=== PATIENT | male | born 1970 | race Caucasian/White ===

== ENCOUNTER 2023-11-23 13:48 | Inpatient (IN) ==
--- NOTE | 2023-11-23 14:08 | Emergency Department Note ---
Impression & Plan Alcohol withdrawal delirium, Alcohol withdrawal, Alcoholic hepatitis, Encephalopathy, Alcohol withdrawal seizure, Hypoxia ED Provider Note NAME: RM CALL AGE: 52 SEX: M : 1970 ARRIVES VIA: Ambulance INFORMANT: Patient ED PROVIDER(S): Sotero Byrne DO CHIEF COMPLAINT: withdraw HPI: Patient is a 52-year-old male who presents the ER from [facility] for withdrawal. He notes he normally drinks 8-10 beers a day. Last time drink was last night. Notes he cannot stop shaking. He was at [facility] he was shaking diaphoretic and hallucinating consequently sent him here per EMS. Denies any headache or change in vision. No chest pain or shortness of breath. Admits to nausea but no vomiting. No dysuria, urgency, or frequency. No other exacerbating or remitting factors. ADDITIONAL HISTORY OBTAINED: Per HPI Chronic Medical/Social Conditions Affecting Care: Per HPI PAST MEDICAL HISTORY:See Below PAST SURGICAL HISTORY:See Below FAMILY HISTORY:See Below SOCIAL HISTORY:See Below HOME MEDICATIONS:See Below ALLERGIES:See Below VITALS:See Below PHYSICAL EXAMINATION: GENERAL: Sitting up in bed, alert, diaphoretic, shaking/tremulous EYE EXAM: normal conjunctiva. PERRL and EOM's grossly intact. OROPHARYNX: no exudate, no erythema, lips, buccal mucosa, and tongue normal and mucous membranes are moist NECK: supple, no nuchal rigidity, no adenopathy, non-tender LUNGS: Clear to auscultation. Normal chest wall mechanics HEART: no murmurs, S1 normal and S2 normal ABDOMEN: abdomen soft, non-tender, normo-active bowel sounds, no masses, no rebound or guarding. BACK: Back is symmetrical on inspection and there is no deformity, no midline tenderness, no CVA tenderness. SKIN: no rashes and no bruising UPPER EXTREMITIES: upper extremities are grossly normal. LOWER EXTREMITIES: No pitting edema. NEURO EXAM: Normal sensorium oriented to person place and time with diffuse tremors, cranial nerves II-XII grossly intact, normal speech, no gross weakness of arms, no gross weakness of legs. MEDICAL DECISION MAKING: Patient is a 52-year-old male who presents the ER for possible alcohol withdrawal. Upon arrival he is found to be hypertensive tachycardic and tremulous. IVs were established blood work was obtained. Labs show no significant leukocytosis or anemia. There is a thrombocytopenia at 79 likely secondary to alcohol abuse but no old to compare to. BMP with a T. bili of 3.9 and an AST of 177. ALT was normal. Lipase normal. Patient was given a total of 10 mg of Ativan and intervals due to the withdrawal in combination with 5 mg of Valium as well as 260 mg of phenobarbital. Patient did become slightly hypoxic. He did have 2 seizures witnessed by nursing staff which by the time I got into the room were resolved. Patient was admitted to the hospitalist and thermal intelligence analyst did present at bedside and evaluate the patient. Consults/Care Managements Discussions: Per [facility] Triage Nursing notes reviewed. Limited review of prior medical records performed Vital Signs: reviewed and remarkable for HTN, tachy Differential diagnosis: Infection, dehydration, metabolic abnormality, hypo/hyperglycemia, electrolyte disturbance, anemia, hypoxia, cardiac sources, intracerebral event, toxicologic, neurologic, as well as other pathologies. ER treatment provided: See below Diagnostics interpreted by me include EKG and cardiac monitoring as listed below: -Cardiac Monitoring: An order was placed for continuous cardiac monitoring. The monitor shows a rate of 101 with sinus rhythm. -ECG: Sinus rhythm rate of 100 Normal axis No PVCs QTc 452 -Laboratory studies:Interpreted by me as stated above in MDM and shown below. Imaging studies: Xrays: As interpreted by me: Portable AP upright 1 view of the chest shows no focal infiltrate CTs show: none Procedures:none Critical Care: I have personally spent 125 minutes of critical care time in the direct management of this patient. This includes bedside care, interpretation of diagnostic studies, and testing, discussion with consultants, patient, and family members, and other required patient management activities. This 125 minutes is in excess of all separately billable procedures. Past Med/Surg History Problem List (Updated 11/23/23 @ 20:32 by Sotero Byrne DO) Hypoxia (Acute) Alcohol withdrawal seizure (Acute) Alcohol withdrawal delirium (Acute) Encephalopathy (Acute) Alcoholic hepatitis (Acute) Alcohol withdrawal (Acute) Social History Smoking Status: Unknown if ever smoked Hx Alcohol Use: Yes Alcohol type: beer Preferred Language: Lithuanian Communication Ability: Effective Hazmat Technician Required: No Beliefs That Will Affect Care: None Current Living Situation Comment: from [facility] Feels Safe at Home: Declines to Answer Home Meds Home Medications Medication Instructions Recorded Confirmed Unobtainable 11/23/23 11/23/23 Results & Data (ED) Vital Signs Vital Signs - 24 hr 11/23/23 13:54 11/23/23 13:56 11/23/23 14:00 Temperature 36.9 C Temperature Source Oral Pulse Rate 106 H 105 H 104 H Pulse Rate from SpO2 Sensor Respiratory Rate 26 H Respiratory Effort / Characteristics Spontaneous Blood Pressure 117/103 H Blood Pressure Mean 107 Pulse Oximetry 95 Oxygen Delivery Method Room Air Sepsis Recent Fever Within 48 Hours No Sepsis New/Unexplained Change in Mental Status No Sepsis Action Taken by Nursing No Action Required 11/23/23 14:01 11/23/23 14:01 11/23/23 14:05 Temperature Temperature Source Pulse Rate 106 H Pulse Rate from SpO2 Sensor Respiratory Rate Respiratory Effort / Characteristics Blood Pressure 159/105 H Blood Pressure Mean 112 Pulse Oximetry 95 Oxygen Delivery Method Room Air Sepsis Recent Fever Within 48 Hours Sepsis New/Unexplained Change in Mental Status Sepsis Action Taken by Nursing 11/23/23 14:10 11/23/23 14:15 11/23/23 14:15 Temperature Temperature Source Pulse Rate 106 H 102 H Pulse Rate from SpO2 Sensor 105 H 102 H Respiratory Rate Respiratory Effort / Characteristics Blood Pressure 157/90 H Blood Pressure Mean 106 Pulse Oximetry 95 94 Oxygen Delivery Method Sepsis Recent Fever Within 48 Hours Sepsis New/Unexplained Change in Mental Status Sepsis Action Taken by Nursing 11/23/23 14:20 11/23/23 14:30 11/23/23 14:30 Temperature Temperature Source Pulse Rate 118 H 99 H Pulse Rate from SpO2 Sensor 100 H 99 H Respiratory Rate 24 Respiratory Effort / Characteristics Blood Pressure 162/94 H Blood Pressure Mean 112 Pulse Oximetry 94 94 Oxygen Delivery Method Sepsis Recent Fever Within 48 Hours Sepsis New/Unexplained Change in Mental Status Sepsis Action Taken by Nursing 11/23/23 14:40 11/23/23 14:45 11/23/23 14:45 Temperature Temperature Source Pulse Rate 95 H 94 H Pulse Rate from SpO2 Sensor 95 H 95 H Respiratory Rate Respiratory Effort / Characteristics Blood Pressure 148/89 H Blood Pressure Mean 97 Pulse Oximetry 95 94 Oxygen Delivery Method Sepsis Recent Fever Within 48 Hours Sepsis New/Unexplained Change in Mental Status Sepsis Action Taken by Nursing 11/23/23 14:50 11/23/23 15:00 11/23/23 15:00 Temperature Temperature Source Pulse Rate 92 H 90 Pulse Rate from SpO2 Sensor 90 88 Respiratory Rate 18 Respiratory Effort / Characteristics Blood Pressure 145/99 H Blood Pressure Mean 110 Pulse Oximetry 95 97 Oxygen Delivery Method Sepsis Recent Fever Within 48 Hours Sepsis New/Unexplained Change in Mental Status Sepsis Action Taken by Nursing 11/23/23 15:10 11/23/23 15:15 11/23/23 15:15 Temperature Temperature Source Pulse Rate 86 87 Pulse Rate from SpO2 Sensor 87 Respiratory Rate Respiratory Effort / Characteristics Blood Pressure 134/93 Blood Pressure Mean 102 Pulse Oximetry 97 93 Oxygen Delivery Method Sepsis Recent Fever Within 48 Hours Sepsis New/Unexplained Change in Mental Status Sepsis Action Taken by Nursing 11/23/23 15:20 11/23/23 15:30 11/23/23 15:30 Temperature Temperature Source Pulse Rate 92 H 86 Pulse Rate from SpO2 Sensor 94 H Respiratory Rate 24 Respiratory Effort / Characteristics Blood Pressure 142/90 H Blood Pressure Mean 102 Pulse Oximetry Oxygen Delivery Method Sepsis Recent Fever Within 48 Hours Sepsis New/Unexplained Change in Mental Status Sepsis Action Taken by Nursing 11/23/23 15:40 11/23/23 15:45 11/23/23 15:45 Temperature Temperature Source Pulse Rate 88 82 Pulse Rate from SpO2 Sensor Respiratory Rate 24 Respiratory Effort / Characteristics Blood Pressure 137/84 Blood Pressure Mean 109 Pulse Oximetry Oxygen Delivery Method Sepsis Recent Fever Within 48 Hours Sepsis New/Unexplained Change in Mental Status Sepsis Action Taken by Nursing 11/23/23 15:50 11/23/23 16:00 11/23/23 16:00 Temperature Temperature Source Pulse Rate 83 90 Pulse Rate from SpO2 Sensor Respiratory Rate 24 Respiratory Effort / Characteristics Blood Pressure 166/96 H Blood Pressure Mean 118 Pulse Oximetry Oxygen Delivery Method Sepsis Recent Fever Within 48 Hours Sepsis New/Unexplained Change in Mental Status Sepsis Action Taken by Nursing 11/23/23 16:15 11/23/23 16:15 11/23/23 16:20 Temperature Temperature Source Pulse Rate 105 H 102 H Pulse Rate from SpO2 Sensor 102 H 103 H Respiratory Rate Respiratory Effort / Characteristics Blood Pressure 147/92 H Blood Pressure Mean 102 Pulse Oximetry 94 92 Oxygen Delivery Method Sepsis Recent Fever Within 48 Hours Sepsis New/Unexplained Change in Mental Status Sepsis Action Taken by Nursing 11/23/23 16:30 11/23/23 16:30 11/23/23 16:40 Temperature Temperature Source Pulse Rate 96 H 99 H Pulse Rate from SpO2 Sensor 97 H 98 H Respiratory Rate 34 H Respiratory Effort / Characteristics Blood Pressure 143/95 H Blood Pressure Mean 108 Pulse Oximetry 90 91 Oxygen Delivery Method Room Air Sepsis Recent Fever Within 48 Hours Sepsis New/Unexplained Change in Mental Status Sepsis Action Taken by Nursing 11/23/23 16:46 11/23/23 16:46 11/23/23 16:50 Temperature Temperature Source Pulse Rate 109 H 97 H Pulse Rate from SpO2 Sensor 97 H Respiratory Rate 24 34 H Respiratory Effort / Characteristics Blood Pressure 163/96 H Blood Pressure Mean 130 Pulse Oximetry 96 Oxygen Delivery Method Sepsis Recent Fever Within 48 Hours Sepsis New/Unexplained Change in Mental Status Sepsis Action Taken by Nursing 11/23/23 17:00 11/23/23 17:00 Temperature Temperature Source Pulse Rate 95 H Pulse Rate from SpO2 Sensor 99 H Respiratory Rate 31 H Respiratory Effort / Characteristics Blood Pressure 141/107 H Blood Pressure Mean 111 Pulse Oximetry 97 Oxygen Delivery Method Sepsis Recent Fever Within 48 Hours Sepsis New/Unexplained Change in Mental Status Sepsis Action Taken by Nursing Laboratory Data 11/23/23 14:00 11/23/23 14:00 Lab Results 11/23/23 Range/Units 14:00 WBC 8.77 (4.8-10.8) K/ul RBC 3.99 L (4.70-6.10) M/uL Hgb 13.0 L (14.0-18.0) g/dl Hct 38.0 L (42.0-52.0) % MCV 95.2 (80.0-100.0) fL MCH 32.6 (25.0-34.0) pg MCHC 34.2 (32.0-36.0) g/dL RDW Std Deviation 50.1 H (36.4-46.3) fL RDW Coeff of Mira 14.1 (11.5-14.5) % Plt Count 79 L (130-400) K/uL MPV 12.3 (9.4-12.4) fL Immature Gran % (Auto) 0.5 % Neut % (Auto) 82.6 % Lymph % (Auto) 3.5 % Frontier % (Auto) 12.5 % Eos % (Auto) 0.0 % Baso % (Auto) 0.9 % Neut # (Auto) 7.24 H (1.40-6.50) K/uL Lymph # (Auto) 0.31 L (1.20-3.40) K/uL Frontier # (Auto) 1.10 H (0.11-0.59) K/uL Eos # (Auto) 0.00 (0.00-0.50) K/uL Baso # (Auto) 0.08 (0.00-0.20) K/uL Immature Gran # (Auto) 0.04 (0.01-0.20) K/uL Platelet Estimate Decreased L (Normal) PT 12.5 H (9.0-12.0) Seconds INR 1.2 H (0.9-1.1) APTT 28 (21-31) Seconds PTT Ratio 1.0 Sodium 136 (136-145) mmol/L Potassium 3.8 (3.5-5.1) mmol/L Chloride 99 (98-107) mmol/L Carbon Dioxide 26 (21-32) mmol/L Anion Gap 11 (3-11) BUN 10 (6-23) mg/dl Creatinine 0.80 (0.6-1.4) mg/dl Est Cr Clr Drug Dosing 125.4 ml/min Est GFR ( Amer) 119.0 ml/min Est GFR (Non-Af Amer) 102.7 ml/min BUN/Creatinine Ratio 12.5 (10-20) Glucose 104 H (70-99(Fasting)) mg/dl Calcium 9.6 (8.6-10.3) mg/dl Total Bilirubin 3.9 H (0.2-1.0) mg/dl AST 177 H (13-39) U/L ALT 40 (7-52) U/L Alkaline Phosphatase 206 H (34-104) U/L Troponin I High Sens 15.1 (0-20) pg/ml Total Protein 7.5 (6.0-8.3) gm/dl Albumin 4.3 (3.4-5.0) gm/dl Globulin 3.2 (2.5-4.0) gm/dl Albumin/Globulin Ratio 1.3 (0.9-2) Lipase 39 (11-82) U/L Ethyl Alcohol mg/dL < 10.0 (<10.0) mg/dl Administered Medications Multivitamins 10 ml/ Thiamine HCl 100 mg/ Folic Acid 1 mg/Sodium Chloride 1,011.2 mls @ 500 mls/hr IV .Q2H2M ONE Stop: 11/23/23 21:31 Last Admin: 11/23/23 20:01 Dose: 500 mls/hr Documented By: DANILO Dexmedetomidine/Sodium Chloride (Precedex) 200 mcg in 50 mls @ 9.23 mls/hr IV .Q5H26M FRANK; Protocol Stop: 11/27/23 18:52 Last Admin: 11/23/23 19:46 Dose: 0.4 mcg/kg/hr, 9.2 mls/hr Documented By: DANILO Co-signed By: VK Sodium Chloride (Nss) 1,000 mls @ 100 mls/hr IV .Q10H FRANK Stop: 12/23/23 18:52 Last Admin: 11/23/23 19:56 Dose: 100 mls/hr Documented By: DANILO Lorazepam 2 mg/ Syringe 2 mls @ 2 mls/min IV UD PRN; Protocol PRN Reason: EtOH Withdrawal AWSS Score 8,9 Stop: 12/23/23 18:52 Last Admin: 11/23/23 20:03 Dose: 2 mls/min Documented By: DANILO Discontinued Medications Diazepam (Diazepam 5 Mg/Ml 10ml Vial) Confirm Administered Dose 50 mg .ROUTE .STK-MED ONE Stop: 11/23/23 17:57 Last Admin: 11/23/23 17:59 Dose: 2.5 mg Documented By: ADRIAN Diazepam (Diazepam 5 Mg/Ml 10ml Vial) 2.5 mg IV NOW STA Stop: 11/23/23 18:04 Last Admin: 11/23/23 18:05 Dose: 2.5 mg Documented By: ADRIAN Diazepam (Diazepam 5 Mg/Ml 10ml Vial) 2.5 mg IV NOW STA Stop: 11/23/23 18:07 Last Admin: 11/23/23 17:59 Dose: 2.5 mg Documented By: ADRIAN Thiamine HCl 100 mg/ Syringe 10 mls @ 2 mls/min IV NOW STA Stop: 11/23/23 14:12 Last Admin: 11/23/23 14:39 Dose: 2 mls/min Documented By: HS Folic Acid 1 mg/ Syringe 10 mls @ 5 mls/min IV NOW STA Stop: 11/23/23 14:09 Last Admin: 11/23/23 14:39 Dose: 5 mls/min Documented By: HS Sodium Chloride (Nss) 1,000 mls @ 999 mls/hr IV .Q1H1M FRANK Stop: 11/23/23 16:15 Last Infusion: 11/23/23 16:05 Dose: Infused Documented By: Admin: 11/23/23 14:39 Dose: 999 mls/hr Documented By: Infusion: 11/23/23 14:39 Dose: Infused Documented By: Admin: 11/23/23 14:13 Dose: 999 mls/hr Documented By: HS Acetylcysteine 13,850 mg/ (Dextrose) 269.25 mls @ 269.25 mls/hr IV ONCE ONE; Protocol Stop: 11/23/23 19:59 Last Admin: 11/23/23 20:00 Dose: 269.3 mls/hr Documented By: DANILO Lorazepam (Lorazepam 1 Mg/1 Ml Syr Ed Inj Use) 2 mg IV ONE STA Stop: 11/23/23 14:06 Last Admin: 11/23/23 14:13 Dose: 2 mg Documented By: FACUNDO Lorazepam (Lorazepam 1 Mg/1 Ml Syr Ed Inj Use) 3 mg IV ONE STA Stop: 11/23/23 16:06 Last Admin: 11/23/23 16:11 Dose: 3 mg Documented By: ADRIAN Lorazepam (Lorazepam 1 Mg/1 Ml Syr Ed Inj Use) 2 mg IV ONE STA Stop: 11/23/23 16:29 Last Admin: 11/23/23 16:59 Dose: 2 mg Documented By: ADRIAN Lorazepam (Lorazepam 1 Mg/1 Ml Syr Ed Inj Use) 2 mg IV ONE STA Stop: 11/23/23 17:39 Last Admin: 11/23/23 17:43 Dose: 2 mg Documented By: FRAN Phenobarbital Sodium (Phenobarbital Sodium 65 Mg/Ml Vial) 130 mg IV NOW STA Stop: 11/23/23 18:03 Last Admin: 11/23/23 18:10 Dose: Not Given Documented By: ADRIAN Phenobarbital Sodium (Phenobarbital Sodium 65 Mg/Ml Vial) 260 mg IV NOW STA Stop: 11/23/23 18:06 Last Admin: 11/23/23 18:09 Dose: 260 mg Documented By: ADRIAN Imaging Data Radiologist's Impression: Chest X-Ray 11/23/23 14:05 XR chest 1V portable CLINICAL HISTORY: Chest pain, nonspecific COMPARISON STUDY: No previous studies for comparison. FINDINGS: No pneumothorax or pleural effusion is present. There is moderate enlargement of the cardiac silhouette. Pulmonary vascularity is normal. No consolidation is present. IMPRESSION: No acute cardiopulmonary findings. Cardiomegaly. ACT 112: Negative or not required by law. Electronically signed by: Williams Martínez M.D. 11/23/2023 2:32 PM Discharge Plan Visit Data Chief Complaint: Alcohol Withdrawal Stated Complaint: ALCOHOL DETOX ED Provider: Sotero Byrne Discharge Problem: Alcohol withdrawal delirium, Alcohol withdrawal, Alcoholic hepatitis, Encephalopathy, Alcohol withdrawal seizure, Hypoxia Patient Disposition: Admitted As Inpatient Discharge Instructions Interventions: ED Discharge Assessment Last Done: 11/23/23 18:26 Discharge Problem: Alcohol withdrawal Qualifiers: Complication of substance-induced condition: with delirium Qualified Code(s): F 10.931 - Alcohol use, unspecified with withdrawal delirium Alcoholic hepatitis Qualifiers: Ascites presence: unspecified Qualified Code(s): K70.10 - Alcoholic hepatitis without ascites Alcohol withdrawal seizure Qualifiers: Complication of substance-induced condition: with unspecified complication Q ualified Code(s): F10.939 - Alcohol use, unspecified with withdrawal, unspecified
[2023-11-23] MEDS: LORazepam 1 MG/1 ML SYR ED Inj Use IV STA ×4 (14:13→17:43)
[2023-11-23] MEDS: SODIUM CHLORIDE 0.9% 1,000 ML IV SCH ×2 (14:13→19:56)
--- NOTE | 2023-11-23 14:34 | XRay Report ---
XR chest 1V portable CLINICAL HISTORY: Chest pain, nonspecific COMPARISON STUDY: No previous studies for comparison. FINDINGS: No pneumothorax or pleural effusion is present. There is moderate enlargement of the cardia c silhouette. Pulmonary vascularity is normal. No consolidation is present. IMPRESSION: No acute cardiopulmonary findings. Cardiomegaly. ACT 112: Negative or not required by law. Electronically signed by: Williams Martínez M.D. 11/23/2023 2:32 PM
[2023-11-23] MEDS: THIAMINE HCL 100 MG in SYRINGE 9 ML IV STA (14:39)
[2023-11-23] MEDS: FOLIC ACID 1 MG in SYRINGE 9.8 ML IV STA (14:39)
[2023-11-23 14:46] LABS: Basophils # (auto) 0.08 K/uL (0.00-0.20); Basophils % (auto) 0.9 %; Immature Granulocytes # (auto) 0.04 K/uL (0.01-0.20); Immature Granulocytes % (auto) 0.5 %; Lymphocytes # (auto) 0.31 K/uL (1.20-3.40); Lymphocytes % (auto) 3.5 %; Mean Corpuscular Hemoglobin 32.6 pg (25.0-34.0); Mean Corpuscular Hgb Conc 34.2 g/dL (32.0-36.0); Mean Corpuscular Volume 95.2 fL (80.0-100.0); Mean Platelet Volume 12.3 fL (9.4-12.4); Monocytes % (auto) 12.5 %; Neutrophils # (auto) 7.24 K/uL (1.40-6.50); Neutrophils % (auto) 82.6 %; Platelet Count 79 K/uL (130-400); Platelet Estimate Decreased (Normal); RDW Coefficient of Variation 14.1 % (11.5-14.5); RDW Standard Deviation 50.1 fL (36.4-46.3); Red Blood Count 3.99 M/uL (4.70-6.10); White Blood Count 8.77 K/ul (4.8-10.8)
[2023-11-23 15:06] LABS: Albumin Globulin Ratio 1.3 (0.9-2); Albumin Level 4.3 gm/dl (3.4-5.0); BUN Creatinine Ratio 12.5 (10-20); Bilirubin,Total 3.9 mg/dl (0.2-1.0); Calcium 9.6 mg/dl (8.6-10.3); Creatinine Clr Calc Pharmacy 125.4 ml/min; Est GFR (Non-African American) 102.7 ml/min; Globulin 3.2 gm/dl (2.5-4.0); Potassium 3.8 mmol/L (3.5-5.1); Total Protein 7.5 gm/dl (6.0-8.3)
[2023-11-23 15:10] LABS: Troponin I High Sensitivity 15.1 pg/ml (0-20)
--- NOTE | 2023-11-23 17:22 | History & Physical Report ---
Date of Service November 23, 2023 Assessment & Plan (1) Alcohol withdrawal: Plan: Based on report, patient is a chronic drinker. He stated that he drinks 8 beers every day. Per the report I got, he checked himself into drug and alcohol rehab as he wanted to quit but was found to be actively withdrawing with hallucinations, tremors and thus was sent to the emergency room The patient was given a few doses of Ativan in the emergency room He will be started on alcohol withdrawal protocol with Ativan He will be admitted to PCU bed [facility] scoring Seizure precautions IV fluids Metoprolol for hypertension or tachycardia Banana bag (2) Alcoholic hepatitis: Plan: Patient most likely has alcoholic hepatitis AST: ALT is greater than 2 Elevated bilirubin level of 4 INR has not been checked. Ordered Acute hepatitis panel ordered Acetaminophen level ordered Will calculate discriminant factor to guide treatment (3) Encephalopathy: Plan: This is most likely due to alcohol withdrawal delirium tremens and toxic encephalopathy Will manage alcohol withdrawal Monitor clinically Plan CODE STATUS: Presumed to be full code. Patient is not able to participate in decision-making DVT prophylaxis: Lovenox will be started tomorrow. Thrombocytopenia noted. Will keep a close eye on platelet count and monitor for bleeding History of Present Illness Chief Complaint: "Cannot stop shaking" Primary Care Provider: NO PCP This is a 52-year-old male who presented to the ER with the above chief complaint. The patient is a poor historian at this time. Most of the history was obtained from ED report and documentation. Per report, patient is a heavy drinker. He drinks 8 beers every day. His last drink was last night. He then checked himself into drug and alcohol rehab because he wanted to quit drinking. At the rehab center, he was noted to be shaking, sweaty and hallucinating and thus was sent to the emergency room. He is currently very restless, fidgety, confused and is not able to answer questions accurately. He is getting easily distracted. He tells me that he does not take any medication on a regular basis. Home Medications Medication Instructions Recorded Confirmed Type Unobtainable 11/23/23 11/23/23 History Past Med/Surg History Problem List (Updated 11/23/23 @ 17:32 by Mary Reyes MD) Encephalopathy Alcoholic hepatitis Alcohol withdrawal Social History Smoking Status: Never smoker Feels Safe at Home: Yes Review of Systems Review of Systems: Unobtainable due to cognitive status Physical Exam Physical Exam: General appearance: Awake, confused. AO x 1. Restless and fidgety. Getting easily distracted Pupils: Equally reactive to light and accommodation Neck: No masses, no thyromegaly Respiration: Clear to auscultation bilaterally. Normal effort Cardiovascular: S1-S2/tachycardic regular rhythm. No murmur, rubs or gallop. No edema. Abdomen: Soft, nontender, nondistended. No hepatosplenomegaly Musculoskeletal: No clubbing, no cyanosis, normal range of motion Skin: No nodules. Neuro exam: Cranial nerves intact, sensation grossly intact Psychiatric: Patient does not seem to have good judgment or insight at this time. AO x 1. Lymphatics: No cervical or axillary lymphadenopathy noted Results & Data Results & Data Vital Signs (Past 12 Hours) Vital Signs Temp Pulse Resp BP Pulse Ox O2 Del Method 11/23/23 16:30 96 H 90 Room Air 11/23/23 16:30 143/95 H 11/23/23 16:20 102 H 92 11/23/23 16:15 147/92 H 11/23/23 16:15 105 H 94 11/23/23 16:00 90 11/23/23 16:00 166/96 H 11/23/23 15:50 83 24 11/23/23 15:45 82 11/23/23 15:45 137/84 11/23/23 15:40 88 24 11/23/23 15:30 86 11/23/23 15:30 142/90 H 11/23/23 15:20 92 H 24 11/23/23 15:15 87 93 11/23/23 15:15 134/93 11/23/23 15:10 86 97 11/23/23 15:00 90 18 97 11/23/23 15:00 145/99 H 11/23/23 14:50 92 H 95 11/23/23 14:45 148/89 H 11/23/23 14:45 94 H 94 11/23/23 14:40 95 H 95 11/23/23 14:30 162/94 H 11/23/23 14:30 99 H 24 94 11/23/23 14:20 118 H 94 11/23/23 14:15 102 H 94 11/23/23 14:15 157/90 H 11/23/23 14:10 106 H 95 11/23/23 14:05 95 Room Air 11/23/23 14:01 159/105 H 11/23/23 14:01 106 H 11/23/23 14:00 104 H 11/23/23 13:56 36.9 C 105 H 26 H 117/103 H 95 Room Air 11/23/23 13:54 106 H Laboratory Results Abnormal lab results 11/23/23 Range/Units 14:00 RBC 3.99 L (4.70-6.10) M/uL Hgb 13.0 L (14.0-18.0) g/dl Hct 38.0 L (42.0-52.0) % RDW Std Deviation 50.1 H (36.4-46.3) fL Plt Count 79 L (130-400) K/uL Neut # (Auto) 7.24 H (1.40-6.50) K/uL Lymph # (Auto) 0.31 L (1.20-3.40) K/uL Ada # (Auto) 1.10 H (0.11-0.59) K/uL Platelet Estimate Decreased L (Normal) Glucose 104 H (70-99(Fasting)) mg/dl Total Bilirubin 3.9 H (0.2-1.0) mg/dl AST 177 H (13-39) U/L Alkaline Phosphatase 206 H (34-104) U/L Diagnostic Findings Chest X-Ray 11/23/23 14:05 XR chest 1V portable CLINICAL HISTORY: Chest pain, nonspecific COMPARISON STUDY: No previous studies for comparison. FINDINGS: No pneumothorax or pleural effusion is present. There is moderate enlargement of the cardiac silhouette. Pulmonary vascularity is normal. No consolidation is present. IMPRESSION: No acute cardiopulmonary findings. Cardiomegaly. ACT 112: Negative or not required by law. Electronically signed by: Williams Martínez M.D. 11/23/2023 2:32 PM Code Status & VTE Plan VTE Prophylaxis Plan VTE Prophylaxis will be ordered: Yes PG Care Time/CCT Total # of Minutes Spent Total Time Spent with Patient: Total time spent is greater than 50% in coordination of care (as documented) at patient's floor/unit and/or counseling patient: Coding Level of Care Code 82578 INT INP/OBS CARE MIN Diagnoses Alcohol withdrawal F10.939 Alcoholic hepatitis K70.10 Encephalopathy G93.40
--- NOTE | 2023-11-23 17:52 | Electrocardiogram Report ---
Test Reason : Blood Pressure : / mmHG Vent. Rate : 100 BPM Atrial Rate : 100 BPM P-R Int : 170 ms QRS Dur : 096 ms QT Int : 352 ms P-R-T Axes : -04 -30 040 degrees QTc Int : 454 ms Normal sinus rhythm Left axis deviation Pulmonary disease pattern Incomplete right bundle branch block Abnormal ECG No previous ECGs available Confirmed by Gopi Paez ([id number]) on 11/23/2023 5:52:43 PM Referred By: Confirmed By:Gopi Paez
[2023-11-23] MEDS: diazePAM 5 MG/ML 10ML VIAL IV STA ×2 (17:59→18:05)
[2023-11-23] MEDS: diazePAM 5 MG/ML 10ML VIAL ONE (17:59)
[2023-11-23] MEDS: PHENobarbital sodium 65 MG/ML VIAL IV STA ×2 (18:09→18:10)
[2023-11-23] MEDS ORDERED: PHENobarbital PO Alcohol Withdrawal PO STA (18:40)
[2023-11-23] MEDS ORDERED: AcetylCYSTEINE IV 21 HR REGIMEN (>40KG) IV STA (18:46)
[2023-11-23] MEDS ORDERED: STAT IV/IM STA (18:46)
--- NOTE | 2023-11-23 18:52 | Critical Care Consultation ---
Date of Consultation November 23, 2023 Assessment & Plan (1) Alcohol withdrawal delirium: (2) Alcoholic hepatitis: Plan 52-year-old male with a history of significant alcohol abuse with last drink yesterday who presented from drug [facility] alcohol rehab with seizure-like activity. In the ER he was found to have seizures x 2 and has received 9 mg of Ativan and 5 mg of diazepam. He is being brought to the ICU due to severe alcohol withdrawal. Will continue alcohol withdrawal protocol with as needed Ativan and initiate Precedex for sympathetic response. Will also start the patient on phenobarb. Will start end-tidal CO2 monitoring. Will give the patient NAC protocol for alcoholic hepatitis. Monitor LFTs daily. Check coags. Obtain liver ultrasound. Obtain hepatitis panel. Evaluate airway closely as patient may need intubation due to large amounts of sedation required to control his DTs. Discussed extensively with hospitalist service and bedside nursing. Discussed with overnight HERNAN. CRITICAL CARE TIME - I have personally spent 48 minutes of critical care time in the direct management of this patient. This is a life/limb threatening event. This includes time spent evaluating patient, direct bedside care, chart review, placing orders, interpretation of diagnostic studies, discussion with consultants, patient, and family members, as well as other required patient management activities. This time is exclusive of all separately billable procedures, and teaching time and separate from and in addition to any other critical care service time. History of Present Illness Reason for Consultation: Acute alcohol withdrawal Attending Physician: Mary Reyes MD History of Present Illness 52-year-old male who was found delirious at drug and alcohol rehab was brought in via EMS. Found to have 2 witnessed seizures in the ER. Given 9 mg of IV Ativan in the ER 5 mg of diazepam. On exam he is completely delirious and unable to answer questions appropriately. He is alert. He is trying to get out of bed. Restraints have been placed. No family available at bedside to obtain collateral information. I was able to review this chart and discussed the case with the admitting hospitalist, multiple bedside nurses and respiratory therapist. There was concern at 1 point for desaturations and potential intubation. When I evaluated the patient he was saturating in the mid 90s on room air. He was mildly tachypneic. Labs generally unremarkable aside from mild transaminitis. Home Medications Medication Instructions Recorded Confirmed Type Unobtainable 11/23/23 11/23/23 History Patient History Social History Smoking Status: Never smoker Feels Safe at Home: Yes Review of Systems Review of Systems: Unobtainable due to cognitive status Physical Exam Physical Exam: Constitutional: Actively delirious. Mildly distressed. Eyes: Pupils are equal round and reactive to light. Conjunctivae are normal. Anicteric sclera. Ears nose, mouth and throat: Mallampati class 2. Normal posterior oropharynx. Uvula is midline. Neck: Trachea is midline. Visual inspection is normal. Respiratory: Clear to auscultation bilaterally. Mildly tachypneic. Cardiovascular: Regular rate and rhythm. No murmurs. No edema. Gastrointestinal: Normal bowel sounds, soft, nontender and nondistended. No hepatosplenomegaly noted. Musculoskeletal: No cyanosis. Patient is able to move all extremities. Strength is 5 out of 5 in the upper and lower extremities. Skin: No rashes, warm dry and intact. Neurologic: No obvious focal neurological deficits seen. Psychiatric: Disoriented and delirious. Results & Data Results & Data Vital Signs (Past 12 Hours) Vital Signs Temp Pulse Resp BP Pulse Ox O2 Del Method 11/23/23 18:10 113 H 88 L 11/23/23 18:00 150/93 H 11/23/23 18:00 101 H 43 H 95 11/23/23 17:59 120 H 11/23/23 17:50 109 H 37 H 95 11/23/23 17:40 150 H 33 H 82 L 11/23/23 17:39 97 H 11/23/23 17:30 157/107 H 11/23/23 17:30 107 H 23 94 11/23/23 17:20 100 H 28 H 94 11/23/23 17:10 95 H 24 96 11/23/23 17:00 141/107 H 11/23/23 17:00 95 H 31 H 97 11/23/23 16:50 97 H 34 H 96 11/23/23 16:46 109 H 24 11/23/23 16:46 163/96 H 11/23/23 16:40 99 H 34 H 91 11/23/23 16:30 96 H 90 Room Air 11/23/23 16:30 143/95 H 11/23/23 16:20 102 H 92 11/23/23 16:15 147/92 H 11/23/23 16:15 105 H 94 11/23/23 16:00 90 11/23/23 16:00 166/96 H 11/23/23 15:50 83 24 11/23/23 15:45 82 11/23/23 15:45 137/84 11/23/23 15:40 88 24 11/23/23 15:30 86 11/23/23 15:30 142/90 H 11/23/23 15:20 92 H 24 11/23/23 15:15 87 93 11/23/23 15:15 134/93 11/23/23 15:10 86 97 11/23/23 15:00 90 18 97 11/23/23 15:00 145/99 H 11/23/23 14:50 92 H 95 11/23/23 14:45 148/89 H 11/23/23 14:45 94 H 94 11/23/23 14:40 95 H 95 11/23/23 14:30 162/94 H 11/23/23 14:30 99 H 24 94 11/23/23 14:20 118 H 94 11/23/23 14:15 102 H 94 11/23/23 14:15 157/90 H 11/23/23 14:10 106 H 95 11/23/23 14:05 95 Room Air 11/23/23 14:01 159/105 H 11/23/23 14:01 106 H 11/23/23 14:00 104 H 11/23/23 13:56 36.9 C 105 H 26 H 117/103 H 95 Room Air 11/23/23 13:54 106 H Coding Level of Care Code 14158 CRITICAL CARE 1ST 30-74M Diagnoses Alcohol withdrawal delirium F10.931 Alcoholic hepatitis K70.10
[2023-11-23] MEDS ORDERED: ACETAMINOPHEN 325 MG TAB PO PRN (18:53)
[2023-11-23] MEDS ORDERED: STAT IV Infusion **Titration per Protocol STA (18:53)
[2023-11-23] MEDS ORDERED: Ativan IV Alcohol Withdrawal--Active Protocol IV PRN (18:53)
[2023-11-23] MEDS ORDERED: ONDANSETRON INJ 2 MG/ML 2 ML VIAL IV PRN (18:53)
[2023-11-23 19:23] LABS: INR 1.2 (0.9-1.1); Partial Thromboplastin Time 28 Seconds (21-31); Prothrombin Time 12.5 Seconds (9.0-12.0)
[2023-11-23] MEDS: dexMEDEtomidine 200 MCG/50 ML BAG IV SCH (19:46)
[2023-11-23] MEDS: MULTI-VITAMIN INFUSION 10 ML, THIAMINE HCL 100 MG, FOLIC ACID 1 MG in SODIUM CHLORIDE 0... IV ONE (20:01)
[2023-11-23] MEDS: LORazepam 2 MG in SYRINGE 1 ML IV PRN (20:03)
[2023-11-23] MEDS: ACETYLCYSTEINE IV ONE (21:26)
[2023-11-23] MEDS: DEXTROSE 5% IV ONE (21:26)
[2023-11-23] MEDS: levETIRAcetam 500 MG/5 ML VIAL IV STA (21:28)
[2023-11-23] MEDS: Patient's ALLERGY Info needs ENTERED SCH (21:37)
[2023-11-23] MEDS ORDERED: PHENobarbital sodium 130 MG/ML VIAL IM SCH (21:45)
[2023-11-23] MEDS: THIAMINE HCL 500 MG in SODIUM CHLORIDE 0.9% 50 ML IV SCH (21:56)
[2023-11-24] MEDS: PHENobarbital sodium 65 MG/ML VIAL IV PRN (04:11)
[2023-11-24 05:39] LABS: Hematocrit (blood only) 33.6 % (42.0-52.0); Hemoglobin 11.7 g/dl (14.0-18.0); Mean Corpuscular Hemoglobin 33.3 pg (25.0-34.0); Mean Corpuscular Hgb Conc 34.8 g/dL (32.0-36.0); Mean Corpuscular Volume 95.7 fL (80.0-100.0); Mean Platelet Volume 12.8 fL (9.4-12.4); Platelet Count 66 K/uL (130-400); RDW Coefficient of Variation 14.1 % (11.5-14.5); RDW Standard Deviation 49.9 fL (36.4-46.3); Red Blood Count 3.51 M/uL (4.70-6.10); White Blood Count 7.17 K/ul (4.8-10.8)
[2023-11-24 06:04] LABS: INR 1.3 (0.9-1.1)
[2023-11-24 06:08] LABS: Albumin Globulin Ratio 1.4 (0.9-2); Albumin Level 3.4 gm/dl (3.4-5.0); BUN Creatinine Ratio 16.9 (10-20); Bilirubin,Total 3.6 mg/dl (0.2-1.0); Calcium 7.4 mg/dl (8.6-10.3); Creatinine Clr Calc Pharmacy 154.4 ml/min; Est GFR (African American) 129.6 ml/min; Est GFR (Non-African American) 111.9 ml/min; Globulin 2.4 gm/dl (2.5-4.0); Potassium 3.5 mmol/L (3.5-5.1); Total Protein 5.8 gm/dl (6.0-8.3)
[2023-11-24] MEDS: LORazepam 3 MG in SYRINGE 1.5 ML IV PRN (08:25)
[2023-11-24] MEDS: POTASSIUM CHLORIDE / WTR 10 MEQ/100 ML PLCT IV SCH (08:31)
[2023-11-24] MEDS: FOLIC ACID 1 MG in SYRINGE 9.8 ML IV SCH (08:33)
--- NOTE | 2023-11-24 08:57 | Critical Care Progress Note ---
Date of Service November 24, 2023 Assessment & Plan (1) Alcohol withdrawal delirium: (2) Alcoholic hepatitis: Plan 52-year-old male with a history of significant alcohol abuse with last drink yesterday who presented from drug and alcohol rehab with seizure-like activity. In the ER he was found to have seizures x 2 and has received 9 mg of Ativan and 5 mg of diazepam. He is being brought to the ICU due to severe alcohol withdrawal. Will continue alcohol withdrawal protocol with as needed Ativan and initiate Precedex for sympathetic response. Continue phenobarbital. Will start end- tidal CO2 monitoring. Complete NAC protocol. LFTs improving. Monitor LFTs daily. Follow-up liver ultrasound and hepatitis panel. Continue high-dose thiamine. Replace electrolytes as needed. DC NSS fluid. Possible downgrade later today to PCU if he has improvement in mental status. W ill monitor closely. CRITICAL CARE TIME - I have personally spent 36 minutes of critical care time in the direct management of this patient. This is a life/limb threatening event. This includes time spent evaluating patient, direct bedside care, chart review, placing orders, interpretation of diagnostic studies, discussion with consultants, patient, and family members, as well as other required patient management activities. This time is exclusive of all separately billable procedures, and teaching time and separate from and in addition to any other critical care service time. Admission and Anticipated Discharge Date Admission Date: November 23, 2023 Subjective Patient with decreasing GCS overnight and additional dose of phenobarbital were held along with Precedex. This morning he is tremulous with an AWSS score of 12. He is able to tell me his name and that he is currently in the hospital. He received an as needed dose of phenobarbital and Ativan this morning. Review of Systems Review of Systems: All systems reviewed & are unremarkable except as noted in HPI & below Physical Exam Physical Exam: Constitutional: Actively delirious. Mildly distressed. Eyes: Pupils are equal round and reactive to light. Conjunctivae are normal. Anicteric sclera. Ears nose, mouth and throat: Mallampati class 2. Normal posterior oropharynx. Uvula is midline. Neck: Trachea is midline. Visual inspection is normal. Respiratory: Clear to auscultation bilaterally. Mildly tachypneic. Cardiovascular: Regular rate and rhythm. No murmurs. No edema. Gastrointestinal: Normal bowel sounds, soft, nontender and nondistended. No hepatosplenomegaly noted. Musculoskeletal: No cyanosis. Patient is able to move all extremities. Strength is 5 out of 5 in the upper and lower extremities. Skin: No rashes, warm dry and intact. Neurologic: No obvious focal neurological deficits seen. Psychiatric: Disoriented and delirious. Results & Data Results & Data Vital Signs (Past 12 Hours) Vital Signs Temp Pulse Pulse Resp BP BP Pulse Ox 11/24/23 08:07 36.7 C 78 23 129/91 100 11/24/23 05:01 134/85 11/24/23 05:01 77 0 L 99 11/24/23 05:00 80 0 L 97 11/24/23 04:50 79 0 L 95 11/24/23 04:40 82 24 96 11/24/23 04:30 77 26 H 100 11/24/23 04:20 82 0 L 98 11/24/23 04:11 82 14 146/89 H 11/24/23 04:10 103 H 7 L 99 11/24/23 04:01 146/89 H 11/24/23 04:01 83 14 100 11/24/23 04:00 83 7 L 100 11/24/23 03:50 90 9 L 100 11/24/23 03:40 74 9 L 100 11/24/23 03:30 93 H 14 98 11/24/23 03:20 75 12 100 11/24/23 03:10 75 8 L 100 11/24/23 03:00 76 22 100 11/24/23 03:00 37.6 C H 11/24/23 02:50 76 31 H 100 11/24/23 02:40 75 13 100 11/24/23 02:30 77 21 100 11/24/23 02:20 78 13 100 11/24/23 02:10 80 29 H 98 11/24/23 02:01 122/86 11/24/23 02:01 84 17 100 11/24/23 02:00 86 20 100 11/24/23 01:50 76 24 100 11/24/23 01:40 74 35 H 100 11/24/23 01:30 77 24 100 11/24/23 01:20 81 16 100 11/24/23 01:10 82 25 H 100 11/24/23 01:01 141/106 H 11/24/23 01:01 94 H 23 100 11/24/23 01:00 93 H 23 97 11/24/23 00:50 100 11/24/23 00:40 82 24 100 11/24/23 00:30 90 25 H 74 L 11/24/23 00:20 96 H 22 75 L 11/24/23 00:10 81 31 H 79 L 11/24/23 00:00 79 L 11/23/23 23:50 75 25 H 78 L 11/23/23 23:45 70 22 98 11/23/23 23:40 93 H 23 77 L 11/23/23 23:30 64 18 100 11/23/23 23:20 66 19 98 11/23/23 23:10 65 17 98 11/23/23 23:00 69 20 98 11/23/23 23:00 101/57 L 11/23/23 22:50 70 19 98 11/23/23 22:40 69 21 98 11/23/23 22:36 37.6 C H 11/23/23 22:30 71 22 99 11/23/23 22:20 79 22 97 11/23/23 22:10 79 25 H 91 11/23/23 22:00 76 19 96 11/23/23 22:00 94/66 L 11/23/23 21:50 75 14 93 11/23/23 21:40 75 22 88 L 11/23/23 21:30 80 20 90 11/23/23 21:20 72 20 92 11/23/23 21:10 72 21 92 11/23/23 21:00 130/87 11/23/23 21:00 72 19 92 11/23/23 21:00 77 19 94 O2 Del Method FiO2 11/24/23 08:07 Room Air 11/24/23 05:01 11/24/23 05:01 11/24/23 05:00 11/24/23 04:50 11/24/23 04:40 11/24/23 04:30 11/24/23 04:20 11/24/23 04:11 11/24/23 04:10 11/24/23 04:01 11/24/23 04:01 11/24/23 04:00 11/24/23 03:50 11/24/23 03:40 11/24/23 03:30 11/24/23 03:20 11/24/23 03:10 11/24/23 03:00 11/24/23 03:00 11/24/23 02:50 11/24/23 02:40 11/24/23 02:30 11/24/23 02:20 11/24/23 02:10 11/24/23 02:01 11/24/23 02:01 11/24/23 02:00 11/24/23 01:50 11/24/23 01:40 11/24/23 01:30 11/24/23 01:20 11/24/23 01:10 11/24/23 01:01 11/24/23 01:01 11/24/23 01:00 11/24/23 00:50 11/24/23 00:40 11/24/23 00:30 11/24/23 00:20 11/24/23 00:10 11/24/23 00:00 11/23/23 23:50 11/23/23 23:45 30 11/23/23 23:40 11/23/23 23:30 11/23/23 23:20 11/23/23 23:10 11/23/23 23:00 11/23/23 23:00 11/23/23 22:50 11/23/23 22:40 11/23/23 22:36 11/23/23 22:30 11/23/23 22:20 11/23/23 22:10 11/23/23 22:00 11/23/23 22:00 11/23/23 21:50 11/23/23 21:40 11/23/23 21:30 11/23/23 21:20 11/23/23 21:10 11/23/23 21:00 11/23/23 21:00 11/23/23 21:00 60 Coding Level of Care Code 72844 CRITICAL CARE 1ST 30-74M Diagnoses Alcohol withdrawal delirium F10.931 Alcoholic hepatitis K70.10 Ascites presence: unspecified (2) Alcoholic hepatitis Ascites presence: unspecified Qualified Code(s): K70.10 - Alcoholic hepatitis without ascites
[2023-11-24] MEDS ORDERED: ENOXAPARIN INJ 40 MG/0.4 ML SYR SQ SCH (09:00)
[2023-11-24] MEDS ORDERED: THIAMINE HCL 100 MG in SYRINGE 9 ML IV SCH (09:00)
--- NOTE | 2023-11-24 09:27 | Ultrasound Report ---
Exam(s): US LIVER EXAM: US Abdomen Limited CLINICAL HISTORY: Reason for exam: Transaminitis. TECHNIQUE: Real-time ultrasound of the abdomen with image documentation. COMPARISON: No relevant prior studies available. FINDINGS: Liver: There is diffuse heterogeneous configuration to the liver parenchyma with some hepatomegaly. Suspicion of nodular configuration to the surface of the liver. Gallbladder: There is some pericholecystic fluid present. There is some gallbladder sludge. IMPRESSION: Probable diffuse hepatocellular degeneration possible cirrhotic changes within the liver there is some hepatomegaly. Some pericholecystic fluid which is nonspecific in the setting of this liver abnormality probably some gallbladder sludge biliary system normal in diameter. Electronically signed by: Andrés Woodward MD 11/24/23 09:26 AM
[2023-11-24] MEDS: PHENobarbital sodium 130 MG/ML VIAL IM STA (10:38)
--- NOTE | 2023-11-24 11:27 | Communication Note ---
Date of Service: November 24, 2023 Called nakul Rivera to give updates. She also supplied more information. She states that her and the pt have been together for 9 years and even before they started seeing each other he was a heavy daily beer drinker, maybe a 12 pack a day. She states that, additionally, for the last 8 years he has been drinking hard liquor on top of his daily beer consumption. She denies knowing of him taking any other drugs currently or in the past. She states that he drinks essentially from the moment he wakes up until he goes to bed at night, so she does not know how much he really drinks in a day and he definitely drinks more on days when she is at work. She states that on this past Wednesday or Wednesday, she dumped out all the liquor and told him he needed to quit. She states he kept drinking his normal amount of beer during this time but on Wednesday started to get very shaky. She states that they were given a script for lorazepam for a trial of outpatient detox by PCP and the doses would help for maybe an hour but then on Wednesday night he seemed to just get worse. He has never tried to quit or cut back on drinking before. She states he was given a script for naltrexone but never took it. She states he has a lot of underlying anxiety and so in June he saw a PCP who started him on prosac 10 mg and then increased it to 20 mg shortly after. She states that last week they increased his prosac further from 20 mg to 40 mg since he seemed "shaky" in the office and they thought his shakiness was secondary to anxiety. She states she would like for him to go back to rehab after he is medically stable. Home med list per nakul: - losartan 100 mg daily for HTN - triamcinolone cream for skin rash - prosac 40 mg daily for anxiety - lorazepam 0.5 mg prn for alcohol withdrawal symptoms Was taking baclofen as well for hiccups but it did not help. She was updated on pt status. He is stable right now but is in severe alcohol withdrawal. She plans to visit him on Wednesday.
[2023-11-24] MEDS: LORazepam 3 MG in SYRINGE 1.5 ML IV STA (12:10)
[2023-11-24] MEDS: PHENobarbitaL 30 MG TAB PO SCH (13:07)
--- NOTE | 2023-11-24 13:55 | Hospitalist Progress Note ---
Date of Service November 24, 2023 Assessment & Plan (1) Alcohol withdrawal: Plan: Patient is a chronic heavy drinker and never tried to quit or cut back on his drinking Per the report I got, he checked himself into drug and alcohol rehab as he wanted to quit but was found to be actively withdrawing with hallucinations, tremors and thus was sent to the emergency room The patient was given a few doses of Ativan in the emergency room In the emergency room, he started having seizures She was thus admitted to the ICU. Vp Platforms on board Patient is being managed with Precedex drip, phenobarbital, Ativan Seizure precautions IV fluids Banana bag (2) Alcoholic hepatitis: Plan: Patient most likely has alcoholic hepatitis AST: ALT is greater than 2 Elevated bilirubin level of 4 INR elevated at 1.3 Discriminant factor 13. Not a candidate for steroids Acute hepatitis panel ordered, pending Acetaminophen level negative (3) Encephalopathy: Plan: This is most likely due to alcohol withdrawal delirium tremens and toxic encephalopathy Will manage alcohol withdrawal Monitor clinically (4) Benign essential hypertension: Plan: She normally takes losartan 100 mg Hold p.o. medicine for the time being (5) Anxiety: Plan: Takes Prozac at home Hold oral medications Plan CODE STATUS: Presumed to be full code. Patient is not able to participate in decision-making DVT prophylaxis: Hold Lovenox. Thrombocytopenia noted. Will keep a close eye on platelet count and monitor for bleeding Admission and Anticipated Discharge Date Admission Date: November 23, 2023 Subjective Saw the patient at bedside. When I walked in, the patient just had a seizure. The nurse was in the room. The appliance sales associate came to the room as well. Phenobarbital was ordered by the appliance sales associate. Review of Systems Review of Systems: All systems reviewed & are unremarkable except as noted in Subjective Physical Exam Physical Exam: General: Had a seizure during my encounter. Oxymask on Heart: S1, S2/regular rate and rhythm, no murmur rubs or gallops Lungs: Clear to auscultation bilaterally. Normal effort Abdomen: Soft/nontender/nondistended. No hepatosplenomegaly Extremities: No clubbing/cyanosis. No edema Behavior: Unable to assess Results & Data Results & Data Vital Signs (Past 12 Hours) Vital Signs Temp Pulse Pulse Resp BP BP Pulse Ox 11/24/23 13:00 62 18 120/78 97 11/24/23 12:07 36.9 C 87 20 147/95 H 93 11/24/23 11:39 80 22 148/91 H 97 11/24/23 10:38 82 23 143/89 H 11/24/23 10:00 94 H 23 158/84 H 94 11/24/23 09:03 80 23 136/115 H 98 11/24/23 08:07 36.7 C 78 23 129/91 100 11/24/23 06:49 76 11/24/23 05:01 134/85 11/24/23 05:01 77 0 L 99 11/24/23 05:00 80 0 L 97 11/24/23 04:50 79 0 L 95 11/24/23 04:40 82 24 96 11/24/23 04:30 77 26 H 100 11/24/23 04:20 82 0 L 98 11/24/23 04:11 82 14 146/89 H 11/24/23 04:10 103 H 7 L 99 11/24/23 04:01 146/89 H 11/24/23 04:01 83 14 100 11/24/23 04:00 83 7 L 100 11/24/23 03:50 90 9 L 100 11/24/23 03:40 74 9 L 100 11/24/23 03:30 93 H 14 98 11/24/23 03:20 75 12 100 11/24/23 03:10 75 8 L 100 11/24/23 03:00 76 22 100 11/24/23 03:00 37.6 C H 11/24/23 02:50 76 31 H 100 11/24/23 02:40 75 13 100 11/24/23 02:30 77 21 100 11/24/23 02:20 78 13 100 11/24/23 02:10 80 29 H 98 11/24/23 02:01 122/86 11/24/23 02:01 84 17 100 11/24/23 02:00 86 20 100 11/24/23 01:50 76 24 100 O2 Del Method O2 Flow Rate 11/24/23 13:00 Oxymask 2 11/24/23 12:07 Room Air 11/24/23 11:39 Room Air 11/24/23 10:38 11/24/23 10:00 Room Air 11/24/23 09:03 Room Air 11/24/23 08:07 Room Air 11/24/23 06:49 11/24/23 05:01 11/24/23 05:01 11/24/23 05:00 11/24/23 04:50 11/24/23 04:40 11/24/23 04:30 11/24/23 04:20 11/24/23 04:11 11/24/23 04:10 11/24/23 04:01 11/24/23 04:01 11/24/23 04:00 11/24/23 03:50 11/24/23 03:40 11/24/23 03:30 11/24/23 03:20 11/24/23 03:10 11/24/23 03:00 11/24/23 03:00 11/24/23 02:50 11/24/23 02:40 11/24/23 02:30 11/24/23 02:20 11/24/23 02:10 11/24/23 02:01 11/24/23 02:01 11/24/23 02:00 11/24/23 01:50 Laboratory Results Abnormal lab results 11/23/23 11/23/23 11/24/23 Range/Units 14:00 19:33 05:08 RBC 3.99 L 3.51 L (4.70-6.10) M/uL Hgb 13.0 L 11.7 L (14.0-18.0) g/dl Hct 38.0 L 33.6 L (42.0-52.0) % RDW Std Deviation 50.1 H 49.9 H (36.4-46.3) fL Plt Count 79 L 66 L (130-400) K/uL MPV 12.8 H (9.4-12.4) fL Neut # (Auto) 7.24 H (1.40-6.50) K/uL Lymph # (Auto) 0.31 L (1.20-3.40) K/uL [place] # (Auto) 1.10 H (0.11-0.59) K/uL Platelet Estimate Decreased L (Normal) PT 12.5 H 14.0 H (9.0-12.0) Seconds INR 1.2 H 1.3 H (0.9-1.1) Glucose 104 H (70-99(Fasting)) mg/dl POC Glucose (70-99) mg/dl Calcium 7.4 L D (8.6-10.3) mg/dl Total Bilirubin 3.9 H 3.6 H (0.2-1.0) mg/dl AST 177 H 124 H (13-39) U/L Alkaline Phosphatase 206 H 142 H (34-104) U/L Total Protein 5.8 L D (6.0-8.3) gm/dl Globulin 2.4 L (2.5-4.0) gm/dl Acetaminophen < 3 L (10-30) ug/ml 11/24/23 Range/Units 12:14 RBC (4.70-6.10) M/uL Hgb (14.0-18.0) g/dl Hct (42.0-52.0) % RDW Std Deviation (36.4-46.3) fL Plt Count (130-400) K/uL MPV (9.4-12.4) fL Neut # (Auto) (1.40-6.50) K/uL Lymph # (Auto) (1.20-3.40) K/uL [place] # (Auto) (0.11-0.59) K/uL Platelet Estimate (Normal) PT (9.0-12.0) Seconds INR (0.9-1.1) Glucose (70-99(Fasting)) mg/dl POC Glucose 104 H (70-99) mg/dl Calcium (8.6-10.3) mg/dl Total Bilirubin (0.2-1.0) mg/dl AST (13-39) U/L Alkaline Phosphatase (34-104) U/L Total Protein (6.0-8.3) gm/dl Globulin (2.5-4.0) gm/dl Acetaminophen (10-30) ug/ml Diagnostic Findings Chest X-Ray 11/23/23 14:05 XR chest 1V portable CLINICAL HISTORY: Chest pain, nonspecific COMPARISON STUDY: No previous studies for comparison. FINDINGS: No pneumothorax or pleural effusion is present. There is moderate enlargement of the cardiac silhouette. Pulmonary vascularity is normal. No consolidation is present. IMPRESSION: No acute cardiopulmonary findings. Cardiomegaly. ACT 112: Negative or not required by law. Electronically signed by: Williams Martínez M.D. 11/23/2023 2:32 PM Liver Ultrasound 11/23/23 18:47 Exam(s): US LIVER EXAM: US Abdomen Limited CLINICAL HISTORY: Reason for exam: Transaminitis. TECHNIQUE: Real-time ultrasound of the abdomen with image documentation. COMPARISON: No relevant prior studies available. FINDINGS: Liver: There is diffuse heterogeneous configuration to the liver parenchyma with some hepatomegaly. Suspicion of nodular configuration to the surface of the liver. Gallbladder: There is some pericholecystic fluid present. There is some gallbladder sludge. IMPRESSION: Probable diffuse hepatocellular degeneration possible cirrhotic changes within the liver there is some hepatomegaly. Some pericholecystic fluid which is nonspecific in the setting of this liver abnormality probably some gallbladder sludge biliary system normal in diameter. Electronically signed by: Andrés Woodward MD 11/24/23 09:26 AM PG Care Time/CCT Total # of Minutes Spent Total Time Spent with Patient: Total time spent is greater than 50% in coordination of care (as documented) at patient's floor/unit and/or counseling patient: Coding Level of Care Code 73038 SUB INP/OBS CARE 2/35MIN Diagnoses Alcohol withdrawal F10.931 Complication of substance-induced condition: with delirium Alcoholic hepatitis K70.10 Ascites presence: unspecified Encephalopathy G93.40 Benign essential hypertension I10 Anxiety F41.9 (1) Alcohol withdrawal Complication of substance-induced condition: with delirium Qualified Code(s): F10.931 - Alcohol use, unspecified with withdrawal delirium (2) Alcoholic hepatitis Ascites presence: unspecified Qualified Code(s): K70.10 - Alcoholic hepatitis without ascites
[2023-11-24] MEDS: LORazepam 2 MG in SYRINGE 1 ML IV STA (19:25)
[2023-11-25 05:05] LABS: Hematocrit (blood only) 33.5 % (42.0-52.0); Hemoglobin 11.6 g/dl (14.0-18.0); Mean Corpuscular Hgb Conc 34.6 g/dL (32.0-36.0); Mean Corpuscular Volume 95.2 fL (80.0-100.0); Platelet Count 67 K/uL (130-400); RDW Coefficient of Variation 13.7 % (11.5-14.5); RDW Standard Deviation 48.3 fL (36.4-46.3); Red Blood Count 3.52 M/uL (4.70-6.10); White Blood Count 6.87 K/ul (4.8-10.8)
[2023-11-25 05:10] LABS: Albumin Globulin Ratio 1.3 (0.9-2); Albumin Level 3.3 gm/dl (3.4-5.0); BUN Creatinine Ratio 18.5 (10-20); Bilirubin,Total 3.6 mg/dl (0.2-1.0); Calcium 7.5 mg/dl (8.6-10.3); Creatinine Clr Calc Pharmacy 170.4 ml/min; Est GFR (African American) 139.9 ml/min; Est GFR (Non-African American) 120.7 ml/min; Globulin 2.5 gm/dl (2.5-4.0); Magnesium 1.1 mg/dl (1.7-2.4); Phosphorus 3.1 mg/dl (2.5-4.9); Potassium 3.2 mmol/L (3.5-5.1); Total Protein 5.8 gm/dl (6.0-8.3)
[2023-11-25] MEDS ORDERED: PHENobarbitaL 30 MG TAB PO SCH ×2 (06:00→12:45)
[2023-11-25] MEDS: PHENobarbital sodium 65 MG/ML VIAL IM ONE (06:35)
[2023-11-25] MEDS: POTASSIUM CHLORIDE / WTR 10 MEQ/100 ML PLCT IV SCH (08:01)
--- NOTE | 2023-11-25 10:03 | XRay Report ---
XR chest 1V portable CLINICAL HISTORY: hypoxia COMPARISON STUDY: Chest radiograph November 23, 2023. FINDINGS: Lung volumes are normal. Lungs are clear. There is no pneumothorax or pleural effusion. Mod erate cardiomegaly is unchanged. Mediastinal contours are normal. There is no evidence for pulmonary edema. IMPRESSION: No acute cardiopulmonary findings. Cardiomegaly. ACT 112: Negative or not required by law. Electronically signed by: Williams Martínez M.D. 11/25/2023 10:02 AM
--- NOTE | 2023-11-25 10:03 | Critical Care Progress Note ---
Date of Service November 25, 2023 Assessment & Plan (1) Alcohol withdrawal delirium: (2) Alcoholic hepatitis: (3) Hypoxia: (4) Hypomagnesemia: Plan 52-year-old male with a history of significant alcohol abuse with last drink yesterday who presented from drug and alcohol rehab with seizure-like activity. In the ER he was found to have seizures x 2 and has received 9 mg of Ativan and 5 mg of diazepam. He is being brought to the ICU due to severe alcohol withdrawal. Will continue alcohol withdrawal protocol with as needed Ativan and Precedex as needed. Continue phenobarbital. Completed NAC protocol. LFTs stable. Monitor LFTs daily. Liver ultrasound with probable diffuse hepatocellular degeneration and possible cirrhotic changes within the liver. Some pericholecystic fluid which is nonspecific was seen. Continue high-dose thiamine. Replace electrolytes as needed. Patient with significant hypomagnesemia with replacement currently initiated. Patient has had intermittent hypoxemic episodes related to apnea from sedation. Currently on CPAP at 5 cm H2O and minimal FiO2 requirements. CRITICAL CARE TIME - I have personally spent 41 minutes of critical care time in the direct management of this patient. This is a life/limb threatening event. This includes time spent evaluating patient, direct bedside care, chart review, placing orders, interpretation of diagnostic studies, discussion with consultants, patient, and family members, as well as other required patient management activities. This time is exclusive of all separately billable procedures, and teaching time and separate from and in addition to any other critical care service time. Admission and Anticipated Discharge Date Admission Date: November 23, 2023 Subjective Patient remains delirious and required 6 mg of IV Ativan overnight. Also received 60 mg of IM phenobarbital this morning. Was briefly on dexmedetomidine, but this was discontinued due to sonorous respirations. Review of Systems Review of Systems: All systems reviewed & are unremarkable except as noted in HPI & below Physical Exam Physical Exam: Constitutional: Actively delirious. Mildly distressed. CPAP mask in place. Eyes: Pupils are equal round and reactive to light. Conjunctivae are normal. Anicteric sclera. Ears nose, mouth and throat: Mallampati class 2. Normal posterior oropharynx. Uvula is midline. Neck: Trachea is midline. Visual inspection is normal. Respiratory: Clear to auscultation bilaterally. Mildly tachypneic. Cardiovascular: Regular rate and rhythm. No murmurs. No edema. Gastrointestinal: Normal bowel sounds, soft, nontender and nondistended. No hepatosplenomegaly noted. Musculoskeletal: No cyanosis. Patient is able to move all extremities. Strength is 5 out of 5 in the upper and lower extremities. Skin: No rashes, warm dry and intact. Neurologic: No obvious focal neurological deficits seen. Psychiatric: Disoriented and delirious. Results & Data Results & Data Vital Signs (Past 12 Hours) Vital Signs Temp Pulse Resp BP Pulse Ox O2 Del Method FiO2 11/25/23 09:00 70 21 99 11/25/23 08:00 128/95 11/25/23 08:00 65 21 99 11/25/23 07:53 36.2 C L 11/25/23 07:48 CPAP 11/25/23 07:01 146/92 H 11/25/23 07:01 21 94 11/25/23 07:00 69 21 99 11/25/23 06:35 64 18 110/79 11/25/23 06:00 110/79 11/25/23 06:00 61 19 96 11/25/23 05:00 134/95 11/25/23 05:00 36.4 C L 60 19 97 11/25/23 04:00 53 L 21 97 CPAP 11/25/23 04:00 36.5 C 140/92 11/25/23 03:36 56 L 34 H 96 28 11/25/23 03:00 56 L 18 96 11/25/23 03:00 139/84 11/25/23 02:00 131/82 11/25/23 02:00 58 L 18 95 11/25/23 01:01 56 L 19 11/25/23 01:01 137/94 11/25/23 01:00 55 L 19 97 11/25/23 00:00 122/76 11/25/23 00:00 58 L 20 96 11/25/23 00:00 58 L 11/24/23 23:45 60 20 96 11/24/23 23:30 63 18 96 11/24/23 23:15 57 L 18 97 CPAP 28 11/24/23 23:00 61 20 96 11/24/23 23:00 36.9 C 125/84 11/24/23 22:30 63 18 98 28 11/24/23 22:00 144/89 H 11/24/23 22:00 37.6 C H 74 26 H 98 Coding Level of Care Code 45053 CRITICAL CARE 1ST 30-74M Diagnoses Alcohol withdrawal delirium F10.931 Alcoholic hepatitis K70.10 Ascites presence: unspecified Hypoxia R09.02 Hypomagnesemia E83.42 Time Spent (min) 41 (2) Alcoholic hepatitis Ascites presence: unspecified Qualified Code(s): K70.10 - Alcoholic hepatitis without ascites
[2023-11-25] MEDS: MAGNESIUM SULFATE / D5W 1 GM/100 ML BAG IV SCH (10:13)
[2023-11-25 10:57] LABS: HBSAG NON-REACTIVE (NON-REACTIVE); Hepatitis A Antibody IgM NON-REACTIVE (NON-REACTIVE); Hepatitis B Core Antibody IgM NON-REACTIVE (NON-REACTIVE)
--- NOTE | 2023-11-25 12:27 | Hospitalist Progress Note ---
Date of Service November 25, 2023 Assessment & Plan (1) Alcohol withdrawal: Plan: Patient is a chronic heavy drinker and never tried to quit or cut back on his drinking Per the report I got, he checked himself into drug and alcohol rehab as he wanted to quit but was found to be actively withdrawing with hallucinations, tremors and thus was sent to the emergency room The patient was given a few doses of Ativan in the emergency room In the emergency room, he started having seizures She was thus admitted to the ICU. Postmaster Relief on board Patient is being managed with Precedex drip, phenobarbital, Ativan Seizure precautions IV fluids Banana bag Replete electrolytes (2) Alcoholic hepatitis: Plan: Patient most likely has alcoholic hepatitis AST: ALT is greater than 2 Elevated bilirubin level of 4 INR elevated at 1.3 Discriminant factor 13. Not a candidate for steroids Acute hepatitis panel negative Acetaminophen level negative (3) Encephalopathy: Plan: This is most likely due to alcohol withdrawal delirium tremens and toxic encephalopathy Will manage alcohol withdrawal Monitor clinically (4) Benign essential hypertension: Plan: She normally takes losartan 100 mg Hold p.o. medicine for the time being (5) Anxiety: Plan: Takes Prozac at home Hold oral medications Plan CODE STATUS: Presumed to be full code. Patient is not able to participate in decision-making DVT prophylaxis: Hold Lovenox. Thrombocytopenia noted. SCDs ordered Admission and Anticipated Discharge Date Admission Date: November 23, 2023 Subjective Patient is on alcohol withdrawal protocol with Precedex, phenobarbital and as needed Ativan. Currently sleeping. Per nurse, was having lots of tremors yesterday and it was difficult to decipher how much of it was actual seizure. Review of Systems Review of Systems: Unobtainable due to cognitive status Physical Exam Physical Exam: General: CPAP on. Sleeping. Heart: S1, S2/regular rate and rhythm, no murmur rubs or gallops Lungs: Clear to auscultation bilaterally. Normal effort Abdomen: Soft/nontender/nondistended. No hepatosplenomegaly Extremities: No clubbing/cyanosis. No edema Behavior: Unable to assess Results & Data Results & Data Vital Signs (Past 12 Hours) Vital Signs Temp Pulse Resp BP Pulse Ox O2 Del Method FiO2 11/25/23 09:00 70 21 99 11/25/23 08:00 128/95 11/25/23 08:00 65 21 99 11/25/23 07:53 36.2 C L 11/25/23 07:48 CPAP 11/25/23 07:25 53 L 11/25/23 07:01 146/92 H 11/25/23 07:01 21 94 11/25/23 07:00 69 21 99 11/25/23 06:35 64 18 110/79 11/25/23 06:00 110/79 11/25/23 06:00 61 19 96 11/25/23 05:00 134/95 11/25/23 05:00 36.4 C L 60 19 97 11/25/23 04:00 53 L 21 97 CPAP 28 11/25/23 04:00 36.5 C 140/92 11/25/23 03:36 56 L 34 H 96 28 11/25/23 03:00 56 L 18 96 11/25/23 03:00 139/84 11/25/23 02:00 131/82 11/25/23 02:00 58 L 18 95 11/25/23 01:01 56 L 19 11/25/23 01:01 137/94 11/25/23 01:00 55 L 19 97 Laboratory Results Abnormal lab results 11/25/23 Range/Units 04:20 RBC 3.52 L (4.70-6.10) M/uL Hgb 11.6 L (14.0-18.0) g/dl Hct 33.5 L (42.0-52.0) % RDW Std Deviation 48.3 H (36.4-46.3) fL Plt Count 67 L (130-400) K/uL MPV 13.0 H (9.4-12.4) fL Potassium 3.2 L (3.5-5.1) mmol/L Creatinine 0.54 L (0.6-1.4) mg/dl Calcium 7.5 L (8.6-10.3) mg/dl Magnesium 1.1 L (1.7-2.4) mg/dl Total Bilirubin 3.6 H (0.2-1.0) mg/dl AST 117 H (13-39) U/L Alkaline Phosphatase 147 H (34-104) U/L Total Protein 5.8 L (6.0-8.3) gm/dl Albumin 3.3 L (3.4-5.0) gm/dl Diagnostic Findings Chest X-Ray 11/25/23 09:29 XR chest 1V portable CLINICAL HISTORY: hypoxia COMPARISON STUDY: Chest radiograph November 23, 2023. FINDINGS: Lung volumes are normal. Lungs are clear. There is no pneumothorax or pleural effusion. Moderate cardiomegaly is unchanged. Mediastinal contours are normal. There is no evidence for pulmonary edema. IMPRESSION: No acute cardiopulmonary findings. Cardiomegaly. ACT 112: Negative or not required by law. Electronically signed by: Williams Martínez M.D. 11/25/2023 10:02 AM PG Care Time/CCT Total # of Minutes Spent Total Time Spent with Patient: Total time spent is greater than 50% in coordination of care (as documented) at patient's floor/unit and/or counseling patient: Coding Level of Care Code 36952 SUB INP/OBS CARE 2/35MIN Diagnoses Alcohol withdrawal F10.931 Complication of substance-induced condition: with delirium Alcoholic hepatitis K70.10 Ascites presence: unspecified Encephalopathy G93.40 Benign essential hypertension I10 Anxiety F41.9 (1) Alcohol withdrawal Complication of substance-induced condition: with delirium Qualified Code(s): F10.931 - Alcohol use, unspecified with withdrawal delirium (2) Alcoholic hepatitis Ascites presence: unspecified Qualified Code(s): K70.10 - Alcoholic hepatitis without ascites
[2023-11-25 18:19] LABS: BUN Creatinine Ratio 15.4 (10-20); Calcium 8.3 mg/dl (8.6-10.3); Creatinine Clr Calc Pharmacy 141.6 ml/min; Est GFR (African American) 129.6 ml/min; Est GFR (Non-African American) 111.9 ml/min; Potassium 3.8 mmol/L (3.5-5.1)
[2023-11-25] MEDS: PHENobarbital sodium 65 MG/ML VIAL IM SCH (18:26)
[2023-11-25 19:25] LABS: Magnesium 2.1 mg/dl (1.7-2.4)
[2023-11-26] MEDS ORDERED: PHENobarbitaL 30 MG TAB PO SCH (06:00)
[2023-11-26 06:17] LABS: Hematocrit (blood only) 32.9 % (42.0-52.0); Hemoglobin 11.5 g/dl (14.0-18.0); Mean Corpuscular Hemoglobin 33.5 pg (25.0-34.0); Mean Corpuscular Volume 95.9 fL (80.0-100.0); Mean Platelet Volume 12.5 fL (9.4-12.4); Platelet Count 79 K/uL (130-400); RDW Coefficient of Variation 13.6 % (11.5-14.5); RDW Standard Deviation 48.4 fL (36.4-46.3); Red Blood Count 3.43 M/uL (4.70-6.10); White Blood Count 6.34 K/ul (4.8-10.8)
[2023-11-26 06:48] LABS: Albumin Globulin Ratio 1.3 (0.9-2); Albumin Level 3.2 gm/dl (3.4-5.0); BUN Creatinine Ratio 21.2 (10-20); Bilirubin,Total 3.5 mg/dl (0.2-1.0); Calcium 7.5 mg/dl (8.6-10.3); Est GFR (African American) 142.1 ml/min; Est GFR (Non-African American) 122.6 ml/min; Globulin 2.5 gm/dl (2.5-4.0); Magnesium 1.6 mg/dl (1.7-2.4); Phosphorus 2.5 mg/dl (2.5-4.9); Potassium 3.2 mmol/L (3.5-5.1); Total Protein 5.7 gm/dl (6.0-8.3)
[2023-11-26] MEDS ORDERED: POTASSIUM PHOS 3 MMOL/1 ML INFUSION IV STA (07:27)
[2023-11-26] MEDS: POTASSIUM CHLORIDE / WTR 10 MEQ/100 ML PLCT IV SCH (07:42)
[2023-11-26] MEDS: MAGNESIUM SULFATE / D5W 1 GM/100 ML BAG IV SCH (07:42)
[2023-11-26] MEDS: POTASSIUM PHOSPHATE 30 MMOL in SODIUM CHLORIDE 0.9% 500 ML IV ONE (08:25)
[2023-11-26] MEDS: CALCIUM GLUCONATE 1,000 MG/60 ML BAG IV STA (08:31)
--- NOTE | 2023-11-26 10:08 | Critical Care Progress Note ---
Date of Service November 26, 2023 Assessment & Plan (1) Alcohol withdrawal delirium: (2) Alcoholic hepatitis: (3) Hypoxia: (4) Hypomagnesemia: Plan 52-year-old male with a history of significant alcohol abuse with last drink yesterday who presented from drug and alcohol rehab with seizure-like activity. In the ER he was found to have seizures x 2 and has received 9 mg of Ativan and 5 mg of diazepam. He is being brought to the ICU due to severe alcohol withdrawal. Completed phenobarbital protocol. Will continue with as needed Ativan and a Wass protocol. Completed NAC protocol. LFTs stable. Liver ultrasound with probable diffuse hepatocellular degeneration and possible cirrhotic changes within the liver. Some pericholecystic fluid which is nonspecific was seen. Continue high-dose thiamine. Replace electrolytes as needed. Chest x-ray from yesterday unremarkable. CPAP has been used intermittently for sonorous respirations related to oversedation. Precedex has been discontinued along with phenobarbital. Will trial full liquid diet today and advance as tolerated. Suspect patient may be able to downgrade to PCU status later today. Admission and Anticipated Discharge Date Admission Date: November 23, 2023 Subjective Patient a bit more alert and awake today. Less delirious. Reorientable. Still requiring as needed doses of Ativan. Received phenobarb this morning. Review of Systems Review of Systems: All systems reviewed & are unremarkable except as noted in HPI & below Physical Exam Physical Exam: Constitutional: No apparent distress. Tremulous. CPAP mask in place. Eyes: Pupils are equal round and reactive to light. Conjunctivae are normal. Anicteric sclera. Ears nose, mouth and throat: Mallampati class 2. Normal posterior oropharynx. Uvula is midline. Neck: Trachea is midline. Visual inspection is normal. Respiratory: Clear to auscultation bilaterally. Mildly tachypneic. Cardiovascular: Regular rate and rhythm. No murmurs. No edema. Gastrointestinal: Normal bowel sounds, soft, nontender and nondistended. No hepatosplenomegaly noted. Musculoskeletal: No cyanosis. Patient is able to move all extremities. Strength is 5 out of 5 in the upper and lower extremities. Skin: No rashes, warm dry and intact. Neurologic: No obvious focal neurological deficits seen. Psychiatric: Alert and oriented x 2. Results & Data Results & Data Vital Signs (Past 12 Hours) Vital Signs Temp Pulse Pulse Resp BP BP Pulse Ox 11/26/23 10:01 72 21 118/78 93 11/26/23 09:00 68 18 120/84 93 11/26/23 08:00 36.7 C 11/26/23 08:00 63 18 127/84 98 11/26/23 07:00 64 22 124/85 98 11/26/23 06:39 36.8 C 72 14 129/88 97 11/26/23 06:12 68 24 127/79 11/26/23 05:00 123/82 11/26/23 05:00 66 96 11/26/23 04:15 67 21 96 11/26/23 04:00 120/79 11/26/23 04:00 65 96 11/26/23 03:00 126/82 11/26/23 03:00 68 97 11/26/23 02:02 36.5 C 11/26/23 02:00 63 97 11/26/23 02:00 130/83 11/26/23 01:00 131/84 11/26/23 01:00 60 97 11/26/23 00:30 129/86 11/26/23 00:30 59 L 98 11/26/23 00:00 36.6 C 11/26/23 00:00 62 11/26/23 00:00 135/82 11/26/23 00:00 62 99 11/25/23 23:30 142/85 H 11/25/23 23:30 69 98 11/25/23 23:00 131/78 11/25/23 23:00 64 98 11/25/23 22:30 139/79 11/25/23 22:30 65 99 11/25/23 22:19 80 31 H 99 11/25/23 22:15 137/86 11/25/23 22:15 65 98 O2 Del Method FiO2 11/26/23 10:01 Room Air 11/26/23 09:00 Room Air 11/26/23 08:00 11/26/23 08:00 CPAP 11/26/23 07:00 CPAP 11/26/23 06:39 CPAP 11/26/23 06:12 11/26/23 05:00 11/26/23 05:00 11/26/23 04:15 28 11/26/23 04:00 11/26/23 04:00 11/26/23 03:00 11/26/23 03:00 11/26/23 02:02 11/26/23 02:00 11/26/23 02:00 11/26/23 01:00 11/26/23 01:00 11/26/23 00:30 11/26/23 00:30 11/26/23 00:00 11/26/23 00:00 11/26/23 00:00 11/26/23 00:00 11/25/23 23:30 11/25/23 23:30 11/25/23 23:00 11/25/23 23:00 11/25/23 22:30 11/25/23 22:30 11/25/23 22:19 28 11/25/23 22:15 11/25/23 22:15 Coding Level of Care Code 21411 SUB INP/OBS CARE 2MIN Diagnoses Alcohol withdrawal delirium F10.931 Alcoholic hepatitis K70.10 Ascites presence: unspecified Hypoxia R09.02 Hypomagnesemia E83.42 (2) Alcoholic hepatitis Ascites presence: unspecified Qualified Code(s): K70.10 - Alcoholic hepatitis without ascites
--- NOTE | 2023-11-26 11:21 | Hospitalist Progress Note ---
Date of Service November 26, 2023 Assessment & Plan (1) Alcohol withdrawal: Plan: Patient is a chronic heavy drinker and never tried to quit or cut back on his drinking Per the report I got, he checked himself into drug and alcohol rehab as he wanted to quit but was found to be actively withdrawing with hallucinations, tremors and thus was sent to the emergency room The patient was given a few doses of Ativan in the emergency room In the emergency room, he started having seizures She was thus admitted to the ICU. Business Attorney on board Patient was being managed with Precedex drip, phenobarbital, Ativan Now off Precedex drip. Completed phenobarbital. Being managed with Ativan. Seizure precautions Replete electrolytes (2) Alcoholic hepatitis: Plan: Patient most likely has alcoholic hepatitis AST: ALT is greater than 2 Elevated bilirubin level of 4 INR elevated at 1.3 Discriminant factor 13. Not a candidate for steroids Acute hepatitis panel negative Acetaminophen level negative (3) Encephalopathy: Plan: This is most likely due to alcohol withdrawal delirium tremens and toxic encephalopathy Will manage alcohol withdrawal Monitor clinically (4) Benign essential hypertension: Plan: She normally takes losartan 100 mg Hold p.o. medicine for the time being (5) Anxiety: Plan: Takes Prozac at home Hold oral medications Plan CODE STATUS: Presumed to be full code. Patient is not able to participate in decision-making DVT prophylaxis: Hold Lovenox. Thrombocytopenia noted. SCDs ordered Admission and Anticipated Discharge Date Admission Date: November 23, 2023 Subjective Per nurse, patient is now off of Precedex drip. Completed phenobarbital. Patient is awake and alert. He was able to answer some questions correctly. Still disoriented. Not as shaky Review of Systems Review of Systems: All systems reviewed & are unremarkable except as noted in Subjective Physical Exam Physical Exam: General: Awake, able to answer some questions correctly. Not as shaky. Heart: S1, S2/regular rate and rhythm, no murmur rubs or gallops Lungs: Clear to auscultation bilaterally. Normal effort Abdomen: Soft/nontender/nondistended. No hepatosplenomegaly Extremities: No clubbing/cyanosis. No edema Behavior: Cooperative, appropriate Results & Data Results & Data Vital Signs (Past 12 Hours) Vital Signs Temp Pulse Pulse Resp BP BP Pulse Ox 11/26/23 10:01 72 21 118/78 93 11/26/23 09:00 68 18 120/84 93 11/26/23 08:00 36.7 C 11/26/23 08:00 63 18 127/84 98 11/26/23 07:00 64 22 124/85 98 11/26/23 06:39 36.8 C 72 14 129/88 97 11/26/23 06:12 68 24 127/79 11/26/23 05:00 123/82 11/26/23 05:00 66 96 11/26/23 04:15 67 21 96 11/26/23 04:00 120/79 11/26/23 04:00 65 96 11/26/23 03:00 126/82 11/26/23 03:00 68 97 11/26/23 02:02 36.5 C 11/26/23 02:00 63 97 11/26/23 02:00 130/83 11/26/23 01:00 131/84 11/26/23 01:00 60 97 11/26/23 00:30 129/86 11/26/23 00:30 59 L 98 11/26/23 00:00 36.6 C 11/26/23 00:00 62 11/26/23 00:00 135/82 11/26/23 00:00 62 99 11/25/23 23:30 142/85 H 11/25/23 23:30 69 98 O2 Del Method FiO2 11/26/23 10:01 Room Air 11/26/23 09:00 Room Air 11/26/23 08:00 11/26/23 08:00 CPAP 28 11/26/23 07:00 CPAP 28 11/26/23 06:39 CPAP 11/26/23 06:12 11/26/23 05:00 11/26/23 05:00 11/26/23 04:15 28 11/26/23 04:00 11/26/23 04:00 11/26/23 03:00 11/26/23 03:00 11/26/23 02:02 11/26/23 02:00 11/26/23 02:00 11/26/23 01:00 11/26/23 01:00 11/26/23 00:30 11/26/23 00:30 11/26/23 00:00 11/26/23 00:00 11/26/23 00:00 11/26/23 00:00 11/25/23 23:30 11/25/23 23:30 Laboratory Results Abnormal lab results 11/25/23 11/26/23 Range/Units 17:49 05:54 RBC 3.43 L (4.70-6.10) M/uL Hgb 11.5 L (14.0-18.0) g/dl Hct 32.9 L (42.0-52.0) % RDW Std Deviation 48.4 H (36.4-46.3) fL Plt Count 79 L (130-400) K/uL MPV 12.5 H (9.4-12.4) fL Sodium 135 L (136-145) mmol/L Potassium 3.2 L (3.5-5.1) mmol/L Creatinine 0.52 L (0.6-1.4) mg/dl BUN/Creatinine Ratio 21.2 H (10-20) Calcium 8.3 L 7.5 L (8.6-10.3) mg/dl Magnesium 1.6 L (1.7-2.4) mg/dl Total Bilirubin 3.5 H (0.2-1.0) mg/dl AST 96 H (13-39) U/L Alkaline Phosphatase 166 H (34-104) U/L Total Protein 5.7 L (6.0-8.3) gm/dl Albumin 3.2 L (3.4-5.0) gm/dl PG Care Time/CCT Total # of Minutes Spent Total Time Spent with Patient: Total time spent is greater than 50% in coordination of care (as documented) at patient's floor/unit and/or counseling patient: Coding Level of Care Code 86309 SUB INP/OBS CARE 2/35MIN Diagnoses Alcohol withdrawal F10.931 Complication of substance-induced condition: with delirium Alcoholic hepatitis K70.10 Ascites presence: unspecified Encephalopathy G93.40 Benign essential hypertension I10 Anxiety F41.9 (1) Alcohol withdrawal Complication of substance-induced condition: with delirium Qualified Code(s): F10.931 - Alcohol use, unspecified with withdrawal delirium (2) Alcoholic hepatitis Ascites presence: unspecified Qualified Code(s): K70.10 - Alcoholic hepatitis without ascites
[2023-11-26] MEDS: LORazepam 1 MG in SYRINGE 0.5 ML IV PRN (13:43)
[2023-11-27] MEDS ORDERED: PHENobarbitaL 30 MG TAB PO SCH ×2 (00:45→06:00)
[2023-11-27 05:32] LABS: Hematocrit (blood only) 35.6 % (42.0-52.0); Hemoglobin 12.3 g/dl (14.0-18.0); Mean Corpuscular Hemoglobin 33.2 pg (25.0-34.0); Mean Corpuscular Hgb Conc 34.6 g/dL (32.0-36.0); Mean Corpuscular Volume 96.2 fL (80.0-100.0); Mean Platelet Volume 11.8 fL (9.4-12.4); Platelet Count 107 K/uL (130-400); RDW Coefficient of Variation 13.3 % (11.5-14.5); RDW Standard Deviation 47.1 fL (36.4-46.3); White Blood Count 7.48 K/ul (4.8-10.8)
[2023-11-27 05:39] LABS: Albumin Globulin Ratio 1.3 (0.9-2); Albumin Level 3.5 gm/dl (3.4-5.0); BUN Creatinine Ratio 16.9 (10-20); Bilirubin,Total 3.5 mg/dl (0.2-1.0); Est GFR (African American) 134.9 ml/min; Est GFR (Non-African American) 116.4 ml/min; Globulin 2.7 gm/dl (2.5-4.0); Magnesium 1.5 mg/dl (1.7-2.4); Phosphorus 2.3 mg/dl (2.5-4.9); Potassium 3.6 mmol/L (3.5-5.1); Total Protein 6.2 gm/dl (6.0-8.3)
[2023-11-27] MEDS ORDERED: POTASSIUM PHOS 3 MMOL/1 ML INFUSION IV STA (07:11)
[2023-11-27] MEDS: POTASSIUM PHOSPHATE 30 MMOL in SODIUM CHLORIDE 0.9% 500 ML IV ONE (07:49)
[2023-11-27] MEDS: MAGNESIUM SULFATE / D5W 1 GM/100 ML BAG IV SCH (07:49)
--- NOTE | 2023-11-27 11:42 | Hospitalist Progress Note ---
Date of Service November 27, 2023 Assessment & Plan (1) Alcohol withdrawal: Plan: Patient is a chronic heavy drinker and never tried to quit or cut back on his drinking Per the report I got, he checked himself into drug and alcohol rehab as he wanted to quit but was found to be actively withdrawing with hallucinations, tremors and thus was sent to the emergency room The patient was given a few doses of Ativan in the emergency room In the emergency room, he started having seizures She was thus admitted to the ICU. Now downgraded from to telemetry bed Patient was being managed with Precedex drip, phenobarbital, Ativan Now off Precedex drip. Completed phenobarbital. Being managed with Ativan. Seizure precautions Replete electrolytes (2) Alcoholic hepatitis: Plan: Patient most likely has alcoholic hepatitis AST: ALT is greater than 2 Elevated bilirubin level of 4 INR elevated at 1.3 Discriminant factor 13. Not a candidate for steroids Acute hepatitis panel negative Acetaminophen level negative (3) Encephalopathy: Plan: This is most likely due to alcohol withdrawal delirium tremens and toxic encephalopathy Will manage alcohol withdrawal Monitor clinically (4) Benign essential hypertension: Plan: She normally takes losartan 100 mg Hold p.o. medicine for the time being (5) Anxiety: Plan: Takes Prozac at home Hold oral medications Plan CODE STATUS: Presumed to be full code. Patient is not able to participate in decision-making DVT prophylaxis: Hold Lovenox. Thrombocytopenia noted. SCDs ordered Admission and Anticipated Discharge Date Admission Date: November 23, 2023 Subjective Patient is requiring less Ativan. Sitter in the room. Review of Systems Review of Systems: Unobtainable due to cognitive status Physical Exam Physical Exam: General: Awake, able to answer some questions correctly. Still quite shaky. Not able to hold a conversation yet. Heart: S1, S2/regular rate and rhythm, no murmur rubs or gallops Lungs: Clear to auscultation bilaterally. Normal effort Abdomen: Soft/nontender/nondistended. No hepatosplenomegaly Extremities: No clubbing/cyanosis. No edema Behavior: Cooperative, appropriate Results & Data Results & Data Vital Signs (Past 12 Hours) Vital Signs Temp Pulse Pulse Resp BP BP BP 11/27/23 08:00 71 11/27/23 07:03 82 15 11/27/23 07:01 147/92 H 11/27/23 07:00 36.6 C 06/01/24 05:26 36.8 C 112 H 17 150/93 H 11/27/23 03:42 37.3 C 76 22 155/94 H 11/27/23 02:33 36.8 C 77 23 165/93 H 11/27/23 00:27 36.8 C 21 163/95 H 11/27/23 00:00 69 17 Pulse Ox O2 Del Method 11/27/23 08:00 11/27/23 07:03 92 Room Air 11/27/23 07:01 11/27/23 07:00 11/27/23 05:26 96 Room Air 11/27/23 03:42 96 Room Air 11/27/23 02:33 93 Room Air 11/27/23 00:27 98 BiPAP 11/27/23 00:00 Laboratory Results Abnormal lab results 11/27/23 Range/Units 05:06 RBC 3.70 L (4.70-6.10) M/uL Hgb 12.3 L (14.0-18.0) g/dl Hct 35.6 L (42.0-52.0) % RDW Std Deviation 47.1 H (36.4-46.3) fL Plt Count 107 L (130-400) K/uL Creatinine 0.59 L (0.6-1.4) mg/dl Calcium 8.0 L (8.6-10.3) mg/dl Phosphorus 2.3 L (2.5-4.9) mg/dl Magnesium 1.5 L (1.7-2.4) mg/dl Total Bilirubin 3.5 H (0.2-1.0) mg/dl AST 97 H (13-39) U/L Alkaline Phosphatase 180 H (34-104) U/L PG Care Time/CCT Total # of Minutes Spent Total Time Spent with Patient: Total time spent is greater than 50% in coordination of care (as documented) at patient's floor/unit and/or counseling patient: Coding Level of Care Code 44505 SUB INP/OBS CARE 2/35MIN Diagnoses Alcohol withdrawal F10.931 Complication of substance-induced condition: with delirium Alcoholic hepatitis K70.10 Ascites presence: unspecified Encephalopathy G93.40 Benign essential hypertension I10 Anxiety F41.9 (1) Alcohol withdrawal Complication of substance-induced condition: with delirium Qualified Code(s): F10.931 - Alcohol use, unspecified with withdrawal delirium (2) Alcoholic hepatitis Ascites presence: unspecified Qualified Code(s): K70.10 - Alcoholic hepatitis without ascites
[2023-11-28 05:00] LABS: Hematocrit (blood only) 36.5 % (42.0-52.0); Hemoglobin 12.7 g/dl (14.0-18.0); Mean Corpuscular Hemoglobin 33.2 pg (25.0-34.0); Mean Corpuscular Hgb Conc 34.8 g/dL (32.0-36.0); Mean Corpuscular Volume 95.3 fL (80.0-100.0); Mean Platelet Volume 11.5 fL (9.4-12.4); Platelet Count 140 K/uL (130-400); RDW Coefficient of Variation 13.2 % (11.5-14.5); RDW Standard Deviation 45.3 fL (36.4-46.3); Red Blood Count 3.83 M/uL (4.70-6.10); White Blood Count 8.16 K/ul (4.8-10.8)
[2023-11-28 05:16] LABS: Albumin Globulin Ratio 1.3 (0.9-2); Albumin Level 3.6 gm/dl (3.4-5.0); BUN Creatinine Ratio 13.1 (10-20); Bilirubin,Total 2.6 mg/dl (0.2-1.0); Calcium 7.9 mg/dl (8.6-10.3); Creatinine Clr Calc Pharmacy 150.9 ml/min; Est GFR (African American) 133.1 ml/min; Est GFR (Non-African American) 114.8 ml/min; Globulin 2.8 gm/dl (2.5-4.0); Magnesium 1.6 mg/dl (1.7-2.4); Phosphorus 2.4 mg/dl (2.5-4.9); Potassium 3.9 mmol/L (3.5-5.1); Total Protein 6.4 gm/dl (6.0-8.3)
[2023-11-28] MEDS ORDERED: SODIUM PHOSPHATE 3 MMOL/1 ML INFUSION IV STA (11:38)
--- NOTE | 2023-11-28 11:38 | Critical Care Progress Note ---
Date of Service November 28, 2023 Assessment & Plan (1) Alcohol withdrawal delirium: (2) Alcoholic hepatitis: (3) Hypomagnesemia: Plan 52-year-old male with a history of significant alcohol abuse with last drink yesterday who presented from drug and alcohol rehab with seizure-like activity. In the ER he was found to have seizures x 2 and has received 9 mg of Ativan and 5 mg of diazepam. He is being brought to the ICU due to severe alcohol withdrawal. -- Alcohol withdrawal Continue with CIWA protocol -- Transaminitis with bilirubinemia Likely alcoholic Continue to trend Liver ultrasound 11/23/2023: Diffuse hepatocellular degeneration with possible cirrhotic changes, some gallbladder sludge with biliary system within normal limit --S/p thrombocytopenia Likely from alcohol toxicity Continue to trend --Prophylaxis VTE: IPC GI: None Lines: Peripheral Diet: Cardiac Plan: In/out: -819, urine output 1625, +1 L since coming to the hospital Patient did not finish the full phenobarb tapering for alcohol. I spoke with pharmacy and he will be given p.o. phenobarb on top of as needed IV Ativan for the next 3 days Continue with thiamine and folic acid, will change to p.o. Hypomagnesemia and hypophosphatemia being replaced Case was discussed with hospitalist Please note the above document was generated using voice recognition software. It may contain grammatical, syntax or spelling errors.Any formal questions or concerns about the content, text or information contained within the body of this dictation should be directly addressed to the provider for clarification. Admission and Anticipated Discharge Date Admission Date: November 23, 2023 Subjective Patient seen and examined at bedside. No acute distress. Overnight patient was more restless. He has gotten approximately 5-6 mg of benzodiazepine based on the CIWA scale. At the time of examination he was answering all the questions appropriately. Denied any headache, no nausea, no vomiting. No auditory or visual hallucination. His systolic blood pressure was in the 160s. Denies any nausea vomiting No chest pain, no headache Review of Systems 2 Review of Systems: All systems reviewed & are unremarkable except as noted in Subjective Physical Exam 2 Physical Exam: Constitutional: No acute distress HEENT: EOMI, PERRLA Respiratory system: Good air entry bilaterally, no wheeze, no rhonchi, no crackles CVS: S1-S2 positive, no murmurs or gallops Abdomen: Soft, nontender, nondistended, positive bowel sounds x4 Extremities: +2 pulses bilaterally radialis/ dorsalis pedis, no cyanosis, no edema Neuro: Awake alert oriented to self and place Psych: Flat mood and affect G/U: Positive Reid Skin: no rashes, warm and dry Lymphatic: no cervical or axillary lymphadenopathy Results & Data Results & Data Vital Signs (Past 12 Hours) Vital Signs Temp Pulse Pulse Resp BP BP Pulse Ox 11/28/23 07:41 36.7 C 11/28/23 07:08 70 21 142/101 H 94 11/28/23 03:55 37 C 82 18 164/103 H 96 11/28/23 02:34 36.6 C 74 21 145/93 H 96 11/28/23 00:18 11/28/23 00:00 70 Pulse Ox O2 Del Method O2 Del Method 11/28/23 07:41 11/28/23 07:08 Room Air 11/28/23 03:55 Room Air 11/28/23 02:34 Room Air 11/28/23 00:18 96 CPAP 11/28/23 00:00 Laboratory Results 11/28/23 04:45 11/28/23 04:45 Coding Level of Care Code 18374 SUB INP/OBS CARE 3/50MIN Diagnoses Alcohol withdrawal delirium F10.931 Alcoholic hepatitis K70.10 Ascites presence: unspecified Hypomagnesemia E83.42 (2) Alcoholic hepatitis Ascites presence: unspecified Qualified Code(s): K70.10 - Alcoholic hepatitis without ascites
[2023-11-28] MEDS: SODIUM PHOSPHATE 21 MMOL in SODIUM CHLORIDE 0.9% 500 ML IV ONE (12:07)
[2023-11-28] MEDS: MAGNESIUM SULFATE / D5W 1 GM/100 ML BAG IV SCH (12:08)
[2023-11-28] MEDS: PHENobarbitaL 30 MG TAB PO SCH (12:08)
--- NOTE | 2023-11-28 12:54 | Hospitalist Progress Note ---
Date of Service November 28, 2023 Assessment & Plan (1) Alcohol withdrawal: Plan: Patient is a chronic heavy drinker and never tried to quit or cut back on his drinking Per the report I got, he checked himself into drug and alcohol rehab as he wanted to quit but was found to be actively withdrawing with hallucinations, tremors and thus was sent to the emergency room The patient was given a few doses of Ativan in the emergency room In the emergency room, he started having seizures She was thus admitted to the ICU. Now downgraded from to telemetry bed Patient was being managed with Precedex drip, phenobarbital, Ativan Now off Precedex drip. On phenobarbital. Being managed with Ativan. Nurse was concerned that the patient may need to be back in ICU status [employer] Manager consulted. On board. Seizure precautions Replete electrolytes (2) Alcoholic hepatitis: Plan: Patient most likely has alcoholic hepatitis AST: ALT is greater than 2 Elevated bilirubin level of 4 INR elevated at 1.3 Discriminant factor 13. Not a candidate for steroids Acute hepatitis panel negative Acetaminophen level negative (3) Encephalopathy: Plan: This is most likely due to alcohol withdrawal delirium tremens and toxic encephalopathy Will manage alcohol withdrawal Monitor clinically (4) Benign essential hypertension: Plan: She normally takes losartan 100 mg Hold p.o. medicine for the time being (5) Anxiety: Plan: Takes Prozac at home Hold oral medications Plan CODE STATUS: Presumed to be full code. Patient is not able to participate in decision-making DVT prophylaxis: Hold Lovenox. Thrombocytopenia noted. SCDs ordered Admission and Anticipated Discharge Date Admission Date: November 23, 2023 Subjective Per nurse, the patient has been quite restless overnight. It has been hard to keep him in bed. One-to-one sitter in the room. He is a little more disoriented today than yesterday. Review of Systems Review of Systems: All systems reviewed & are unremarkable except as noted in Subjective Physical Exam Physical Exam: General: Awake, able to answer some questions correctly. Still quite shaky. Not able to hold a conversation yet. Restless. Heart: S1, S2/regular rate and rhythm, no murmur rubs or gallops Lungs: Clear to auscultation bilaterally. Normal effort Abdomen: Soft/nontender/nondistended. No hepatosplenomegaly Extremities: No clubbing/cyanosis. No edema Behavior: Cooperative, appropriate Results & Data Results & Data Vital Signs (Past 12 Hours) Vital Signs Temp Pulse Pulse Resp BP BP Pulse Ox 11/28/23 11:03 90 23 161/104 H 90 11/28/23 10:02 83 21 158/104 H 90 11/28/23 09:47 110 H 148/95 H 92 11/28/23 09:11 94 H 23 145/91 H 92 11/28/23 08:05 85 20 153/99 H 92 11/28/23 07:41 36.7 C 11/28/23 07:08 70 21 142/101 H 94 11/28/23 07:00 76 21 142/101 H 95 11/28/23 03:55 37 C 82 18 164/103 H 96 11/28/23 02:34 36.6 C 74 21 145/93 H 96 O2 Del Method 11/28/23 11:03 11/28/23 10:02 11/28/23 09:47 11/28/23 09:11 11/28/23 08:05 11/28/23 07:41 11/28/23 07:08 Room Air 11/28/23 07:00 Room Air 11/28/23 03:55 Room Air 11/28/23 02:34 Room Air PG Care Time/CCT Total # of Minutes Spent Total Time Spent with Patient: Total time spent is greater than 50% in coordination of care (as documented) at patient's floor/unit and/or counseling patient: Coding Level of Care Code 51932 SUB INP/OBS CARE 2/35MIN Diagnoses Alcohol withdrawal F10.931 Complication of substance-induced condition: with delirium Alcoholic hepatitis K70.10 Ascites presence: unspecified Encephalopathy G93.40 Benign essential hypertension I10 Anxiety F41.9 (1) Alcohol withdrawal Complication of substance-induced condition: with delirium Qualified Code(s): F10.931 - Alcohol use, unspecified with withdrawal delirium (2) Alcoholic hepatitis Ascites presence: unspecified Qualified Code(s): K70.10 - Alcoholic hepatitis without ascites
[2023-11-29 07:52] LABS: Hematocrit (blood only) 38.9 % (42.0-52.0); Hemoglobin 13.2 g/dl (14.0-18.0); Mean Corpuscular Hemoglobin 32.8 pg (25.0-34.0); Mean Corpuscular Hgb Conc 33.9 g/dL (32.0-36.0); Mean Corpuscular Volume 96.5 fL (80.0-100.0); Mean Platelet Volume 11.4 fL (9.4-12.4); Platelet Count 153 K/uL (130-400); RDW Coefficient of Variation 13.2 % (11.5-14.5); RDW Standard Deviation 46.9 fL (36.4-46.3); Red Blood Count 4.03 M/uL (4.70-6.10); White Blood Count 7.69 K/ul (4.8-10.8)
[2023-11-29 08:24] LABS: Albumin Level 3.5 gm/dl (3.4-5.0); Bilirubin,Total 2.3 mg/dl (0.2-1.0); Calcium 7.9 mg/dl (8.6-10.3); Magnesium 1.7 mg/dl (1.7-2.4); Potassium 3.8 mmol/L (3.5-5.1)
[2023-11-29 08:30] LABS: Albumin Globulin Ratio 1.3 (0.9-2); Creatinine Clr Calc Pharmacy 184.1 ml/min; Est GFR (African American) 144.4 ml/min; Est GFR (Non-African American) 124.6 ml/min; Globulin 2.7 gm/dl (2.5-4.0); Total Protein 6.2 gm/dl (6.0-8.3)
[2023-11-29] MEDS: FOLIC ACID 1 MG TAB PO SCH (09:48)
[2023-11-29] MEDS: THIAMINE HCL 100 MG TAB PO SCH (09:48)
[2023-11-29] MEDS: PHENobarbitaL 30 MG TAB PO SCH (11:59)
--- NOTE | 2023-11-29 12:38 | Hospitalist Progress Note ---
Date of Service November 29, 2023 Assessment & Plan (1) Alcohol withdrawal: Plan: Patient is a chronic heavy drinker and never tried to quit or cut back on his drinking Per the report I got, he checked himself into drug and alcohol rehab as he wanted to quit but was found to be actively withdrawing with hallucinations, tremors and thus was sent to the emergency room The patient was given a few doses of Ativan in the emergency room In the emergency room, he started having seizures She was thus admitted to the ICU. Now downgraded from to telemetry bed Patient was being managed with Precedex drip, phenobarbital, Ativan Now off Precedex drip. On phenobarbital. Being managed with Ativan. Nurse was concerned that the patient may need to be back in ICU status on 11/27 Diamond Sizer consulted on 11/27, did not recommend ICU transfer Seizure precautions Replete electrolytes as needed (2) Alcoholic hepatitis: Plan: Patient most likely has alcoholic hepatitis AST: ALT is greater than 2 Elevated bilirubin level of 4 INR elevated at 1.3 Discriminant factor 13. Not a candidate for steroids Acute hepatitis panel negative Acetaminophen level negative (3) Encephalopathy: Plan: This is most likely due to alcohol withdrawal delirium tremens and toxic encephalopathy Will manage alcohol withdrawal Monitor clinically (4) Benign essential hypertension: Plan: She normally takes losartan 100 mg Hold p.o. medicine for the time being (5) Anxiety: Plan: Takes Prozac at home Hold oral medications Plan CODE STATUS: Presumed to be full code. Patient is not able to participate in decision-making DVT prophylaxis: Thrombocytopenia improved. Start Lovenox Admission and Anticipated Discharge Date Admission Date: November 23, 2023 Subjective Per nurse, most recent CIWA score is 3. Patient is still delirious. Review of Systems Review of Systems: All systems reviewed & are unremarkable except as noted in Subjective Physical Exam Physical Exam: General: Sleeping. Able to wake up. Still delirious. Heart: S1, S2/regular rate and rhythm, no murmur rubs or gallops Lungs: Clear to auscultation bilaterally. Normal effort Abdomen: Soft/nontender/nondistended. No hepatosplenomegaly Extremities: No clubbing/cyanosis. No edema Behavior: Cooperative, appropriate Results & Data Results & Data Vital Signs (Past 12 Hours) Vital Signs Temp Pulse Pulse Resp BP BP Pulse Ox 11/29/23 12:26 36.9 C 91 H 16 121/87 98 11/29/23 08:00 11/29/23 07:57 37.1 C 76 18 138/92 99 11/29/23 06:24 37.0 C 79 16 134/88 98 11/29/23 05:13 11/29/23 05:07 37.1 C 85 18 130/81 98 11/29/23 04:36 36.8 C 84 18 151/89 H 97 11/29/23 02:01 37.1 C 90 18 148/103 H 96 11/29/23 01:55 77 11/29/23 01:28 36.8 C 85 24 143/93 H 94 O2 Del Method O2 Flow Rate 11/29/23 12:26 Nasal Cannula 2 11/29/23 08:00 Nasal Cannula 2 11/29/23 07:57 Nasal Cannula 11/29/23 06:24 Room Air 11/29/23 05:13 Nasal Cannula 2 11/29/23 05:07 Nasal Cannula 2 11/29/23 04:36 Nasal Cannula 2 11/29/23 02:01 Nasal Cannula 2 11/29/23 01:55 11/29/23 01:28 Nasal Cannula 2 Laboratory Results Abnormal lab results 11/29/23 Range/Units 07:36 RBC 4.03 L (4.70-6.10) M/uL Hgb 13.2 L (14.0-18.0) g/dl Hct 38.9 L (42.0-52.0) % RDW Std Deviation 46.9 H (36.4-46.3) fL Sodium 134 L (136-145) mmol/L Creatinine 0.50 L (0.6-1.4) mg/dl Calcium 7.9 L (8.6-10.3) mg/dl Total Bilirubin 2.3 H (0.2-1.0) mg/dl AST 139 H (13-39) U/L Alkaline Phosphatase 188 H (34-104) U/L PG Care Time/CCT Total # of Minutes Spent Total Time Spent with Patient: Total time spent is greater than 50% in coordination of care (as documented) at patient's floor/unit and/or counseling patient: Coding Level of Care Code 23638 SUB INP/OBS CARE 2/35MIN Diagnoses Alcohol withdrawal F10.931 Complication of substance-induced condition: with delirium Alcoholic hepatitis K70.10 Ascites presence: unspecified Encephalopathy G93.40 Benign essential hypertension I10 Anxiety F41.9 (1) Alcohol withdrawal Complication of substance-induced condition: with delirium Qualified Code(s): F10.931 - Alcohol use, unspecified with withdrawal delirium (2) Alcoholic hepatitis Ascites presence: unspecified Qualified Code(s): K70.10 - Alcoholic hepatitis without ascites
[2023-11-29] MEDS: ENOXAPARIN INJ 40 MG/0.4 ML SYR SQ SCH (16:03)
[2023-11-30 06:51] LABS: Albumin Globulin Ratio 1.2 (0.9-2); Albumin Level 3.4 gm/dl (3.4-5.0); BUN Creatinine Ratio 13.6 (10-20); Bilirubin,Total 2.2 mg/dl (0.2-1.0); Calcium 8.2 mg/dl (8.6-10.3); Est GFR (African American) 134.9 ml/min; Est GFR (Non-African American) 116.4 ml/min; Globulin 2.9 gm/dl (2.5-4.0); Magnesium 1.5 mg/dl (1.7-2.4); Potassium 3.4 mmol/L (3.5-5.1); Total Protein 6.3 gm/dl (6.0-8.3)
[2023-11-30] MEDS: PHENobarbitaL 30 MG TAB PO SCH (11:14)
--- NOTE | 2023-11-30 12:49 | Hospitalist Progress Note ---
Date of Service November 30, 2023 Assessment & Plan (1) Alcohol withdrawal: Plan: Patient is a chronic heavy drinker and never tried to quit or cut back on his drinking Per the report I got, he checked himself into drug and alcohol rehab as he wanted to quit but was found to be actively withdrawing with hallucinations, tremors and thus was sent to the emergency room The patient was given a few doses of Ativan in the emergency room In the emergency room, he started having seizures She was thus admitted to the ICU. Now downgraded from to telemetry bed Patient was being managed with Precedex drip, phenobarbital, Ativan Now off Precedex drip. On phenobarbital, last dose today 11/29 Being managed with Ativan. Nurse was concerned that the patient may need to be back in ICU status on 11/27 Systems Trainer consulted on 11/27, did not recommend ICU transfer Seizure precautions Replete electrolytes as needed (2) Alcoholic hepatitis: Plan: Patient most likely has alcoholic hepatitis AST: ALT is greater than 2 Elevated bilirubin level of 4 INR elevated at 1.3 Discriminant factor 13. Not a candidate for steroids Acute hepatitis panel negative Acetaminophen level negative (3) Encephalopathy: Plan: This is most likely due to alcohol withdrawal delirium tremens and toxic encephalopathy Will manage alcohol withdrawal Monitor clinically (4) Benign essential hypertension: Plan: She normally takes losartan 100 mg Hold p.o. medicine for the time being (5) Anxiety: Plan: Takes Prozac at home Hold oral medications Plan CODE STATUS: Presumed to be full code. Patient is not able to participate in decision-making DVT prophylaxis: Thrombocytopenia improved. Started Lovenox Admission and Anticipated Discharge Date Admission Date: November 23, 2023 Subjective Patient remains confused and delirious. Review of Systems Review of Systems: All systems reviewed & are unremarkable except as noted in Subjective Physical Exam Physical Exam: General: Sleeping. Able to wake up easily. Still delirious. Heart: S1, S2/regular rate and rhythm, no murmur rubs or gallops Lungs: Clear to auscultation bilaterally. Normal effort Abdomen: Soft/nontender/nondistended. No hepatosplenomegaly Extremities: No clubbing/cyanosis. No edema Behavior: Cooperative, appropriate Results & Data Results & Data Vital Signs (Past 12 Hours) Vital Signs Temp Pulse Pulse Resp BP Pulse Ox O2 Del Method 11/30/23 11:47 36.3 C L 91 H 17 149/87 H 95 Room Air 11/30/23 07:46 37.0 C 81 17 144/92 H 91 Room Air 11/30/23 07:46 90 11/30/23 06:28 36.9 C 74 16 141/96 H 95 Room Air 11/30/23 02:34 36.9 C 79 20 132/90 94 Room Air Laboratory Results Abnormal lab results 11/30/23 Range/Units 05:43 Potassium 3.4 L (3.5-5.1) mmol/L Creatinine 0.59 L (0.6-1.4) mg/dl Calcium 8.2 L (8.6-10.3) mg/dl Magnesium 1.5 L (1.7-2.4) mg/dl Total Bilirubin 2.2 H (0.2-1.0) mg/dl AST 129 H (13-39) U/L Alkaline Phosphatase 185 H (34-104) U/L PG Care Time/CCT Total # of Minutes Spent Total Time Spent with Patient: Total time spent is greater than 50% in coordination of care (as documented) at patient's floor/unit and/or counseling patient: Coding Level of Care Code 05031 SUB INP/OBS CARE 2/35MIN Diagnoses Alcohol withdrawal F10.931 Complication of substance-induced condition: with delirium Alcoholic hepatitis K70.10 Ascites presence: unspecified Encephalopathy G93.40 Benign essential hypertension I10 Anxiety F41.9 (1) Alcohol withdrawal Complication of substance-induced condition: with delirium Qualified Code(s): F10.931 - Alcohol use, unspecified with withdrawal delirium (2) Alcoholic hepatitis Ascites presence: unspecified Qualified Code(s): K70.10 - Alcoholic hepatitis without ascites
[2023-11-30] MEDS: POTASSIUM CHLORIDE CRTAB 20 MEQ TABCR PO STA (14:29)
[2023-11-30] MEDS: MAGNESIUM SULFATE / D5W 1 GM/100 ML BAG IV SCH (14:29)
[2023-12-01 06:51] LABS: Albumin Globulin Ratio 1.1 (0.9-2); Albumin Level 3.4 gm/dl (3.4-5.0); BUN Creatinine Ratio 10.5 (10-20); Bilirubin,Total 2.3 mg/dl (0.2-1.0); Calcium 8.2 mg/dl (8.6-10.3); Creatinine Clr Calc Pharmacy 161.5 ml/min; Est GFR (African American) 136.8 ml/min; Est GFR (Non-African American) 118.1 ml/min; Magnesium 1.7 mg/dl (1.7-2.4); Potassium 3.4 mmol/L (3.5-5.1); Total Protein 6.4 gm/dl (6.0-8.3)
--- NOTE | 2023-12-01 11:43 | Hospitalist Progress Note ---
Date of Service December 01, 2023 Assessment & Plan (1) Alcohol withdrawal: Plan: Patient is a chronic heavy drinker and never tried to quit or cut back on his drinking Per the report I got, he checked himself into drug and alcohol rehab as he wanted to quit but was found to be actively withdrawing with hallucinations, tremors and thus was sent to the emergency room The patient was given a few doses of Ativan in the emergency room In the emergency room, he started having seizures She was thus admitted to the ICU. Now downgraded from to telemetry bed Patient was being managed with Precedex drip, phenobarbital, Ativan Now off Precedex drip. Completed phenobarbital course Being managed with Ativan. Nurse was concerned that the patient may need to be back in ICU status on 11/27 Financial Planning Assistant consulted on 11/27, did not recommend ICU transfer Seizure precautions Replete electrolytes as needed PT/OT consulted. Per OT, patient will need rehab Patient is very impulsive per nurse. He does not have very good positional awareness. (2) Alcoholic hepatitis: Plan: Patient most likely has alcoholic hepatitis AST: ALT is greater than 2 Elevated bilirubin level of 4 INR elevated at 1.3 Discriminant factor 13. Not a candidate for steroids Acute hepatitis panel negative Acetaminophen level negative (3) Encephalopathy: Plan: This is most likely due to alcohol withdrawal delirium tremens and toxic encephalopathy Will manage alcohol withdrawal Monitor clinically (4) Benign essential hypertension: Plan: She normally takes losartan 100 mg Hold p.o. medicine for the time being (5) Anxiety: Plan: Takes Prozac at home Hold oral medications Plan CODE STATUS: Presumed to be full code. Patient is not able to participate in decision-making DVT prophylaxis: Thrombocytopenia improved. Started Lovenox Admission and Anticipated Discharge Date Admission Date: November 23, 2023 Subjective Patient is still not able to tell what state or city he is in. He thinks that this is 1973. He tells me that he is in the hospital. He is still quite confused. Per nurse, he is very impulsive. Review of Systems Review of Systems: Unobtainable due to cognitive status Physical Exam Physical Exam: General: Awake. Not able to hold a conversation. Still delirious. Not as shaky anymore. Heart: S1, S2/regular rate and rhythm, no murmur rubs or gallops Lungs: Clear to auscultation bilaterally. Normal effort Abdomen: Soft/nontender/nondistended. No hepatosplenomegaly Extremities: No clubbing/cyanosis. No edema Behavior: Cooperative, appropriate Results & Data Results & Data Vital Signs (Past 12 Hours) Vital Signs Temp Pulse Pulse Resp BP BP Pulse Ox 12/01/23 10:42 37.3 C 93 H 16 142/96 H 94 12/01/23 08:03 36.7 C 94 H 16 111/76 95 12/01/23 08:00 12/01/23 07:00 94 H 12/01/23 02:57 36.7 C 83 22 151/91 H 94 O2 Del Method 12/01/23 10:42 Room Air 12/01/23 08:03 Room Air 12/01/23 08:00 Room Air 12/01/23 07:00 12/01/23 02:57 Room Air Laboratory Results Abnormal lab results 12/01/23 Range/Units 05:47 Potassium 3.4 L (3.5-5.1) mmol/L Creatinine 0.57 L (0.6-1.4) mg/dl Glucose 107 H (70-99(Fasting)) mg/dl Calcium 8.2 L (8.6-10.3) mg/dl Total Bilirubin 2.3 H (0.2-1.0) mg/dl AST 121 H (13-39) U/L Alkaline Phosphatase 182 H (34-104) U/L PG Care Time/CCT Total # of Minutes Spent Total Time Spent with Patient: Total time spent is greater than 50% in coordination of care (as documented) at patient's floor/unit and/or counseling patient: Coding Level of Care Code 75531 SUB INP/OBS CARE 2/35MIN Diagnoses Alcohol withdrawal F10.931 Complication of substance-induced condition: with delirium Alcoholic hepatitis K70.10 Ascites presence: unspecified Encephalopathy G93.40 Benign essential hypertension I10 Anxiety F41.9 (1) Alcohol withdrawal Complication of substance-induced condition: with delirium Qualified Code(s): F10.931 - Alcohol use, unspecified with withdrawal delirium (2) Alcoholic hepatitis Ascites presence: unspecified Qualified Code(s): K70.10 - Alcoholic hepatitis without ascites
[2023-12-01] MEDS: POTASSIUM CHLORIDE CRTAB 20 MEQ TABCR PO STA (12:09)
--- NOTE | 2023-12-01 20:57 | Communication Note ---
Date of Service: December 01, 2023 Patient was found down on the ground with blood on the floor by nursing. Code purple called. Resident and attending Dr. Lozano at bedside. Patient thought h is Reid was stuck to him, so he ripped it out. Balloon intact. Patient here with alcohol withdrawal. Was initially requiring ICU level care because of hallucinations requiring precedex gtt. Was given high dose thiamine. Completed phenobarb load and taper - last dose earlier today. Back on symptom triggered AWSS with ativan IV. Most recent AWSS 8. Continue to monitor. If patient's withdrawal becomes refractory once more could consider more phenobarb. As patient was found down and is on Lovenox reasonable to order a CT Head w/o. Denies hitting his head. No symptoms. No pain. PERRL. Well perfused. No cervical or thoracic spinal tenderness or paraspinal tenderness. Low suspicion for c- spine injury. Hold off on imaging for now. Reid placed. Bed alarm ordered. Mitts ordered. Ordered AM labs. Case discussed with Dr. oLzano. Resident Activity Tracking Resident Involvement: Resident Care Provided Care Provided: Adult Hospital Medicine
[2023-12-01] MEDS: SODIUM CHLORIDE 0.9% 1,000 ML IV ONE (23:04)
--- NOTE | 2023-12-01 23:09 | CT Scan Report ---
Exam(s): CT HEAD Without Contrast EXAM: CT Head Without Intravenous Contrast CLINICAL HISTORY: Reason for exam: found down. TECHNIQUE: Axial computed tomography images of the head/brain without intravenous contrast. CTDI is 35 mGy and DLP is 546 mGy-cm. Automated exposure control was utilized for the study. A dose lowering technique was utilized adhering to the principles of ALARA. COMPARISON: No relevant prior studies available. FINDINGS: Brain: Unremarkable. No hemorrhage. No significant white matter disease. No edema. Ventricles: Unremarkable. No ventriculomegaly. Bones/joints: Unremarkable. No acute fracture. Soft tissues: Unremarkable. Sinuses: Unremarkable as visualized. No acute sinusitis. Mastoid air cells: Unremarkable as visualized. No mastoid effusion. IMPRESSION: Normal head/brain CT. Electronically signed by: David Casanova MD 12/01/23 23:08 PM
[2023-12-01 23:16] LABS: Base Excess VBG 1.8 mEq/L; HCO3 VBG 26 mmol/L; Oxygen Saturation VBG < 60.0 %; PCO2 VBG 37 mmHg (38-50); PO2 VBG < 20 mmHg; pH VBG 7.45 (7.36-7.41)
[2023-12-01 23:32] LABS: Hematocrit (blood only) 42.2 % (42.0-52.0); Mean Corpuscular Hemoglobin 32.6 pg (25.0-34.0); Mean Corpuscular Hgb Conc 33.2 g/dL (32.0-36.0); Mean Corpuscular Volume 98.4 fL (80.0-100.0); Mean Platelet Volume 11.7 fL (9.4-12.4); Platelet Count 202 K/uL (130-400); RDW Coefficient of Variation 13.3 % (11.5-14.5); RDW Standard Deviation 48.1 fL (36.4-46.3); Red Blood Count 4.29 M/uL (4.70-6.10); White Blood Count 5.34 K/ul (4.8-10.8)
[2023-12-01 23:40] LABS: Albumin Globulin Ratio 1.2 (0.9-2); Albumin Level 3.7 gm/dl (3.4-5.0); BUN Creatinine Ratio 8.9 (10-20); Bilirubin,Total 2.6 mg/dl (0.2-1.0); C Reactive Protein 1.99 mg/dl (0-0.5); Calcium 8.8 mg/dl (8.6-10.3); Creatinine Clr Calc Pharmacy 116.5 ml/min; Est GFR (African American) 119.7 ml/min; Est GFR (Non-African American) 103.2 ml/min; Globulin 3.2 gm/dl (2.5-4.0); Magnesium 1.2 mg/dl (1.7-2.4); Potassium 3.6 mmol/L (3.5-5.1); Total Protein 6.9 gm/dl (6.0-8.3)
[2023-12-01 23:49] LABS: INR 1.3 (0.9-1.1); Prothrombin Time 13.4 Seconds (9.0-12.0)
[2023-12-01 23:51] LABS: Basophils # (auto) 0.04 K/uL (0.00-0.20); Basophils % (auto) 0.7 %; Eosinophils # (auto) 0.03 K/uL (0.00-0.50); Eosinophils % (auto) 0.6 %; Immature Granulocytes # (auto) 0.01 K/uL (0.01-0.20); Immature Granulocytes % (auto) 0.2 %; Lymphocytes # (auto) 0.22 K/uL (1.20-3.40); Lymphocytes % (auto) 4.1 %; Monocytes # (auto) 0.05 K/uL (0.11-0.59); Monocytes % (auto) 0.9 %; Neutrophils # (auto) 4.99 K/uL (1.40-6.50); Neutrophils % (auto) 93.5 %; Polychromasia 1+; Toxic Vacuolation 2+
--- NOTE | 2023-12-02 00:04 | Communication Note ---
Date of Service: December 02, 2023 Called again to bedside as patient with increasing agitation and tremulousness. Patient given ativan per AWSS protocol without significant improvement. Patient tachycardic with soft BPs. Given a liter of NSS. Labs ordered - CBC, CMP, Mag, Phos, VBG, lactate, random cortisol, Utox, PT/INR, CXR, EKG, Procal and CRP. Concern that the Reid had clotted off. Dr. Lobo joined the resident at bedside. Nursing attempted to irrigate without significant pull back. Difficulty with bladder scan - said 4 cc in the bladder. Antony Lawrence came to bedside and was able to successfully irrigate the bladder. Patient appeared more comfortable, but continued to be tremulous, tachycardic, and anxious. Bladder irrigation as needed. Lactate 3.1. Repeat 2.3 Did get 1 L NSS. Mag and Phos low, will replete. Trop elevated - repeat as AM lab. No signs of acute blood loss anemia on CBC. No leukocytosis. CRP elevated at 1.99. CT head negative. Exam is concerning for withdrawal. Patient did complete phenobarb taper, which makes it less likely to be alcohol withdrawal. Patient yawning and tremulous with significant piloerection and sweating. Concern for opioid withdrawal. COWS assessment 27. There was no UDS done on admit. Has since been ordered. Patient has been here since 11/22 which does complicate the timeline for opioid withdrawal. Patient has been given precedex, barbs/benzos but no opioids while here. Concern that patient may be accessing opioids from an alternative source. Has been visited by a girlfriend regularly. Did state that he has used narcotics in the past, but history of when and what is unclear due to mental status. Will trial Suboxone 2 mg-0.5 mg. Patient sleeping comfortably per nursing assessment 1 hour after suboxone. HR improved 100s-110s. Patient likely in opioid withdrawal. Would continue with symptom triggered dosing of suboxone with COWS assessment. Would clarify substance use history. Resident Activity Tracking Resident Involvement: Resident Care Provided Care Provided: Adult Hospital Medicine
--- NOTE | 2023-12-02 00:18 | Urology Consultation ---
Date of Consultation December 02, 2023 Assessment & Plan (1) Hematuria: I evaluated the patient in room 204: As noted in history present illness, at the bedside I was able to flush fluid into the catheter and aspirate nearly all the fluid that I instilled into the bladder without difficulty. Minimal to no blood clots were obtained with this maneuver and the urine retrieved was noted to be clear. I flushed and irrigated the catheter multiple times. The catheter was then placed to gravity drainage and appeared to be functioning appropriately with clear urine and no visible blood clots. The patient likely has urethral bleeding from traumatic removal of his Reid catheter. At this point in time would recommend maintaining the Reid catheter to gravity drainage. If it becomes clogged manual flushing and irrigation attempts can be employed by nursing staff. If the patient does have persistent bleeding that does not stop in a reasonable amount of time consideration be given to upgrading his Reid catheter to a larger size for more tamponading effect. Would recommend following serial laboratories on the patient ensuring his electrolytes remain in acceptable range and making sure he does not have any significant drop in his hemoglobin and hematocrit. Would also recommend holding any anticoagulants, antiplatelets or DVT prophylaxis until his urethral bleeding has stopped. Will continue to monitor the patient closely with additional recommendations which will be forthcoming based on his clinical course as it unfolds. This case was discussed with the hospitalist service at the bedside. History of Present Illness Reason for Consultation: Hematuria Attending Physician: Mary Reyes MD History of Present Illness This is a 52-year-old male who has been admitted to the hospital since 11/23/2023. The patient has been admitted secondary to alcohol withdrawal. On the evening of 12/01/2023 a code purple was called and the patient was found on the floor. It is unclear if the patient fell or merely sat down, but as these events transpired the patient became tangled in his Reid catheter tubing and inadvertently pulled his entire Reid catheter out with the balloon inflated. Following this episode, the patient was noted to have gross hematuria from his urethra. Nursing staff was able to easily place an 18 Nepali Reid catheter. Patient was initially doing well following this episode however I was notified that the Reid catheter appeared to be malfunctioning. Nursing staff was able to flush fluid into the catheter but they are having difficulty aspirating any fluid back. They performed a bladder scan and were having a difficulty obtaining any noted residual fluid in the bladder. I presented to the bedside and I inspected the patient's Reid catheter. He did have some bleeding from around the catheter from his urethral meatus. At the bedside I manually flushed and irrigated the catheter. I was able to successfully flush fluid into the catheter and I was able to aspirate nearly the entire amount of fluid that I instilled into the bladder. I did not get much in the way of blood clots and after doing this 2-3 times I was able to get clear urine. At the time of my exam the patient was not reporting any abdominal pain, and he reported minimal discomfort from the Reid catheter. Allergies Allergy/AdvReac Type Severity Reaction Status Date / Time No Known Drug Allergies Allergy Unknown Unknown Verified 12/01/23 15:18 Home Medications Medication Instructions Recorded Confirmed Type acamprosate 333 mg tablet,delayed See Rx Instructions .Route .COMPLEX 11/24/23 11/24/23 History release albuterol sulfate 90 mcg/actuation 2 puff inhalation Q4H PRN Wheezing 11/24/23 11/24/23 History aerosol inhaler baclofen 10 mg tablet 10 mg PO DAILY PRN Hiccups 11/24/23 11/24/23 History fluoxetine 40 mg capsule 40 mg PO QAM 11/24/23 11/24/23 History losartan 100 mg tablet 100 mg PO DAILY 11/24/23 11/24/23 History sildenafil 50 mg tablet 50 mg PO DAILY PRN Unknown 11/24/23 11/24/23 History thiamine HCl (vitamin B1) 100 mg 100 mg PO DAILY 11/24/23 11/24/23 History tablet triamcinolone acetonide 0.1 % 1 applic topical DAILY 11/24/23 11/24/23 History topical cream Patient History Social History Smoking Status: Unknown if ever smoked Hx Alcohol Use: Yes Alcohol type: beer Preferred Language: Cambodian Communication Ability: Impaired Fare Register Repairer Required: No Beliefs That Will Affect Care: None Current Living Situation Comment: from [facility] Safe at Home: Declines to Answer Assistive Devices: None Review of Systems Review of Systems: Unobtainable due to cognitive status Physical Exam Constitutional: no acute distress ENMT: Ears: no hearing impairment and no external ear abnormality Mouth: no oropharynx abnormality Neck: trachea midline Respiratory: no labored breathing Cardiovascular: Rate/Rhythm: regular rate, regular rhythm and + tachycardic Gastrointestinal (Abdomen): Abdomen is soft and nonrigid. It is nondistended. There is no rebound tenderness or guarding. There is no pain noted with palpation, specifically no suprapubic discomfort. Musculoskeletal: No lower extremity edema Skin: no rashes Neurologic: moves all extremities Genitourinary: Patient's genitals were examined. He had a normal-appearing circumcised penis. An 18 Nepali Reid catheter was in place. The patient did have some bleeding from around the catheter at the urethral meatus. Results & Data Vital Signs (Past 12 Hours) Vital Signs Temp Pulse Pulse Resp BP BP Pulse Ox 12/01/23 22:37 37.3 C 120 H 18 101/60 96 12/01/23 21:47 110 H 159/108 H 12/01/23 20:00 37.2 C 87 18 138/96 94 12/01/23 15:52 99 H 12/01/23 15:00 37.1 C 103 H 18 99/66 L 95 O2 Del Method 12/01/23 22:37 Room Air 12/01/23 21:47 12/01/23 20:00 Room Air 12/01/23 15:52 12/01/23 15:00 Room Air PG Care Time/CCT Total # of Minutes Spent Total Time Spent with Patient: Total time spent is greater than 50% in coordination of care (as documented) at patient's floor/unit and/or counseling patient: Coding Level of Care Code 47054 IN/OBS CONSULT LVL 3,45M Diagnoses Hematuria R31.9
[2023-12-02] MEDS: diazePAM 5 MG/ML 10ML VIAL IV STA (00:20)
[2023-12-02] MEDS: HYDROmorphone INJ 1 MG/ML SYRINGE IV STA (00:20)
[2023-12-02] MEDS ORDERED: POTASSIUM PHOS 3 MMOL/1 ML INFUSION IV STA (01:18)
[2023-12-02] MEDS: SODIUM CHLORIDE 0.9% 500 ML IV ONE (01:47)
[2023-12-02] MEDS: BUPRENORPHINE/NALOXONE 2/0.5MG TAB SL ONE (01:49)
[2023-12-02] MEDS: MAGNESIUM SULFATE / D5W 1 GM/100 ML BAG IV SCH (01:49)
[2023-12-02] MEDS: POTASSIUM PHOSPHATE 15 MMOL in SODIUM CHLORIDE 0.9% 250 ML IV ONE (02:20)
[2023-12-02 02:30] LABS: Amphetamines+Metham, Urine Neg (Neg); Barbiturates, Urine Pos (Neg); Benzodiazepine, Urine Neg (Neg); Cocaine, Urine Neg (Neg); Fentanyl, Urine Neg (Neg); MDMA (Ecstacy), Urine Neg (Neg); Marijuana, Urine Neg (Neg); Methadone, Urine Neg (Neg); Opiate, Urine Neg (Neg); Phencyclidine, Urine Neg (Neg)
[2023-12-02 06:59] LABS: Albumin Globulin Ratio 1.2 (0.9-2); Albumin Level 3.2 gm/dl (3.4-5.0); BUN Creatinine Ratio 12.5 (10-20); Bilirubin,Total 2.1 mg/dl (0.2-1.0); Calcium 7.9 mg/dl (8.6-10.3); Creatinine Clr Calc Pharmacy 143.8 ml/min; Est GFR (African American) 130.5 ml/min; Est GFR (Non-African American) 112.6 ml/min; Globulin 2.7 gm/dl (2.5-4.0); Magnesium 1.9 mg/dl (1.7-2.4); Total Protein 5.9 gm/dl (6.0-8.3)
[2023-12-02 07:06] LABS: Troponin I High Sensitivity 7.5 pg/ml (0-20)
--- NOTE | 2023-12-02 07:24 | XRay Report ---
XR chest 1V portable HISTORY: 52 years-old Male tachycardia acute tachycardia COMPARISON: 11/25/2023 TECHNIQUE: AP view of the chest FINDINGS: Cardiomediastinal and hilar silhouettes are within normal limits. No pneumothorax, pleural effusion, airspace consolidation or pulmonary edema. Mild right hemidiaphragmatic elevation. Bones appear gross ly intact. IMPRESSION: No acute process. ACT 112: Negative or not required by law. The above report was generated using voice recognition software. It may contain grammatical, syntax o r spelling errors. Electronically signed by: Horacio Campos M.D. 12/02/2023 7:23 AM
[2023-12-02 09:45] LABS: Hematocrit (blood only) 37.2 % (42.0-52.0); Hemoglobin 12.5 g/dl (14.0-18.0); Mean Corpuscular Hemoglobin 33.2 pg (25.0-34.0); Mean Corpuscular Hgb Conc 33.6 g/dL (32.0-36.0); Mean Corpuscular Volume 98.9 fL (80.0-100.0); Mean Platelet Volume 11.3 fL (9.4-12.4); Platelet Count 184 K/uL (130-400); RDW Coefficient of Variation 13.5 % (11.5-14.5); RDW Standard Deviation 49.6 fL (36.4-46.3); Red Blood Count 3.76 M/uL (4.70-6.10); White Blood Count 19.61 K/ul (4.8-10.8)
--- NOTE | 2023-12-02 12:25 | Critical Care Progress Note ---
Date of Service December 02, 2023 Assessment & Plan (1) Alcohol withdrawal delirium: (2) Alcoholic hepatitis: (3) Hypomagnesemia: Plan Reason Critically Ill: 52-year-old male with alcohol dependency and heavy alcohol use with continued encephalopathy concerning for delirium tremens PLAN: Neuro: Acute encephalopathy -Obtain MRI with and without contrast to rule out significant abnormality given protracted course of encephalopathy Alcohol dependency and delirium tremens -UDS positive for barbiturates which is to be expected: Opioids negative, urine drug screen does not detect synthetic opioids such as fentanyl, while it remains possible he could be obtaining additional substances I think this is highly unlikely, fentanyl has very rapid onset of action and use typically from nasal insufflation or IV use -Opioid toxidrome also shares overlap with alcohol withdraw, notably patient not having rhinorrhea nor gastrointestinal complaints/diarrhea which is very common in opiate withdrawal -Would not continue Suboxone therapy. -Negative is most prudent to continue to treat for unresolved delirium tremens -I would load to 6 mg/kg body weight: 500 mg total, 300 mg IV now and then 200 mg at 4 to 5 PM this evening -Phenobarbital 65 mg IV as needed every 6 hours as needed for increase RASS scoring -Anticipate transition to extended oral phenobarbital taper Resp: No oxygen requirement CV: Tachycardia -Likely secondary to withdrawal prodrome Fluids/Renal: Possible urethral disruption: Traumatic Reid removal -Urology consulted and reviewed -Given recent disruption I would continue to leave the Reid in place versus removal and utilizing [place] condom catheter ID: Fever -Procalcitonin largely unremarkable -Repeat blood cultures -Patient self discontinued Reid overnight -Doubtful of significant utility of sending a urinalysis and urine culture at this time given the recent trauma -Patient does not have abdominal pain, will check lipase, doubt intra-abdominal infection -Chest x-ray reviewed, no oxygen requirement, do ubtful respiratory source -No obvious neck rigidity to suggest meningismus: No strong indication for lumbar puncture -Certainly fever can be caused by alcohol withdraw, this was present on patient's admission GI/Nutrition: hepatitis: Transaminitis improving, strongly suggestive of alcoholic -hepatitis panel negative Heme: History thrombocytopenia which has resolved Anemia -Check reticulocyte count, iron studies, B12 and folate for completeness DVT prophylaxis: Lovenox Endocrine: ICU hyperglycemia protocol Vascular access: Peripheral IVs Code Status: Full code Disposition: ICU for end-tidal CO2 monitoring during phenobarbital load Admission and Anticipated Discharge Date Admission Date: November 23, 2023 Supervising Physician Co-Signing Physician Notes I have personally spent 70 minutes of critical care time in the direct management of this patient. This is a life/limb threatening event. This includes time spent evaluating patient, direct bedside care, chart review, placing orders, interpretation of diagnostic studies, discussion with consultants, patient, and/or family members regarding treatment decisions, as well as other required patient management activities. This time is exclusive of all separately billable procedures, and teaching time and separate from and in addition to any other critical care service time. Subjective I was asked to reevaluate the patient for ongoing, worsening withdrawal symptoms. History is obtained from prior records and patient's fianc at the bedside. Patient's fianc reports that he has been engaged in heavy alcohol consumption for approximately 7 years. 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 During that time he has been using his sick leave until his eventual usp date this January. As a requirement to use his sick leave he started following with a primary care doctor. During initial intake and evaluation it appears that there was d iscovery of alcoholic hepatitis/transaminitis and the patient's alcohol dependency was largely discovered. Fianc reports it was routine for him to drink immediately upon waking until going to bed; his initial drink of choice was beer however he progressed to whiskey and vodka and would be routinely noted to be drinking straight from a bottle in the morning. Estimates that he would consume 1 L of alcohol daily. Prior to this admission there was a family intervention and alcohol was removed from the residence on WednesdayNovember 19, there is no ability in his county to purchase alcohol on Wednesday and the fianc reports by Wednesday the patient was tremulous and in full-blown withdrawal. They attempted to proceed to [facility] for alcohol withdraw, and the patient was found to be in acute delirium tremens upon his presentation. Per hospital records he appears to have been treated with IV Ativan, Precedex and phenobarbital as well as admission to the critical care unit from November 22 until November 27. On November 27 there was transition to oral phenobarbital as well as needed IV Ativan for 3 days. It appears the patient has had persistent encephalopathy and never fully returned to baseline mental status in the interim. I have reviewed the alcohol withdrawal severity score since admission. The last 12 hours the patient has had increasing psychomotor agitation not responding to a WSS protocol interventions. There is also clinical concern of change in the withdrawal toxidrome as the patient is experiencing yawning and piloerection. Additionally patient self discontinued Reid, this has been replaced During my evaluation the patient is encephalopathic, he does open his eyes and oriented to self however he is not oriented to time or location. Mega is adamant that in her 10-year relationship with the patient he has not admitted to experimenting with illicit substances, marijuana, opiates, injectables and has only used alcohol. Patient's mega reports he has significant PTSD and anxiety from his time while serving in the : [employer] Review of Systems Review of Systems: Unobtainable due to cognitive status Physical Exam Physical Exam: General: Opens eyes to voice. Neuro: moves all 4 extremities, pupils equal round reactive Skin: Warm, dry, no evidence of piloerection nor diaphoresis, mild diffuse excoriations, no obvious track harper Head: Atraumatic Ears, nose, mouth and throat: airway patent Cardiovascular: Normal peripheral perfusion, mild tachycardia on bedside monitor Respiratory: no respiratory distress Gastrointestinal: Non distended, abdomen is soft and nontender: This is a nonsurgical abdomen Musculoskeletal: No deformity Results & Data Results & Data Vital Signs (Past 12 Hours) Vital Signs Temp Pulse Pulse Resp BP Pulse Ox O2 Del Method 12/02/23 11:40 38.5 C H 113 H 20 141/89 H 95 Nasal Cannula 12/02/23 08:00 Nasal Cannula 12/02/23 07:45 36.6 C 85 18 98/70 L 95 Nasal Cannula 12/02/23 07:00 92 H 12/02/23 05:43 93 Nasal Cannula 12/02/23 05:43 88 L Room Air 12/02/23 04:49 98 H 12/02/23 03:13 36.9 C 114 H 19 93/67 L 90 Room Air O2 Flow Rate 12/02/23 11:40 2.0 12/02/23 08:00 2 12/02/23 07:45 2.0 12/02/23 07:00 12/02/23 05:43 2 12/02/23 05:43 12/02/23 04:49 06/06/24 03:13 Critical Care Results & Data Vital Signs (Past 12 Hours) Vital Signs Temp Pulse Pulse Resp BP Pulse Ox O2 Del Method 12/02/23 11:40 38.5 C H 113 H 20 141/89 H 95 Nasal Cannula 12/02/23 08:00 Nasal Cannula 12/02/23 07:45 36.6 C 85 18 98/70 L 95 Nasal Cannula 12/02/23 07:00 92 H 12/02/23 05:43 93 Nasal Cannula 12/02/23 05:43 88 L Room Air 12/02/23 04:49 98 H 12/02/23 03:13 36.9 C 114 H 19 93/67 L 90 Room Air O2 Flow Rate 12/02/23 11:40 2.0 12/02/23 08:00 2 12/02/23 07:45 2.0 12/02/23 07:00 12/02/23 05:43 2 12/02/23 05:43 12/02/23 04:49 12/02/23 03:13 Lab & Micro Results (Past 24 Hours) RBC 3.76 M/uL (4.70-6.10) L 12/02/23 WBC 19.61 K/ul (4.8-10.8) H 12/02/23 Hgb 12.5 g/dl (14.0-18.0) L 12/02/23 Hct 37.2 % (42.0-52.0) L 12/02/23 MCV 98.9 fL (80.0-100.0) 12/02/23 MCH 33.2 pg (25.0-34.0) 12/02/23 MCHC 33.6 g/dL (32.0-36.0) 12/02/23 RDW Standard Deviation 49.6 fL (36.4-46.3) H 12/02/23 RDW Coefficient of Variation 13.5 % (11.5-14.5) 12/02/23 Plt Count 184 K/uL (130-400) 12/02/23 MPV 11.3 fL (9.4-12.4) 12/02/23 Neutrophils (%) (Auto) 93.5 % 12/01/23 Lymphocytes (%) (Auto) 4.1 % 12/01/23 Monocytes # (Auto) 0.05 K/uL (0.11-0.59) L 12/01/23 Eosinophils # (Auto) 0.03 K/uL (0.00-0.50) 12/01/23 Immature Granulocyte % (Auto) 0.2 % 12/01/23 Neutrophils # (Auto) 4.99 K/uL (1.40-6.50) 12/01/23 Lymphocytes # (Auto) 0.22 K/uL (1.20-3.40) L 12/01/23 Monocytes # (Auto) 0.05 K/uL (0.11-0.59) L 12/01/23 Eosinophils # (Auto) 0.03 K/uL (0.00-0.50) 12/01/23 Basophils # (Auto) 0.04 K/uL (0.00-0.20) 12/01/23 Immature Granulocyte # (Auto) 0.01 K/uL (0.01-0.20) 4 Polychromasia 1+ 12/01/23 Toxic Vacuolation 2+ 12/01/23 Na 136 mmol/L (136-145) 12/02/23 K 4.0 mmol/L (3.5-5.1) 12/02/23 Cl 106 mmol/L (98-107) 12/02/23 CO2 23 mmol/L (21-32) 12/02/23 Anion Gap 7 (3-11) 12/02/23 BUN 8 mg/dl (6-23) 12/02/23 Creatinine 0.64 mg/dl (0.6-1.4) 12/02/23 Estimated GFR ( Amer) 130.5 ml/min 12/02/23 Estimated GFR (Non-Af Amer) 112.6 ml/min 12/02/23 BUN/Creatinine Ratio 12.5 (10-20) 12/02/23 Glu 146 mg/dl (70-99(Fasting)) H 12/02/23 Ca 7.9 mg/dl (8.6-10.3) L 12/02/23 Phosphorus Level 2.0 mg/dl (2.5-4.9) L 12/01/23 Total Bilirubin 2.1 mg/dl (0.2-1.0) H 12/02/23 AST 79 U/L (13-39) H 12/02/23 ALT 29 U/L (7-52) 12/02/23 Alkaline Phosphatase 154 U/L (34-104) H 12/02/23 TP 5.9 gm/dl (6.0-8.3) L 12/02/23 Albumin 3.2 gm/dl (3.4-5.0) L 12/02/23 Globulin 2.7 gm/dl (2.5-4.0) 12/02/23 Albumin/Globulin Ratio 1.2 (0.9-2) 12/02/23 Mg 1.9 mg/dl (1.7-2.4) 12/02/23 05:34 Calcium Level 7.9 mg/dl (8.6-10.3) L 12/02/23 05:34 Prothromb Time International Ratio 1.3 (0.9-1.1) H 12/01/23 23 :05 Venous Blood pH 7.45 (7.36-7.41) H 12/01/23 23:05 Venous Blood Partial Pressure CO2 37 mmHg (38-50) L 12/01/23 23 :05 Venous Blood Partial Pressure O2 < 20 mmHg 12/01/23 23:05 Venous Blood HCO3 26 mmol/L 12/01/23 23:05 Venous Blood Base Excess 1.8 mEq/L 12/01/23 23:05 Venous Blood Oxygen Saturation < 60.0 % 12/01/23 23:05 Diagnostic Findings (Past 24 Hours) Head CT 12/01/23 20:55 Exam(s): CT HEAD Without Contrast EXAM: CT Head Without Intravenous Contrast CLINICAL HISTORY: Reason for exam: found down. TECHNIQUE: Axial computed tomography images of the head/brain without intravenous contrast. CTDI is 35 mGy and DLP is 546 mGy-cm. Automated exposure control was utilized for the study. A dose lowering technique was utilized adhering to the principles of ALARA. COMPARISON: No relevant prior studies available. FINDINGS: Brain: Unremarkable. No hemorrhage. No significant white matter disease. No edema. Ventricles: Unremarkable. No ventriculomegaly. Bones/joints: Unremarkable. No acute fracture. Soft tissues: Unremarkable. Sinuses: Unremarkable as visualized. No acute sinusitis. Mastoid air cells: Unremarkable as visualized. No mastoid effusion. IMPRESSION: Normal head/brain CT. Electronically signed by: David Casanova MD 12/01/23 23:08 PM Chest X-Ray 12/01/23 22:45 XR chest 1V portable HISTORY: 52 years-old Male tachycardia acute tachycardia COMPARISON: 11/25/2023 TECHNIQUE: AP view of the chest FINDINGS: Cardiomediastinal and hilar silhouettes are within normal limits. No pn eumothorax, pleural effusion, airspace consolidation or pulmonary edema. Mild right hemidiaphragmatic elevation. Bones appear grossly intact. IMPRESSION: No acute process. ACT 112: Negative or not required by law. The above report was generated using voice recognition software. It may contain grammatical, syntax or spelling errors. Electronically signed by: Horacio Campos M.D. 12/02/2023 7:23 AM I & O Totals 24 Hours 12/01/23 12/02/23 12/03/23 06:59 06:59 06:59 Intake Total 1226.833 / 1077.002 9636 / 1950 246.666 / 246.666 Output Total 1202 / 1202 402 / 402 Balance 24.833 / 24.833 1548 / 1548 246.666 / 246.666 Cumulative 11/23/23 13:39 thru 12/02/23 10:44 Intake Total 52882.839 Output Total 38522 Balance 2708.839 RT Ventilator Mngmt (Last Documented) Ventilator Ordered Settings Respiratory Rate 20 12/02/23 11:40 Fraction of Inspired Oxygen 28 11/26/23 08:00 Ventilator - PT Measurements Respiratory Rate 20 End-Tidal CO2 25 Coding Level of Care Code 38650 CRITICAL CARE 1ST 30-74M Diagnoses Alcohol withdrawal delirium F10.931 Alcoholic hepatitis K70.10 Ascites presence: unspecified Hypomagnesemia E83.42 (2) Alcoholic hepatitis Ascites presence: unspecified Qualified Code(s): K70.10 - Alcoholic hepatitis without ascites
[2023-12-02 13:29] LABS: Reticulocyte % 2.27 % (0.50-2.00); Reticulocytes # 0.1 10^6/uL (0.020-0.100)
[2023-12-02] MEDS: PHENobarbital sodium 130 MG/ML VIAL IV STA (13:35)
[2023-12-02] MEDS: OPTIRAY 320 100ml IV ONE (13:54)
[2023-12-02 14:08] LABS: Folate (Folic Acid),Ser orPlas 8.25 ng/ml (>5.38); Vitamin B12 > 1500 pg/ml (180-914)
--- NOTE | 2023-12-02 14:15 | CT Scan Report ---
CT SCAN OF THE NECK WITH IV CONTRAST CLINICAL HISTORY: Bilateral supraclavicular palpable lumps. COMPARISON STUDY: No priors. TECHNIQUE: Following the IV administration of 95 cc of Optiray 320, CT scan of the soft tissues of th e neck was performed from the skull base to the upper chest. Images are reviewed in the axial, sagitt al, and coronal planes. IV contrast was administered without complication. A dose lowering techniqu e was utilized adhering to the principles of ALARA. FINDINGS: Pharynx: The pharyngeal soft tissues are normal as imaged. The pharyngeal airway is widely patent. Th ere is no evidence of mass lesion. The vocal cords are symmetric. The parapharyngeal fat is well main tained. The prevertebral/retropharyngeal soft tissues are within normal limits. The epiglottis is nor mal. Lymphadenopathy: No cervical or supraclavicular lymphadenopathy is seen. Thyroid: Normal in size and attenuation. Salivary glands: The parotid and submandibular glands are within normal limits. Brain parenchyma: The visualized brain parenchyma at the skull base is normal in appearance. Vascular structures: The carotid arteries and jugular veins are patent bilaterally. Atherosclerotic c alcification is noted in the carotid bulbs. Skeletal structures: Imaged portions of the calvarium at the skull base are within normal limits. The cervical spine appears intact. Orbits: The bony orbits are intact. Orbital contents are normal in appearance. Sinuses and mastoids: The paranasal sinuses are clear. The mastoid air cells are well pneumatized. Lung apices: Visualized apical lung parenchyma is clear. IMPRESSION: No abnormality is identified. ACT 112: Negative or not required by law. Electronically signed by: Brian Perez M.D. 12/02/2023 2:14 PM
[2023-12-02] MEDS: GADOBUTROL 65ML VIAL IV ONE (14:28)
[2023-12-02 14:34] LABS: Iron 12 mcg/dl (35-175); Lipase < 3 U/L (11-82); Transferrin 180 mg/dl (200-360)
--- NOTE | 2023-12-02 15:31 | Magnetic Resonance Report ---
Brain MRI WITH AND WITHOUT CONTRAST HISTORY: Altered mental status. TECHNIQUE: Multiplanar multisequence MRI of the brain was performed both before and after the intrave nous administration of contrast. COMPARISON STUDY: Head CT 12/01/2023. FINDINGS: There is no mass, hematoma, midline shift, or acute infarct. The paranasal sinuses are asha r. The mastoid air cells are clear. The ventricles and sulci demonstrate mild age-related involutiona l changes. Mild periventricular white matter T2 hyperintensity is nonspecific but suggestive of mild microvascular ischemic changes. The major vascular flow voids at the skull base are well-maintained. Incidental note is made of a small developmental venous anomaly within the right frontal lobe. This i s considered to be a normal variant. Otherwise, no abnormal enhancement within the brain. IMPRESSION: 1. No acute infarct or intracranial hemorrhage. 2. Mild periventricular white matter T2 hyperintensity. This is nonspecific but favors mild microvasc ular ischemic change. ACT 112: Negative or not required by law. Electronically signed by: Kory Kirby M.D. 12/02/2023 3:30 PM
--- NOTE | 2023-12-02 15:38 | Hospitalist Progress Note ---
Date of Service December 02, 2023 Assessment & Plan (1) Alcohol withdrawal: Plan: Patient is a chronic heavy drinker and never tried to quit or cut back on his drinking Per the report I got, he checked himself into drug and alcohol rehab as he wanted to quit but was found to be actively withdrawing with hallucinations, tremors and thus was sent to the emergency room The patient was given a few doses of Ativan in the emergency room In the emergency room, he started having seizures She was thus admitted to the ICU. Was downgraded from ICU to telemetry bed Patient was being managed with Precedex drip, phenobarbital, Ativan Now off Precedex drip. Completed phenobarbital course Being managed with Ativan. Nurse was concerned that the patient may need to be back in ICU status on 11/27 Adoption Social Worker consulted on 11/27, did not recommend ICU transfer Patient had a good day yesterday. But overnight had a decline with restlessness. Consulted bullard machine operator again today 12/01. Adoption Social Worker recommending ICU transfer now. MRI head negative Leukocytosis is most likely stress related Fever is most likely related to alcohol withdrawal (2) Alcoholic hepatitis: Plan: Patient most likely has alcoholic hepatitis AST: ALT is greater than 2 Elevated bilirubin level of 4 INR elevated at 1.3 Discriminant factor 13. Not a candidate for steroids Acute hepatitis panel negative Acetaminophen level negative (3) Encephalopathy: Plan: This is most likely due to alcohol withdrawal delirium tremens and toxic encephalopathy Will manage alcohol withdrawal Monitor clinically (4) Benign essential hypertension: Plan: She normally takes losartan 100 mg Hold p.o. medicine for the time being (5) Anxiety: Plan: Takes Prozac at home Hold oral medications Plan CODE STATUS: Presumed to be full code. Patient is not able to participate in decision-making DVT prophylaxis: Thrombocytopenia improved. Started Lovenox Admission and Anticipated Discharge Date Admission Date: November 23, 2023 Subjective Overnight, patient was restless, pulled out his Reid catheter with the balloon inflated. He was seen by the [facility] night team several times. Urology needed to be consulted to place the Reid catheter back in place. There were concerns about opioid withdrawal and the patient was prescribed Ativan followed by Suboxone. He then fell asleep. I came to evaluate the patient today. Spoke to the mega who confirmed that the patient does not use any other illicit drugs. "His only problem is alcohol". He was sleeping initially during my encounter. Soon after I left the room, the nurse asked me to come back to see him. He woke up, restless. He seems to be having shaking especially on the right leg. He is not able to participate in the conversation. I consulted bullard machine operator. Review of Systems Review of Systems: All systems reviewed & are unremarkable except as noted in Subjective Physical Exam Physical Exam: General: Awake. Not able to hold a conversation. Right leg noted to be shaking more. Pinpoint pupils bilaterally. Sweaty Heart: S1, S2/regular rate and rhythm, no murmur rubs or gallops Lungs: Clear to auscultation bilaterally. Normal effort Abdomen: Soft/nontender/nondistended. No hepatosplenomegaly Extremities: No clubbing/cyanosis. No edema Behavior: Cooperative, appropriate Results & Data Results & Data Vital Signs (Past 12 Hours) Vital Signs Temp Pulse Pulse Resp BP BP Pulse Ox 12/02/23 15:15 12/02/23 13:35 112 H 24 122/77 12/02/23 11:40 38.5 C H 113 H 20 141/89 H 95 12/02/23 08:00 12/02/23 07:45 36.6 C 85 18 98/70 L 95 12/02/23 07:00 92 H 12/02/23 05:43 93 12/02/23 05:43 88 L 12/02/23 04:49 98 H O2 Del Method O2 Flow Rate 12/02/23 15:15 Nasal Cannula 2 12/02/23 13:35 12/02/23 11:40 Nasal Cannula 2.0 12/02/23 08:00 Nasal Cannula 2 12/02/23 07:45 Nasal Cannula 2.0 12/02/23 07:00 12/02/23 05:43 Nasal Cannula 2 12/02/23 05:43 Room Air 12/02/23 04:49 Laboratory Results Abnormal lab results 12/01/23 12/02/23 12/02/23 Range/Units 23:05 01:00 01:38 WBC (4.8-10.8) K/ul RBC 4.29 L (4.70-6.10) M/uL Hgb (14.0-18.0) g/dl Hct (42.0-52.0) % RDW Std Deviation 48.1 H (36.4-46.3) fL Reticulocyte % (Auto) (0.50-2.00) % Lymph # (Auto) 0.22 L (1.20-3.40) K/uL [place] # (Auto) 0.05 L (0.11-0.59) K/uL PT 13.4 H (9.0-12.0) Seconds INR 1.3 H (0.9-1.1) VBG pH 7.45 H (7.36-7.41) VBG pCO2 37 L (38-50) mmHg BUN/Creatinine Ratio 8.9 L (10-20) Glucose 101 H (70-99(Fasting)) mg/dl Lactate 3.1 H* 2.3 H* (0.4-2.0) mmol/L Calcium (8.6-10.3) mg/dl Phosphorus 2.0 L (2.5-4.9) mg/dl Magnesium 1.2 L (1.7-2.4) mg/dl Iron (35-175) mcg/dl Transferrin (200-360) mg/dl Ferritin (8-388) ng/ml Total Bilirubin 2.6 H (0.2-1.0) mg/dl AST 100 H (13-39) U/L Alkaline Phosphatase 225 H (34-104) U/L Troponin I High Sens 23.0 H (0-20) pg/ml C-Reactive Protein 1.99 H (0-0.5) mg/dl Total Protein (6.0-8.3) gm/dl Albumin (3.4-5.0) gm/dl Lipase (11-82) U/L Vitamin B12 (180-914) pg/ml Urine Barbiturates Pos H (Neg) 12/02/23 12/02/23 12/02/23 Range/Units 05:34 09:17 12:55 WBC 19.61 H D (4.8-10.8) K/ul RBC 3.76 L (4.70-6.10) M/uL Hgb 12.5 L (14.0-18.0) g/dl Hct 37.2 L (42.0-52.0) % RDW Std Deviation 49.6 H (36.4-46.3) fL Reticulocyte % (Auto) 2.27 H (0.50-2.00) % Lymph # (Auto) (1.20-3.40) K/uL [place] # (Auto) (0.11-0.59) K/uL PT (9.0-12.0) Seconds INR (0.9-1.1) VBG pH (7.36-7.41) VBG pCO2 (38-50) mmHg BUN/Creatinine Ratio (10-20) Glucose 146 H (70-99(Fasting)) mg/dl Lactate (0.4-2.0) mmol/L Calcium 7.9 L (8.6-10.3) mg/dl Phosphorus (2.5-4.9) mg/dl Magnesium (1.7-2.4) mg/dl Iron 12 L (35-175) mcg/dl Transferrin 180 L (200-360) mg/dl Ferritin 605.0 H (8-388) ng/ml Total Bilirubin 2.1 H (0.2-1.0) mg/dl AST 79 H (13-39) U/L Alkaline Phosphatase 154 H (34-104) U/L Troponin I High Sens (0-20) pg/ml C-Reactive Protein (0-0.5) mg/dl Total Protein 5.9 L (6.0-8.3) gm/dl Albumin 3.2 L (3.4-5.0) gm/dl Lipase < 3 L (11-82) U/L Vitamin B12 > 1500 H (180-914) pg/ml Urine Barbiturates (Neg) PG Care Time/CCT Total # of Minutes Spent Total Time Spent with Patient: Total time spent is greater than 50% in coordination of care (as documented) at patient's floor/unit and/or counseling patient: Coding Level of Care Code 80150 SUB INP/OBS CARE 2MIN Diagnoses Alcohol withdrawal F1. Complication of substance-induced condition: with delirium Alcoholic hepatitis K70.10 Ascites presence: unspecified Encephalopathy G93.40 Benign essential hypertension I10 Anxiety F41.9 (1) Alcohol withdrawal Complication of substance-induced condition: with delirium Qualified Code(s): F10.931 - Alcohol use, unspecified with withdrawal delirium (2) Alcoholic hepatitis Ascites presence: unspecified Qualified Code(s): K70.10 - Alcoholic hepatitis without ascites
--- NOTE | 2023-12-02 15:48 | Urology Progress Note ---
Date of Service December 02, 2023 Assessment & Plan (1) Hematuria: Plan: Follow-up of hematuria/urethral bleeding after traumatic Reid catheter removal Reid catheter is draining appropriately with clear yellow urine No active bleeding is noted from the urethral meatus Recommend continue with Reid catheter at present Can be removed for voiding trial prior to discharge or per hospital medicine service Continue medical management per art objects supervisor and hospital medicine services will sign off, please contact our service with any additional questions or concerns Admission and Anticipated Discharge Date Admission Date: November 23, 2023 Subjective Patient seen and examined at bedside in ICU He was transferred to the ICU today for worsening withdrawal symptoms Patient's fiance at bedside He is lethargic and not interactive Reid intact Review of Systems Constitutional: as per Subjective / HPI Genitourinary: + as per Subjective / HPI Physical Exam Constitutional: + lethargic; no acute distress Respiratory: no labored breathing Musculoskeletal: Head/Neck/Chest: normocephalic Neurologic: minimally interactive Genitourinary: Reid patent and draining clear yellow urine in tubing, dried blood around the urethral meatus but no active bleeding noted Results & Data Vital Signs (Past 12 Hours) Vital Signs Temp Pulse Pulse Resp BP BP Pulse Ox 12/02/23 15:15 12/02/23 13:35 112 H 24 122/77 12/02/23 11:40 38.5 C H 113 H 20 141/89 H 95 12/02/23 08:00 12/02/23 07:45 36.6 C 85 18 98/70 L 95 12/02/23 07:00 92 H 12/02/23 05:43 93 12/02/23 05:43 88 L 12/02/23 04:49 98 H O2 Del Method O2 Flow Rate 12/02/23 15:15 Nasal Cannula 2 12/02/23 13:35 12/02/23 11:40 Nasal Cannula 2.0 12/02/23 08:00 Nasal Cannula 2 12/02/23 07:45 Nasal Cannula 2.0 12/02/23 07:00 12/02/23 05:43 Nasal Cannula 2 12/02/23 05:43 Room Air 12/02/23 04:49 PG Care Time/CCT Total # of Minutes Spent Total Time Spent with Patient: Total time spent is greater than 50% in coordination of care (as documented) at patient's floor/unit and/or counseling patient: Coding Level of Care Code None Diagnoses Hematuria R31.9
[2023-12-02] MEDS: PHENobarbital sodium 130 MG/ML VIAL IV SCH (18:24)
[2023-12-02] MEDS: PHENobarbital sodium 65 MG/ML VIAL IV PRN (23:53)
[2023-12-03] MEDS: ACETAMINOPHEN 1,000 MG/100 ML VIAL IV STA (03:00)
[2023-12-03 04:11] LABS: BUN Creatinine Ratio 17.7 (10-20); Calcium 8.3 mg/dl (8.6-10.3); Creatinine Clr Calc Pharmacy 116.5 ml/min; Est GFR (African American) 119.7 ml/min; Est GFR (Non-African American) 103.2 ml/min; Magnesium 1.8 mg/dl (1.7-2.4); Phosphorus 2.6 mg/dl (2.5-4.9); Potassium 4.1 mmol/L (3.5-5.1)
[2023-12-03 04:18] LABS: Basophils # (auto) 0.19 K/uL (0.00-0.20); Basophils % (auto) 1.4 %; Eosinophils # (auto) 0.06 K/uL (0.00-0.50); Eosinophils % (auto) 0.5 %; Hematocrit (blood only) 37.1 % (42.0-52.0); Hemoglobin 12.5 g/dl (14.0-18.0); Immature Granulocytes # (auto) 0.06 K/uL (0.01-0.20); Immature Granulocytes % (auto) 0.5 %; Lymphocytes # (auto) 0.36 K/uL (1.20-3.40); Lymphocytes % (auto) 2.7 %; Mean Corpuscular Hemoglobin 32.8 pg (25.0-34.0); Mean Corpuscular Hgb Conc 33.7 g/dL (32.0-36.0); Mean Corpuscular Volume 97.4 fL (80.0-100.0); Mean Platelet Volume 12.2 fL (9.4-12.4); Monocytes # (auto) 1.22 K/uL (0.11-0.59); Monocytes % (auto) 9.2 %; Neutrophils # (auto) 11.33 K/uL (1.40-6.50); Neutrophils % (auto) 85.7 %; Platelet Count 174 K/uL (130-400); RDW Coefficient of Variation 14.1 % (11.5-14.5); RDW Standard Deviation 50.4 fL (36.4-46.3); Red Blood Count 3.81 M/uL (4.70-6.10); White Blood Count 13.22 K/ul (4.8-10.8)
[2023-12-03] MEDS: MAGNESIUM SULFATE / D5W 1 GM/100 ML BAG IV SCH (05:38)
--- NOTE | 2023-12-03 08:08 | Critical Care Progress Note ---
Date of Service December 03, 2023 Assessment & Plan (1) Alcohol withdrawal delirium: (2) Alcoholic hepatitis: (3) Hypomagnesemia: Plan Reason Critically Ill: 52-year-old male with alcohol dependency and heavy alcohol use with continued encephalopathy concerning for delirium tremens PLAN: Neuro: Acute encephalopathy -Reviewed MRI results Alcohol dependency and delirium tremens -Patient experiencing both positive and negative withdrawal symptoms, vacillates between hyperactive and hypoactive delirium -Loaded with 6 mg/kg phenobarbital transition to oral taper -30 mg by mouth 3 times daily today then transi tion to twice daily for 2 days then transitioning to 15 mg twice daily for 5 doses -When transitioning out of ICU would recommend empiric oral phenobarb and continued ENRIQUE as scoring with symptom triggered Ativan, would discontinue IV as needed phenobarb at that time. -Patient may require extending oral phenobarbital if not resolving positive and negative delirium symptoms -Appropriate nutritional supplementation with vitamins and minerals Resp: No oxygen requirement CV: Tachycardia -Adding 0.1 mg clonidine by mouth to help mitigate hyperadrenergic withdrawal symptoms Fluids/Renal: Possible urethral disruption: Traumatic Reid removal -Urology consulted and reviewed -Continue Reid until more lucid and can participate in a voiding trial ID: Fever: Improving and responding to dosing of phenobarbital -I believe this represents an acute phase reactant secondary to withdraw and traumatic Reid removal GI/Nutrition: hepatitis: Transaminitis improving, strongly suggestive of alcoholic -hepatitis panel negative Heme: History thrombocytopenia which has resolved Anemia -Check reticulocyte count, iron studies, B12 and folate for completeness DVT prophylaxis: Lovenox Endocrine: ICU hyperglycemia protocol Vascular access: Peripheral IVs Code Status: Full code Disposition: Stable for downgrade out of ICU Admission and Anticipated Discharge Date Admission Date: November 23, 2023 Subjective Overnight patient required 1 dose of phenobarb for agitation. Review of Systems Review of Systems: Unobtainable due to reduced consciousness Physical Exam Physical Exam: General: Arouses to tactile stimuli. Follows basic commands. Skin: Warm, dry, Head: Atraumatic Ears, nose, mouth and throat: airway patent Cardiovascular: Normal peripheral perfusion Respiratory: no respiratory distress Gastrointestinal: Non distended Musculoskeletal: No deformity Results & Data Results & Data Vital Signs (Past 12 Hours) Vital Signs Temp Pulse Pulse Resp BP BP BP 12/03/23 07:00 90 15 98/63 L 12/03/23 06:00 87 14 108/71 12/03/23 05:06 87 19 12/03/23 05:00 99/61 L 12/03/23 04:02 37.2 C 98/63 L 12/03/23 03:54 95 H 16 12/03/23 03:00 103 H 16 113/69 12/03/23 02:48 38.4 C H 12/03/23 02:00 105 H 20 116/67 12/03/23 01:00 107 H 17 122/79 12/03/23 00:45 102 H 12 12/03/23 00:00 38.3 C H 101 H 16 122/79 12/03/23 00:00 12/03/23 00:00 101 H 12/02/23 23:53 110 H 16 119/75 12/02/23 23:00 100 H 18 112/72 12/02/23 22:15 104/62 12/02/23 22:03 37.4 C 94 H 16 106/68 12/02/23 21:45 96/62 L 12/02/23 21:36 95 H 15 12/02/23 21:30 100/65 12/02/23 21:19 93 H 12/02/23 21:15 106/63 12/02/23 21:15 106/63 12/02/23 21:09 94 H 17 12/02/23 21:00 91 H 16 12/02/23 21:00 99/60 L 12/02/23 20:48 91 H 15 12/02/23 20:36 96 H 15 12/02/23 20:30 113/69 12/02/23 20:24 94 H 22 12/02/23 20:15 98/61 L 12/02/23 20:12 94 H 18 Pulse Ox Pulse Ox O2 Del Method O2 Del Method O2 Flow Rate O2 Flow Rate 12/03/23 07:00 96 Nasal Cannula 2 12/03/23 06:00 92 Nasal Cannula 2 12/03/23 05:06 94 Nasal Cannula 2 12/03/23 05:00 12/03/23 04:02 12/03/23 03:54 96 12/03/23 03:00 95 Nasal Cannula 2 12/03/23 02:48 12/03/23 02:00 93 Nasal Cannula 2 12/03/23 01:00 94 Nasal Cannula 2 12/03/23 00:45 94 12/03/23 00:00 94 Nasal Cannula 2 12/03/23 00:00 94 Nasal Cannula 2 12/03/23 00:00 12/02/23 23:53 12/02/23 23:00 96 Nasal Cannula 2 12/02/23 22:15 12/02/23 22:03 95 Nasal Cannula 2 12/02/23 21:45 12/02/23 21:36 93 12/02/23 21:30 12/02/23 21:19 12/02/23 21:15 12/02/23 21:15 12/02/23 21:09 96 12/02/23 21:00 96 12/02/23 21:00 12/02/23 20:48 95 12/02/23 20:36 93 12/02/23 20:30 12/02/23 20:24 94 12/02/23 20:15 12/02/23 20:12 93 Critical Care Results & Data Vital Signs (Past 12 Hours) Vital Signs Temp Pulse Pulse Resp BP BP BP 12/03/23 07:00 90 15 98/63 L 12/03/23 06:00 87 14 108/71 12/03/23 05:06 87 19 12/03/23 05:00 99/61 L 12/03/23 04:02 37.2 C 98/63 L 12/03/23 03:54 95 H 16 12/03/23 03:00 103 H 16 113/69 12/03/23 02:48 38.4 C H 12/03/23 02:00 105 H 20 116/67 12/03/23 01:00 107 H 17 122/79 12/03/23 00:45 102 H 12 12/03/23 00:00 38.3 C H 101 H 16 122/79 12/03/23 00:00 12/03/23 00:00 101 H 12/02/23 23:53 110 H 16 119/75 12/02/23 23:00 100 H 18 112/72 12/02/23 22:15 104/62 12/02/23 22:03 37.4 C 94 H 16 106/68 12/02/23 21:45 96/62 L 12/02/23 21:36 95 H 15 12/02/23 21:30 100/65 12/02/23 21:19 93 H 12/02/23 21:15 106/63 12/02/23 21:15 106/63 12/02/23 21:09 94 H 17 12/02/23 21:00 91 H 16 12/02/23 21:00 99/60 L 12/02/23 20:48 91 H 15 12/02/23 20:36 96 H 15 12/02/23 20:30 113/69 12/02/23 20:24 94 H 22 12/02/23 20:15 98/61 L 12/02/23 20:12 94 H 18 Pulse Ox Pulse Ox O2 Del Method O2 Del Method O2 Flow Rate O2 Flow Rate 12/03/23 07:00 96 Nasal Cannula 2 12/03/23 06:00 92 Nasal Cannula 2 12/03/23 05:06 94 Nasal Cannula 2 12/03/23 05:00 12/03/23 04:02 12/03/23 03:54 96 12/03/23 03:00 95 Nasal Cannula 2 12/03/23 02:48 12/03/23 02:00 93 Nasal Cannula 2 12/03/23 01:00 94 Nasal Cannula 2 12/03/23 00:45 94 12/03/23 00:00 94 Nasal Cannula 2 12/03/23 00:00 94 Nasal Cannula 2 12/03/23 00:00 12/02/23 23:53 12/02/23 23:00 96 Nasal Cannula 2 12/02/23 22:15 12/02/23 22:03 95 Nasal Cannula 2 12/02/23 21:45 12/02/23 21:36 93 12/02/23 21:30 12/02/23 21:19 12/02/23 21:15 12/02/23 21:15 12/02/23 21:09 96 12/02/23 21:00 96 12/02/23 21:00 12/02/23 20:48 95 12/02/23 20:36 93 12/02/23 20:30 12/02/23 20:24 94 12/02/23 20:15 12/02/23 20:12 93 Lab & Micro Results (Past 24 Hours) RBC 3.81 M/uL (4.70-6.10) L 12/03/23 WBC 13.22 K/ul (4.8-10.8) H 12/03/23 Hgb 12.5 g/dl (14.0-18.0) L 12/03/23 Hct 37.1 % (42.0-52.0) L 12/03/23 MCV 97.4 fL (80.0-100.0) 12/03/23 MCH 32.8 pg (25.0-34.0) 12/03/23 MCHC 33.7 g/dL (32.0-36.0) 12/03/23 RDW Standard Deviation 50.4 fL (36.4-46.3) H 12/03/23 RDW Coefficient of Variation 14.1 % (11.5-14.5) 12/03/23 Plt Count 174 K/uL (130-400) 12/03/23 MPV 12.2 fL (9.4-12.4) 12/03/23 Neutrophils (%) (Auto) 85.7 % 12/03/23 Lymphocytes (%) (Auto) 2.7 % 12/03/23 Monocytes # (Auto) 1.22 K/uL (0.11-0.59) H 12/03/23 Eosinophils # (Auto) 0.06 K/uL (0.00-0.50) 12/03/23 Immature Granulocyte % (Auto) 0.5 % 12/03/23 Neutrophils # (Auto) 11.33 K/uL (1.40-6.50) H 12/03/23 Lymphocytes # (Auto) 0.36 K/uL (1.20-3.40) L 12/03/23 Monocytes # (Auto) 1.22 K/uL (0.11-0.59) H 12/03/23 Eosinophils # (Auto) 0.06 K/uL (0.00-0.50) 12/03/23 Basophils # (Auto) 0.19 K/uL (0.00-0.20) 12/03/23 Immature Granulocyte # (Auto) 0.06 K/uL (0.01-0.20) 4 Na 135 mmol/L (136-145) L 12/03/23 K 4.1 mmol/L (3.5-5.1) 12/03/23 Cl 105 mmol/L (98-107) 12/03/23 CO2 24 mmol/L (21-32) 12/03/23 Anion Gap 6 (3-11) 12/03/23 BUN 14 mg/dl (6-23) 12/03/23 Creatinine 0.79 mg/dl (0.6-1.4) 12/03/23 Estimated GFR ( Amer) 119.7 ml/min 12/03/23 Estimated GFR (Non-Af Amer) 103.2 ml/min 12/03/23 BUN/Creatinine Ratio 17.7 (10-20) 12/03/23 Glu 108 mg/dl (70-99(Fasting)) H 12/03/23 Ca 8.3 mg/dl (8.6-10.3) L 12/03/23 Phosphorus Level 2.6 mg/dl (2.5-4.9) 12/03/23 Mg 1.8 mg/dl (1.7-2.4) 12/03/23 03:31 Calcium Level 8.3 mg/dl (8.6-10.3) L 12/03/23 03:31 Diagnostic Findings (Past 24 Hours) Soft Tissue Neck CT 12/02/23 12:48 CT SCAN OF THE NECK WITH IV CONTRAST CLINICAL HISTORY: Bilateral supraclavicular palpable lumps. COMPARISON STUDY: No priors. TECHNIQUE: Following the IV administration of 95 cc of Optiray 320, CT scan of the soft tissues of the neck was performed from the skull base to the upper chest. Images are reviewed in the axial, sagittal, and coronal planes. IV contrast was administered without complication. A dose lowering technique was utilized adhering to the principles of ALARA. FINDINGS: Pharynx: The pharyngeal soft tissues are normal as imaged. The pharyngeal airway is widely patent. There is no evidence of mass lesion. The vocal cords are symmetric. The parapharyngeal fat is well maintained. The prevertebral/retropharyngeal soft tissues are within normal limits. The epiglottis is normal. Lymphadenopathy: No cervical or supraclavicular lymphadenopathy is seen. Thyroid: Normal in size and attenuation. Salivary glands: The parotid and submandibular glands are within normal limits. Brain parenchyma: The visualized brain parenchyma at the skull base is normal in appearance. Vascular structures: The carotid arteries and jugular veins are patent bilaterally. Atherosclerotic calcification is noted in the carotid bulbs. Skeletal structures: Imaged portions of the calvarium at the skull base are within normal limits. The cervical spine appears intact. Orbits: The bony orbits are intact. Orbital contents are normal in appearance. Sinuses and mastoids: The paranasal sinuses are clear. The mastoid air cells are well pneumatized. Lung apices: Visualized apical lung parenchyma is clear. IMPRESSION: No abnormality is identified. ACT 112: Negative or not required by law. Electronically signed by: Brian Perez M.D. 12/02/2023 2:14 PM Brain MRI 12/02/23 13:20 Brain MRI WITH AND WITHOUT CONTRAST HISTORY: Altered mental status. TECHNIQUE: Multiplanar multisequence MRI of the brain was performed both before and after the intravenous administration of contrast. COMPARISON STUDY: Head CT 12/01/2023. FINDINGS: There is no mass, hematoma, midline shift, or acute infarct. The paranasal sinuses are clear. The mastoid air cells are clear. The ventricles and sulci demonstrate mild age-related involutional changes. Mild periventricular white matter T2 hyperintensity is nonspecific but suggestive of mild microvascular ischemic changes. The major vascular flow voids at the skull base are well-maintained. Incidental note is made of a small developmental venous anomaly within the right frontal lobe. This is considered to be a normal variant. Otherwise, no abnormal enhancement within the brain. IMPRESSION: 1. No acute infarct or intracranial hemorrhage. 2. Mild periventricular white matter T2 hyperintensity. This is nonspecific but favors mild microvascular ischemic change. ACT 112: Negative or not required by law. Electronically signed by: Kory Kirby M.D. 12/02/2023 3:30 PM I & O Totals 24 Hours 12/02/23 12/03/23 12/04/23 06:59 06:59 06:59 Intake Total 1950 / 1950 346.666 / 346.666 85.833 / 85.833 Output Total 402 / 402 1150 / 1150 Balance 1548 / 1548 -803.334 / -803.334 85.833 / 85.833 Cumulative 11/23/23 13:39 thru 12/03/23 07:21 Intake Total 71227.672 Output Total 91645 Balance 1744.672 RT Ventilator Mngmt (Last Documented) Ventilator Ordered Settings Respiratory Rate 15 12/03/23 07:00 Fraction of Inspired Oxygen 28 11/26/23 08:00 Ventilator - PT Measurements Respiratory Rate 15 End-Tidal CO2 26 Coding Level of Care Code 18110 SUB INP/OBS CARE 3/50MIN Diagnoses Alcohol withdrawal delirium F10.931 Alcoholic hepatitis K70.10 Ascites presence: unspecified Hypomagnesemia E83.42 (2) Alcoholic hepatitis Ascites presence: unspecified Qualified Code(s): K70.10 - Alcoholic hepatitis without ascites
[2023-12-03] MEDS: cloNIDine HCL 0.1 MG TAB PO SCH (09:18)
[2023-12-03] MEDS: MULTIVITAMIN CHEWABLE TAB PO SCH (09:19)
[2023-12-03 09:41] LABS: Appearance Urine Cloudy (Clear); Bacteria Urine Automated 4+ (None Seen); Bilirubin Urine 1+ (Negative); Blood Urine 3+ (Negative); Cast Urine Automated 0-2 /lpf (0-2); Color Urine Dark Yellow; Epithelial Cell Urine Auto 0-2 /hpf (0-2); Glucose Urine UA Negative (Negative); Ketones Urine Negative (Negative); Leukocyte Esterase Urine 2+ (Negative); Nitrite Urine Positive (Negative); Protein Urine 1+ (Negative); RBC Urine Automated >20 /hpf (0-2); Specific Gravity Urine 1.025 (1.000-1.030); Urobilinogen Urine Negative (Negative); WBC Urine Automated >50 /hpf (0-5); pH Urine 5.5 (4.5-7.5)
[2023-12-03 10:21] LABS: A calco-baum cmplx NotReported Not Detected (NotDetected); Bact fragilis Not Reported Not Detected (NotDetected); Blood Culture Id Panel See PCR Comment (NotDetected); C auris Not Reported Not Detected (NotDetected); CTX-M Resistant Gene Not Detected (NotDetected); Calbicans Not Reported Not Detected (NotDetected); Candida glabrata Not Reported Not Detected (NotDetected); Candida krusei Not Reported Not Detected (NotDetected); Cneoformans/gatti Not Reported Not Detected (NotDetected); Cparapsilosis Not Reported Not Detected (NotDetected); E cloacae compx Not Reported Not Detected (NotDetected); Efaecalis Not Reported Not Detected (NotDetected); Efaecium Not Reported Not Detected (NotDetected); Enterobacterales DETECTED (NotDetected); Enterobacterales Not Reported DETECTED (NotDetected); H influenzae Not Reported Not Detected (NotDetected); IMP Resistant Gene Not Detected (NotDetected); K aerogenes Not Reported Not Detected (NotDetected); KPC Resistant Gene Not Detected (NotDetected); Koxytoca Not Reported Not Detected (NotDetected); Kpneumoniae grp Not Reported Not Detected (NotDetected); Lmonocyt Not Reported Not Detected (NotDetected); N meningitidis Not Reported Not Detected (NotDetected); NDM Resistant Gene Not Detected (NotDetected); OXA 48 Like Resistant Gene Not Detected (NotDetected); P aeruginosa Not Reported Not Detected (NotDetected); Proteus spp Not Reported Not Detected (NotDetected); Salmonella spp Not Reported Not Detected (NotDetected); Smarcescens Not Reported Not Detected (NotDetected); Staph lugdunensis Not Reported Not Detected (NotDetected); Staph spp. Not Reported Not Detected (NotDetected); Staphaureus Not Reported Not Detected (NotDetected); Staphepi Not Reported Not Detected (NotDetected); Stenmaltophilia Not Reported Not Detected (NotDetected); Strep agal(GrpB) Not Reported Not Detected (NotDetected); Strep pneum Not Reported Not Detected (NotDetected); Strep pyog (GrpA) Not Reported Not Detected (NotDetected); Strep spp Not Reported Not Detected (NotDetected); VIM Resistant Gene Not Detected (NotDetected); mcr-1 Colistin Resistant Gene Not Detected (NotDetected)
[2023-12-03 10:28] LABS: Escherichia coli Not Reported DETECTED (NotDetected)
[2023-12-03] MEDS ORDERED: cefTRIAXone SODIUM 1,000 MG/50 ML BAG IV SCH (10:45)
[2023-12-03] MEDS: PHENobarbitaL 30 MG TAB PO SCH (10:47)
[2023-12-03] MEDS: cefTRIAXone SODIUM 2,000 MG/50 ML BAG IV SCH (11:18)
--- NOTE | 2023-12-03 12:47 | Hospitalist Progress Note ---
Date of Service December 03, 2023 Assessment & Plan (1) Alcohol withdrawal: Plan: Patient is a chronic heavy drinker and never tried to quit or cut back on his drinking Per the report I got, he checked himself into drug and alcohol rehab as he wanted to quit but was found to be actively withdrawing with hallucinations, tremors and thus was sent to the emergency room The patient was given a few doses of Ativan in the emergency room In the emergency room, he started having seizures He was thus admitted to the ICU. Patient was being managed with Precedex drip, phenobarbital, Ativan Now off Precedex drip. Completed phenobarbital course Was transferred out of the ICU but required to go back again 12/01. Patient is now being managed by the oil derrick operator with the phenobarbital taper once again. (2) Alcoholic hepatitis: Plan: Patient most likely has alcoholic hepatitis AST: ALT is greater than 2 Elevated bilirubin level of 4 INR elevated at 1.3 Discriminant factor 13. Not a candidate for steroids Acute hepatitis panel negative Acetaminophen level negative (3) Encephalopathy: Plan: This is most likely due to alcohol withdrawal delirium tremens and toxic encephalopathy Will manage alcohol withdrawal Monitor clinically (4) Benign essential hypertension: Plan: She normally takes losartan 100 mg Hold p.o. medicine for the time being (5) Anxiety: Plan: Takes Prozac at home Hold oral medications (6) Complicated UTI (urinary tract infection): Plan: Patient removed his catheter traumatically on 12/01 and needed the catheter placed back by urology Urology involved Urinalysis is suggestive of UTI Bacteremic with gram-negative chandni. Most likely urine source. Associated with leukocytosis and fever, thus meeting sepsis criteria Started on IV ceftriaxone Follow urine and blood culture results (7) Sepsis: Plan: Most likely urine etiology. Urinalysis suggestive. History of traumatic catheter removal Bacteremic with gram-negative chandni Treat with IV ceftriaxone Plan CODE STATUS: Presumed to be full code. Patient is not able to participate in decision-making DVT prophylaxis: Thrombocytopenia improved. Started Lovenox Admission and Anticipated Discharge Date Admission Date: November 23, 2023 Subjective Patient is sleeping. Accompanied by fianc at the bedside. Review of Systems Review of Systems: Unobtainable due to cognitive status Physical Exam Physical Exam: General: Sleeping Heart: S1, S2/regular rate and rhythm, no murmur rubs or gallops Lungs: Clear to auscultation bilaterally. Normal effort Abdomen: Soft/nontender/nondistended. No hepatosplenomegaly Extremities: No clubbing/cyanosis. No edema Behavior: Cooperative, appropriate Results & Data Results & Data Vital Signs (Past 12 Hours) Vital Signs Temp Pulse Pulse Resp BP BP Pulse Ox 12/03/23 12:00 91 H 23 102/57 L 92 12/03/23 11:00 37.6 C 99 H 17 117/77 91 12/03/23 10:00 105 H 18 139/85 94 12/03/23 09:00 111 H 15 125/93 95 12/03/23 08:00 12/03/23 08:00 85 12/03/23 07:00 90 15 98/63 L 96 12/03/23 06:00 87 14 108/71 92 12/03/23 05:06 87 19 94 12/03/23 05:00 99/61 L 12/03/23 04:02 37.2 C 98/63 L 12/03/23 03:54 95 H 16 96 12/03/23 03:00 103 H 16 113/69 95 12/03/23 02:48 38.4 C H 12/03/23 02:00 105 H 20 116/67 93 12/03/23 01:00 107 H 17 122/79 94 12/03/23 00:45 102 H 12 94 O2 Del Method O2 Flow Rate 12/03/23 12:00 Nasal Cannula 2 12/03/23 11:00 Nasal Cannula 2 12/03/23 10:00 Nasal Cannula 2 12/03/23 09:00 Nasal Cannula 2 12/03/23 08:00 Nasal Cannula 2 12/03/23 08:00 12/03/23 07:00 Nasal Cannula 2 12/03/23 06:00 Nasal Cannula 2 12/03/23 05:06 Nasal Cannula 2 12/03/23 05:00 12/03/23 04:02 12/03/23 03:54 12/03/23 03:00 Nasal Cannula 2 12/03/23 02:48 12/03/23 02:00 Nasal Cannula 2 12/03/23 01:00 Nasal Cannula 2 12/03/23 00:45 Laboratory Results Abnormal lab results 12/02/23 12/02/23 12/02/23 Range/Units 12:55 12:57 16:37 WBC (4.8-10.8) K/ul RBC (4.70-6.10) M/uL Hgb (14.0-18.0) g/dl Hct (42.0-52.0) % RDW Std Deviation (36.4-46.3) fL Reticulocyte % (Auto) 2.27 H (0.50-2.00) % Neut # (Auto) (1.40-6.50) K/uL Lymph # (Auto) (1.20-3.40) K/uL [place] # (Auto) (0.11-0.59) K/uL Sodium (136-145) mmol/L Glucose (70-99(Fasting)) mg/dl POC Glucose 103 H (70-99) mg/dl Calcium (8.6-10.3) mg/dl Iron 12 L (35-175) mcg/dl Transferrin 180 L (200-360) mg/dl Ferritin 605.0 H (8-388) ng/ml Lipase < 3 L (11-82) U/L Vitamin B12 > 1500 H (180-914) pg/ml Urine Appearance (Clear) Urine Protein (Negative) Urine Blood (Negative) Urine Nitrite (Negative) Urine Bilirubin (Negative) Ur Leukocyte Esterase (Negative) Urine WBC (Auto) (0-5) /hpf Urine RBC (Auto) (0-2) /hpf Urine Bacteria (Auto) (None Seen) Enterobacterales (PCR) DETECTED A (NotDetected) E. coli (PCR) DETECTED A (NotDetected) 12/03/23 12/03/23 Range/Units 03:31 08:40 WBC 13.22 H (4.8-10.8) K/ul RBC 3.81 L (4.70-6.10) M/uL Hgb 12.5 L (14.0-18.0) g/dl Hct 37.1 L (42.0-52.0) % RDW Std Deviation 50.4 H (36.4-46.3) fL Reticulocyte % (Auto) (0.50-2.00) % Neut # (Auto) 11.33 H (1.40-6.50) K/uL Lymph # (Auto) 0.36 L (1.20-3.40) K/uL [place] # (Auto) 1.22 H (0.11-0.59) K/uL Sodium 135 L (136-145) mmol/L Glucose 108 H (70-99(Fasting)) mg/dl POC Glucose (70-99) mg/dl Calcium 8.3 L (8.6-10.3) mg/dl Iron (35-175) mcg/dl Transferrin (200-360) mg/dl Ferritin (8-388) ng/ml Lipase (11-82) U/L Vitamin B12 (180-914) pg/ml Urine Appearance Cloudy A (Clear) Urine Protein 1+ H (Negative) Urine Blood 3+ H (Negative) Urine Nitrite Positive A (Negative) Urine Bilirubin 1+ H (Negative) Ur Leukocyte Esterase 2+ H (Negative) Urine WBC (Auto) >50 H (0-5) /hpf Urine RBC (Auto) >20 H (0-2) /hpf Urine Bacteria (Auto) 4+ H (None Seen) Enterobacterales (PCR) (NotDetected) E. coli (PCR) (NotDetected) Diagnostic Findings Soft Tissue Neck CT 12/02/23 12:48 CT SCAN OF THE NECK WITH IV CONTRAST CLINICAL HISTORY: Bilateral supraclavicular palpable lumps. COMPARISON STUDY: No priors. TECHNIQUE: Following the IV administration of 95 cc of Optiray 320, CT scan of the soft tissues of the neck was performed from the skull base to the upper chest. Images are reviewed in the axial, sagittal, and coronal planes. IV contrast was administered without complication. A dose lowering technique was utilized adhering to the principles of ALARA. FINDINGS: Pharynx: The pharyngeal soft tissues are normal as imaged. The pharyngeal airway is widely patent. There is no evidence of mass lesion. The vocal cords are symmetric. The parapharyngeal fat is well maintained. The prevertebral/retropharyngeal soft tissues are within normal limits. The epiglottis is normal. Lymphadenopathy: No cervical or supraclavicular lymphadenopathy is seen. Thyroid: Normal in size and attenuation. Salivary glands: The parotid and submandibular glands are within normal limits. Brain parenchyma: The visualized brain parenchyma at the skull base is normal in appearance. Vascular structures: The carotid arteries and jugular veins are patent bilaterally. Atherosclerotic calcification is noted in the carotid bulbs. Skeletal structures: Imaged portions of the calvarium at the skull base are within normal limits. The cervical spine appears intact. Orbits: The bony orbits are intact. Orbital contents are normal in appearance. Sinuses and mastoids: The paranasal sinuses are clear. The mastoid air cells are well pneumatized. Lung apices: Visualized apical lung parenchyma is clear. IMPRESSION: No abnormality is identified. ACT 112: Negative or not required by law. Electronically signed by: Brian Perez M.D. 12/02/2023 2:14 PM Brain MRI 12/02/23 13:20 Brain MRI WITH AND WITHOUT CONTRAST HISTORY: Altered mental status. TECHNIQUE: Multiplanar multisequence MRI of the brain was performed both before and after the intravenous administration of contrast. COMPARISON STUDY: Head CT 12/01/2023. FINDINGS: There is no mass, hematoma, midline shift, or acute infarct. The paranasal sinuses are clear. The mastoid air cells are clear. The ventricles and sulci demonstrate mild age-related involutional changes. Mild periventricular white matter T2 hyperintensity is nonspecific but suggestive of mild microvascular ischemic changes. The major vascular flow voids at the skull base are well-maintained. Incidental note is made of a small developmental venous anomaly within the right frontal lobe. This is considered to be a normal va riant. Otherwise, no abnormal enhancement within the brain. IMPRESSION: 1. No acute infarct or intracranial hemorrhage. 2. Mild periventricular white matter T2 hyperintensity. This is nonspecific but favors mild microvascular ischemic change. ACT 112: Negative or not required by law. Electronically signed by: Kory Kirby M.D. 12/02/2023 3:30 PM PG Care Time/CCT Total # of Minutes Spent Total Time Spent with Patient: Total time spent is greater than 50% in coordination of care (as documented) at patient's floor/unit and/or counseling patient: Coding Level of Care Code 80286 SUB INP/OBS CARE 2/35MIN Diagnoses Alcohol withdrawal F10.931 Complication of substance-induced condition: with delirium Alcoholic hepatitis K70.10 Ascites presence: unspecified Encephalopathy G93.40 Benign essential hypertension I10 Anxiety F41.9 Complicated UTI (urinary tract infection) N39.0 Sepsis A41.9 (1) Alcohol withdrawal Complication of substance-induced condition: with delirium Qualified Code(s): F10.931 - Alcohol use, unspecified with withdrawal delirium (2) Alcoholic hepatitis Ascites presence: unspecified Qualified Code(s): K70.10 - Alcoholic hepatitis without ascites
--- NOTE | 2023-12-03 18:34 | XCELERA ---
[id number]___[id number]
--- NOTE | 2023-12-03 21:32 | Electrocardiogram Report ---
Test Reason : Blood Pressure : / mmHG Vent. Rate : 127 BPM Atrial Rate : 127 BPM P-R Int : 158 ms QRS Dur : 084 ms QT Int : 306 ms P-R-T Axes : 038 -40 064 degrees QTc Int : 444 ms Sinus tachycardia Left axis deviation Nonspecific ST and T wave abnormality Abnormal ECG When compared with ECG of 23-NOV-2023 13:53, Incomplete right bundle branch block is no longer Present Confirmed by Mauricio Pritchard ([id number]) on 12/03/2023 9:31:39 PM Referred By: REFERRED SELF Confirmed By:Mauricio Pritchard
[2023-12-03 23:07] LABS: Amobarbital, Urine Conf NEGATIVE ng/mL (<100); Butalbital, Urine NEGATIVE ng/mL (<100); Pentobarbital, Urine Conf NEGATIVE ng/mL (<100); Phenobarbital, Urine >5000 ng/mL (<100); Secobarbital, Urine Conf NEGATIVE ng/mL (<100)
[2023-12-04] MEDS: ACETAMINOPHEN 325 MG TAB PO PRN (00:46)
[2023-12-04 04:15] LABS: Basophils % (auto) 2.4 %; Eosinophils # (auto) 0.13 K/uL (0.00-0.50); Eosinophils % (auto) 1.6 %; Hematocrit (blood only) 37.1 % (42.0-52.0); Hemoglobin 12.6 g/dl (14.0-18.0); Immature Granulocytes # (auto) 0.02 K/uL (0.01-0.20); Immature Granulocytes % (auto) 0.2 %; Lymphocytes # (auto) 0.62 K/uL (1.20-3.40); Lymphocytes % (auto) 7.4 %; Mean Corpuscular Hemoglobin 32.8 pg (25.0-34.0); Mean Corpuscular Volume 96.6 fL (80.0-100.0); Monocytes # (auto) 0.84 K/uL (0.11-0.59); Neutrophils # (auto) 6.56 K/uL (1.40-6.50); Neutrophils % (auto) 78.4 %; Platelet Count 171 K/uL (130-400); RDW Coefficient of Variation 13.9 % (11.5-14.5); RDW Standard Deviation 49.8 fL (36.4-46.3); Red Blood Count 3.84 M/uL (4.70-6.10); White Blood Count 8.37 K/ul (4.8-10.8)
[2023-12-04 04:30] LABS: Calcium 8.8 mg/dl (8.6-10.3); Creatinine Clr Calc Pharmacy 146.1 ml/min; Est GFR (African American) 131.3 ml/min; Est GFR (Non-African American) 113.3 ml/min; Magnesium 1.6 mg/dl (1.7-2.4); Potassium 3.9 mmol/L (3.5-5.1)
[2023-12-04] MEDS: MAGNESIUM SULFATE / D5W 1 GM/100 ML BAG IV SCH (06:01)
[2023-12-04] MEDS: PHENobarbitaL 30 MG TAB PO SCH (08:22)
--- NOTE | 2023-12-04 11:05 | Critical Care Progress Note ---
Date of Service December 04, 2023 Assessment & Plan (1) Alcohol withdrawal delirium: (2) Alcoholic hepatitis: (3) Hypomagnesemia: Plan Reason Critically Ill: 52-year-old male with alcohol dependency and heavy alcohol use with continued encephalopathy concerning for delirium tremens PLAN: Neuro: Acute encephalopathy -Reviewed MRI results Alcohol dependency and delirium tremens -Patient experiencing both positive and negative withdrawal symptoms, vacillates between hyperactive and hypoactive delirium -Loaded with 6 mg/kg phenobarbital transition to oral taper -30 mg by mouth 2 times daily today then transi tion to to 15 mg twice daily for 5 doses -When transitioning out of ICU would recommend empiric oral phenobarb and continued ENRIQUE as scoring with symptom triggered Ativan, would discontinue IV as needed phenobarb at that time. -Patient may require extending oral phenobarbital if not resolving positive and negative delirium symptoms -Appropriate nutritional supplementation with vitamins and minerals Resp: No oxygen requirement CV: Tachycardia resolved -Discontinue clonidine Fluids/Renal: Possible urethral disruption: Traumatic Reid removal -Urology consulted and reviewed -Continue Reid until more lucid and can participate in a voiding trial ID: Fever: E. coli bacteremia -Repeat blood cultures pending GI/Nutrition: hepatitis: Transaminitis improving, strongly suggestive of alcoholic -hepatitis panel negative Heme: History thrombocytopenia which has resolved Anemia DVT prophylaxis: Lovenox Endocrine: ICU hyperglycemia protocol Vascular access: Peripheral IVs Code Status: Full code Disposition: Stable for downgrade out of ICU Admission and Anticipated Discharge Date Admission Date: November 23, 2023 Subjective Overnight patient received 1 dose of phenobarbital for agitation. Review of Systems Review of Systems: Unobtainable due to reduced consciousness Physical Exam Physical Exam: General: Arouses to stimuli. By enlarge somnolent, adjusts position in bed. Skin: Warm, dry, Head: Atraumatic Ears, nose, mouth and throat: airway patent Cardiovascular: Normal peripheral perfusion Respiratory: no respiratory distress Gastrointestinal: Non distended Musculoskeletal: No deformity Results & Data Results & Data Vital Signs (Past 12 Hours) Vital Signs Temp Pulse Resp BP BP Pulse Ox O2 Del Method 12/04/23 08:00 88 12/04/23 08:00 Nasal Cannula 12/04/23 06:14 80 19 88/51 L 90 12/04/23 05:00 105/61 12/04/23 04:03 37 C 85 20 105/66 91 Nasal Cannula 12/04/23 03:12 83 13 115/72 94 12/04/23 02:00 88 17 102/67 92 12/04/23 01:00 93 H 14 108/70 92 12/04/23 00:32 110 H 22 139/81 12/04/23 00:21 93 H 14 91 12/04/23 00:00 110 H 12/04/23 00:00 37.6 C H 93 H 22 139/81 91 Nasal Cannula O2 Flow Rate 12/04/23 08:00 12/04/23 08:00 2 12/04/23 06:14 12/04/23 05:00 12/04/23 04:03 2 12/04/23 03:12 12/04/23 02:00 12/04/23 01:00 12/04/23 00:32 12/04/23 00:21 12/04/23 00:00 12/04/23 00:00 2 Critical Care Results & Data Vital Signs (Past 12 Hours) Vital Signs Temp Pulse Resp BP BP Pulse Ox O2 Del Method 12/04/23 08:00 88 12/04/23 08:00 Nasal Cannula 12/04/23 06:14 80 19 88/51 L 90 12/04/23 05:00 105/61 12/04/23 04:03 37 C 85 20 105/66 91 Nasal Cannula 12/04/23 03:12 83 13 115/72 94 12/04/23 02:00 88 17 102/67 92 12/04/23 01:00 93 H 14 108/70 92 12/04/23 00:32 110 H 22 139/81 12/04/23 00:21 93 H 14 91 12/04/23 00:00 110 H 12/04/23 00:00 37.6 C H 93 H 22 139/81 91 Nasal Cannula O2 Flow Rate 12/04/23 08:00 12/04/23 08:00 2 12/04/23 06:14 12/04/23 05:00 12/04/23 04:03 2 12/04/23 03:12 12/04/23 02:00 12/04/23 01:00 12/04/23 00:32 12/04/23 00:21 12/04/23 00:00 12/04/23 00:00 2 Lab & Micro Results (Past 24 Hours) RBC 3.84 M/uL (4.70-6.10) L 12/04/23 WBC 8.37 K/ul (4.8-10.8) 12/04/23 Hgb 12.6 g/dl (14.0-18.0) L 12/04/23 Hct 37.1 % (42.0-52.0) L 12/04/23 MCV 96.6 fL (80.0-100.0) 12/04/23 MCH 32.8 pg (25.0-34.0) 12/04/23 MCHC 34.0 g/dL (32.0-36.0) 12/04/23 RDW Standard Deviation 49.8 fL (36.4-46.3) H 12/04/23 RDW Coefficient of Variation 13.9 % (11.5-14.5) 12/04/23 Plt Count 171 K/uL (130-400) 12/04/23 MPV 12.0 fL (9.4-12.4) 12/04/23 Neutrophils (%) (Auto) 78.4 % 12/04/23 Lymphocytes (%) (Auto) 7.4 % 12/04/23 Monocytes # (Auto) 0.84 K/uL (0.11-0.59) H 12/04/23 Eosinophils # (Auto) 0.13 K/uL (0.00-0.50) 12/04/23 Immature Granulocyte % (Auto) 0.2 % 12/04/23 Neutrophils # (Auto) 6.56 K/uL (1.40-6.50) H 12/04/23 Lymphocytes # (Auto) 0.62 K/uL (1.20-3.40) L 12/04/23 Monocytes # (Auto) 0.84 K/uL (0.11-0.59) H 12/04/23 Eosinophils # (Auto) 0.13 K/uL (0.00-0.50) 12/04/23 Basophils # (Auto) 0.20 K/uL (0.00-0.20) 12/04/23 Immature Granulocyte # (Auto) 0.02 K/uL (0.01-0.20) 4 Na 136 mmol/L (136-145) 12/04/23 K 3.9 mmol/L (3.5-5.1) 12/04/23 Cl 104 mmol/L (98-107) 12/04/23 CO2 25 mmol/L (21-32) 12/04/23 Anion Gap 7 (3-11) 12/04/23 BUN 12 mg/dl (6-23) 12/04/23 Creatinine 0.63 mg/dl (0.6-1.4) 12/04/23 Estimated GFR ( Amer) 131.3 ml/min 12/04/23 Estimated GFR (Non-Af Amer) 113.3 ml/min 12/04/23 BUN/Creatinine Ratio 19.0 (10-20) 12/04/23 Glu 99 mg/dl (70-99(Fasting)) 12/04/23 Ca 8.8 mg/dl (8.6-10.3) 12/04/23 Mg 1.6 mg/dl (1.7-2.4) L 12/04/23 03:59 Calcium Level 8.8 mg/dl (8.6-10.3) 12/04/23 03:59 Microbiology 12/03/23 08:40 Urine Culture - Preliminary Urine,Indwelling Cath Gram negative bacilli 12/02/23 12:57 Aerobic Blood Culture - Preliminary Blood No growth in Aerobic bottle after 24 hours. Anaerobic Blood Culture - Preliminary Gram negative bacilli 12/02/23 12:55 Aerobic Blood Culture - Preliminary Blood No growth in Aerobic bottle after 24 hours. Anaerobic Blood Culture - Final I & O Totals 24 Hours 12/03/23 12/04/23 12/05/23 06:59 06:59 06:59 Intake Total 346.666 / 346.666 235.833 / 235.833 191.667 / 191.667 Output Total 1150 / 1150 1210 / 1210 Balance -803.334 / -803.334 -974.167 / -974.167 191.667 / 191.667 Cumulative 11/23/23 13:39 thru 12/04/23 10:07 Intake Total 49124.339 Output Total 79511 Balance 876.339 RT Ventilator Mngmt (Last Documented) Ventilator Ordered Settings Respiratory Rate 19 12/04/23 06:14 Fraction of Inspired Oxygen 11/26/23 08:00 Ventilator - PT Measurements Respiratory Rate 19 End-Tidal CO2 26 Coding Level of Care Code 45567 SUB INP/OBS CARE 3/50MIN Diagnoses Alcohol withdrawal delirium F10.931 Alcoholic hepatitis K70.10 Ascites presence: unspecified Hypomagnesemia E83.42 (2) Alcoholic hepatitis Ascites presence: unspecified Qualified Code(s): K70.10 - Alcoholic hepatitis without ascites
--- NOTE | 2023-12-04 12:40 | Hospitalist Progress Note ---
Date of Service December 04, 2023 Assessment & Plan (1) Alcohol withdrawal: Plan: Patient is a chronic heavy drinker and never tried to quit or cut back on his drinking Per the report I got, he checked himself into drug and alcohol rehab as he wanted to quit but was found to be actively withdrawing with hallucinations, tremors and thus was sent to the emergency room The patient was given a few doses of Ativan in the emergency room In the emergency room, he started having seizures He was thus admitted to the ICU. Patient was being managed with Precedex drip, phenobarbital, Ativan Now off Precedex drip. Completed phenobarbital course Was transferred out of the ICU but required to go back again 12/01. Patient is now being managed with the phenobarbital taper once again. Patient is deemed stable for transfer out of the ICU by diesel fitter mechanic today 12/03 I will continue oral phenobarb taper. Along with symptom triggered Ativan. Patient may need extended oral phenobarb taper. (2) Alcoholic hepatitis: Plan: Patient most likely has alcoholic hepatitis AST: ALT is greater than 2 Elevated bilirubin level of 4 INR elevated at 1.3 Discriminant factor 13. Not a candidate for steroids Acute hepatitis panel negative Acetaminophen level negative (3) Encephalopathy: Plan: This is most likely due to alcohol withdrawal delirium tremens and toxic encephalopathy Will manage alcohol withdrawal Monitor clinically (4) Benign essential hypertension: Plan: She normally takes losartan 100 mg Hold p.o. medicine for the time being (5) Anxiety: Plan: Takes Prozac at home Hold oral medications (6) Complicated UTI (urinary tract infection): Plan: Patient removed his catheter traumatically on 12/01 and needed the catheter placed back by urology Urology involved Urinalysis is suggestive of UTI Bacteremic with gram-negative chandni. Urine culture also growing gram-negative chandni. Awaiting further identification and sensitivities Associated with leukocytosis and fever, thus meeting sepsis criteria Started on IV ceftriaxone Follow urine and blood culture results (7) Sepsis: Plan: Most likely urine etiology. Urinalysis suggestive. History of traumatic catheter removal Bacteremic with gram-negative chandni. Urine culture also growing gram-negative chandni Treat with IV ceftriaxone Plan CODE STATUS: Presumed to be full code. Patient is not able to participate in decision-making DVT prophylaxis: Thrombocytopenia improved. Started Lovenox Patient's fianc wants him to go back to rehab unit after discharge. Admission and Anticipated Discharge Date Admission Date: November 23, 2023 Subjective Per nurse, patient is doing well currently. On phenobarbital oral taper. Did require dose of IV overnight. Currently sleeping. One-on-one sitter in the room. Fianc in the room as well. Review of Systems Review of Systems: All systems reviewed & are unremarkable except as noted in Subjective Physical Exam Physical Exam: General: Sleeping Heart: S1, S2/regular rate and rhythm, no murmur rubs or gallops Lungs: Clear to auscultation bilaterally. Normal effort Abdomen: Soft/nontender/nondistended. No hepatosplenomegaly Extremities: No clubbing/cyanosis. No edema Behavior: Cooperative, appropriate Results & Data Results & Data Vital Signs (Past 12 Hours) Vital Signs Temp Pulse Resp BP BP Pulse Ox O2 Del Method 12/04/23 11:09 79 18 94 12/04/23 10:00 79 17 93 Nasal Cannula 12/04/23 10:00 103/64 12/04/23 09:06 83 18 92 12/04/23 08:26 114/77 12/04/23 08:18 81 17 94 Nasal Cannula 12/04/23 08:01 98/67 L 12/04/23 08:00 88 12/04/23 08:00 Nasal Cannula 12/04/23 07:54 89 18 88 L 12/04/23 07:12 82 30 H 91 12/04/23 06:14 80 19 88/51 L 90 12/04/23 05:00 105/61 12/04/23 04:03 37 C 85 20 105/66 91 Nasal Cannula 12/04/23 03:12 83 13 115/72 94 12/04/23 02:00 88 17 102/67 92 12/04/23 01:00 93 H 14 108/70 92 O2 Flow Rate 12/04/23 11:09 12/04/23 10:00 3 12/04/23 10:00 12/04/23 09:06 12/04/23 08:26 12/04/23 08:18 2 12/04/23 08:01 12/04/23 08:00 12/04/23 08:00 2 12/04/23 07:54 12/04/23 07:12 12/04/23 06:14 12/04/23 05:00 12/04/23 04:03 2 12/04/23 03:12 12/04/23 02:00 12/04/23 01:00 Laboratory Results Abnormal lab results 12/02/23 12/04/23 Range/Units 01:38 03:59 RBC 3.84 L (4.70-6.10) M/uL Hgb 12.6 L (14.0-18.0) g/dl Hct 37.1 L (42.0-52.0) % RDW Std Deviation 49.8 H (36.4-46.3) fL Neut # (Auto) 6.56 H (1.40-6.50) K/uL Lymph # (Auto) 0.62 L (1.20-3.40) K/uL [place] # (Auto) 0.84 H (0.11-0.59) K/uL Magnesium 1.6 L (1.7-2.4) mg/dl Urine Phenobarbital >5000 H (<100) ng/mL PG Care Time/CCT Total # of Minutes Spent Total Time Spent with Patient: Total time spent is greater than 50% in coordination of care (as documented) at patient's floor/unit and/or counseling patient: Coding Level of Care Code 69110 SUB INP/OBS CARE 2/35MIN Diagnoses Alcohol withdrawal F10.931 Complication of substance-induced condition: with delirium Alcoholic hepatitis K70.10 Ascites presence: unspecified Encephalopathy G93.40 Benign essential hypertension I10 Anxiety F41.9 Complicated UTI (urinary tract infection) N39.0 Sepsis A41.9 (1) Alcohol withdrawal Complication of substance-induced condition: with delirium Qualified Code(s): F10.931 - Alcohol use, unspecified with withdrawal delirium (2) Alcoholic hepatitis Ascites presence: unspecified Qualified Code(s): K70.10 - Alcoholic hepatitis without ascites
[2023-12-04] MEDS: LORazepam 1 MG in SYRINGE 0.5 ML IV PRN (15:59)
[2023-12-04] MEDS: PHENobarbital sodium 65 MG/ML VIAL IV STA (21:02)
[2023-12-05 04:18] LABS: Basophils # (auto) 0.16 K/uL (0.00-0.20); Basophils % (auto) 2.2 %; Eosinophils # (auto) 0.24 K/uL (0.00-0.50); Eosinophils % (auto) 3.2 %; Hemoglobin 12.7 g/dl (14.0-18.0); Immature Granulocytes # (auto) 0.03 K/uL (0.01-0.20); Immature Granulocytes % (auto) 0.4 %; Lymphocytes # (auto) 0.84 K/uL (1.20-3.40); Lymphocytes % (auto) 11.3 %; Mean Corpuscular Hemoglobin 32.8 pg (25.0-34.0); Mean Corpuscular Hgb Conc 34.3 g/dL (32.0-36.0); Mean Corpuscular Volume 95.6 fL (80.0-100.0); Mean Platelet Volume 11.9 fL (9.4-12.4); Monocytes # (auto) 1.01 K/uL (0.11-0.59); Monocytes % (auto) 13.6 %; Neutrophils # (auto) 5.14 K/uL (1.40-6.50); Neutrophils % (auto) 69.3 %; Platelet Count 187 K/uL (130-400); RDW Coefficient of Variation 13.6 % (11.5-14.5); RDW Standard Deviation 48.4 fL (36.4-46.3); Red Blood Count 3.87 M/uL (4.70-6.10); White Blood Count 7.42 K/ul (4.8-10.8)
[2023-12-05 04:37] LABS: Calcium 8.7 mg/dl (8.6-10.3); Creatinine Clr Calc Pharmacy 158.7 ml/min; Est GFR (African American) 135.9 ml/min; Est GFR (Non-African American) 117.2 ml/min; Magnesium 1.6 mg/dl (1.7-2.4); Potassium 3.7 mmol/L (3.5-5.1)
--- NOTE | 2023-12-05 11:10 | Hospitalist Progress Note ---
Date of Service December 05, 2023 Assessment & Plan (1) Alcohol withdrawal: Plan: Patient is a chronic heavy drinker and never tried to quit or cut back on his drinking Per the report I got, he checked himself into drug and alcohol rehab as he wanted to quit but was found to be actively withdrawing with hallucinations, tremors and thus was sent to the emergency room The patient was given a few doses of Ativan in the emergency room In the emergency room, he started having seizures He was thus admitted to the ICU. Patient was being managed with Precedex drip, phenobarbital, Ativan Now off Precedex drip. Completed phenobarbital course Was transferred out of the ICU but required to go back again 12/01. Patient is now being managed with the phenobarbital taper once again. Patient is deemed stable for transfer out of the ICU by manager print today 12/03 I will continue oral phenobarb taper. Along with symptom triggered Ativan. Patient may need extended oral phenobarb taper. (2) Complicated UTI (urinary tract infection): Plan: Patient removed his catheter traumatically on 12/01 and needed the catheter placed back by urology Urology involved Urinalysis is suggestive of UTI Bacteremic with pansensitive E. coli. Urine culture also growing pansensitive E. coli Associated with leukocytosis and fever, thus meeting sepsis criteria Continue IV ceftriaxone (3) Sepsis: Plan: Most likely urine etiology. Urinalysis suggestive. History of traumatic catheter removal Urine culture and blood culture growing pansensitive E. coli Treat with IV ceftriaxone (4) Alcoholic hepatitis: Plan: Patient most likely has alcoholic hepatitis AST: ALT is greater than 2 Elevated bilirubin level of 4 INR elevated at 1.3 Discriminant factor 13. Not a candidate for steroids Acute hepatitis panel negative Acetaminophen level negative (5) Encephalopathy: Plan: This is most likely due to alcohol withdrawal delirium tremens and toxic encephalopathy Will manage alcohol withdrawal Monitor clinically (6) Benign essential hypertension: Plan: She normally takes losartan 100 mg Hold p.o. medicine for the time being (7) Anxiety: Plan: Takes Prozac at home Hold oral medications Plan CODE STATUS: Presumed to be full code. Patient is not able to participate in decision-making DVT prophylaxis: Thrombocytopenia improved. On Lovenox Patient's fianc wants him to go back to rehab unit after discharge. Admission and Anticipated Discharge Date Admission Date: November 23, 2023 Subjective Patient needed IV phenobarb today. He is on a phenobarbital taper. He is accompanied by a sitter in the room. Currently sleeping. Review of Systems Review of Systems: Unobtainable due to cognitive status Physical Exam Physical Exam: General: Sleeping Heart: S1, S2/regular rate and rhythm, no murmur rubs or gallops Lungs: Clear to auscultation bilaterally. Normal effort Abdomen: Soft/nontender/nondistended. No hepatosplenomegaly Extremities: No clubbing/cyanosis. No edema Behavior: Sleeping. Did not wake him up today. Results & Data Results & Data Vital Signs (Past 12 Hours) Vital Signs Temp Pulse Resp BP BP Pulse Ox Pulse Ox 12/05/23 09:16 76 16 137/86 12/05/23 05:18 100/64 12/05/23 04:03 81 20 92 12/05/23 04:00 36.9 C 12/05/23 02:00 120/77 12/05/23 02:00 75 18 92 12/05/23 00:00 75 15 94 12/05/23 00:00 122/77 12/05/23 00:00 74 12/05/23 00:00 93 O2 Del Method O2 Flow Rate 12/05/23 09:16 12/05/23 05:18 12/05/23 04:03 12/05/23 04:00 12/05/23 02:00 12/05/23 02:00 12/05/23 00:00 12/05/23 00:00 12/05/23 00:00 12/05/23 00:00 Nasal Cannula 3 Laboratory Results Abnormal lab results 12/05/23 Range/Units 04:01 RBC 3.87 L (4.70-6.10) M/uL Hgb 12.7 L (14.0-18.0) g/dl Hct 37.0 L (42.0-52.0) % RDW Std Deviation 48.4 H (36.4-46.3) fL Lymph # (Auto) 0.84 L (1.20-3.40) K/uL Jackson # (Auto) 1.01 H (0.11-0.59) K/uL Creatinine 0.58 L (0.6-1.4) mg/dl Magnesium 1.6 L (1.7-2.4) mg/dl PG Care Time/CCT Total # of Minutes Spent Total Time Spent with Patient: Total time spent is greater than 50% in coordination of care (as documented) at patient's floor/unit and/or counseling patient: Coding Level of Care Code 42640 SUB INP/OBS CARE 2/35MIN Diagnoses Alcohol withdrawal F10.931 Complication of substance-induced condition: with delirium Complicated UTI (urinary tract infection) N39.0 Sepsis A41.9 Alcoholic hepatitis K70.10 Ascites presence: unspecified Encephalopathy G93.40 Benign essential hypertension I10 Anxiety F41.9 (1) Alcohol withdrawal Complication of substance-induced condition: with delirium Qualified Code(s): F10.931 - Alcohol use, unspecified with withdrawal delirium (4) Alcoholic hepatitis Ascites presence: unspecified Qualified Code(s): K70.10 - Alcoholic hepatitis without ascites
[2023-12-05] MEDS: MAGNESIUM SULFATE / D5W 1 GM/100 ML BAG IV SCH (11:32)
[2023-12-06] MEDS: HALOPERIDOL LACTATE 5 MG/ML 1 ML VIAL IV STA ×2 (04:11→21:02)
[2023-12-06] MEDS ORDERED: PHENobarbitaL 15 MG TAB PO SCH (09:00)
[2023-12-06] MEDS: PHENobarbitaL 30 MG TAB PO SCH (10:51)
--- NOTE | 2023-12-06 16:22 | Hospitalist Progress Note ---
Date of Service December 06, 2023 Assessment & Plan (1) Alcohol withdrawal: Plan: Patient is a chronic heavy drinker and never tried to quit or cut back on his drinking Per the report I got, he checked himself into drug and alcohol rehab as he wanted to quit but was found to be actively withdrawing with hallucinations, tremors and thus was sent to the emergency room The patient was given a few doses of Ativan in the emergency room In the emergency room, he started having seizures He was thus admitted to the ICU. Patient was being managed with Precedex drip, phenobarbital, Ativan Now off Precedex drip. Completed phenobarbital course Was transferred out of the ICU but required to go back again 12/01. Patient is now being managed with the phenobarbital taper once again. Patient is deemed stable for transfer out of the ICU by rod mill tender today 12/03 I will continue oral phenobarb taper. Along with symptom triggered Ativan. Patient may need extended oral phenobarb taper. 12/05 alert, awake, denies pain, received IV Haldol last night (2) Complicated UTI (urinary tract infection): Plan: Patient removed his catheter traumatically on 12/01 and needed the catheter placed back by urology Urology involved Urinalysis is suggestive of UTI Bacteremic with pansensitive E. coli. Urine culture also growing pansensitive E. coli Associated with leukocytosis and fever, thus meeting sepsis criteria Continue IV ceftriaxone remove jj when possible (3) Sepsis: Plan: Most likely urine etiology. Urinalysis suggestive. History of traumatic catheter removal Urine culture and blood culture growing pansensitive E. coli Treat with IV ceftriaxone (4) Alcoholic hepatitis: Plan: Patient most likely has alcoholic hepatitis AST: ALT is greater than 2 Elevated bilirubin level of 4 INR elevated at 1.3 Discriminant factor 13. Not a candidate for steroids Acute hepatitis panel negative Acetaminophen level negative monitor LFTs (5) Encephalopathy: Plan: This is most likely due to alcohol withdrawal delirium tremens and toxic encephalopathy Will manage alcohol withdrawal Monitor clinically - improving (6) Benign essential hypertension: Plan: She normally takes losartan 100 mg Hold p.o. medicine for the time being (7) Anxiety: Plan: Takes Prozac at home Hold oral medications Plan CODE STATUS: Presumed to be full code. Patient is not able to participate in decision-making DVT prophylaxis: Thrombocytopenia improved. On Lovenox Patient's fianc wants him to go back to rehab unit after discharge. Admission and Anticipated Discharge Date Admission Date: November 23, 2023 Subjective Patient needed IV phenobarb today. He is on a phenobarbital taper. He is accompanied by a sitter in the room. He received IV Haldol last night for severe agitation, he is awake, alert, follows commannds Review of Systems Review of Systems: All systems reviewed & are unremarkable except as noted in Subjective Physical Exam Physical Exam: head atraumatic neck is supple chest CTA heart S1S2 regular abdomen soft, nt, nd, bs present extremities no clubbing jj is present neuro AAO to name, place Results & Data Results & Data Vital Signs (Past 12 Hours) Vital Signs Temp Pulse Pulse Resp BP BP Pulse Ox 12/06/23 16:03 90 21 126/77 12/06/23 12:00 36.5 C 70 18 131/84 95 12/06/23 08:00 12/06/23 08:00 36.5 C 64 18 113/73 96 O2 Del Method O2 Flow Rate 12/06/23 16:03 12/06/23 12:00 Nasal Cannula 2 12/06/23 08:00 Nasal Cannula 2 12/06/23 08:00 Nasal Cannula 2 PG Care Time/CCT Total # of Minutes Spent Total Time Spent with Patient: Total time spent is greater than 50% in coordination of care (as documented) at patient's floor/unit and/or counseling patient: Coding Level of Care Code 98541 SUB INP/OBS CARE 2/35MIN Diagnoses Alcohol withdrawal F10.931 Complication of substance-induced condition: with delirium Complicated UTI (urinary tract infection) N39.0 Sepsis A41.9 Alcoholic hepatitis K70.10 Ascites presence: unspecified Encephalopathy G93.40 Benign essential hypertension I10 Anxiety F41.9 (1) Alcohol withdrawal Complication of substance-induced condition: with delirium Qualified Code(s): F10.931 - Alcohol use, unspecified with withdrawal delirium (4) Alcoholic hepatitis Ascites presence: unspecified Qualified Code(s): K70.10 - Alcoholic hepatitis without ascites
[2023-12-06] MEDS: PHENobarbital sodium 65 MG/ML VIAL IV STA (23:16)
[2023-12-07] MEDS: HALOPERIDOL LACTATE 5 MG/ML 1 ML VIAL IV STA (01:08)
[2023-12-07] MEDS: HALOPERIDOL LACTATE 5 MG/ML 1 ML VIAL ONE (01:08)
[2023-12-07] MEDS: OLANZapine 10 MG/2.1 ML SDV IM STA (03:39)
[2023-12-07] MEDS: diazePAM 5 MG/ML 10ML VIAL IV STA (03:39)
[2023-12-07 04:47] LABS: Basophils # (auto) 0.21 K/uL (0.00-0.20); Basophils % (auto) 2.7 %; Eosinophils # (auto) 0.26 K/uL (0.00-0.50); Eosinophils % (auto) 3.4 %; Hematocrit (blood only) 36.4 % (42.0-52.0); Hemoglobin 12.5 g/dl (14.0-18.0); Immature Granulocytes # (auto) 0.02 K/uL (0.01-0.20); Immature Granulocytes % (auto) 0.3 %; Lymphocytes # (auto) 1.48 K/uL (1.20-3.40); Lymphocytes % (auto) 19.1 %; Mean Corpuscular Hemoglobin 32.1 pg (25.0-34.0); Mean Corpuscular Hgb Conc 34.3 g/dL (32.0-36.0); Mean Corpuscular Volume 93.3 fL (80.0-100.0); Mean Platelet Volume 12.4 fL (9.4-12.4); Monocytes # (auto) 1.07 K/uL (0.11-0.59); Monocytes % (auto) 13.8 %; Neutrophils # (auto) 4.69 K/uL (1.40-6.50); Neutrophils % (auto) 60.7 %; Platelet Count 240 K/uL (130-400); RDW Coefficient of Variation 13.1 % (11.5-14.5); RDW Standard Deviation 44.5 fL (36.4-46.3); White Blood Count 7.73 K/ul (4.8-10.8)
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
[2023-12-07 04:58] LABS: Albumin Globulin Ratio 1.1 (0.9-2); Albumin Level 3.3 gm/dl (3.4-5.0); BUN Creatinine Ratio 12.3 (10-20); Bilirubin,Total 1.7 mg/dl (0.2-1.0); Calcium 8.8 mg/dl (8.6-10.3); Creatinine Clr Calc Pharmacy 161.5 ml/min; Est GFR (African American) 136.8 ml/min; Est GFR (Non-African American) 118.1 ml/min; Globulin 3.1 gm/dl (2.5-4.0); Magnesium 1.5 mg/dl (1.7-2.4); Potassium 3.1 mmol/L (3.5-5.1); Total Protein 6.4 gm/dl (6.0-8.3)
[2023-12-07] MEDS: FLUoxetine HCL 20 MG CAP PO SCH (11:51)
[2023-12-07] MEDS: LACTATED RINGER'S 1,000 ML IV SCH (11:52)
--- NOTE | 2023-12-07 12:17 | Hospitalist Progress Note ---
Date of Service December 07, 2023 Assessment & Plan (1) Alcohol withdrawal: Plan: Patient is a chronic heavy drinker and never tried to quit or cut back on his drinking Per the report I got, he checked himself into drug and alcohol rehab as he wanted to quit but was found to be actively withdrawing with hallucinations, tremors and thus was sent to the emergency room The patient was given a few doses of Ativan in the emergency room In the emergency room, he started having seizures He was thus admitted to the ICU. Patient was being managed with Precedex drip, phenobarbital, Ativan Now off Precedex drip. Completed phenobarbital course Was transferred out of the ICU but required to go back again 12/01. Patient is now being managed with the phenobarbital taper once again. Patient is deemed stable for transfer out of the ICU by jig inspector today 12/03 I will continue oral phenobarb taper. Along with symptom triggered Ativan. Patient may need extended oral phenobarb taper. 12/05 alert, awake, denies pain, received IV Haldol last night 12/06 patient is sedated, restrained , will start him on the Geodon 40 mg QHS, Valium, Haldol as needed for agitation, continue to monitor him in ICU , start IV fluids since patient is very sedated (2) Complicated UTI (urinary tract infection): Plan: Patient removed his catheter traumatically on 12/01 and needed the catheter placed back by urology Urology involved Urinalysis is suggestive of UTI Bacteremic with pansensitive E. coli. Urine culture also growing pansensitive E. coli Associated with leukocytosis and fever, thus meeting sepsis criteria Continue IV ceftriaxone remove jj when possible Will stop IV ceftriaxone he completed course of antibiotics for urinary tract infection (3) Sepsis: Plan: Most likely urine etiology. Urinalysis suggestive. History of traumatic catheter removal Urine culture and blood culture growing pansensitive E. coli Treat with IV ceftriaxone No signs of sepsis (4) Alcoholic hepatitis: Plan: Patient most likely has alcoholic hepatitis AST: ALT is greater than 2 Elevated bilirubin level of 4 INR elevated at 1.3 Discriminant factor 13. Not a candidate for steroids Acute hepatitis panel negative Acetaminophen level negative monitor LFTs (5) Encephalopathy: Plan: This is most likely due to alcohol withdrawal delirium tremens and toxic encephalopathy Will manage alcohol withdrawal Monitor clinically - improving (6) Benign essential hypertension: Plan: She normally takes losartan 100 mg Hold p.o. medicine for the time being (7) Anxiety: Plan: Takes Prozac at home Hold oral medications Plan CODE STATUS: Presumed to be full code. Patient is not able to participate in decision-making DVT prophylaxis: Thrombocytopenia improved. On Lovenox Patient's fianc wants him to go back to rehab unit after discharge. Admission and Anticipated Discharge Date Admission Date: November 23, 2023 Subjective Patient on tapering doses of phenobarbital 60 mg bid, was extremely agitated last night received IV Valium, IV Haldol, phenobarbital 130 mg x 1, currently he is very sedated, restrained Review of Systems Review of Systems: All systems reviewed & are unremarkable except as noted in Subjective Physical Exam Physical Exam: head atraumatic neck is supple chest CTA heart S1S2 regular abdomen soft, nt, nd, bs present extremities no clubbing jj is present neuro sed11 Results & Data Results & Data Vital Signs (Past 12 Hours) Vital Signs Temp Pulse Pulse Resp BP BP BP 12/07/23 08:00 75 12/07/23 08:00 36.3 C L 77 18 95/55 L 12/07/23 07:45 75 12/07/23 06:06 72 18 106/60 12/07/23 05:03 78 17 106/60 12/07/23 04:00 88/54 L 12/07/23 04:00 86 21 12/07/23 04:00 37.1 C 12/07/23 03:13 36.8 C 95 H 22 131/76 12/07/23 03:06 95 H 17 131/74 12/07/23 02:06 85 10 L 129/69 12/07/23 01:00 86 24 110/68 Pulse Ox O2 Del Method 12/07/23 08:00 12/07/23 08:00 92 Room Air 12/07/23 07:45 12/07/23 06:06 12/07/23 05:03 12/07/23 04:00 12/07/23 04:00 12/07/23 04:00 12/07/23 03:13 93 Room Air 12/07/23 03:06 12/07/23 02:06 12/07/23 01:00 PG Care Time/CCT Total # of Minutes Spent Total Time Spent with Patient: Total time spent is greater than 50% in coordination of care (as documented) at patient's floor/unit and/or counseling patient: Coding Level of Care Code 01397 SUB INP/OBS CARE 350MIN Diagnoses Alcohol withdrawal F10.931 Complication of substance-induced condition: with delirium Complicated UTI (urinary tract infection) N39.0 Sepsis A41.9 Alcoholic hepatitis K70.10 Ascites presence: unspecified Encephalopathy G93.40 Benign essential hypertension I10 Anxiety F41.9 (1) Alcohol withdrawal Complication of substance-induced condition: with delirium Qualified Code(s): F10.931 - Alcohol use, unspecified with withdrawal delirium (4) Alcoholic hepatitis Ascites presence: unspecified Qualified Code(s): K70.10 - Alcoholic hepatitis without ascites
[2023-12-07] MEDS: diazePAM 5 MG/ML 10ML VIAL IV PRN (15:22)
[2023-12-07] MEDS: THIAMINE HCL 500 MG in SODIUM CHLORIDE 0.9% 50 ML IV STA (19:54)
[2023-12-07] MEDS: POTASSIUM CHLORIDE / WTR 10 MEQ/100 ML PLCT IV SCH (19:54)
[2023-12-07] MEDS: MAGNESIUM SULFATE / D5W 1 GM/100 ML BAG IV ONE (19:54)
[2023-12-08] MEDS: THIAMINE HCL 500 MG in SODIUM CHLORIDE 0.9% 50 ML IV SCH (03:02)
[2023-12-08] MEDS: OLANZapine 10 MG/2.1 ML SDV IM STA (03:07)
[2023-12-08 05:21] LABS: Basophils # (auto) 0.27 K/uL (0.00-0.20); Eosinophils # (auto) 0.47 K/uL (0.00-0.50); Eosinophils % (auto) 5.2 %; Hematocrit (blood only) 38.6 % (42.0-52.0); Hemoglobin 13.3 g/dl (14.0-18.0); Immature Granulocytes # (auto) 0.04 K/uL (0.01-0.20); Immature Granulocytes % (auto) 0.4 %; Lymphocytes # (auto) 1.48 K/uL (1.20-3.40); Lymphocytes % (auto) 16.5 %; Mean Corpuscular Hemoglobin 32.5 pg (25.0-34.0); Mean Corpuscular Hgb Conc 34.5 g/dL (32.0-36.0); Mean Corpuscular Volume 94.4 fL (80.0-100.0); Monocytes # (auto) 0.83 K/uL (0.11-0.59); Monocytes % (auto) 9.3 %; Neutrophils # (auto) 5.87 K/uL (1.40-6.50); Neutrophils % (auto) 65.6 %; Platelet Count 278 K/uL (130-400); RDW Coefficient of Variation 13.3 % (11.5-14.5); RDW Standard Deviation 46.2 fL (36.4-46.3); Red Blood Count 4.09 M/uL (4.70-6.10); White Blood Count 8.96 K/ul (4.8-10.8)
[2023-12-08 05:31] LABS: Albumin Globulin Ratio 0.9 (0.9-2); Albumin Level 3.1 gm/dl (3.4-5.0); BUN Creatinine Ratio 10.9 (10-20); Bilirubin,Total 1.9 mg/dl (0.2-1.0); Calcium 8.9 mg/dl (8.6-10.3); Creatinine Clr Calc Pharmacy 143.8 ml/min; Est GFR (African American) 130.5 ml/min; Est GFR (Non-African American) 112.6 ml/min; Globulin 3.5 gm/dl (2.5-4.0); Magnesium 1.7 mg/dl (1.7-2.4); Potassium 3.7 mmol/L (3.5-5.1); Total Protein 6.6 gm/dl (6.0-8.3)
--- NOTE | 2023-12-08 09:54 | Hospitalist Progress Note ---
Date of Service December 08, 2023 Assessment & Plan (1) Alcohol withdrawal: Plan: Patient is a chronic heavy drinker and never tried to quit or cut back on his drinking Per the report I got, he checked himself into drug and alcohol rehab as he wanted to quit but was found to be actively withdrawing with hallucinations, tremors and thus was sent to the emergency room The patient was given a few doses of Ativan in the emergency room In the emergency room, he started having seizures He was thus admitted to the ICU. Patient was being managed with Precedex drip, phenobarbital, Ativan Now off Precedex drip. Completed phenobarbital course Was transferred out of the ICU but required to go back again 12/01. Patient is now being managed with the phenobarbital taper once again. Patient is deemed stable for transfer out of the ICU by railcar switcher today 12/03 I will continue oral phenobarb taper. Along with symptom triggered Ativan. Patient may need extended oral phenobarb taper. 12/05 alert, awake, denies pain, received IV Haldol last night 12/06 patient is sedated, restrained , will start him on the Geodon 40 mg QHS, Valium, Haldol as needed for agitation, continue to monitor him in ICU , start IV fluids since patient is very sedated 12/07 started on Geodon 40 mg bid (2) Complicated UTI (urinary tract infection): Plan: Patient removed his catheter traumatically on 12/01 and needed the catheter placed back by urology Urology involved Urinalysis is suggestive of UTI Bacteremic with pansensitive E. coli. Urine culture also growing pansensitive E. coli Associated with leukocytosis and fever, thus meeting sepsis criteria Continue IV ceftriaxone remove jj when possible iv Ceftriaxone for 10 days (3) Sepsis: Plan: Most likely urine etiology. Urinalysis suggestive. History of traumatic catheter removal Urine culture and blood culture growing pansensitive E. coli Treat with IV ceftriaxone No signs of sepsis (4) Alcoholic hepatitis: Plan: Patient most likely has alcoholic hepatitis AST: ALT is greater than 2 Elevated bilirubin level of 4 INR elevated at 1.3 Discriminant factor 13. Not a candidate for steroids Acute hepatitis panel negative Acetaminophen level negative monitor LFTs (5) Encephalopathy: Plan: This is most likely due to alcohol withdrawal delirium tremens and toxic encephalopathy Will manage alcohol withdrawal Monitor clinically - sedated (6) Benign essential hypertension: Plan: She normally takes losartan 100 mg Hold p.o. medicine for the time being (7) Anxiety: Plan: Takes Prozac at home Hold oral medications Plan CODE STATUS: Presumed to be full code. Patient is not able to participate in decision-making DVT prophylaxis: Thrombocytopenia improved. On Lovenox Patient's fianc wants him to go back to rehab unit after discharge. Admission and Anticipated Discharge Date Admission Date: November 23, 2023 Subjective Patient on tapering doses of phenobarbital 60 mg bid, was extremely agitated last night received IV Valium, IV Haldol, phenobarbital 130 mg x 1, currently he is very sedated, restrained 12/07 received Geodon, Zyprexa , Valium last night, sedated , but moving arms, legs Review of Systems Review of Systems: Unobtainable due to cognitive status Physical Exam Physical Exam: head atraumatic neck is supple chest CTA heart S1S2 regular abdomen soft, nt, nd, bs present extremities no clubbing jj is present neuro sedated, restrained Results & Data Results & Data Vital Signs (Past 12 Hours) Vital Signs Temp Pulse Resp BP Pulse Ox Pulse Ox O2 Del Method 12/08/23 06:00 129/81 12/08/23 06:00 85 20 94 12/08/23 05:09 85 22 136/92 95 12/08/23 04:03 93 H 20 146/83 H 96 12/08/23 04:00 36.6 C 12/08/23 03:12 92 H 20 151/91 H 94 12/08/23 02:00 87 4 L 93 12/08/23 02:00 111/71 12/08/23 01:09 86 18 96 12/08/23 00:03 81 15 118/76 94 12/08/23 00:00 37.0 C 12/08/23 00:00 95 Room Air 12/08/23 00:00 85 12/07/23 23:09 77 17 144/107 H 97 12/07/23 22:03 73 19 117/74 96 PG Care Time/CCT Total # of Minutes Spent Total Time Spent with Patient: Total time spent is greater than 50% in coordination of care (as documented) at patient's floor/unit and/or counseling patient: Coding Level of Care Code 71432 SUB INP/OBS CARE 2/35MIN Diagnoses Alcohol withdrawal F10.931 Complication of substance-induced condition: with delirium Complicated UTI (urinary tract infection) N39.0 Sepsis A41.9 Alcoholic hepatitis K70.10 Ascites presence: unspecified Encephalopathy G93.40 Benign essential hypertension I10 Anxiety F41.9 (1) Alcohol withdrawal Complication of substance-induced condition: with delirium Qualified Code(s): F10.931 - Alcohol use, unspecified with withdrawal delirium (4) Alcoholic hepatitis Ascites presence: unspecified Qualified Code(s): K70.10 - Alcoholic hepatitis without ascites
[2023-12-08] MEDS: cefTRIAXone SODIUM 2,000 MG/50 ML BAG IV SCH (11:19)
[2023-12-08] MEDS: SODIUM CHLORIDE 0.9% 500 ML IV SCH (11:19)
[2023-12-08] MEDS: SODIUM CHLORIDE 0.9% 500 ML IV ONE (11:42)
--- NOTE | 2023-12-08 15:41 | XRay Report ---
XR chest 1V portable HISTORY: 52 years-old Male sob acute shortness of breath COMPARISON: 12/01/2023 TECHNIQUE: AP view of the chest FINDINGS: Cardiac silhouette is enlarged. No pneumothorax, pleural effusion, airspace consolidation or pulmonar y edema. Bones appear grossly intact. IMPRESSION: No acute process. ACT 112: Negative or not required by law. The above report was generated using voice recognition software. It may contain grammatical, syntax o r spelling errors. Electronically signed by: Horacio Campos M.D. 12/08/2023 3:40 PM
[2023-12-08] MEDS: FLUMAZENIL 0.1 MG/1 ML 10 ML VIAL IV STA (15:42)
[2023-12-08] MEDS: FLUMAZENIL 0.1 MG/1 ML 10 ML VIAL IV ONE (15:42)
[2023-12-08 15:52] LABS: Base Excess ABG 1.8 mEq/L (-9-1.8); HCO3 ABG 26 mmol/L (19-24); Oxygen Saturation ABG 96.5 % (90-95); PCO2 ABG 37 mmHg (35-46); PO2 ABG 79 mmHg (80-95); pH ABG 7.45 (7.35-7.45)
[2023-12-08] MEDS ORDERED: LORazepam 2 MG in SYRINGE 0.5 ML IV PRN (16:04)
[2023-12-08 16:40] LABS: Allen Test Pos (Pos)
[2023-12-08] MEDS: LORazepam 2 MG in SYRINGE 1 ML IV PRN (18:37)
[2023-12-08] MEDS ORDERED: POLYETHYLENE (MIRALAX) 17 GM PACK PO PRN (22:18)
[2023-12-09] MEDS: HALOPERIDOL LACTATE 5 MG/ML 1 ML VIAL IM PRN (03:58)
[2023-12-09 05:10] LABS: Basophils # (auto) 0.26 K/uL (0.00-0.20); Basophils % (auto) 3.2 %; Eosinophils # (auto) 0.34 K/uL (0.00-0.50); Eosinophils % (auto) 4.2 %; Hematocrit (blood only) 40.5 % (42.0-52.0); Hemoglobin 13.6 g/dl (14.0-18.0); Immature Granulocytes # (auto) 0.05 K/uL (0.01-0.20); Immature Granulocytes % (auto) 0.6 %; Lymphocytes # (auto) 1.09 K/uL (1.20-3.40); Lymphocytes % (auto) 13.6 %; Mean Corpuscular Hemoglobin 32.5 pg (25.0-34.0); Mean Corpuscular Hgb Conc 33.6 g/dL (32.0-36.0); Mean Corpuscular Volume 96.7 fL (80.0-100.0); Mean Platelet Volume 11.6 fL (9.4-12.4); Monocytes # (auto) 0.67 K/uL (0.11-0.59); Monocytes % (auto) 8.4 %; Neutrophils # (auto) 5.61 K/uL (1.40-6.50); Platelet Count 311 K/uL (130-400); RDW Coefficient of Variation 13.5 % (11.5-14.5); RDW Standard Deviation 47.8 fL (36.4-46.3); Red Blood Count 4.19 M/uL (4.70-6.10); White Blood Count 8.02 K/ul (4.8-10.8)
[2023-12-09 05:12] LABS: Alanine Aminotransferase 28 U/L (7-52); Albumin Globulin Ratio 0.9 (0.9-2); Albumin Level 3.2 gm/dl (3.4-5.0); Alkaline Phosphatase 203 U/L (34-104); Anion Gap 6 (3-11); BUN Creatinine Ratio 9.1 (10-20); Bilirubin,Total 1.5 mg/dl (0.2-1.0); Blood Urea Nitrogen 6 mg/dl (6-23); Calcium 9.2 mg/dl (8.6-10.3); Carbon Dioxide 28 mmol/L (21-32); Chloride 104 mmol/L (98-107); Creatinine Clr Calc Pharmacy 139.4 ml/min; Est GFR (African American) 128.8 ml/min; Est GFR (Non-African American) 111.2 ml/min; Globulin 3.7 gm/dl (2.5-4.0); Glucose 86 mg/dl (70-99(Fasting)); Sodium 138 mmol/L (136-145); Total Protein 6.9 gm/dl (6.0-8.3)
[2023-12-09 06:21] LABS: Potassium 4.3 mmol/L (3.5-5.1)
--- NOTE | 2023-12-09 10:53 | Hospitalist Progress Note ---
Date of Service December 09, 2023 Assessment & Plan (1) Alcohol withdrawal: Plan: Patient is a chronic heavy drinker and never tried to quit or cut back on his drinking Per the report I got, he checked himself into drug and alcohol rehab as he wanted to quit but was found to be actively withdrawing with hallucinations, tremors and thus was sent to the emergency room The patient was given a few doses of Ativan in the emergency room In the emergency room, he started having seizures He was thus admitted to the ICU. Patient was being managed with Precedex drip, phenobarbital, Ativan Now off Precedex drip. Completed phenobarbital course Was transferred out of the ICU but required to go back again 12/01. Patient is now being managed with the phenobarbital taper once again. Patient is deemed stable for transfer out of the ICU by manager corporate today 12/03 I will continue oral phenobarb taper. Along with symptom triggered Ativan. Patient may need extended oral phenobarb taper. 12/05 alert, awake, denies pain, received IV Haldol last night 12/06 patient is sedated, restrained , will start him on the Geodon 40 mg QHS, Valium, Haldol as needed for agitation, continue to monitor him in ICU , start IV fluids since patient is very sedated 12/07 started on Geodon 40 mg bid 12/08 agitated , refusing meds today (2) Complicated UTI (urinary tract infection): Plan: Patient removed his catheter traumatically on 12/01 and needed the catheter placed back by urology Urology involved Urinalysis is suggestive of UTI Bacteremic with pansensitive E. coli. Urine culture also growing pansensitive E. coli Associated with leukocytosis and fever, thus meeting sepsis criteria Continue IV ceftriaxone remove jj when possible iv Ceftriaxone for 10 days (3) Sepsis: Plan: Most likely urine etiology. Urinalysis suggestive. History of traumatic catheter removal Urine culture and blood culture growing pansensitive E. coli Treat with IV ceftriaxone No signs of sepsis (4) Alcoholic hepatitis: Plan: Patient most likely has alcoholic hepatitis AST: ALT is greater than 2 Elevated bilirubin level of 4 INR elevated at 1.3 Discriminant factor 13. Not a candidate for steroids Acute hepatitis panel negative Acetaminophen level negative monitor LFTs (5) Encephalopathy: Plan: This is most likely due to alcohol withdrawal delirium tremens and toxic en cephalopathy Will manage alcohol withdrawal Monitor clinically - sedated (6) Benign essential hypertension: Plan: She normally takes losartan 100 mg Hold p.o. medicine for the time being (7) Anxiety: Plan: Takes Prozac at home Hold oral medications (8) Bacteremia: Plan: e.coli bacteremia IV Rocephin 10 days Plan CODE STATUS: Presumed to be full code. Patient is not able to participate in decision-making DVT prophylaxis: Thrombocytopenia improved. On Lovenox Patient's fianc wants him to go back to rehab unit after discharge. Admission and Anticipated Discharge Date Admission Date: November 23, 2023 Subjective Patient on tapering doses of phenobarbital 60 mg bid, was extremely agitated last night received IV Valium, IV Haldol, phenobarbital 130 mg x 1, currently he is very sedated, restrained 12/07 received Geodon, Zyprexa , Valium last night, sedated , but moving arms, legs 12/08 confused , somewhat agitated Review of Systems Review of Systems: Unobtainable due to cognitive status Physical Exam Physical Exam: head atraumatic neck is supple chest CTA heart S1S2 regular abdomen soft, nt, nd, bs present extremities no clubbing jj is present neuro sedated, restrained Results & Data Results & Data Vital Signs (Past 12 Hours) Vital Signs Temp Pulse Pulse Resp BP BP BP 12/09/23 08:09 78 12/09/23 08:00 80 12/09/23 07:00 129/89 12/09/23 07:00 94 H 12/09/23 05:06 85 18 12/09/23 05:00 135/86 12/09/23 04:51 79 18 12/09/23 04:27 141/88 H 12/09/23 04:24 86 18 12/09/23 04:00 91 H 18 12/09/23 04:00 80 21 141/88 H 12/09/23 03:37 36.9 C 86 20 143/89 H 12/09/23 03:00 75 21 12/09/23 02:06 82 18 12/09/23 01:41 76 14 128/93 12/09/23 01:00 81 17 12/09/23 00:11 70 22 120/80 12/09/23 00:00 36.7 C 71 20 120/80 12/09/23 00:00 66 12/08/23 23:12 66 16 12/08/23 23:00 91/57 L 12/08/23 22:59 70 20 Pulse Ox O2 Del Method O2 Flow Rate 12/09/23 08:09 93 Room Air 12/09/23 08:00 12/09/23 07:00 12/09/23 07:00 93 Room Air 12/09/23 05:06 92 Nasal Cannula 2 12/09/23 05:00 12/09/23 04:51 96 12/09/23 04:27 12/09/23 04:24 94 12/09/23 04:00 95 Nasal Cannula 2 12/09/23 04:00 94 Nasal Cannula 2 12/09/23 03:37 95 Nasal Cannula 2 12/09/23 03:00 96 12/09/23 02:06 100 12/09/23 01:41 92 Nasal Cannula 2 12/09/23 01:00 96 Nasal Cannula 2 12/09/23 00:11 96 Nasal Cannula 2 12/09/23 00:00 96 Nasal Cannula 2 12/09/23 00:00 12/08/23 23:12 94 12/08/23 23:00 12/08/23 22:59 91 Laboratory Results Abnormal lab results 12/08/23 12/09/23 12/09/23 Range/Units 15:35 04:29 05:39 RBC 4.19 L (4.70-6.10) M/uL Hgb 13.6 L (14.0-18.0) g/dl Hct 40.5 L (42.0-52.0) % RDW Std Deviation 47.8 H (36.4-46.3) fL Lymph # (Auto) 1.09 L (1.20-3.40) K/uL [place] # (Auto) 0.67 H (0.11-0.59) K/uL Baso # (Auto) 0.26 H (0.00-0.20) K/uL ABG pO2 79 L (80-95) mmHg ABG HCO3 26 H (19-24) mmol/L ABG O2 Saturation 96.5 H (90-95) % BUN/Creatinine Ratio 9.1 L (10-20) Total Bilirubin 1.5 H (0.2-1.0) mg/dl AST 84 H (13-39) U/L Alkaline Phosphatase 203 H (34-104) U/L Albumin 3.2 L (3.4-5.0) gm/dl PG Care Time/CCT Total # of Minutes Spent Total Time Spent with Patient: Total time spent is greater than 50% in coordination of care (as documented) at patient's floor/unit and/or counseling patient: Coding Level of Care Code 59514 SUB INP/OBS CARE 3/50MIN Diagnoses Alcohol withdrawal F10.931 Complication of substance-induced condition: with delirium Complicated UTI (urinary tract infection) N39.0 Sepsis A41.9 Alcoholic hepatitis K70.10 Ascites presence: unspecified Encephalopathy G93.40 Benign essential hypertension I10 Anxiety F41.9 Bacteremia R78.81 (1) Alcohol withdrawal Complication of substance-induced condition: with delirium Qualified Code(s): F10.931 - Alcohol use, unspecified with withdrawal delirium (4) Alcoholic hepatitis Ascites presence: unspecified Qualified Code(s): K70.10 - Alcoholic hepatitis without ascites
--- NOTE | 2023-12-09 17:44 | CT Scan Report ---
CT head/brain wo con CLINICAL HISTORY: 52 years-old Male with chane in [place]. Acutely altered mental status TECHNIQUE: Multiple axial CT images of the head were obtained without contrast. A dose lowering tech nique was utilized adhering to the principles of ALARA. CT DOSE: 938. mGy.cm COMPARISON: Brain MRI 12/02/2023 FINDINGS: No acute intracranial hemorrhage, midline shift, intracranial mass, hydrocephalus, territorial ischem ia or abnormal extra-axial collection. Involutional changes with chronic microvascular ischemic disea se. Motion degraded exam. The calvarium is intact. The paranasal sinuses, mastoid air cells, and middle ear cavities are clear . IMPRESSION: No acute intracranial abnormality. ACT 112: Negative or not required by law. The above report was generated using voice recognition software. It may contain grammatical, syntax o r spelling errors. Electronically signed by: Horacio Campos M.D. 12/09/2023 5:42 PM
[2023-12-09] MEDS: LORazepam 1 MG in SYRINGE 0.5 ML IV PRN (20:00)
[2023-12-10 06:20] LABS: Basophils # (auto) 0.25 K/uL (0.00-0.20); Basophils % (auto) 2.9 %; Eosinophils % (auto) 3.5 %; Hematocrit (blood only) 39.4 % (42.0-52.0); Hemoglobin 13.4 g/dl (14.0-18.0); Immature Granulocytes # (auto) 0.04 K/uL (0.01-0.20); Immature Granulocytes % (auto) 0.5 %; Lymphocytes # (auto) 1.13 K/uL (1.20-3.40); Lymphocytes % (auto) 13.3 %; Mean Corpuscular Hemoglobin 31.8 pg (25.0-34.0); Mean Corpuscular Volume 93.6 fL (80.0-100.0); Mean Platelet Volume 11.5 fL (9.4-12.4); Monocytes # (auto) 0.68 K/uL (0.11-0.59); Neutrophils # (auto) 6.11 K/uL (1.40-6.50); Neutrophils % (auto) 71.8 %; Platelet Count 359 K/uL (130-400); RDW Coefficient of Variation 13.1 % (11.5-14.5); RDW Standard Deviation 45.1 fL (36.4-46.3); Red Blood Count 4.21 M/uL (4.70-6.10); White Blood Count 8.51 K/ul (4.8-10.8)
[2023-12-10 06:39] LABS: Alanine Aminotransferase 25 U/L (7-52); Albumin Globulin Ratio 0.9 (0.9-2); Albumin Level 3.2 gm/dl (3.4-5.0); Alkaline Phosphatase 196 U/L (34-104); Anion Gap 10 (3-11); BUN Creatinine Ratio 7.9 (10-20); Bilirubin,Total 1.4 mg/dl (0.2-1.0); Blood Urea Nitrogen 5 mg/dl (6-23); Calcium 9.4 mg/dl (8.6-10.3); Carbon Dioxide 25 mmol/L (21-32); Chloride 103 mmol/L (98-107); Creatinine Clr Calc Pharmacy 146.1 ml/min; Est GFR (African American) 131.3 ml/min; Est GFR (Non-African American) 113.3 ml/min; Globulin 3.6 gm/dl (2.5-4.0); Glucose 76 mg/dl (70-99(Fasting)); Sodium 138 mmol/L (136-145); Total Protein 6.8 gm/dl (6.0-8.3)
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
--- NOTE | 2023-12-10 10:54 | Electroencephalogram ---
EEG Procedure Note Date of Service December 10, 2023 Start / End Times Start Time: 10:05 AM End Time: 10:25 AM Referring Physician Oz History Alcohol withdrawal seizures, delirium tremens, persistent encephalopathy Home Medication List Medication Instructions Recorded Confirmed Type acamprosate 333 mg tablet,delayed See Rx Instructions .Route .COMPLEX 11/24/23 11/24/23 History release albuterol sulfate 90 mcg/actuation 2 puff inhalation Q4H PRN Wheezing 11/24/23 11/24/23 History aerosol inhaler baclofen 10 mg tablet 10 mg PO DAILY PRN Hiccups 11/24/23 11/24/23 History fluoxetine 40 mg capsule 40 mg PO QAM 11/24/23 11/24/23 History losartan 100 mg tablet 100 mg PO DAILY 11/24/23 11/24/23 History sildenafil 50 mg tablet 50 mg PO DAILY PRN Unknown 11/24/23 11/24/23 History thiamine HCl (vitamin B1) 100 mg 100 mg PO DAILY 11/24/23 11/24/23 History tablet triamcinolone acetonide 0.1 % 1 applic topical DAILY 11/24/23 11/24/23 History topical cream Inpatient Medication List Acetaminophen (Acetaminophen 325 Mg Tab) 325 mg PO Q4H PRN PRN Reason: Headache or Pain Stop: 12/31/23 12:31 Last Admin: 12/04/23 00:46 Dose: 325 mg Documented By: NING Enoxaparin Sodium (Enoxaparin Inj 40 Mg/0.4 Ml Syr) 40 mg SQ QAM [facility] Stop: 12/29/23 12:59 Last Admin: 12/10/23 09:21 Dose: Not Given Documented By: Admin: 12/09/23 09:12 Dose: Not Given Documented By: Admin: 12/08/23 08:04 Dose: 40 mg Documented By: Admin: 12/07/23 10:20 Dose: 40 mg Documented By: Admin: 12/06/23 10:17 Dose: 40 mg Documented By: MARY ANNE Admin: 12/05/23 08:08 Dose: 40 mg Documented By: Admin: 12/04/23 08:20 Dose: 40 mg Documented By: Admin: 12/03/23 09:19 Dose: 40 mg Documented By: Admin: 12/01/23 08:20 Dose: 40 mg Documented By: Admin: 11/30/23 08:56 Dose: 40 mg Documented By: DLDarrick Admin: 11/29/23 16:03 Dose: 40 mg Documented By: MRT Fluoxetine HCl (Fluoxetine Hcl 20 Mg Cap) 20 mg PO QAM [facility] Stop: 01/06/24 08:59 Last Admin: 12/10/23 09:20 Dose: 20 mg Documented By: Admin: 12/09/23 09:12 Dose: Not Given Documented By: Admin: 12/08/23 08:04 Dose: 20 mg Documented By: Admin: 12/07/23 11:51 Dose: Not Given Documented By: HERB Folic Acid (Folic Acid 1 Mg Tab) [facility] Stop: 12/29/23 08:59 Last Admin: 12/10/23 09:20 Dose: 1 mg Documented By: Admin: 12/09/23 09:12 Dose: Not Given Documented By: Admin: 12/08/23 08:04 Dose: 1 mg Documented By: Admin: 12/07/23 11:51 Dose: Not Given Documented By: Admin: 12/06/23 10:18 Dose: 1 mg Documented By: Admin: 12/05/23 08:07 Dose: 1 mg Documented By: Admin: 12/04/23 08:21 Dose: 1 mg Documented By: Admin: 12/03/23 09:19 Dose: 1 mg Documented By: Admin: 12/02/23 08:19 Dose: Not Given Documented By: Admin: 12/01/23 08:20 Dose: 1 mg Documented By: Admin: 11/30/23 08:55 Dose: 1 mg Documented By: DLDarrick Admin: 11/29/23 09:48 Dose: 1 mg Documented By: MRT Haloperidol Lactate (Haloperidol Lactate 5 Mg/Ml 1 Ml Vial) 5 mg IM Q6 PRN PRN Reason: Agitation Stop: 01/06/24 11:10 Last Admin: 12/09/23 22:28 Dose: 5 mg Documented By: Admin: 12/09/23 03:58 Dose: 5 mg Documented By: TLM Lactated Ringer's (Lr) 1,000 mls @ 100 mls/hr IV .Q10H [facility] Stop: 01/06/24 10:59 Last Admin: 12/10/23 07:40 Dose: 100 mls/hr Documented By: Infusion: 12/10/23 06:55 Dose: Infused Documented By: Admin: 12/09/23 20:55 Dose: 100 mls/hr Documented By: JEAN CARLOS Infusion: 12/09/23 19:07 Dose: Infused Documented By: JEAN CARLOS Admin: 12/09/23 09:07 Dose: 100 mls/hr Documented By: Infusion: 12/09/23 09:07 Dose: Infused Documented By: Admin: 12/09/23 00:18 Dose: 100 mls/hr Documented By: Infusion: 12/09/23 00:18 Dose: Infused Documented By: Admin: 12/08/23 14:58 Dose: 100 mls/hr Documented By: Infusion: 12/08/23 14:58 Dose: Infused Documented By: Admin: 12/08/23 07:42 Dose: 100 mls/hr Documented By: Infusion: 12/08/23 07:42 Dose: Infused Documented By: Admin: 12/07/23 21:50 Dose: 100 mls/hr Documented By: Infusion: 12/07/23 21:50 Dose: Infused Documented By: Admin: 12/07/23 11:52 Dose: 100 mls/hr Documented By: HERB Ceftriaxone Sodium (Rocephin) 2,000 mg in 50 mls @ 100 mls/hr IV Q24H [facility] Stop: 12/12/23 23:59 Last Admin: 12/10/23 10:17 Dose: 100 mls/hr Documented By: Infusion: 12/09/23 10:08 Dose: Infused Documented By: Admin: 12/09/23 09:37 Dose: 100 mls/hr Documented By: Infusion: 12/08/23 11:49 Dose: Infused Documented By: Admin: 12/08/23 11:19 Dose: 100 mls/hr Documented By: HERB Thiamine HCl 500 mg/ Sodium (Chloride) 55 mls @ 210 mls/hr IV Q8H [facility] Stop: 01/07/24 02:59 Last Infusion: 12/10/23 03:40 Dose: Infused Documented By: JEAN CARLOS Admin: 12/10/23 03:23 Dose: 210 mls/hr Documented By: JEAN CARLOS Infusion: 12/09/23 20:00 Dose: Infused Documented By: JEAN CARLOS Admin: 12/09/23 19:44 Dose: 210 mls/hr Documented By: JEAN CARLOS Infusion: 12/09/23 10:39 Dose: Infused Documented By: Admin: 12/09/23 10:07 Dose: 210 mls/hr Documented By: Infusion: 12/09/23 03:45 Dose: Infused Documented By: Admin: 12/09/23 03:24 Dose: 210 mls/hr Documented By: Infusion: 12/08/23 20:05 Dose: Infused Documented By: Admin: 12/08/23 19:47 Dose: 210 mls/hr Documented By: Infusion: 12/08/23 11:40 Dose: Infused Documented By: Admin: 12/08/23 11:21 Dose: 210 mls/hr Documented By: Infusion: 12/08/23 03:20 Dose: Infused Documented By: Admin: 12/08/23 03:02 Dose: 210 mls/hr Documented By: SIMA Lorazepam 1 mg/ Syringe 1 mls @ 2 mls/min IV Q4 PRN PRN Reason: Anxiety/Agitation Stop: 01/07/24 18:30 Last Admin: 12/09/23 20:00 Dose: 2 mls/min Documented By: JEAN CARLOS Multivitamins/Folic Acid/Vitamin C (Multivitamin Chewable Tab) 1 tab PO QAM [facility] Stop: 01/02/24 08:59 Last Admin: 12/10/23 09:20 Dose: 1 tab Documented By: Admin: 12/09/23 09:12 Dose: Not Given Documented By: Admin: 12/08/23 08:04 Dose: 1 tab Documented By: Admin: 12/07/23 11:51 Dose: Not Given Documented By: Admin: 12/06/23 10:18 Dose: 1 tab Documented By: MARY ANNE Admin: 12/05/23 08:07 Dose: 1 tab Documented By: Admin: 12/04/23 08:21 Dose: 1 tab Documented By: Admin: 12/03/23 09:19 Dose: 1 tab Documented By: JONNA Phenobarbital Sodium (Phenobarbital Sodium 65 Mg/Ml Vial) 65 mg IV Q6 PRN PRN Reason: SEE RX INSTRUCTIONS Stop: 01/01/24 13:01 Last Admin: 12/10/23 00:36 Dose: 65 mg Documented By: JEAN CARLOS Admin: 12/06/23 22:12 Dose: 65 mg Documented By: Admin: 12/06/23 16:03 Dose: 65 mg Documented By: MARY ANNE Admin: 12/06/23 00:23 Dose: 65 mg Documented By: Admin: 12/05/23 15:16 Dose: 65 mg Documented By: Admin: 12/05/23 09:16 Dose: 65 mg Documented By: Admin: 12/04/23 20:48 Dose: 65 mg Documented By: Admin: 12/04/23 00:32 Dose: 65 mg Documented By: Admin: 12/03/23 19:45 Dose: 65 mg Documented By: Admin: 12/03/23 08:26 Dose: 65 mg Documented By: Admin: 12/02/23 23:53 Dose: 65 mg Documented By: NING Ziprasidone (Ziprasidone Hcl 20 Mg Cap) 40 mg PO [facility] Stop: 01/06/24 20:59 Last Admin: 12/09/23 21:00 Dose: Not Given Documented By: JEAN CARLOS Admin: 12/08/23 20:51 Dose: 40 mg Documented By: Admin: 12/07/23 23:04 Dose: 40 mg Documented By: SIMA Ziprasidone (Ziprasidone Hcl 20 Mg Cap) [facility] Stop: 01/09/24 08:59 Last Admin: 12/10/23 09:20 Dose: 20 mg Documented By: BT Discontinued Medications Buprenorphine/Naloxone (Buprenorphine/Naloxone 2/0.5mg 1 Tab) 1 tab SL ONE ONE Stop: 12/02/23 00:54 Last Admin: 12/02/23 01:49 Dose: 1 tab Documented By: AEM Clonidine HCl (Clonidine Hcl 0.1 Mg Tab) 0.1 mg PO [facility] Stop: 01/02/24 08:59 Last Admin: 12/04/23 08:21 Dose: 0.1 mg Documented By: Admin: 12/03/23 09:18 Dose: 0.1 mg Documented By: TDT Diazepam (Diazepam 5 Mg/Ml 10ml Vial) Confirm Administered Dose 50 mg .ROUTE .STK-MED ONE Stop: 11/23/23 17:57 Last Admin: 11/23/23 17:59 Dose: 2.5 mg Documented By: ADRIAN Diazepam (Diazepam 5 Mg/Ml 10ml Vial) 2.5 mg IV NOW STA Stop: 11/23/23 18:04 Last Admin: 11/23/23 18:05 Dose: 2.5 mg Documented By: ADRIAN Diazepam (Diazepam 5 Mg/Ml 10ml Vial) 2.5 mg IV NOW STA Stop: 11/23/23 18:07 Last Admin: 11/23/23 17:59 Dose: 2.5 mg Documented By: ADRIAN Diazepam (Diazepam 5 Mg/Ml 10ml Vial) 2.5 mg IV NOW STA Stop: 12/01/23 23:05 Last Admin: 12/02/23 00:20 Dose: Not Given Documented By: BERNICE Diazepam (Diazepam 5 Mg/Ml 10ml Vial) 10 mg IV NOW STA Stop: 12/07/23 03:25 Last Admin: 12/07/23 03:39 Dose: 10 mg Documented By: SIMA Diazepam (Diazepam 5 Mg/Ml 10ml Vial) 10 mg IV Q6H PRN PRN Reason: Alcohol Withdrawal Stop: 01/06/24 11:14 Last Admin: 12/08/23 12:29 Dose: 10 mg Documented By: Admin: 12/08/23 01:26 Dose: 10 mg Documented By: Admin: 12/07/23 15:22 Dose: 10 mg Documented By: HERB Flumazenil (Flumazenil 0.1 Mg/1 Ml 10 Ml Vial) 0.2 mg IV NOW STA Stop: 12/08/23 15:24 Last Admin: 12/08/23 15:42 Dose: 0.2 mg Documented By: HERB Flumazenil (Flumazenil 0.1 Mg/1 Ml 10 Ml Vial) Confirm Administered Dose 2 mg IV .STK-MED ONE Stop: 12/08/23 15:31 Last Admin: 12/08/23 15:42 Dose: Not Given Documented By: HERB Gadobutrol (Gadobutrol 65ml Vial) 8.5 ml IV ONCE ONE Stop: 12/02/23 14:28 Last Admin: 12/02/23 14:28 Dose: 8.5 ml Documented By: DAISY Haloperidol Lactate (Haloperidol Lactate 5 Mg/Ml 1 Ml Vial) 5 mg IV NOW STA Stop: 12/06/23 04:04 Last Admin: 12/06/23 04:11 Dose: 5 mg Documented By: SIMA Haloperidol Lactate (Haloperidol Lactate 5 Mg/Ml 1 Ml Vial) 5 mg IV NOW STA Stop: 12/06/23 20:56 Last Admin: 12/06/23 21:02 Dose: 5 mg Documented By: SIMA Haloperidol Lactate (Haloperidol Lactate 5 Mg/Ml 1 Ml Vial) 10 mg IV NOW STA Stop: 12/07/23 00:59 Last Admin: 12/07/23 01:08 Dose: 10 mg Documented By: SIMA Haloperidol Lactate (Haloperidol Lactate 5 Mg/Ml 1 Ml Vial) Confirm Administered Dose 10 mg .ROUTE .STK-MED ONE Stop: 12/07/23 01:06 Last Admin: 12/07/23 01:08 Dose: Not Given Documented By: SIMA Hydromorphone HCl (Hydromorphone Inj 1 Mg/Ml Syringe) 1 mg IV NOW STA Stop: 12/01/23 23:35 Last Admin: 12/02/23 00:20 Dose: Not Given Documented By: AETeto Thiamine HCl 100 mg/ Syringe 10 mls @ 2 mls/min IV NOW STA Stop: 11/23/23 14:12 Last Admin: 11/23/23 14:39 Dose: 2 mls/min Documented By: HS Folic Acid 1 mg/ Syringe 10 mls @ 5 mls/min IV NOW STA Stop: 11/23/23 14:09 Last Admin: 11/23/23 14:39 Dose: 5 mls/min Documented By: HS Sodium Chloride (Nss) 1,000 mls @ 999 mls/hr IV .Q1H1M [facility] Stop: 11/23/23 16:15 Last Infusion: 11/23/23 16:05 Dose: Infused Documented By: Admin: 11/23/23 14:39 Dose: 999 mls/hr Documented By: Infusion: 11/23/23 14:39 Dose: Infused Documented By: Admin: 11/23/23 14:13 Dose: 999 mls/hr Documented By: HS Acetylcysteine 13,850 mg/ (Dextrose) 269.25 mls @ 269.25 mls/hr IV ONCE ONE; Protocol Stop: 11/23/23 19:59 Last Infusion: 11/23/23 21:29 Dose: Infused Documented By: Admin: 11/23/23 20:00 Dose: 269.3 mls/hr Documented By: DANILO Acetylcysteine 4,620 mg/ (Dextrose) 523.1 mls @ 130.775 mls/hr IV ONCE ONE; Protocol Stop: 11/23/23 23:59 Last Infusion: 11/24/23 01:10 Dose: Infused Documented By: Admin: 11/23/23 21:26 Dose: 130.8 mls/hr Documented By: DANILO Acetylcysteine 9,230 mg/ (Dextrose) 1,046.15 mls @ 65.484 mls/hr IV ONCE ONE; Protocol Stop: 11/24/23 15:58 Last Infusion: 11/24/23 17:40 Dose: Infused Documented By: Admin: 11/24/23 01:36 Dose: 65.5 mls/hr Documented By: DANILO Thiamine HCl 500 mg/ Sodium (Chloride) 55 mls @ 210 mls/hr IV Q8H [facility] Stop: 12/23/23 18:59 Last Infusion: 11/28/23 06:20 Dose: Infused Documented By: Admin: 11/28/23 06:04 Dose: 210 mls/hr Documented By: Infusion: 11/27/23 22:25 Dose: Infused Documented By: Admin: 11/27/23 22:09 Dose: 210 mls/hr Documented By: Infusion: 11/27/23 14:03 Dose: Infused Documented By: Admin: 11/27/23 13:46 Dose: 200 mls/hr Documented By: Infusion: 11/27/23 05:26 Dose: Infused Documented By: Admin: 11/27/23 05:09 Dose: 200 mls/hr Documented By: Infusion: 11/26/23 21:28 Dose: Infused Documented By: Admin: 11/26/23 21:11 Dose: 200 mls/hr Documented By: Infusion: 11/26/23 14:20 Dose: Infused Documented By: Admin: 11/26/23 13:43 Dose: 210 mls/hr Documented By: Infusion: 11/26/23 06:54 Dose: Infused Documented By: Admin: 11/26/23 06:31 Dose: 210 mls/hr Documented By: Infusion: 11/25/23 23:38 Dose: Infused Documented By: Admin: 11/25/23 23:20 Dose: 210 mls/hr Documented By: Infusion: 11/25/23 15:39 Dose: Infused Documented By: Admin: 11/25/23 15:17 Dose: 210 mls/hr Documented By: Infusion: 11/25/23 06:20 Dose: Infused Documented By: Admin: 11/25/23 06:04 Dose: 210 mls/hr Documented By: Infusion: 11/24/23 21:32 Dose: Infused Documented By: Admin: 11/24/23 21:16 Dose: 210 mls/hr Documented By: Infusion: 11/24/23 13:37 Dose: Infused Documented By: Admin: 11/24/23 13:15 Dose: 210 mls/hr Documented By: Infusion: 11/24/23 05:34 Dose: Infused Documented By: Admin: 11/24/23 05:13 Dose: 210 mls/hr Documented By: Infusion: 11/23/23 22:20 Dose: Infused Documented By: Admin: 11/23/23 21:56 Dose: 210 mls/hr Documented By: DANILO Multivitamins 10 ml/ Thiamine HCl 100 mg/ Folic Acid 1 mg/Sodium Chloride 1,011.2 mls @ 500 mls/hr IV .Q2H2M ONE Stop: 11/23/23 21:31 Last Infusion: 11/23/23 21:55 Dose: Infused Documented By: Admin: 11/23/23 20:01 Dose: 500 mls/hr Documented By: DANILO Folic Acid 1 mg/ Syringe 10 mls @ 5 mls/min IV QAM FRANK Stop: 12/24/23 08:59 Last Admin: 11/28/23 08:18 Dose: 5 mls/min Documented By: Admin: 11/27/23 08:51 Dose: 5 mls/min Documented By: Admin: 11/26/23 07:47 Dose: 5 mls/min Documented By: Admin: 11/25/23 08:01 Dose: 5 mls/min Documented By: Admin: 11/24/23 08:33 Dose: 5 mls/min Documented By: SLOAN Dexmedetomidine/Sodium Chloride (Precedex) 200 mcg in 50 mls @ 4.615 mls/hr IV .[id number] [facility]; Protocol Stop: 11/27/23 18:52 Last Titration: 11/26/23 06:37 Dose: Infused Documented By: Admin: 11/26/23 01:09 Dose: Not Given Documented By: Titration: 11/25/23 23:20 Dose: 0.2 mcg/kg/hr, 4.6 mls/hr Documented By: Admin: 11/25/23 21:17 Dose: Not Given Documented By: Admin: 11/25/23 21:17 Dose: Not Given Documented By: Admin: 11/25/23 21:17 Dose: Not Given Documented By: Admin: 11/25/23 21:16 Dose: Not Given Documented By: Titration: 11/25/23 21:02 Dose: 0.3 mcg/kg/hr, 6.9 mls/hr Documented By: Admin: 11/25/23 20:47 Dose: 0.2 mcg/kg/hr, 4.6 mls/hr Documented By: Titration: 11/25/23 06:04 Dose: Infused Documented By: Admin: 11/25/23 00:12 Dose: 0.4 mcg/kg/hr, 9.2 mls/hr Documented By: CLARIBEL Co-signed By: TLM Titration: 11/24/23 23:09 Dose: Infused Documented By: LLP Co-signed By: TLM Titration: 11/24/23 21:20 Dose: 0.4 mcg/kg/hr, 9.2 mls/hr Documented By: Titration: 11/24/23 14:15 Dose: 0 mcg/kg/hr, 0 mls/hr Documented By: SLOAN Co-signed By: JLM Admin: 11/24/23 14:00 Dose: Not Given Documented By: Titration: 11/24/23 11:59 Dose: 0.5 mcg/kg/hr, 11.5 mls/hr Documented By: Titration: 11/24/23 11:12 Dose: 0.4 mcg/kg/hr, 9.2 mls/hr Documented By: SLOAN Co-signed By: MARY ANNE Admin: 11/24/23 05:13 Dose: Not Given Documented By: Titration: 11/23/23 20:44 Dose: 0 mcg/kg/hr, 0 mls/hr Documented By: Admin: 11/23/23 20:43 Dose: 0.4 mcg/kg/hr, 9.2 mls/hr Documented By: DANILO Co-signed By: SIMA Titration: 11/23/23 20:43 Dose: Infused Documented By: DANILO Co-signed By: SIMA Admin: 11/23/23 19:46 Dose: 0.4 mcg/kg/hr, 9.2 mls/hr Documented By: DANILO Co-signed By: GENEVIEVE Sodium Chloride (Nss) 1,000 mls @ 100 mls/hr IV .Q10H [facility] Stop: 12/23/23 18:52 Last Infusion: 11/24/23 08:59 Dose: Infused Documented By: Admin: 11/24/23 05:12 Dose: 100 mls/hr Documented By: Infusion: 11/24/23 05:12 Dose: Infused Documented By: Admin: 11/23/23 19:56 Dose: 100 mls/hr Documented By: DANILO Lorazepam 1 mg/ Syringe 1 mls @ 2 mls/min IV UD PRN; Protocol PRN Reason: EtOH Withdrawal AWSS Score 6,7 Stop: 12/23/23 18:52 Last Admin: 11/27/23 23:21 Dose: 2 mls/min Documented By: Admin: 11/27/23 20:43 Dose: 2 mls/min Documented By: Admin: 11/27/23 06:33 Dose: 2 mls/min Documented By: Admin: 11/27/23 03:59 Dose: 2 mls/min Documented By: Admin: 11/27/23 00:42 Dose: 2 mls/min Documented By: Admin: 11/26/23 23:00 Dose: 2 mls/min Documented By: Admin: 11/26/23 20:25 Dose: 2 mls/min Documented By: Admin: 11/26/23 13:43 Dose: 2 mls/min Documented By: VALENTINO Lorazepam 2 mg/ Syringe 2 mls @ 2 mls/min IV UD PRN; Protocol PRN Reason: EtOH Withdrawal AWSS Score 8+ Stop: 12/23/23 18:52 Last Admin: 12/02/23 12:34 Dose: 2 mls/min Documented By: Admin: 12/01/23 22:21 Dose: 2 mls/min Documented By: Admin: 11/29/23 16:27 Dose: 2 mls/min Documented By: Admin: 11/29/23 09:48 Dose: 2 mls/min Documented By: Admin: 11/29/23 05:41 Dose: 2 mls/min Documented By: HERB(2) Admin: 11/28/23 11:50 Dose: 2 mls/min Documented By: Admin: 11/28/23 10:13 Dose: 2 mls/min Documented By: Admin: 11/28/23 09:12 Dose: 2 mls/min Documented By: Admin: 11/28/23 07:52 Dose: 2 mls/min Documented By: Admin: 11/28/23 04:04 Dose: 2 mls/min Documented By: Admin: 11/28/23 02:49 Dose: 2 mls/min Documented By: Admin: 11/27/23 22:24 Dose: 2 mls/min Documented By: Admin: 11/27/23 02:47 Dose: 2 mls/min Documented By: Admin: 11/26/23 18:48 Dose: 2 mls/min Documented By: Admin: 11/26/23 17:08 Dose: 2 mls/min Documented By: Admin: 11/25/23 20:18 Dose: 2 mls/min Documented By: Admin: 11/25/23 19:10 Dose: 2 mls/min Documented By: Admin: 11/25/23 09:24 Dose: 2 mls/min Documented By: Admin: 11/25/23 06:05 Dose: 2 mls/min Documented By: Admin: 11/24/23 21:28 Dose: 2 mls/min Documented By: Admin: 11/24/23 20:07 Dose: 2 mls/min Documented By: Admin: 11/24/23 17:31 Dose: 2 mls/min Documented By: Admin: 11/24/23 15:12 Dose: 2 mls/min Documented By: Admin: 11/24/23 09:29 Dose: 2 mls/min Documented By: Admin: 11/24/23 05:14 Dose: 2 mls/min Documented By: Admin: 11/24/23 03:55 Dose: 2 mls/min Documented By: Admin: 11/24/23 00:44 Dose: 2 mls/min Documented By: Admin: 11/23/23 23:42 Dose: 2 mls/min Documented By: Admin: 11/23/23 20:03 Dose: 2 mls/min Documented By: DANILO Lorazepam 3 mg/ Syringe 3 mls @ 2 mls/min IV ONCE PRN; Protocol PRN Reason: EtOH Withdrawal AWSS Score 10+ Last Admin: 11/24/23 08:25 Dose: 2 mls/min Documented By: SLOAN Potassium Chloride (K Victor M / Wtr) 10 meq in 100 mls @ 100 mls/hr IV Q1H FRANK Stop: 11/24/23 12:14 Last Infusion: 11/24/23 13:07 Dose: Infused Documented By: Admin: 11/24/23 11:35 Dose: 100 mls/hr Documented By: Infusion: 11/24/23 11:35 Dose: Infused Documented By: Admin: 11/24/23 10:38 Dose: 100 mls/hr Documented By: Infusion: 11/24/23 10:28 Dose: Infused Documented By: Admin: 11/24/23 09:28 Dose: 100 mls/hr Documented By: Infusion: 11/24/23 09:28 Dose: Infused Documented By: Admin: 11/24/23 08:31 Dose: 100 mls/hr Documented By: SLOAN Lorazepam 3 mg/ Syringe 3 mls @ 2 mls/min IV NOW STA Stop: 11/24/23 11:58 Last Admin: 11/24/23 12:10 Dose: 2 mls/min Documented By: SLOAN Lorazepam 2 mg/ Syringe 2 mls @ 2 mls/min IV NOW STA Stop: 11/24/23 19:06 Last Admin: 11/24/23 19:25 Dose: 2 mls/min Documented By: LLP Potassium Chloride (K Victor M / Wtr) 10 meq in 100 mls @ 100 mls/hr IV Q1H FRANK Stop: 11/25/23 11:29 Last Infusion: 11/25/23 12:32 Dose: Infused Documented By: Admin: 11/25/23 11:19 Dose: 100 mls/hr Documented By: Infusion: 11/25/23 11:13 Dose: Infused Documented By: Admin: 11/25/23 10:13 Dose: 100 mls/hr Documented By: Infusion: 11/25/23 09:58 Dose: Infused Documented By: Admin: 11/25/23 08:58 Dose: 100 mls/hr Documented By: Infusion: 11/25/23 08:58 Dose: Infused Documented By: Admin: 11/25/23 08:01 Dose: 100 mls/hr Documented By: SLOAN Magnesium Sulfate/Dextrose (Magnesium Sulfate / D5w) 1 gm in 100 mls @ 50 mls/hr IV Q2H [facility]ANK Stop: 11/25/23 17:59 Last Infusion: 11/25/23 18:51 Dose: Infused Documented By: Admin: 11/25/23 16:20 Dose: 50 mls/hr Documented By: Infusion: 11/25/23 16:20 Dose: Infused Documented By: Admin: 11/25/23 14:53 Dose: 50 mls/hr Documented By: Infusion: 11/25/23 14:31 Dose: Infused Documented By: Admin: 11/25/23 12:31 Dose: 50 mls/hr Documented By: Infusion: 11/25/23 12:13 Dose: Infused Documented By: Admin: 11/25/23 10:13 Dose: 50 mls/hr Documented By: SLOAN Magnesium Sulfate/Dextrose (Magnesium Sulfate / D5w) 1 gm in 100 mls @ 50 ml s/hr IV Q2H [facility] Stop: 11/26/23 13:29 Last Infusion: 11/26/23 13:40 Dose: Infused Documented By: Admin: 11/26/23 11:27 Dose: 50 mls/hr Documented By: Infusion: 11/26/23 11:27 Dose: Infused Documented By: Admin: 11/26/23 09:27 Dose: 50 mls/hr Documented By: Infusion: 11/26/23 09:27 Dose: Infused Documented By: Admin: 11/26/23 07:42 Dose: 50 mls/hr Documented By: VALENTINO Potassium Chloride (K Victor M / Wtr) 10 meq in 100 mls @ 100 mls/hr IV Q1H [facility] Stop: 11/26/23 09:29 Last Infusion: 11/26/23 09:29 Dose: Infused Documented By: Admin: 11/26/23 08:32 Dose: 100 mls/hr Documented By: Infusion: 11/26/23 08:32 Dose: Infused Documented By: Admin: 11/26/23 07:42 Dose: 100 mls/hr Documented By: VALENTINO Potassium Phosphate 30 mmol/ (Sodium Chloride) 510 mls @ 88 mls/hr IV ONE ONE Stop: 11/26/23 13:32 Last Infusion: 11/26/23 14:20 Dose: Infused Documented By: Admin: 11/26/23 08:25 Dose: 88 mls/hr Documented By: VALENTINO Calcium Gluconate () 1,000 mg in 60 mls @ 240 mls/hr IV NOW STA Stop: 11/26/23 08:39 Last Infusion: 11/26/23 08:45 Dose: Infused Documented By: Admin: 11/26/23 08:31 Dose: 240 mls/hr Documented By: VALENTINO Magnesium Sulfate/Dextrose (Magnesium Sulfate / D5w) 1 gm in 100 mls @ 50 mls/hr IV Q2H [facility] Stop: 11/27/23 15:14 Last Infusion: 11/27/23 14:16 Dose: Infused Documented By: Admin: 11/27/23 12:06 Dose: 50 mls/hr Documented By: Infusion: 11/27/23 12:06 Dose: Infused Documented By: Admin: 11/27/23 11:29 Dose: 50 mls/hr Documented By: Infusion: 11/27/23 10:51 Dose: Infused Documented By: Admin: 11/27/23 08:51 Dose: 50 mls/hr Documented By: Infusion: 11/27/23 08:51 Dose: Infused Documented By: Admin: 11/27/23 07:49 Dose: 50 mls/hr Documented By: HERB Potassium Phosphate 30 mmol/ (Sodium Chloride) 510 mls @ 102 mls/hr IV ONE ONE Stop: 11/27/23 12:44 Last Infusion: 11/27/23 12:51 Dose: Infused Documented By: Admin: 11/27/23 07:49 Dose: 102 mls/hr Documented By: HERB Magnesium Sulfate/Dextrose (Magnesium Sulfate / D5w) 1 gm in 100 mls @ 50 mls/hr IV Q2H [facility] Stop: 11/28/23 17:59 Last Infusion: 11/28/23 17:58 Dose: Infused Documented By: Admin: 11/28/23 15:58 Dose: 50 mls/hr Documented By: Infusion: 11/28/23 15:56 Dose: Infused Documented By: Admin: 11/28/23 13:56 Dose: 50 mls/hr Documented By: Infusion: 11/28/23 13:56 Dose: Infused Documented By: Admin: 11/28/23 12:08 Dose: 50 mls/hr Documented By: HERB Sodium Phosphate 21 mmol/ (Sodium Chloride) 507 mls @ 88 mls/hr IV ONE ONE Stop: 11/28/23 17:45 Last Infusion: 11/28/23 17:53 Dose: Infused Documented By: Admin: 11/28/23 12:07 Dose: 88 mls/hr Documented By: HERB Magnesium Sulfate/Dextrose (Magnesium Sulfate / D5w) 1 gm in 100 mls @ 50 mls/hr IV Q2H [facility] Stop: 11/30/23 18:59 Last Infusion: 11/30/23 19:43 Dose: Infused Documented By: HERB(2) Admin: 11/30/23 16:40 Dose: 50 mls/hr Documented By: Infusion: 11/30/23 16:40 Dose: Infused Documented By: Admin: 11/30/23 15:39 Dose: 50 mls/hr Documented By: Infusion: 11/30/23 15:29 Dose: Infused Documented By: Admin: 11/30/23 14:29 Dose: 50 mls/hr Documented By: TIERRA Sodium Chloride (Nss) 1,000 mls @ 999 mls/hr IV .Q1H1M ONE Stop: 12/01/23 23:52 Last Infusion: 12/02/23 00:14 Dose: Infused Documented By: Admin: 12/01/23 23:04 Dose: 999 mls/hr Documented By: DUSTIN Magnesium Sulfate/Dextrose (Magnesium Sulfate / D5w) 1 gm in 100 mls @ 50 mls/hr IV Q2H [facility] Stop: 12/02/23 11:29 Last Infusion: 12/02/23 20:36 Dose: Infused Documented By: Infusion: 12/02/23 10:44 Dose: 0 mls/hr Documented By: Admin: 12/02/23 09:13 Dose: 50 mls/hr Documented By: Infusion: 12/02/23 09:13 Dose: Infused Documented By: Admin: 12/02/23 07:48 Dose: 50 mls/hr Documented By: Infusion: 12/02/23 07:40 Dose: Infused Documented By: Admin: 12/02/23 05:40 Dose: 50 mls/hr Documented By: Infusion: 12/02/23 05:38 Dose: Infused Documented By: Admin: 12/02/23 03:44 Dose: 50 mls/hr Documented By: Infusion: 12/02/23 03:44 Dose: Infused Documented By: Admin: 12/02/23 01:49 Dose: 50 mls/hr Documented By: BERNICE Sodium Chloride (Nss) 500 mls @ 999 mls/hr IV .Q31M ONE Stop: 12/02/23 01:59 Last Infusion: 12/02/23 02:20 Dose: Infused Documented By: Admin: 12/02/23 01:47 Dose: 999 mls/hr Documented By: DUSTIN Potassium Phosphate 15 mmol/ (Sodium Chloride) 255 mls @ 100 mls/hr IV ONE ONE Stop: 12/02/23 04:32 Last Infusion: 12/02/23 05:02 Dose: Infused Documented By: Admin: 12/02/23 02:20 Dose: 100 mls/hr Documented By: BERNICE Acetaminophen (Ofirmev) 1,000 mg in 100 mls @ 400 mls/hr IV NOW STA Stop: 12/03/23 03:05 Last Infusion: 12/03/23 03:15 Dose: Infused Documented By: Admin: 12/03/23 03:00 Dose: 400 mls/hr Documented By: NING Magnesium Sulfate/Dextrose (Magnesium Sulfate / D5w) 1 gm in 100 mls @ 50 mls/hr IV Q2H FRANK Stop: 12/03/23 08:44 Last Infusion: 12/03/23 10:05 Dose: Infused Documented By: Admin: 12/03/23 07:21 Dose: 50 mls/hr Documented By: Infusion: 12/03/23 07:21 Dose: Infused Documented By: Admin: 12/03/23 05:38 Dose: 50 mls/hr Documented By: NING Ceftriaxone Sodium (Rocephin) 2,000 mg in 50 mls @ 100 mls/hr IV Q24H FRANK Stop: 12/17/23 10:59 Last Infusion: 12/07/23 10:50 Dose: Infused Documented By: Admin: 12/07/23 10:20 Dose: 100 mls/hr Documented By: Infusion: 12/06/23 11:26 Dose: Infused Documented By: MARY ANNE Admin: 12/06/23 10:53 Dose: 100 mls/hr Documented By: MARY ANNE Infusion: 12/05/23 13:10 Dose: Infused Documented By: Admin: 12/05/23 11:32 Dose: 100 mls/hr Documented By: Infusion: 12/04/23 11:38 Dose: Infused Documented By: Admin: 12/04/23 10:31 Dose: 100 mls/hr Documented By: Infusion: 12/03/23 11:56 Dose: Infused Documented By: Admin: 12/03/23 11:18 Dose: 100 mls/hr Documented By: JONNA Magnesium Sulfate/Dextrose (Magnesium Sulfate / D5w) 1 gm in 100 mls @ 50 mls/hr IV Q2H FRANK Stop: 12/04/23 11:29 Last Infusion: 12/04/23 14:17 Dose: Infused Documented By: Admin: 12/04/23 10:32 Dose: 50 mls/hr Documented By: Infusion: 12/04/23 10:07 Dose: Infused Documented By: Infusion: 12/04/23 08:22 Dose: 50 mls/hr Documented By: Infusion: 12/04/23 08:07 Dose: 0 mls/hr Documented By: Admin: 12/04/23 07:51 Dose: 50 mls/hr Documented By: Infusion: 12/04/23 07:51 Dose: Infused Documented By: Admin: 12/04/23 06:01 Dose: 50 mls/hr Documented By: NING Lorazepam 1 mg/ Syringe 1 mls @ 2 mls/min IV ONE PRN; Protocol PRN Reason: EtoH Withdrawal AWSS 6-10 Last Admin: 12/04/23 15:59 Dose: 2 mls/min Documented By: THAIS Magnesium Sulfate/Dextrose (Magnesium Sulfate / D5w) 1 gm in 100 mls @ 50 mls/hr IV Q2H FRANK Stop: 12/05/23 15:14 Last Infusion: 12/05/23 15:59 Dose: Infused Documented By: Admin: 12/05/23 13:47 Dose: 50 mls/hr Documented By: Infusion: 12/05/23 13:32 Dose: Infused Documented By: Admin: 12/05/23 11:32 Dose: 50 mls/hr Documented By: AMBER Potassium Chloride (K Victor M / Wtr) 10 meq in 100 mls @ 100 mls/hr IV Q1H FRANK Stop: 12/07/23 21:59 Last Infusion: 12/08/23 00:15 Dose: Infused Documented By: Admin: 12/07/23 23:05 Dose: 100 mls/hr Documented By: Infusion: 12/07/23 22:49 Dose: Infused Documented By: Admin: 12/07/23 21:49 Dose: 100 mls/hr Documented By: Infusion: 12/07/23 20:54 Dose: Infused Documented By: Admin: 12/07/23 19:54 Dose: 100 mls/hr Documented By: SIMA Magnesium Sulfate/Dextrose (Magnesium Sulfate / D5w) 1 gm in 100 mls @ 50 mls/hr IV ONE ONE Stop: 12/07/23 20:59 Last Infusion: 12/07/23 21:54 Dose: Infused Documented By: Admin: 12/07/23 19:54 Dose: 50 mls/hr Documented By: SIMA Thiamine HCl 500 mg/ Sodium (Chloride) 55 mls @ 210 mls/hr IV NOW STA Stop: 12/07/23 19:41 Last Infusion: 12/07/23 20:15 Dose: Infused Documented By: Admin: 12/07/23 19:54 Dose: 210 mls/hr Documented By: SIMA Sodium Chloride (Nss) 500 mls @ 500 mls/hr IV .Q1H FRANK Stop: 12/08/23 11:29 Last Infusion: 12/08/23 12:29 Dose: Infused Documented By: Admin: 12/08/23 11:19 Dose: 500 mls/hr Documented By: HERB Sodium Chloride (Nss) 500 mls @ 999 mls/hr IV .Q31M ONE Stop: 12/08/23 11:12 Last Admin: 12/08/23 11:42 Dose: Not Given Documented By: HERB Lorazepam 2 mg/ Syringe 2 mls @ 2 mls/min IV Q4 PRN PRN Reason: Anxiety/Agitation Stop: 01/07/24 18:30 Last Admin: 12/09/23 13:20 Dose: 2 mls/min Documented By: Admin: 12/09/23 09:06 Dose: 2 mls/min Documented By: Admin: 12/09/23 00:46 Dose: 2 mls/min Documented By: Admin: 12/08/23 18:37 Dose: 2 mls/min Documented By: HERB Ioversol (Optiray 320 100ml) 95 ml IV ONCE ONE Stop: 12/02/23 13:55 Last Admin: 12/02/23 13:54 Dose: 95 ml Documented By: ELISEO Levetiracetam (Levetiracetam 500 Mg/5 Ml Vial) 1,850 mg 20 mg/kg (1850 mg) IV NOW STA Stop: 11/23/23 19:03 Last Admin: 11/23/23 21:28 Dose: Not Given Documented By: CP Lorazepam (Lorazepam 1 Mg/1 Ml Syr Ed Inj Use) 2 mg IV ONE STA Stop: 11/23/23 14:06 Last Admin: 11/23/23 14:13 Dose: 2 mg Documented By: HS Lorazepam (Lorazepam 1 Mg/1 Ml Syr Ed Inj Use) 3 mg IV ONE STA Stop: 11/23/23 16:06 Last Admin: 11/23/23 16:11 Dose: 3 mg Documented By: BCN Lorazepam (Lorazepam 1 Mg/1 Ml Syr Ed Inj Use) 2 mg IV ONE STA Stop: 11/23/23 16:29 Last Admin: 11/23/23 16:59 Dose: 2 mg Documented By: ADRIAN Lorazepam (Lorazepam 1 Mg/1 Ml Syr Ed Inj Use) 2 mg IV ONE STA Stop: 11/23/23 17:39 Last Admin: 11/23/23 17:43 Dose: 2 mg Documented By: FRAN Miscellaneous Information (Patient's Allergy Info Needs Entered) 1 each N/A Q30M FRANK Stop: 11/23/23 20:31 Last Admin: 11/23/23 21:37 Dose: Not Given Documented By: Admin: 11/23/23 21:37 Dose: Not Given Documented By: Admin: 11/23/23 21:37 Dose: Not Given Documented By: Admin: 11/23/23 21:37 Dose: Not Given Documented By: DANILO Olanzapine (Olanzapine 10 Mg/2.1 Ml Sdv) 10 mg IM NOW STA Stop: 12/07/23 03:25 Last Admin: 12/07/23 03:39 Dose: 10 mg Documented By: SIMA Olanzapine (Olanzapine 10 Mg/2.1 Ml Sdv) 10 mg IM NOW STA Stop: 12/08/23 03:01 Last Admin: 12/08/23 03:07 Dose: 10 mg Documented By: SIMA Phenobarbital (Phenobarbital 30 Mg Tab) 60 mg PO Q12H FRANK Stop: 11/25/23 00:46 Last Admin: 11/24/23 13:07 Dose: Not Given Documented By: SLOAN Phenobarbital (Phenobarbital 30 Mg Tab) 60 mg PO Q12H FRANK Stop: 11/28/23 23:46 Last Admin: 11/28/23 22:51 Dose: 60 mg Documented By: [id number] Admin: 11/28/23 12:08 Dose: 60 mg Documented By: HERB Phenobarbital (Phenobarbital 30 Mg Tab) 30 mg PO Q12H FRANK Stop: 11/29/23 23:46 Last Admin: 11/29/23 23:56 Dose: 30 mg Documented By: HERB(2) Admin: 11/29/23 11:59 Dose: 30 mg Documented By: JENNA Phenobarbital (Phenobarbital 30 Mg Tab) 30 mg PO Q24H FRANK Stop: 11/30/23 11:46 Last Admin: 11/30/23 11:14 Dose: 30 mg Documented By: TIERRA Phenobarbital (Phenobarbital 30 Mg Tab) 30 mg PO TID FRANK Stop: 12/03/23 21:01 Last Admin: 12/03/23 20:00 Dose: 30 mg Documented By: Admin: 12/03/23 14:14 Dose: 30 mg Documented By: Admin: 12/03/23 10:47 Dose: 30 mg Documented By: JONNA Phenobarbital (Phenobarbital 30 Mg Tab) 30 mg PO BID FRANK Stop: 12/05/23 21:01 Last Admin: 12/05/23 19:23 Dose: 30 mg Documented By: Admin: 12/05/23 08:07 Dose: 30 mg Documented By: Admin: 12/04/23 21:04 Dose: 30 mg Documented By: Admin: 12/04/23 08:22 Dose: 30 mg Documented By: AMBER Phenobarbital (Phenobarbital 30 Mg Tab) 30 mg PO BID [facility] Stop: 12/08/23 09:01 Last Admin: 12/08/23 08:04 Dose: 30 mg Documented By: Admin: 12/07/23 23:05 Dose: 30 mg Documented By: Admin: 12/07/23 12:00 Dose: 30 mg Documented By: Admin: 12/06/23 19:29 Dose: 30 mg Documented By: Admin: 12/06/23 10:51 Dose: 30 mg Documented By: MARY ANNE Phenobarbital Sodium (Phenobarbital Sodium 65 Mg/Ml Vial) 130 mg IV NOW STA Stop: 11/23/23 18:03 Last Admin: 11/23/23 18:10 Dose: Not Given Documented By: ADRIAN Phenobarbital Sodium (Phenobarbital Sodium 65 Mg/Ml Vial) 260 mg IV NOW STA Stop: 11/23/23 18:06 Last Admin: 11/23/23 18:09 Dose: 260 mg Documented By: ADRIAN Phenobarbital Sodium (Phenobarbital Sodium 65 Mg/Ml Vial) 65 mg IV Q6H PRN PRN Reason: RASS >/= 2 Stop: 11/27/23 23:59 Last Admin: 11/24/23 18:14 Dose: 65 mg Documented By: Admin: 11/24/23 12:01 Dose: 65 mg Documented By: Admin: 11/24/23 04:11 Dose: 65 mg Documented By: DANILO Phenobarbital Sodium (Phenobarbital Sodium 130 Mg/Ml Vial) 130 mg IM NOW STA Stop: 11/24/23 10:04 Last Admin: 11/24/23 10:38 Dose: 130 mg Documented By: SLOAN Phenobarbital Sodium (Phenobarbital Sodium 65 Mg/Ml Vial) 65 mg IM ONE ONE Stop: 11/25/23 06:46 Last Admin: 11/25/23 06:35 Dose: 65 mg Documented By: CLARIBEL Phenobarbital Sodium (Phenobarbital Sodium 65 Mg/Ml Vial) 32.5 mg IM Q12H FRANK; Taper Stop: 11/28/23 05:59 Last Admin: 11/26/23 06:12 Dose: 32.5 mg Documented By: Admin: 11/25/23 18:26 Dose: 65 mg Documented By: SLOAN Phenobarbital Sodium (Phenobarbital Sodium 130 Mg/Ml Vial) 300 mg IV NOW STA Stop: 12/02/23 13:03 Last Admin: 12/02/23 13:35 Dose: 300 mg Documented By: SILVINA Phenobarbital Sodium (Phenobarbital Sodium 130 Mg/Ml Vial) 200 mg IV TODAY@1800 [facility] Stop: 12/02/23 18:01 Last Admin: 12/02/23 18:24 Dose: 200 mg Documented By: NABIL Phenobarbital Sodium (Phenobarbital Sodium 65 Mg/Ml Vial) 30 mg IV NOW STA Stop: 12/04/23 20:48 Last Admin: 12/04/23 21:02 Dose: 30 mg Documented By: SIMA Phenobarbital Sodium (Phenobarbital Sodium 65 Mg/Ml Vial) 130 mg IV NOW STA Stop: 12/06/23 23:05 Last Admin: 12/06/23 23:16 Dose: 130 mg Documented By: SIMA Potassium Chloride (Potassium Chloride Crtab 20 Meq Tabcr) 40 meq PO NOW STA Stop: 11/30/23 12:52 Last Admin: 11/30/23 14:29 Dose: 40 meq Documented By: TIERRA Potassium Chloride (Potassium Chloride Crtab 20 Meq Tabcr) 40 meq PO NOW STA Stop: 12/01/23 11:43 Last Admin: 12/01/23 12:09 Dose: 40 meq Documented By: SILVINA Thiamine HCl (Thiamine Hcl 100 Mg Tab) 100 mg PO QAM [facility] Stop: 12/29/23 08:59 Last Admin: 12/07/23 11:51 Dose: Not Given Documented By: Admin: 12/06/23 10:18 Dose: 100 mg Documented By: Admin: 12/05/23 08:07 Dose: 100 mg Documented By: Admin: 12/04/23 08:21 Dose: 100 mg Documented By: Admin: 12/03/23 09:19 Dose: 100 mg Documented By: Admin: 12/02/23 08:19 Dose: Not Given Documented By: Admin: 12/01/23 08:20 Dose: 100 mg Documented By: Admin: 11/30/23 08:55 Dose: 100 mg Documented By: Admin: 11/29/23 09:48 Dose: 100 mg Documented By: MRT Ziprasidone (Ziprasidone Hcl 20 Mg Cap) 40 mg PO QAM [facility] Stop: 01/07/24 09:44 Last Admin: 12/09/23 09:12 Dose: Not Given Documented By: Admin: 12/08/23 11:18 Dose: 40 mg Documented By: KJL Description This is a 21 electrode EEG with a single channel dedicated to limited EKG. The electrodes were placed in accordance with the International 10-20 system. The background rhythm consists of a mix of 10 Hz alpha frequencies and 4 to 5 Hz theta frequencies. Photic stimulation is unremarkable, hyperventilation is not performed. There is frequent movement artifact throughout the study. There is a symmetric frontal beta rhythm. There are intermittent left central/left anterior temporal polyspikes that do not occur in association with significant patient movement on video. Interpretation Abnormal awake/drowsy EEG with evidence of encephalopathy as well as potential focal epileptiform abnormalities, polyspikes, localizing to the left central/left anterior temporal leads. Clinical Correlation Please see today's neurology consultation for further clinical correlation and recommendations. [facility] EEG Procedure Codes Indication for Procedure (1) Encephalopathy: (2) Alcohol withdrawal seizure: Neurology Neurology: 96384 EEG include record awake & drowsy
[2023-12-10] MEDS: levETIRAcetam IV 1,000 MG in 0.9 % SODIUM CHLORIDE 100 ML IV SCH (12:54)
[2023-12-11] MEDS: HALOPERIDOL LACTATE 5 MG/ML 1 ML VIAL IM PRN (03:43)
[2023-12-11 06:54] LABS: Creatinine Clr Calc Pharmacy 164.3 ml/min; Est GFR (African American) 137.8 ml/min; Est GFR (Non-African American) 118.9 ml/min
--- NOTE | 2023-12-11 09:54 | Neurology Progress Note ---
Date of Service December 11, 2023 Assessment & Plan (1) Alcohol withdrawal delirium: (2) Alcohol withdrawal seizure: Plan 52-year-old male admitted with alcohol withdrawal seizures, delirium tremens on November 23, 2023. His encephalopathy has persisted with episodes of agitation. An EEG completed yesterday was abnormal indicating encephalopathy with potential epileptiform abnormalities. Keppra 1000 mg IV every 12 hours was started. He does appear to be modestly improved this morning. Continue with Keppra 1000 mg IV every 12 hours. Continue supportive medical care for alcohol withdrawal, management of UTI, sepsis, alcohol related hepatitis. Admission and Anticipated Discharge Date Admission Date: November 23, 2023 Subjective Follow-up for encephalopathy See yesterday's neurology consultation for details. Keppra 1000 mg IV every 12 hours was started yesterday in light of patient's persistent altered mental status, agitation, abnormal EEG. This morning, he is a bit more alert and attentive. He remains modestly confused, however. He does not have any complaints although unable to provide reliable history. Results & Data Vital Signs (Past 12 Hours) Vital Signs Temp Pulse Pulse Resp BP Pulse Ox O2 Del Method 12/11/23 07:09 36.7 C 75 22 141/98 H 94 Room Air 12/11/23 02:50 36.5 C 97 H 20 152/95 H 95 Room Air 12/10/23 23:43 67 12/10/23 22:35 36.8 C 91 H 18 159/99 H 95 Nasal Cannula 12/10/23 22:00 O2 Del Method O2 Flow Rate O2 Flow Rate 12/11/23 07:09 12/11/23 02:50 12/10/23 23:43 12/10/23 22:35 2 12/10/23 22:00 Nasal Cannula 2 Exam (Neuro) Neurologic: Oriented to:: Person; negative Place or Time Attention: ne gative Span Intact or Concentration Intact Language: Naming Objects Speech Fluency: negative Dysarthria Fund of Knowledge: Vocabulary; negative Current Events Cranial Nerves: Normal II, III, IV, , V, VII, VIII, IX, X, XI and XII Motor Strength: Normal Lower Extremities and Normal Upper Extremities Muscle Bulk/Involuntary Movements: No Involuntary Movements Details: He was able to correctly identify a pen and when asked what it is used for, stated "write with it." He is modestly more attentive and alert this morning compared with yesterday. Coding Level of Care Code 63818 SUB INP/OBS CARE /35MIN Diagnoses Alcohol withdrawal delirium F10.931 Alcohol withdrawal seizure F10.939; R56.9 Complication of substance-induced condition: with unspecified complication Time Spent (min) 40 Comment Total time includes patient contact, chart review, counseling, note preparation (2) Alcohol withdrawal seizure Complication of substance-induced condition: with unspecified complication Qualified Code(s): F10.939 - Alcohol use, unspecified with withdrawal, unspecified; R56.9 - Unspecified convulsions
--- NOTE | 2023-12-11 12:08 | Hospitalist Progress Note ---
Date of Service December 11, 2023 Assessment & Plan (1) Alcohol withdrawal: Plan: Patient is a chronic heavy drinker and never tried to quit or cut back on his drinking Per the report I got, he checked himself into drug and alcohol rehab as he wanted to quit but was found to be actively withdrawing with hallucinations, tremors and thus was sent to the emergency room The patient was given a few doses of Ativan in the emergency room In the emergency room, he started having seizures He was thus admitted to the ICU. Patient was being managed with Precedex drip, phenobarbital, Ativan Now off Precedex drip. Completed phenobarbital course Was transferred out of the ICU but required to go back again 12/01. Patient is now being managed with the phenobarbital taper once again. Patient is deemed stable for transfer out of the ICU by olive brine tester today 12/03 I will continue oral phenobarb taper. Along with symptom triggered Ativan. Patient may need extended oral phenobarb taper. 12/05 alert, awake, denies pain, received IV Haldol last night 12/06 patient is sedated, restrained , will start him on the Geodon 40 mg QHS, Valium, Haldol as needed for agitation, continue to monitor him in ICU , start IV fluids since patient is very sedated 12/07 started on Geodon 40 mg bid 12/08 agitated , refusing meds today 12/09 seizure activity on EEG, started on IV Keppra 12/10 remains on IV Keppra, more cooperative today (2) Complicated UTI (urinary tract infection): Plan: Patient removed his catheter traumatically on 12/01 and needed the catheter placed back by urology Urology involved Urinalysis is suggestive of UTI Bacteremic with pansensitive E. coli. Urine culture also growing pansensitive E. coli Associated with leukocytosis and fever, thus meeting sepsis criteria Continue IV ceftriaxone remove jj when possible iv Ceftriaxone for 10 days discontinue antibiotics on 12/11 (3) Sepsis: Plan: Most likely urine etiology. Urinalysis suggestive. History of traumatic catheter removal Urine culture and blood culture growing pansensitive E. coli Treat with IV ceftriaxone No signs of sepsis stop Ceftriaxone tomorrow (4) Alcoholic hepatitis: Plan: Patient most likely has alcoholic hepatitis AST: ALT is greater than 2 Elevated bilirubin level of 4 INR elevated at 1.3 Discriminant factor 13. Not a candidate for steroids Acute hepatitis panel negative Acetaminophen level negative monitor LFTs (5) Encephalopathy: Plan: This is most likely due to alcohol withdrawal delirium tremens and toxic encephalopathy Will manage alcohol withdrawal Monitor clinically _ possible seizure activity on EEG, started on Keppra, neurology follows (6) Benign essential hypertension: Plan: he normally takes losartan 100 mg Hold p.o. medicine for the time being (7) Anxiety: Plan: Takes Prozac at home Hold oral medications (8) Bacteremia: Plan: e.coli bacteremia IV Rocephin 10 days Plan CODE STATUS: Presumed to be full code. Patient is not able to participate in decision-making DVT prophylaxis: Thrombocytopenia improved. On Lovenox Patient's fianc wants him to go back to rehab unit after discharge. Admission and Anticipated Discharge Date Admission Date: November 23, 2023 Subjective Follow-up for encephalopathy See yesterday's neurology consultation for details. Keppra 1000 mg IV every 12 hours was started yesterday in light of patient's persistent altered mental status, agitation, abnormal EEG. This morning, he is a bit more alert and attentive. He remains modestly confused, however. 12/10 more calm today, denies pain, off restraints, urinating, did not eat breakfast, received IV Ativan overnight Physical Exam Physical Exam: head atraumatic neck is supple chest CTA heart S1S2 regular abdomen soft, nt, nd, bs present extremities no clubbing neuro alert, more cooperative Results & Data Results & Data Vital Signs (Past 12 Hours) Vital Signs Temp Pulse Resp BP Pulse Ox O2 Del Method 12/11/23 10:53 36.4 C L 112 H 23 148/96 H 90 Room Air 12/11/23 07:09 36.7 C 75 22 141/98 H 94 Room Air 12/11/23 02:50 36.5 C 97 H 20 152/95 H 95 Room Air Laboratory Results Abnormal lab results 12/11/23 Range/Units 05:49 Creatinine 0.56 L (0.6-1.4) mg/dl PG Care Time/CCT Total # of Minutes Spent Total Time Spent with Patient: Total time spent is greater than 50% in coordination of care (as documented) at patient's floor/unit and/or counseling patient: Coding Level of Care Code 88958 SUB INP/OBS CARE 2/35MIN Diagnoses Alcohol withdrawal F10.931 Complication of substance-induced condition: with delirium Complicated UTI (urinary tract infection) N39.0 Sepsis A41.9 Alcoholic hepatitis K70.10 Ascites presence: unspecified Encephalopathy G93.40 Benign essential hypertension I10 Anxiety F41.9 Bacteremia R78.81 (1) Alcohol withdrawal Complication of substance-induced condition: with delirium Qualified Code(s): F10.931 - Alcohol use, unspecified with withdrawal delirium (4) Alcoholic hepatitis Ascites presence: unspecified Qualified Code(s): K70.10 - Alcoholic hepatitis without ascites
[2023-12-11] MEDS: LOSARTAN POTASSIUM 50 MG TAB PO SCH (13:04)
--- NOTE | 2023-12-12 10:43 | Neurology Progress Note ---
Date of Service December 12, 2023 Assessment & Plan (1) Alcohol withdrawal delirium: (2) Alcohol withdrawal seizure: (3) Developmental venous anomaly of cerebrum: (4) Cerebral atrophy: Plan Given that patient's primary issue at this point is fluctuating agitated delirium, I would recommend holding the Keppra, and monitor for any further improvement in his mental status. At this point, I do not have a high index of suspicion for subclinical seizure activity. Continue with lorazepam as needed to address agitation. Continue with supportive medical care, supplemental thiamine. The observed developmental venous anomaly within the right frontal lobe is not likely clinically significant. The cerebral atrophy may be associated with chronic alcohol use disorder. His MRI was not highly suggestive of alcohol related cerebellar atrophy or Wernicke encephalopathy, although MRI is not highly sensitive or specific for this issue. His MRI did not reveal any evidence of acute process, however. Admission and Anticipated Discharge Date Admission Date: November 23, 2023 Subjective Follow-up regarding alcohol withdrawal delirium, alcohol withdrawal seizures Patient has was significantly agitated and restless overnight, pulling at lines, soft restraints was administered lorazepam. This morning, he awakens to voice, can correctly state his name, but quickly falls back to sleep. Results & Data Vital Signs (Past 12 Hours) Vital Signs Temp Pulse Pulse Resp BP Pulse Ox O2 Del Method 12/12/23 03:39 36.7 C 87 21 146/92 H 96 Room Air 12/12/23 02:35 115 H 12/11/23 23:22 67 12/11/23 22:51 36.6 C 77 19 130/88 94 Room Air Diagnostic Findings CT of the head completed December 08 was negative for hemorrhage or acute process. Brain MRI completed December 01 was negative for acute infarct or hemorrhage. There was mild chronic microvascular ischemic change and a small developmental venous anomaly within the right frontal lobe. There is mild generalized atrophy with moderate atrophy of both hippocampal formations. An EEG completed December 09 was consistent with encephalopathy and potential epileptiform abnormalities characterized by left central/left anterior temporal polyspikes that did not consistently occur in association with significant patient movement on video. Exam (Neuro) Eyes: PERRL and EOM intact bilaterally; no nystagmus Neurologic: Oriented to:: Person; negative Place or Time Attention: Other (Patient is lethargic); negative Span Intact Cranial Nerves: Normal II, III, IV, , VII and VIII Motor Tone: Normal Lower Extremities and Normal Upper Extremities Muscle Bulk/Involuntary Movements: No Involuntary Movements Coding Level of Care Code 29668 SUB INP/OBS CARE 2/35MIN Diagnoses Alcohol withdrawal delirium F10.931 Alcohol withdrawal seizure F10.939; R56.9 Complication of substance-induced condition: with unspecified complication Developmental venous anomaly of cerebrum Q28.3 Cerebral atrophy G31.9 Time Spent (min) 40 Comment Total time includes patient contact, chart review, counseling, note preparation (2) Alcohol withdrawal seizure Complication of substance-induced condition: with unspecified complication Qualified Code(s): F10.939 - Alcohol use, unspecified with withdrawal, unspecified; R56.9 - Unspecified convulsions
--- NOTE | 2023-12-12 10:49 | Hospitalist Progress Note ---
Date of Service December 12, 2023 Assessment & Plan (1) Alcohol withdrawal: Plan: Patient is a chronic heavy drinker and never tried to quit or cut back on his drinking Per the report I got, he checked himself into drug and alcohol rehab as he wanted to quit but was found to be actively withdrawing with hallucinations, tremors and thus was sent to the emergency room The patient was given a few doses of Ativan in the emergency room In the emergency room, he started having seizures He was thus admitted to the ICU. Patient was being managed with Precedex drip, phenobarbital, Ativan Now off Precedex drip. Completed phenobarbital course Was transferred out of the ICU but required to go back again 12/01. Patient is now being managed with the phenobarbital taper once again. Patient is deemed stable for transfer out of the ICU by pond tender today 12/03 I will continue oral phenobarb taper. Along with symptom triggered Ativan. Patient may need extended oral phenobarb taper. 12/05 alert, awake, denies pain, received IV Haldol last night 12/06 patient is sedated, restrained , will start him on the Geodon 40 mg QHS, Valium, Haldol as needed for agitation, continue to monitor him in ICU , start IV fluids since patient is very sedated 12/07 started on Geodon 40 mg bid 12/08 agitated , refusing meds today 12/09 seizure activity on EEG, started on IV Keppra 12/10 remains on IV Keppra, more cooperative today 12/11 very agitated over night, sedated (2) Complicated UTI (urinary tract infection): Plan: Patient removed his catheter traumatically on 12/01 and needed the catheter placed back by urology Urology involved Urinalysis is suggestive of UTI Bacteremic with pansensitive E. coli. Urine culture also growing pansensitive E. coli Associated with leukocytosis and fever, thus meeting sepsis criteria Continue IV ceftriaxone remove jj when possible iv Ceftriaxone for 10 days discontinue antibiotics on 12/11 (3) Sepsis: Plan: Most likely urine etiology. Urinalysis suggestive. History of traumatic catheter removal Urine culture and blood culture growing pansensitive E. coli Treat with IV ceftriaxone No signs of sepsis Ceftriaxone completed (4) Alcoholic hepatitis: Plan: Patient most likely has alcoholic hepatitis AST: ALT is greater than 2 Elevated bilirubin level of 4 INR elevated at 1.3 Discriminant factor 13. Not a candidate for steroids Acute hepatitis panel negative Acetaminophen level negative monitor LFTs (5) Encephalopathy: Plan: This is most likely due to alcohol withdrawal delirium tremens and toxic ence phalopathy Will manage alcohol withdrawal Monitor clinically _ possible seizure activity on EEG, started on Keppra, neurology follows - remains extremely agitated at night, will start Risperdal QHS (6) Benign essential hypertension: Plan: he normally takes losartan 100 mg Hold p.o. medicine for the time being restart Losartan (7) Anxiety: Plan: restarted Prozac (8) Bacteremia: Plan: e.coli bacteremia IV Rocephin 10 days Plan CODE STATUS: Presumed to be full code. Patient is not able to participate in decision-making DVT prophylaxis: Thrombocytopenia improved. On Lovenox Patient's fianc wants him to go back to rehab unit after discharge. Admission and Anticipated Discharge Date Admission Date: November 23, 2023 Subjective Follow-up regarding alcohol withdrawal delirium, alcohol withdrawal seizures Patient has was significantly agitated and restless overnight, pulling at lines, soft restraints was administered lorazepam. This morning, he awakens to voice, can correctly state his name, but quickly falls back to sleep. Review of Systems Review of Systems: Unobtainable due to cognitive status Physical Exam Physical Exam: head atraumatic neck is supple chest CTA heart S1S2 regular abdomen soft, nt, nd, bs present extremities no clubbing neuro sedated Results & Data Results & Data Vital Signs (Past 12 Hours) Vital Signs Temp Pulse Pulse Resp BP Pulse Ox O2 Del Method 12/12/23 03:39 36.7 C 87 21 146/92 H 96 Room Air 12/12/23 02:35 115 H 12/11/23 23:22 67 12/11/23 22:51 36.6 C 77 19 130/88 94 Room Air PG Care Time/CCT Total # of Minutes Spent Total Time Spent with Patient: Total time spent is greater than 50% in coordination of care (as documented) at patient's floor/unit and/or counseling patient: Coding Level of Care Code 68942 SUB INP/OBS CARE 2/35MIN Diagnoses Alcohol withdrawal F10.931 Complication of substance-induced condition: with delirium Complicated UTI (urinary tract infection) N39.0 Sepsis A41.9 Alcoholic hepatitis K70.10 Ascites presence: unspecified Encephalopathy G93.40 Benign essential hypertension I10 Anxiety F41.9 Bacteremia R78.81 (1) Alcohol withdrawal Complication of substance-induced condition: with delirium Qualified Code(s): F10.931 - Alcohol use, unspecified with withdrawal delirium (4) Alcoholic hepatitis Ascites presence: unspecified Qualified Code(s): K70.10 - Alcoholic hepatitis without ascites
[2023-12-12] MEDS ORDERED: risperiDONE ODT 0.5 MG SOLTAB PO PRN (13:04)
[2023-12-12] MEDS: risperiDONE 2 MG TABLET PO SCH (20:03)
[2023-12-13 07:59] LABS: Basophils # (auto) 0.21 K/uL (0.00-0.20); Basophils % (auto) 1.8 %; Eosinophils # (auto) 0.23 K/uL (0.00-0.50); Hematocrit (blood only) 42.9 % (42.0-52.0); Hemoglobin 14.4 g/dl (14.0-18.0); Immature Granulocytes # (auto) 0.03 K/uL (0.01-0.20); Immature Granulocytes % (auto) 0.3 %; Lymphocytes # (auto) 1.31 K/uL (1.20-3.40); Lymphocytes % (auto) 11.2 %; Mean Corpuscular Hemoglobin 32.1 pg (25.0-34.0); Mean Corpuscular Hgb Conc 33.6 g/dL (32.0-36.0); Mean Corpuscular Volume 95.8 fL (80.0-100.0); Mean Platelet Volume 11.5 fL (9.4-12.4); Monocytes # (auto) 1.04 K/uL (0.11-0.59); Monocytes % (auto) 8.9 %; Neutrophils # (auto) 8.87 K/uL (1.40-6.50); Neutrophils % (auto) 75.8 %; Platelet Count 330 K/uL (130-400); RDW Coefficient of Variation 13.3 % (11.5-14.5); RDW Standard Deviation 47.7 fL (36.4-46.3); Red Blood Count 4.48 M/uL (4.70-6.10); White Blood Count 11.69 K/ul (4.8-10.8)
[2023-12-13 08:38] LABS: BUN Creatinine Ratio 9.6 (10-20); Calcium 10.4 mg/dl (8.6-10.3); Creatinine Clr Calc Pharmacy 97.9 ml/min; Est GFR (African American) 107.6 ml/min; Est GFR (Non-African American) 92.8 ml/min; Potassium 3.8 mmol/L (3.5-5.1)
[2023-12-13] MEDS: LACTATED RINGER'S 1,000 ML IV ONE ×2 (11:50→13:12)
--- NOTE | 2023-12-13 12:19 | XRay Report ---
XR chest 1V portable CLINICAL HISTORY: ?sepsis TECHNIQUE: Single frontal radiograph of the chest was obtained. Comparison: Comparison is made to chest radiograph 12/08/2023 FINDINGS: No lines and tubes are seen. The cardiomediastinal silhouette is normal. The lungs are clear. No evid ence of pleural effusion or pneumothorax. IMPRESSION: No acute abnormalities and in particular no radiographic evidence of pneumonia. ACT 112: Negative or not required by law. Electronically signed by: Trevin Fofana M.D. 12/13/2023 12:18 PM
--- NOTE | 2023-12-13 12:59 | Hospitalist Progress Note ---
Date of Service December 13, 2023 Assessment & Plan (1) Encephalopathy: Plan: Ongoing encephalopathy despite now going through withdrawal - multiple potential causes during admission, initially clearly in alcohol withdrawal, significant deterioration with Keppra (subsequently discontinued), E. coli bacteremia, now hypotensive after restarting losartan three days ago Likely has a degree of Korsakoffs at this stage, although has had good days during his admission. Total 30,000 mg IV thiamine this admission, will reduce to 200mg PO daily Possible seizure activity on EEG 12/09 and initially treated with Keppra however now discontinued due to agitated delirium Started on FRANK risperidone 12/11 12/12 - stop lorazepam as this may be making delirium worse. Continue treatment for agitation with antipsychotics unless definitive seizure activity recurs. Will await psych recommendations regarding anti-psychotics. Hypotensive - acute workup with repeat labs, CXR, UA to assess for infection (2) Alcohol withdrawal: Plan: Alcohol withdrawal with hallucinations when he checked into alcohol rehabilitation and seizures in the ER Initial management with Precedex drip, phenobarbital, Ativan Now off Precedex drip. Completed phenobarbital course Was transferred out of the ICU but required to go back again 12/01, stable for transfer out of ICU 12/03 Patient is deemed stable for transfer out of the ICU by blue prints trimmer 12/03 12/05 alert, awake, denies pain, received IV Haldol last night 12/06 patient is sedated, restrained , will start him on the Geodon 40 mg QHS, Valium, Haldol as needed for agitation, continue to monitor him in ICU , start IV fluids since patient is very sedated 12/07 started on Geodon 40 mg bid 12/08 agitated , refusing meds today 12/09 seizure activity on EEG, started on IV Keppra 12/10 remains on IV Keppra, more cooperative today 12/11 very agitated over night, sedated 12/12 hypotensive less alert but not sedated (3) Complicated UTI (urinary tract infection): Plan: Patient removed his catheter traumatically on 12/01 and needed the catheter placed back by urology Urology involved Urinalysis is suggestive of UTI Bacteremic with pansensitive E. coli. Urine culture also growing pansensitive E. coli Associated with leukocytosis and fever, thus meeting sepsis criteria Continue IV ceftriaxone remove jj when possible iv Ceftriaxone for 10 days discontinue antibiotics on 12/11 (4) Sepsis: Plan: Most likely urine etiology. Urinalysis suggestive. History of traumatic catheter removal 12/01 Urine culture and blood culture growing pansensitive E. coli Ceftriaxone 12/02 -> 12/10 (had 9 days total) Present on Admission?: No (5) Alcoholic hepatitis: Plan: Patient most likely has alcoholic hepatitis AST: ALT is greater than 2 Elevated bilirubin level of 4 INR elevated at 1.3 Discriminant factor 13. 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 Admission and Anticipated Discharge Date Admission Date: November 23, 2023 Subjective Alert and eating when seen despite low BP. No pain although unable to get much of a history from him. Does not appear agitated, if anything somewhat overly sedated although his eyes are open and he is alert. Last lorazepam dose was 12/11 23:47. Total 2mg on 12/11 and 2mg on 12/10. Losartan given for the last 3 days and hypotensive today when seen although he is talking. Discussed care with Brendan over the phone and RN. Reportedly had significant deterioration on Wednesday night but was doing ok prior to this. Review of Systems Review of Systems: Unobtainable due to cognitive status Physical Exam Constitutional: well developed; + not well nourished and no acute distress Eyes: PERRL, conjunctivae normal, anicteric sclerae Respiratory: normal respiratory effort, lungs clear to auscultation Cardiovascular: Rate/Rhythm: regular rhythm and + tachycardic Heart Sounds: no murmur Gastrointestinal (Abdomen): normal bowel sounds, soft, nontender, no hepatosplenomegaly Skin: no rashes, warm and dry Neurologic: moves all extremities, awake and + confused Psychiatric: Orientation: alert; + not oriented x 3 Results & Data Results & Data Vital Signs (Past 12 Hours) Vital Signs Temp Pulse Pulse Resp BP Pulse Ox O2 Del Method 12/13/23 11:26 35.9 C L 105 H 18 111/83 96 Room Air 12/13/23 08:00 102 H 12/13/23 07:18 36.8 C 94 H 16 129/95 94 Room Air 12/13/23 03:23 36.9 C 108 H 18 114/88 94 Room Air PG Care Time/CCT Total # of Minutes Spent Total Time Spent with Patient: Total time spent is greater than 50% in coordination of care (as documented) at patient's floor/unit and/or counseling patient: Coding Level of Care Code 18763 SUB INP/OBS CARE 3/50MIN Diagnoses Encephalopathy G93.40 Alcohol withdrawal F10.931 Complication of substance-induced condition: with delirium Complicated UTI (urinary tract infection) N39.0 Sepsis A41.9 Alcoholic hepatitis K70.10 Ascites presence: unspecified Benign essential hypertension I10 Anxiety F41.9 Bacteremia R78.81 Alcohol withdrawal seizure F10.939; R56.9 Complication of substance-induced condition: with unspecified complication Wernicke-Korsakoff syndrome F04 Hypotensive episode I95.9 (2) Alcohol withdrawal Complication of substance-induced condition: with delirium Qualified Code(s): F10.931 - Alcohol use, unspecified with withdrawal delirium (5) Alcoholic hepatitis Ascites presence: unspecified Qualified Code(s): K70.10 - Alcoholic hepatitis without ascites (9) Alcohol withdrawal seizure Complication of substance-induced condition: with unspecified complication Qualified Code(s): F10.939 - Alcohol use, unspecified with withdrawal, unspecified; R56.9 - Unspecified convulsions
[2023-12-13 13:09] LABS: Basophils # (auto) 0.17 K/uL (0.00-0.20); Basophils % (auto) 1.6 %; Eosinophils # (auto) 0.15 K/uL (0.00-0.50); Eosinophils % (auto) 1.4 %; Hematocrit (blood only) 42.3 % (42.0-52.0); Hemoglobin 14.1 g/dl (14.0-18.0); Immature Granulocytes # (auto) 0.04 K/uL (0.01-0.20); Immature Granulocytes % (auto) 0.4 %; Lymphocytes # (auto) 0.84 K/uL (1.20-3.40); Lymphocytes % (auto) 7.8 %; Mean Corpuscular Hemoglobin 32.4 pg (25.0-34.0); Mean Corpuscular Hgb Conc 33.3 g/dL (32.0-36.0); Mean Corpuscular Volume 97.2 fL (80.0-100.0); Mean Platelet Volume 11.6 fL (9.4-12.4); Monocytes % (auto) 6.5 %; Neutrophils # (auto) 8.84 K/uL (1.40-6.50); Neutrophils % (auto) 82.3 %; Platelet Count 341 K/uL (130-400); RDW Coefficient of Variation 13.5 % (11.5-14.5); RDW Standard Deviation 48.4 fL (36.4-46.3); Red Blood Count 4.35 M/uL (4.70-6.10); White Blood Count 10.74 K/ul (4.8-10.8)
[2023-12-13 13:25] LABS: Albumin Level 3.7 gm/dl (3.4-5.0); Bilirubin,Total 1.3 mg/dl (0.2-1.0); C Reactive Protein 1.53 mg/dl (0-0.5); Calcium 10.7 mg/dl (8.6-10.3); Creatinine Clr Calc Pharmacy 58.6 ml/min; Est GFR (African American) 57.9 ml/min; Est GFR (Non-African American) 49.9 ml/min; Globulin 3.7 gm/dl (2.5-4.0); Magnesium 1.8 mg/dl (1.7-2.4); Phosphorus 4.4 mg/dl (2.5-4.9); Potassium 3.7 mmol/L (3.5-5.1); Total Protein 7.4 gm/dl (6.0-8.3)
[2023-12-13 13:33] LABS: INR 1.1 (0.9-1.1); Partial Thromboplastin Ratio 1.1; Partial Thromboplastin Time 30 Seconds (21-31)
[2023-12-13 15:58] LABS: Appearance Urine Clear (Clear); Bacteria Urine Automated None Seen (None Seen); Bilirubin Urine Negative (Negative); Blood Urine Negative (Negative); Color Urine Yellow; Epithelial Cell Urine Auto 0-2 /hpf (0-2); Glucose Urine UA Negative (Negative); Ketones Urine Negative (Negative); Leukocyte Esterase Urine Trace (Negative); Nitrite Urine Negative (Negative); Protein Urine Negative (Negative); RBC Urine Automated 0-2 /hpf (0-2); Specific Gravity Urine 1.007 (1.000-1.030); Urobilinogen Urine Negative (Negative); WBC Urine Automated 0-5 /hpf (0-5); pH Urine 6.5 (4.5-7.5)
[2023-12-14 06:34] LABS: Alanine Aminotransferase 22 U/L (7-52); Albumin Level 3.3 gm/dl (3.4-5.0); Alkaline Phosphatase 154 U/L (34-104); BUN Creatinine Ratio 10.1 (10-20); Bilirubin,Total 1.1 mg/dl (0.2-1.0); Blood Urea Nitrogen 8 mg/dl (6-23); Calcium 9.9 mg/dl (8.6-10.3); Carbon Dioxide 26 mmol/L (21-32); Chloride 108 mmol/L (98-107); Creatinine Clr Calc Pharmacy 116.5 ml/min; Est GFR (African American) 119.7 ml/min; Est GFR (Non-African American) 103.2 ml/min; Globulin 3.2 gm/dl (2.5-4.0); Glucose 82 mg/dl (70-99(Fasting)); Phosphorus 3.8 mg/dl (2.5-4.9); Total Protein 6.5 gm/dl (6.0-8.3)
[2023-12-14 06:36] LABS: INR 1.2 (0.9-1.1); Prothrombin Time 12.6 Seconds (9.0-12.0)
[2023-12-14 07:19] LABS: Basophils # (auto) 0.18 K/uL (0.00-0.20); Basophils % (auto) 1.5 %; Eosinophils % (auto) 2.6 %; Hematocrit (blood only) 40.3 % (42.0-52.0); Hemoglobin 13.5 g/dl (14.0-18.0); Immature Granulocytes # (auto) 0.03 K/uL (0.01-0.20); Immature Granulocytes % (auto) 0.3 %; Lymphocytes # (auto) 1.41 K/uL (1.20-3.40); Lymphocytes % (auto) 12.1 %; Mean Corpuscular Hemoglobin 32.1 pg (25.0-34.0); Mean Corpuscular Hgb Conc 33.5 g/dL (32.0-36.0); Mean Corpuscular Volume 95.7 fL (80.0-100.0); Mean Platelet Volume 11.3 fL (9.4-12.4); Monocytes # (auto) 0.99 K/uL (0.11-0.59); Monocytes % (auto) 8.5 %; Neutrophils # (auto) 8.79 K/uL (1.40-6.50); Platelet Count 308 K/uL (130-400); RDW Coefficient of Variation 13.4 % (11.5-14.5); RDW Standard Deviation 47.5 fL (36.4-46.3); Red Blood Count 4.21 M/uL (4.70-6.10)
[2023-12-14 07:31] LABS: Magnesium 1.5 mg/dl (1.7-2.4); Potassium 3.5 mmol/L (3.5-5.1)
--- NOTE | 2023-12-14 08:57 | Neurology Progress Note ---
Date of Service December 14, 2023 Assessment & Plan (1) Alcohol withdrawal delirium: (2) Alcohol withdrawal seizure: (3) Developmental venous anomaly of cerebrum: (4) Cerebral atrophy: (5) Ataxic gait: (6) Polyneuropathy: Plan This patient has a history of excessive alcohol use with an admission for acute alcohol withdrawal symptoms including encephalopathy and seizure activity. I do not believe the patient is having any more seizure activity and is improving with his mental status and physical function compared to previous. Currently, on examination, he has an ataxic gait with dysmetria and some ataxia and limbs and some very mild action tremor left greater than right side. He is bradykinetic in general but has good strength and reflexes. I believe that his balance is also poor because of an early sensory polyneuropathy following large and small caliber sensory fibers. I believe the gait is mostly cerebellar in origin. The patient may have an underlying dementia of a mild nature but currently has an encephalopathy which is improving. The patient has bradykinesia without resting tremor, rigidity, or a typical Parkinson's gait. I do not believe the patient is having extrapyramidal side effects from the low-dose risperidone, which only started 2 days ago. Patient has some dysarthria but no obvious aphasia. Liver function is improving as well. Patient has an incidental developmental venous anomaly within the right frontal lobe. The very mild cerebral/cerebellar atrophy is likely associated with chronic alcohol use disorder. Recommendations: 1. Continue off anticonvulsant for now. May consider oxcarbazepine or lamotrigine again in future if he needs an anticonvulsant or mood stabilizer. I would avoid valproic acid as this could cause hepatic side effects and increased tremor. 2. Avoid the use of benzodiazepines as much as possible. 3. Continue thiamine and multivitamins 4.. I am not sure the patient needs risperidone long-term. 5. Continue fluoxetine 20mg for now. 6. This patient would benefit from physical therapy for gait training, Occupational Therapy for hand/limb use, and speech therapy for his dysarthria. 7. There is no need to do any further neurologic testing 8. This patient needs a PCP to follow-up as an outpatient. 9. We could follow him in neurology (one of our PAs about 3 to 4 weeks after discharge) with Dr. Clinton. Overall, I spent a total of 90 minutes with this case including review of sabina rds, review of MRI films, direct evaluation of the patient, report generation, and discussion of the case with the patient and RN at bedside and Dr. Pritchett, including differential diagnosis and treatment options. Admission and Anticipated Discharge Date Admission Date: November 23, 2023 Subjective Patient has no complaint of pain, headache, dizziness, weakness, or numbness. Patient has complaints of tremor and balance issues. History suggest that the patient was taking a milligram of Ativan prior to admission but I am not sure he was on that for very long. He stated to me that he drank 10 beers a day 1 shot daily for the last 5 years. MRI of the brain with and without contrast December 01 showed some very mild cerebral and cerebellar atrophy with mild small vessel ischemic disease. There was a small right frontal venous angioma/anomaly of a benign nature. I reviewed these films. EEG December 09 showed some left central/anterior temporal polyspikes and slowing in general. The patient was given levetiracetam but did not tolerate this it, as it made him more agitated. Nursing reports that, although he had been agitated and confused over the weekend particularly at night, this past night he slept fairly well and did well. This morning he has been as alert and cooperative as they have seen him. Blood pressure is 151/94 with a pulse of 95. He is afebrile at 37.0. CBC showed a mild increase in white cells and a CHEM profile was normal except for a mildly low magnesium. CRP was 1.53 yesterday. Today, total bili is 1.1, AST 76, alk phos 154. All of these are improved to a significant degree compared to admission. His ammonia yesterday was normal at 29. Nursing reports that he is only received 1 mg of Ativan each night for the last several days. He has not had Ativan during the day. He has been getting Risperdal 2 mg at bedtime for the last 2 days as well. Results & Data Vital Signs (Past 12 Hours) Vital Signs Temp Pulse Pulse Resp BP Pulse Ox O2 Del Method 12/14/23 07:06 37.0 C 95 H 22 151/94 H 95 Room Air 12/14/23 03:28 36.9 C 76 16 132/86 94 Room Air 12/14/23 00:00 106 H 12/13/23 23:22 37.2 C 98 H 16 140/86 98 Room Air 06/17/24 22:00 O2 Del Method 12/14/23 07:06 12/14/23 03:28 12/14/23 00:00 12/13/23 23:22 12/13/23 22:00 Room Air Exam (Neuro) Physical Exam: The patient is right-handed. The patient is awake, alert, and attentive. Speech is mild to moderately dysarthric and he can speak softly and "mumble". The patient has no obvious aphasia. Mentation and thought processes are slow, however he tends to hesitant and probably forgetful. He seems unsure of some facts short-term. Long-term memory seems reasonable mood is normal and affect is flat. The patient was oriented to his name and age. He did not know the month, date or day but did not know the year. He did not really know where he was today or had a lot of insight as to why he was in except that he "drank too much". He did know his job. He was fairly pleasant and cooperative without agitation or any restlessness of his limbs. He did fairly well with one-step commands but got confused with multistep commands. Pupils are 4 mm bilaterally and reactive to light. Extraocular eye muscles are intact without nystagmus. Visual acuity and visual plummer seem normal grossly to confrontation. There are no deficits to sensation in the face in all 3 distributions of the fifth cranial nerve bilaterally. Corneal reflexes are positive bilaterally. Facial strength and symmetry was normal bilaterally. Hearing seems intact grossly to voice and finger rub bilaterally. Palate moves well without asymmetry. There is normal sternocleidomastoid and trapezius strength bilaterally. Tongue is midline with good strength bilaterally. Neck has a full range of motion without discomfort. Gait is wide based, and very unstable. He holds onto a walker and initially his feet are "glued to the floor" but after he walks a while he is more fluid with forward motion. Stance with wide gait is somewhat unsteady eyes open and deteriorates some with eyes closed. Feet together stance is very unstable eyes open or closed. Overall, he has an ataxic gait. With outstretched arms there is no drift. There are no resting tremors. With finger-nose testing he has dysmetria and some mild ataxia and some action tremor of a very mild nature left greater than right side. [id number] testing is sl ow and somewhat ataxic as well. He has decreased facility in rapid alternating movements in his hands bilaterally. Motor strength is 5/5 diffusely in the arms bilaterally including deltoids, biceps, triceps, brachioradialis, wrist flexors and extensors, fisher lobster, and intrinsic hand muscles. Motor strength is 5/5 diffusely in the legs bilaterally including hip flexors, quadriceps, hamstrings, gastrocnemius, tibialis anterior, tibialis posterior, and Peroneii muscles bilaterally. Toe extensors are normal and there is good bulk in the extensor digitorum brevis muscles bilaterally. The limbs have good tone without cogwheeling or obvious rigidity. There was no spasticity. There is no atrophy noted in the muscles. Muscle bulk is normal, there is no tenderness to palpation, no myotonia to percussion, and no fasciculations seen. Sensory examination reveals some very mild decrease sensation to pin in a stocking distribution in the legs bilaterally. There is mild vibratory sense loss in the legs as well. Reflexes are 2/4 in the biceps, triceps, brachioradialis, quadriceps, and Achilles tendons bilaterally. Toes are downgoing with plantar stimulation bilaterally. Peripheral pulses are present and of normal quality distally in all 4 limbs. There is no peripheral edema noted in the limbs. PG Care Time/CCT Total # of Minutes Spent Total Time Spent with Patient: Total time spent is greater than 50% in coordination of care (as documented) at patient's floor/unit and/or counseling patient: Coding Level of Care Code 33805 SUB INP/OBS CARE 3/50MIN Diagnoses Alcohol withdrawal delirium F10.931 Alcohol withdrawal seizure F10.939; R56.9 Complication of substance-induced condition: with unspecified complication Developmental venous anomaly of cerebrum Q28.3 Cerebral atrophy G31.9 Ataxic gait R26.0 Polyneuropathy G62.9 Time Spent (min) 90 (2) Alcohol withdrawal seizure Complication of substance-induced condition: with unspecified complication Qualified Code(s): F10.939 - Alcohol use, unspecified with withdrawal, unspecifi ed; R56.9 - Unspecified convulsions
[2023-12-14] MEDS ORDERED: THIAMINE HCL 200 MG in SODIUM CHLORIDE 0.9% 50 ML IV SCH (09:00)
[2023-12-14] MEDS: THIAMINE HCL 100 MG TAB PO SCH (09:10)
[2023-12-14] MEDS: MAGNESIUM SULFATE / D5W 1 GM/100 ML BAG IV SCH (09:17)
--- NOTE | 2023-12-14 14:22 | Psychiatric Consultation ---
Date of Consultation December 14, 2023 Impression / Recommendations (1) Acute hyperactive delirium due to another medical condition: (2) Alcohol withdrawal delirium: (3) Encephalopathy: (4) Alcohol use disorder, severe, dependence: (5) Depression: Plan Limit use of benzodiazepines at night as it may further exacerbate confusion and behaviors. Would consider discontinuation of risperidone and starting olanzapine 5 mg at bedtime for sleep and behaviors. Once delirium resolves woul d not require scheduled olanzapine. Olanzapine 5 mg PO/IM as needed for agitation. Continue fluoxetine 20 mg daily. Once patient is lucid provide resources for inpatient substance use rehab. Psych History Identifying Data Obdulio Franco is a 52-year-old white male history of alcohol use disorder admitted for acute alcohol withdrawal symptoms with concern for encephalopathy and seizure activity. Psychiatry consult for medication recommendations and agitation management. Chief Complaint Agitation History of Present Illness Chart review: Patient drinks heavily daily (8 beers daily). Checked into rehab to quit drinking and presented withdrawal symptoms including tremors, diaphoresis and hallucinations. Subsequently transferred to emergency room. Concern for DTs and complicated withdrawal. Agitated behaviors requiring risperidone scheduled and as needed for behaviors. Home fluoxetine 20 mg. Neurology concern for EPS from risperidone. On exam this morning patient is alert and oriented to self only. Lethargic. Able to follow commands. Dysarthric. Unable to engage in a reasonable conversation. Nursing reports ongoing restlessness at night: Has not been aggressive and appears to be improving. Sleep has improved. Allergies Allergy/AdvReac Type Severity Reaction Status Date / Time No Known Drug Allergies Allergy Unknown Unknown Verified 12/01/23 15:18 Home Medications Medication Instructions Recorded Confirmed Type acamprosate 333 mg tablet,delayed See Rx Instructions .Route .COMPLEX 11/24/23 11/24/23 History release albuterol sulfate 90 mcg/actuation 2 puff inhalation Q4H PRN Wheezing 11/24/23 11/24/23 History aerosol inhaler baclofen 10 mg tablet 10 mg PO DAILY PRN Hiccups 11/24/23 11/24/23 History fluoxetine 40 mg capsule 40 mg PO QAM 11/24/23 11/24/23 History losartan 100 mg tablet 100 mg PO DAILY 11/24/23 11/24/23 History sildenafil 50 mg tablet 50 mg PO DAILY PRN Unknown 11/24/23 11/24/23 History thiamine HCl (vitamin B1) 100 mg 100 mg PO DAILY 11/24/23 11/24/23 History tablet triamcinolone acetonide 0.1 % 1 applic topical DAILY 11/24/23 11/24/23 History topical cream Patient History Social History Smoking Status: Unknown if ever smoked Hx Alcohol Use: Yes Alcohol type: beer Preferred Language: Sami Communication Ability: Impaired Paediatric Thoracic Physician Required: No Beliefs That Will Affect Care: None Current Living Situation Comment: from [facility] Safe at Home: Declines to Answer Assistive Devices: None Physical Exam Mental Examination: Eye Contact: Maintains Eye Contact Motor Behavior: Slowed Speech: Slurred Thought Process: Slowed Thinking Thought Content: Disorganized Hallucinations: None Insight: Poor Judgement: Poor Vital Signs (Past 24 Hours): Last Vital Signs Temp 36.5 C 12/14/23 10:25 Pulse 88 12/14/23 10:25 Resp 19 12/14/23 10:25 BP 99/70 L 12/14/23 10:25 Pulse Ox 96 12/14/23 10:25 O2 Del Method Room Air 12/14/23 10:25 O2 Flow Rate 2 12/10/23 22:35 FiO2 28 11/26/23 08:00 Results & Data (PSY) Medications Administered Acetaminophen (Acetaminophen 325 Mg Tab) 325 mg PO Q4H PRN PRN Reason: Headache or Pain Stop: 12/31/23 12:31 Last Admin: 12/04/23 00:46 Dose: 325 mg Documented By: SND Enoxaparin Sodium (Enoxaparin Inj 40 Mg/0.4 Ml Syr) 40 mg SQ QAM [facility] Stop: 12/29/23 12:59 Last Admin: 12/14/23 09:12 Dose: 40 mg Documented By: Admin: 12/13/23 07:51 Dose: 40 mg Documented By: Admin: 12/12/23 10:10 Dose: 40 mg Documented By: Admin: 12/11/23 09:55 Dose: Not Given Documented By: Admin: 12/10/23 09:21 Dose: Not Given Documented By: Admin: 12/09/23 09:12 Dose: Not Given Documented By: Admin: 12/08/23 08:04 Dose: 40 mg Documented By: Admin: 12/07/23 10:20 Dose: 40 mg Documented By: Admin: 12/06/23 10:17 Dose: 40 mg Documented By: MARY ANNE Admin: 12/05/23 08:08 Dose: 40 mg Documented By: Admin: 12/04/23 08:20 Dose: 40 mg Documented By: Admin: 12/03/23 09:19 Dose: 40 mg Documented By: Admin: 12/01/23 08:20 Dose: 40 mg Documented By: Admin: 11/30/23 08:56 Dose: 40 mg Documented By: Admin: 11/29/23 16:03 Dose: 40 mg Documented By: JENNA Fluoxetine HCl (Fluoxetine Hcl 20 Mg Cap) [facility] [place] Stop: 01/06/24 08:59 Last Admin: 12/14/23 09:09 Dose: 20 mg Documented By: Admin: 12/13/23 07:52 Dose: 20 mg Documented By: Admin: 12/12/23 10:11 Dose: 20 mg Documented By: Admin: 12/11/23 09:54 Dose: 20 mg Documented By: Admin: 12/10/23 09:20 Dose: 20 mg Documented By: Admin: 12/09/23 09:12 Dose: Not Given Documented By: Admin: 12/08/23 08:04 Dose: 20 mg Documented By: Admin: 12/07/23 11:51 Dose: Not Given Documented By: HERB Folic Acid (Folic Acid 1 Mg Tab) [facility] [place] Stop: 12/29/23 08:59 Last Admin: 12/14/23 09:11 Dose: 1 mg Documented By: Admin: 12/13/23 07:52 Dose: 1 mg Documented By: Admin: 12/12/23 10:11 Dose: 1 mg Documented By: Admin: 12/11/23 09:55 Dose: 1 mg Documented By: Admin: 12/10/23 09:20 Dose: 1 mg Documented By: Admin: 12/09/23 09:12 Dose: Not Given Documented By: Admin: 12/08/23 08:04 Dose: 1 mg Documented By: KJBoone Admin: 12/07/23 11:51 Dose: Not Given Documented By: Admin: 12/06/23 10:18 Dose: 1 mg Documented By: MARY ANNE Admin: 12/05/23 08:07 Dose: 1 mg Documented By: Admin: 12/04/23 08:21 Dose: 1 mg Documented By: Admin: 12/03/23 09:19 Dose: 1 mg Documented By: Admin: 12/02/23 08:19 Dose: Not Given Documented By: Admin: 12/01/23 08:20 Dose: 1 mg Documented By: Admin: 11/30/23 08:55 Dose: 1 mg Documented By: Admin: 11/29/23 09:48 Dose: 1 mg Documented By: MRT Haloperidol Lactate (Haloperidol Lactate 5 Mg/Ml 1 Ml Vial) 2.5 mg IM Q6 PRN PRN Reason: Agitation Stop: 01/06/24 11:10 Last Admin: 12/12/23 23:26 Dose: 2.5 mg Documented By: JEAN CARLOS Admin: 12/11/23 21:20 Dose: 2.5 mg Documented By: JEAN CARLOS Admin: 12/11/23 03:43 Dose: 2.5 mg Documented By: JEAN CARLOS Losartan Potassium (Losartan Potassium 50 Mg Tab) 50 mg PO QAM [facility] Stop: 01/10/24 12:29 Last Admin: 12/13/23 07:53 Dose: 50 mg Documented By: Admin: 12/12/23 10:09 Dose: 50 mg Documented By: Admin: 12/11/23 13:04 Dose: 50 mg Documented By: FARHAN Multivitamins/Folic Acid/Vitamin C (Multivitamin Chewable Tab) [facility] [place] Stop: 01/02/24 08:59 Last Admin: 12/14/23 09:10 Dose: 1 tab Documented By: Admin: 12/13/23 07:53 Dose: 1 tab Documented By: Admin: 12/12/23 10:09 Dose: 1 tab Documented By: Admin: 12/11/23 09:55 Dose: 1 tab Documented By: Admin: 12/10/23 09:20 Dose: 1 tab Documented By: Admin: 12/09/23 09:12 Dose: Not Given Documented By: Admin: 12/08/23 08:04 Dose: 1 tab Documented By: KJBoone Admin: 12/07/23 11:51 Dose: Not Given Documented By: KJBoone Admin: 06/10/24 10:18 Dose: 1 tab Documented By: MARY ANNE Admin: 12/05/23 08:07 Dose: 1 tab Documented By: Admin: 12/04/23 08:21 Dose: 1 tab Documented By: Admin: 12/03/23 09:19 Dose: 1 tab Documented By: JONNA Risperidone (Risperidone 2 Mg Tablet) 2 mg PO HS [facility] Stop: 01/11/24 20:59 Last Admin: 12/13/23 20:29 Dose: 2 mg Documented By: JEAN CARLOS Admin: 12/12/23 20:03 Dose: 2 mg Documented By: JEAN CARLOS Thiamine HCl (Thiamine Hcl 100 Mg Tab) 200 mg PO QAM [facility] Stop: 01/13/24 08:59 Last Admin: 12/14/23 09:10 Dose: 200 mg Documented By: EP [place] [address] IN/OBS CONSULT LVL 2,35M Patient Type New History Problem Focused Exam Problem Focused Medical Decision Making Low Complexity Diagnoses Acute hyperactive delirium due to another medical condition F05 Alcohol withdrawal delirium F10.931 Encephalopathy G93.40 Alcohol use disorder, severe, dependence F10.20 Depression F32.A Time Spent (min) 35
--- NOTE | 2023-12-14 14:44 | Hospitalist Progress Note ---
Date of Service December 14, 2023 Assessment & Plan (1) Encephalopathy: Plan: Ongoing encephalopathy despite now going through withdrawal - multiple potential causes during admission, initially clearly in alcohol withdrawal, significant deterioration with Keppra (subsequently discontinued), E. coli bacteremia, hypotensive after restarting losartan (now discontinued), appears to be improving after stopping Ativan since 12/11 Likely has a degree of Korsakoff's at this stage. Total 30,000 mg IV thiamine this admission, reduced to 200mg PO daily Possible seizure activity on EEG 12/09 and initially treated with Keppra however now discontinued due to agitated delirium Started on FRANK risperidone 12/11. Agree with psychiatry and discussed with his fiance regarding switching risperidone to olanzapine. Agree with neurology unlikely to need this longer term but given he has continued to improve daily will continue for now. Start 5mg HS with either 5mg PO/IM PRN for delirium (if at risk to self or others). 12/05 alert, awake, denies pain, received IV Haldol last night 12/06 patient is sedated, restrained , will start him on the Geodon 40 mg QHS, Valium, Haldol as needed for agitation, continue to monitor him in ICU , start IV fluids since patient is very sedated 12/07 started on Geodon 40 mg bid 12/08 agitated , refusing meds today 12/09 seizure activity on EEG, started on IV Keppra 12/10 remains on IV Keppra, more cooperative today 12/11 very agitated over night, sedated 12/12 hypotensive less alert but not sedated 12/13 more alert, slowly improving, small conversations (2) Alcohol withdrawal: Plan: Now resolved Alcohol withdrawal with hallucinations when he checked into alcohol rehabilitation and seizures in the ER Initial management with Precedex drip, phenobarbital, Ativan Now off Precedex drip. Completed phenobarbital course Was transferred out of the ICU but required to go back again 12/01, stable for transfer out of ICU 12/03 Patient is deemed stable for transfer out of the ICU by crisis clinician 12/03 (3) Complicated UTI (urinary tract infection): Plan: Now resolved Patient removed his catheter traumatically on 12/01 and needed the catheter placed back by urology Associated with leukocytosis and fever, thus meeting sepsis criteria E. coli bacteremia - now resolved, 9 days of ceftriaxone given, finished 12/10 (4) Sepsis: Plan: Now resolved, secondary to catheter-associated UTI (5) Alcoholic hepatitis: Plan: Now resolved, now with mild transaminitis only (6) Benign essential hypertension: Plan: Hypotensive while on losartan. 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 Patient is more conversational and has eaten more. Encouraged him to stay awake during the day time so he can have better sleep at night. he reports feeling unbalanced. He denies any pain. He becomes tearful when talking about his admission. Updated his fiance by phone - she reports she will be in tomorrow @ 11am. Review of Systems Review of Systems: Unobtainable due to cognitive status Physical Exam Constitutional: well developed; + not well nourished and no acute distress ENMT: external ear and nose normal, oropharynx normal Respiratory: normal respiratory effort, lungs clear to auscultation Cardiovascular: RRR, no murmur, no edema Gastrointestinal (Abdomen): normal bowel sounds, soft, nontender, no hepatosplenomegaly Skin: no rashes, warm and dry Neurologic: moves all extremities and awake; not confused Psychiatric: Orientation: alert and oriented to person; + not oriented to place and + not oriented to time Eye Contact: + fair eye contact Motor Behavior: no psychomotor agitation Speech: normal rate/rhythm/volume of speech Affect: + tearful affect Results & Data Results & Data Vital Signs (Past 12 Hours) Vital Signs Temp Pulse Pulse Resp BP Pulse Ox O2 Del Method 12/14/23 10:25 36.5 C 88 19 99/70 L 96 Room Air 12/14/23 08:00 69 12/14/23 07:06 37.0 C 95 H 22 151/94 H 95 Room Air 12/14/23 03:28 36.9 C 76 16 132/86 94 Room Air PG Care Time/CCT Total # of Minutes Spent Total Time Spent with Patient: Total time spent is greater than 50% in coordination of care (as documented) at patient's floor/unit and/or counseling patient: Coding Level of Care Code 19400 SUB INP/OBS CARE 2/35MIN Diagnoses Encephalopathy G93.40 Alcohol withdrawal F10.931 Complication of substance-induced condition: with delirium Complicated UTI (urinary tract infection) N39.0 Sepsis A41.9 Alcoholic hepatitis K70.10 Ascites presence: unspecified Benign essential hypertension I10 Anxiety F41.9 Bacteremia R78.81 Alcohol withdrawal seizure F10.939; R56.9 Complication of substance-induced condition: with unspecified complication Wernicke-Korsakoff syndrome F04 Hypotensive episode I95.9 (2) Alcohol withdrawal Complication of substance-induced condition: with delirium Qualified Code(s): F10.931 - Alcohol use, unspecified with withdrawal delirium (5) Alcoholic hepatitis Ascites presence: unspecified Qualified Code(s): K70.10 - Alcoholic hepatitis without ascites (9) Alcohol withdrawal seizure Complication of substance-induced condition: with unspecified complication Qualified Code(s): F10.939 - Alcohol use, unspecified with withdrawal, unspecified; R56.9 - Unspecified convulsions
[2023-12-14] MEDS ORDERED: OLANZapine 10 MG/2.1 ML SDV IM PRN (18:04)
[2023-12-14] MEDS: OLANZapine ZYDIS 5 MG ORALLY DIS. TAB PO PRN (20:02)
[2023-12-14] MEDS: OLANZapine 5 MG TABLET PO SCH (20:06)
[2023-12-15 06:33] LABS: BUN Creatinine Ratio 11.8 (10-20); Calcium 9.5 mg/dl (8.6-10.3); Creatinine Clr Calc Pharmacy 135.3 ml/min; Est GFR (African American) 127.3 ml/min; Est GFR (Non-African American) 109.8 ml/min; Magnesium 1.6 mg/dl (1.7-2.4); Potassium 3.6 mmol/L (3.5-5.1)
--- NOTE | 2023-12-15 08:32 | Neurology Progress Note ---
Date of Service December 15, 2023 Assessment & Plan (1) Alcohol withdrawal delirium: (2) Alcohol withdrawal seizure: (3) Developmental venous anomaly of cerebrum: (4) Cerebral atrophy: (5) Ataxic gait: (6) Polyneuropathy: Plan This patient has a history of excessive alcohol use with an admission for acute alcohol withdrawal symptoms including encephalopathy and seizure activity. I do not believe the patient is having any more seizure activity and is improving with his mental status and physical function compared to previous. Currently, on examination, he has an ataxic gait with dysmetria and some ataxia and limbs and some very mild action tremor left greater than right side. He is bradykinetic in general but has good strength and reflexes. I believe that his balance is also poor because of an early sensory polyneuropathy following large and small caliber sensory fibers. I believe the gait is mostly cerebellar in origin. The patient may have an underlying dementia of a mild nature but currently has an encephalopathy which is improving. The patient has bradykinesia without resting tremor, rigidity, or a typical Parkinson's gait. I do not believe the patient is having extrapyramidal side effects from the low-dose risperidone, which only started 2 days ago. Patient has some dysarthria but no obvious aphasia. Liver function is improving as well. Patient has an incidental developmental venous anomaly within the right frontal lobe. The very mild cerebral/cerebellar atrophy is likely associated with chronic alcohol use disorder. TODAY: Overall, he is less bradykinetic and a little more alert with less tremor and ataxia today, but he still has what appears to be a dementia and the severe gait ataxia. Recommendations: 1. Continue off anticonvulsant for now. May consider oxcarbazepine or lamotrigine again in future if he needs an anticonvulsant or mood stabilizer. I would avoid valproic acid as this could cause hepatic side effects and increased tremor. 2. Avoid the use of benzodiazepines as much as possible. 3. Continue thiamine and multivitamins 4.. I am not sure the patient needs olanzapine long-term. 5. Continue fluoxetine 20mg for now. 6. This patient would benefit from physical therapy for gait training, Occupational Therapy for hand/limb use, and speech therapy for his dysarthria. He would also benefit from a rehab hospital stay to get his ambulation improved before going home. He would benefit from an alcohol rehabilitation Hospital stay after he is physically stable. 7. There is no need to do any further neurologic testing 8. The patient apparently has a PCP in [place], [place] Elieser Hatch MD - he should follow-up 9. Since he lives so far away, he could get follow-up with local neurology closer to where he lives. Overall, I spent a total of 60 minutes with this case including review of records, direct evaluation of the patient, report generation, and discussion of the case with the patient and RN at bedside and Dr. Chavira, including differential diagnosis and treatment options. Admission and Anticipated Discharge Date Admission Date: November 23, 2023 Subjective Patient has no complaint of pain or headache. He is not dizzy. He is not having any hallucinations. His gait is still unstable and he has tremor Blood pressure is 121/80 and he is afebrile at 36.7. Pulse is 64 and regular. CHEM profile was unremarkable although magnesium was borderline at 1.6. Nursing reports no new issues or acute problems over the last 24 hours. I spoke to the patient's Caro ayoub, who told me that the patient has had significant changes in memory and mental status over the last 3 months. She claims that 6 months ago he was very sharp and normal baseline mental status and memory. She has known him for 10 years. Apparently, he will drink 1/5 of whiskey every 1 to 2 days plus some vodka and as much is 10 beers. The patient grossly underreported his alcohol use. Results & Data Vital Signs (Past 12 Hours) Vital Signs Temp Pulse Pulse Pulse Resp BP BP 12/15/23 08:00 36.5 C 89 20 126/64 12/15/23 02:45 36.7 C 64 18 121/80 12/15/23 00:00 74 12/14/23 22:35 67 18 12/14/23 22:05 36.7 C 65 18 130/84 12/14/23 22:00 Pulse Ox O2 Del Method O2 Del Method 12/15/23 08:00 96 Room Air 12/15/23 02:45 94 Room Air 12/15/23 00:00 12/14/23 22:35 93 12/14/23 22:05 92 Room Air 12/14/23 22:00 Room Air Exam (Neuro) Physical Exam: Patient is awake and alert. Speech is slightly dysarthric but not as much as yesterday. There is no aphasia. He knew his name, age, and the year. He did not know the month date or day. He was pleasant and cooperative and his mood was good. He did not have any masklike face and he had less slowness in general than he did yesterday. He has no rigidity or cogwheeling of the limbs. He has no significant ataxia or tremor in the right arm or leg. The left arm and leg have mild action tremor and ataxia only. Gait is wide-based and unstable. Stance with feet together is such that he cannot maintain his balance. Even stance with eyes open, looking straight ahead and with his feet wide, he is very unstable Motor strength is 5/5 diffusely in all major muscle groups in the arms and legs both proximally and distally. He has no resting tremor. PG Care Time/CCT Total # of Minutes Spent Total Time Spent with Patient: Total time spent is greater than 50% in coordination of care (as documented) at patient's floor/unit and/or counseling patient: Coding Level of Care Code 06002 SUB INP/OBS CARE 3/50MIN Diagnoses Alcohol withdrawal delirium F10.931 Alcohol withdrawal seizure F10.939; R56.9 Complication of substance-induced condition: with unspecified complication Developmental venous anomaly of cerebrum Q28.3 Cerebral atrophy G31.9 Ataxic gait R26.0 Polyneuropathy G62.9 Time Spent (min) 60 (2) Alcohol withdrawal seizure Complication of substance-induced condition: with unspecified complication Qualified Code(s): F10.939 - Alcohol use, unspecified with withdrawal, unspecified; R56.9 - Unspecified convulsions
[2023-12-15] MEDS: POLYETHYLENE (MIRALAX) 17 GM PACK PO SCH (11:29)
[2023-12-15] MEDS: MAGNESIUM SULFATE / D5W 1 GM/100 ML BAG IV SCH (11:34)
--- NOTE | 2023-12-15 15:56 | Hospitalist Progress Note ---
Date of Service December 15, 2023 Assessment & Plan (1) Encephalopathy: Plan: Ongoing encephalopathy from alcohol withdrawal and hospital delirium, E. coli septicemia Had worsening when was started on Keppra for seizure activity-this has been stopped Worse also with Ativan and this is all been stopped Significantly improved on 12/14, conversational, oriented, not agitated, off the one-to-one sitter. 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 but this can be sorted out down the road after complete recovery Possibly with degree of Korsakoff's at this stage although no significant confabulation and he was given total 30,000 mg IV thiamine this admission, reduced to 200mg PO daily now Possible seizure activity on EEG 12/09 and initially treated with Keppra however now discontinued due to agitated delirium Started on FRANK risperidone 12/11 and switched to olanzapine 5 mg at bedtime on 12/14 Tolerating this well-this can be tapered off likely over the next couple of weeks (2) Alcohol withdrawal: Plan: Now resolved Alcohol withdrawal with hallucinations when he checked into alcohol rehabilitation and seizures in the ER Initial management with Precedex drip, phenobarbital, Ativan. Now off Precedex drip. Completed phenobarbital course Was transferred out of the ICU but required to go back again 12/01, stable for transfer out of ICU 12/03 He may at some point go back to either outpatient or inpatient alcohol rehab (3) Complicated UTI (urinary tract infection): Plan: Now resolved Patient removed his catheter traumatically on 12/01 and needed the catheter placed back by urology Associated with leukocytosis and fever, thus meeting sepsis criteria E. coli bacteremia - now resolved, 9 days of ceftriaxone given, finished 12/10 No fevers, mild leukocytosis on 12/13 but repeat blood cultures remain no growth to date Reid catheter is now out (4) Sepsis: Plan: Now resolved, secondary to catheter-associated UTI (5) Alcoholic hepatitis: Plan: Now resolved, now with mild transaminitis only Encourage alcohol abstinence (6) Benign essential hypertension: Plan: Hypotensive while on losartan. Continue to hold anti-hypertensives Blood pressures are normal (7) Anxiety: Plan: Continue Prozac, now on olanzapine (8) Alcohol withdrawal seizure: Plan: Now resolved - treated in the ICU on admission Now off all antiseizure medicines (9) Wernicke-Korsakoff syndrome: Plan: As above Plan VTE Prophylaxis - Lovenox 40mg SQ daily Disposition -improving, continued stay but likely discharge to rehab in next 1 to 2 days-discussed with case management Discussed all care with his fiance at the bedside on 12/14 Admission and Anticipated Discharge Date Admission Date: November 23, 2023 Subjective Patient feeling well today. He is eating and drinking, moving bowels, was out of bed and walking physical therapy. His fiance is at the bedside and reports a dramatic improvement since last time she saw him for 5 days ago. I discussed his care with neurology who feels he is also improving but has some likely underlying mild alcoholic related dementia. Telemetry with normal sinus rhythm and rates in the 60s to 80s He is off the one-to-one when I saw him Physical Exam Constitutional: WD/WN, vitals as above Respiratory: normal respiratory effort, lungs clear to auscultation Cardiovascular: RRR, no murmur, no edema Gastrointestinal (Abdomen): normal bowel sounds, soft, nontender, no hepatosplenomegaly Psychiatric: A+Ox3, euthymic affect Results & Data Results & Data Vital Signs (Past 12 Hours) Vital Signs Temp Pulse Resp BP Pulse Ox O2 Del Method 12/15/23 10:39 36.5 C 104 H 18 90/57 L 95 Room Air 12/15/23 08:00 36.5 C 89 20 126/64 96 Room Air Laboratory Results BMP, magnesium, blood cultures, LFTs reviewed PG Care Time/CCT Total # of Minutes Spent Total Time Spent with Patient: Total time spent is greater than 50% in coordination of care (as documented) at patient's floor/unit and/or counseling patient: Coding Level of Care Code 79193 SUB INP/OBS CARE 2/35MIN Diagnoses Encephalopathy G93.40 Alcohol withdrawal F10.931 Complication of substance-induced condition: with delirium Complicated UTI (urinary tract infection) N39.0 Sepsis A41.9 Alcoholic hepatitis K70.10 Ascites presence: unspecified Benign essential hypertension I10 Anxiety F41.9 Alcohol withdrawal seizure F10.939; R56.9 Complication of substance-induced condition: with unspecified complication Wernicke-Korsakoff syndrome F04 (2) Alcohol withdrawal Complication of substance-induced condition: with delirium Qualified Code(s): F10.931 - Alcohol use, unspecified with withdrawal delirium (5) Alcoholic hepatitis Ascites presence: unspecified Qualified Code(s): K70.10 - Alcoholic hepatitis without ascites (8) Alcohol withdrawal seizure Complication of substance-induced condition: with unspecified complication Qualified Code(s): F10.939 - Alcohol use, unspecified with withdrawal, unspecified; R56.9 - Unspecified convulsions
[2023-12-16 07:13] LABS: BUN Creatinine Ratio 10.9 (10-20); Calcium 9.3 mg/dl (8.6-10.3); Creatinine Clr Calc Pharmacy 143.8 ml/min; Est GFR (African American) 130.5 ml/min; Est GFR (Non-African American) 112.6 ml/min; Magnesium 1.9 mg/dl (1.7-2.4); Potassium 3.7 mmol/L (3.5-5.1)
[2023-12-16] MEDS: LACTATED RINGER'S 1,000 ML IV ONE ×2 (12:20→13:58)
[2023-12-16] MEDS ORDERED: STAT IV Infusion **Titration per Protocol STA (12:20)
--- NOTE | 2023-12-16 12:26 | Critical Care Progress Note ---
Date of Service December 16, 2023 Assessment & Plan (1) Hypotension: (2) Dislodged Reid catheter: (3) Severe sepsis: Plan Assessment: 52 yo male who presented with with alcohol dependency and heavy alcohol use with continued encephalopathy and symptomatic hypotension Critical care indication: need for pressor support Plan: Neurologic CAM ICU negative Acute encephalopathy from alcohol withdrawal Alcohol dependency and delirium tremors Patient recently had withdrawal symptoms that needed IV phenobarbital loading Alcohol withdrawal seizures - now resolved - now off all antiseizure medicine - Continue multivitamin, thiamine Possible underlying alcoholic dementia/ Korsakoff Sedation: none Analgesia: none Cardiac BP 90/58- symptomatic - On Levophed - hold Losartan - random cortisol level ordered Respiratory No prior history of respiratory disease No oxygen requirement Gastrointestinal Diet: Regular Alcoholic hepatitis - Hepatic panel negative - mild transaminitis only Renal/electrolytes No significant electrolyte derangement at this time Replete electrolytes as needed Genitourinary No concerns at this time Reid catheter draining normal-appearing urine at this time Strict I/O's Traumatic Reid removal early on this admission Endocrine BSG stable Continue ISS per protocol Hematologic history of thrombocytopenia - resolved Anemia - Hgb stable at this time Infectious disease E coli bacteremia / Catheter- associated UTI - early on this admission - completed 9 days of Ceftriaxone No fever but rigors present, tachycardia, mild leukocytosis - meeting SIRS criteria - Blood culture repeated on 12/13: no growth to date Concern of infectious process at this morning, will sent full sepsis workup - Repeat blood culture ordered - UA, urine culture - lactatic acid, procalcitonin - Zosyn and Vanco empirically for 48 hrs Monitor fever curve Integumentary No concerns at this time Lines/access PIVs intact Prophylaxis DVT ppx: Lovenox 40 Thank you the opportunity to participate in this patient's care. Please see attending documentation for further recommendations. Admission and Anticipated Discharge Date Admission Date: November 23, 2023 Supervising Physician Co-Signing Physician Notes Dr. Moreno was resident physician during care of patient. I separately evaluated patient for oliveros portions of the history and the exam. I was present during the critical portion of medical decision making, and I discussed the case with the resident. I generally agree with the findings and plan. Patient was largely asymptomatic today until he sat on a bedside commode and became extremely lightheaded. History is indicative of vasovagal episode, suspect there was underlying SIRS/sepsis that potentiated vasovagal episode. Recent urethral trauma could also potentiate vasovagal episode. Patient's mental status remarkably improved from last evaluation I performed on the patient on 12/03. Concern for sepsis. Patient with elevated white count after 9 days of treatment for pansensitive E. coli (12/02-12/10). History of urethral trauma after discontinuing Reid catheter. Evidence of severe sepsis given lactic acid acidosis. Repeat lactate ordered had been given greater than 20 cc/kg crystalloid expansion with normal saline. LFTs have down trended barely out of range, bilirubin improved. Checking lipase, repeating venous blood gas, sending coagulation studies including fibrinogen. Patient had been getting thiamine, adequate random cortisol, procalcitonin suggestive of sepsis. Repeat blood cultures from December 02 had no growth to date and were finalized, no growth on blood cultures at 48 hours received December 12, repeat blood cultures ordered today. Medical research demonstrates no consensus between treatment of 7 versus 14 days for uncomplicated bacteremia of gram-negative source. Condom catheter was placed and patient is on bedrest. Discussed with nursing staff and a desire to have a spontaneous voiding specimen obtained, patient may need be assisted out of bed to produce specimen. I do not feel catheterization is appropriate at this time given his recent injury and less manipulation of the urethra will be better. During my exam I do not palpate cords, no strong evidence to suggest septic thrombophlebitis as source. Moving all 4 extremities, no back pain, globally warm to touch but no localizing erythema/lesion, no carbuncles from goals, abdomen is soft nontender nondistended, no guarding no rebound. Will obtain venous duplex of all 4 extremities given length of stay and need for ultrasound-guided IVs to help exclude septic thrombophlebitis, retroperitoneal ultrasound to help exclude perinephric abscess, cannot exclude prostatitis given possible urethral injury. Agree with Zosyn and vancomycin empirically for 48 hours while awaiting blood cultures. Rd Mak is a 52 year old admitted due to acute encephalopathy secondary to alcohol withdrawal. Patient is know to be a heavy drinker: 1 L of alcohol daily. During this admission patient had been on ICU twice due to alcohol withdrawal symptoms, seizure, agitation and delirium tremors. Per hospital records he appears to have been treated with IV Ativan, Precedex and phenobarbital. As per hospital records and primary team patient had been improving on mentation, he was pending placement to a rehab facility. He additional had a catheter associated UTI and bacteremia after he self discontinue his Reid causing trauma. He completed Ceftriaxone for 9 days. This morning patient develop symptomatic hypotension as well as tachycardia. No fever, but rigors were present. After a bolus of IV fluid, blood pressure remained in the low side. ICU was consulted for further management Full sepsis work up was ordered. patient was placed on Levophed, cortisol level, blood culture, lactic acid, procalcitonin, troponin. EKG with no ischemic changes On evaluation patient was fully awake in NAD, oriented x3. Denied any SOB, chest pain, abdominal pain, nausea, vomiting or diarrhea Review of Systems Review of Systems: as per hpi Physical Exam Constitutional: cooperative; no acute distress and no altered mental status Respiratory: normal respiratory effort, lungs clear to auscultation Cardiovascular: RRR, no murmur, no edema Gastrointestinal (Abdomen): normal bowel sounds, soft, nontender, no hepatosplenomegaly Musculoskeletal: Extremities: extremities normal to inspection; no clubbing No edema Neurologic: CN's II-XI intact bilaterally, moves all extremities and awake Speech / Cognition: normal speech Results & Data Results & Data Vital Signs (Past 12 Hours) Vital Signs Temp Pulse Resp BP Pulse Ox O2 Del Method 12/16/23 11:45 37.3 C 117 H 17 96/58 L 95 Room Air 12/16/23 08:03 36.9 C 74 18 125/86 97 Room Air 12/16/23 02:29 36.6 C 63 18 114/73 96 BiPAP Resident Activity Tracking Resident Involvement: Resident Care Provided Care Provided: Adult Hospital Medicine (1) Hypotension Hypotension type: other hypotension type Qualified Code(s): I95.89 - Other hypotension (2) Dislodged Reid catheter Encounter type: sequela Qualified Code(s): T83.021S - Displacement of indwelling urethral catheter, sequela
--- NOTE | 2023-12-16 12:53 | Hospitalist Progress Note ---
Date of Service December 16, 2023 Assessment & Plan (1) Hypotension: Plan: Had acute onset of hypotension with syncopal episode on the toilet on 12/15 with sinus tachycardia, lactic acidosis, presumed sepsis Responded somewhat to fluid bolus but was started on Levophed and transferred to ICU on 12/15 Sepsis workup to include CBC, CMP, lactate, procalcitonin, and repeat blood cultures, UA all obtained-with leukocytosis, significantly elevated lactate at 6.3, elevated procalcitonin, but normal UA Given previous likely prostatitis with E. coli septicemia, concern for recurrence of such or acute prostatitis, septic thrombophlebitis His D-dimer is significantly elevated-could have PE versus DVT-checking Dopplers of all 4 extremities and will consider CT angiogram of the chest-defer to orchid worker Troponin normal at 17, ECG without ischemic changes, no chest pains, doubt ACS Random cortisol appropriately elevated at 40 He has not been on any antihypertensives-Home losartan is on hold Olanzapine can cause some orthostasis but he has been on an atypical antipsychot ic off and on for quite some time now and not had this response so doubt this is the cause Giving empiric antibiotics with Zosyn and vancomycin while following cultures and watching for fevers Continue maintenance IV fluids, Levophed Follow all blood cultures Follow serial troponin Appreciate orchid worker consultation (2) Encephalopathy: Plan: Ongoing encephalopathy from alcohol withdrawal and hospital delirium, E. coli septicemia Had worsening when was started on Keppra for seizure activity-this has been stopped Worse also with Ativan and this is all been stopped Significantly improved on 12/14, conversational, oriented, not agitated, off the one-to-one sitter. Neurology thinks likely has some mild underlying alcoholic d ementia but this can be sorted out down the road after complete recovery Possibly with degree of Korsakoff's at this stage although no significant confabulation and he was given total 30,000 mg IV thiamine this admission, reduced to 200mg PO daily now Possible seizure activity on EEG 12/09 and initially treated with Keppra however now discontinued due to agitated delirium Started on FRANK risperidone 12/11 and switched to olanzapine 5 mg at bedtime on 12/14 Tolerating this well-this can be tapered off likely over the next couple of weeks On 12/23, mentation much worse and hallucinating again-perhaps due to hypotension and poor cerebral perfusion in the setting of shock Jose also requesting a Lyme titer-checked and is equivocal-Western blot pending but he was treated recently with a prolonged course of ceftriaxone for E. coli septicemia which would also treat Lyme disease (3) Alcohol withdrawal: Plan: Now resolved Alcohol withdrawal with hallucinations when he checked into alcohol rehabilitation and seizures in the ER Initial management with Precedex drip, phenobarbital, Ativan. Now off Precedex drip. Completed phenobarbital course Was transferred out of the ICU for alcohol withdrawal, but required to go back again 12/01 for septic shock, stable for transfer out of ICU 12/03, now back in the ICU on 12/19 shock He may at some point go back to either outpatient or inpatient alcohol rehab (4) Complicated UTI (urinary tract infection): Plan: Now resolved Patient removed his catheter traumatically on 12/01 and needed the catheter placed back by urology Associated with leukocytosis and fever, thus meeting sepsis criteria E. coli bacteremia - now resolved, 9 days of ceftriaxone given, finished 12/10 Reid catheter is now out Repeat UA on 12/15 as part of sepsis workup is normal (5) Sepsis: Plan: E. coli septicemia resolved, secondary to catheter-associated UTI, however now with shock again on 12/15-possibly septic shock as noted above (6) Alcoholic hepatitis: Plan: Now resolved, now with mild transaminitis only-LFTs continue to improve Encourage alcohol abstinence (7) Benign essential hypertension: Plan: Hypotensive while on losartan. Continue to hold anti-hypertensives Blood pressures are normal (8) Anxiety: Plan: Continue Prozac, now on olanzapine (9) Alcohol withdrawal seizure: Plan: Now resolved - treated in the ICU on admission Now off all antiseizure medicines (10) Wernicke-Korsakoff syndrome: Plan: As above Plan VTE Prophylaxis - Lovenox 40mg SQ daily Disposition -now in critical care again in the ICU. Eventually will need dis charge to rehab Discussed all care with his fiance at the bedside multiple times in 12/15 Admission and Anticipated Discharge Date Admission Date: November 23, 2023 Subjective Patient was seen on 3 occasions today. Initially in the morning, he was noted to be having chills and rigors and was more confused. He denied pain anywhere. He reported loose stools but his fiance at bedside said this is chronic for him. He denied any urinary problems. Denies chest pains or shortness of breath. He was seen a second time after the nurse reported that the patient had a presyncopal episode while sitting on the toilet after getting up from bed. His blood pressure dropped to the 60s systolic and he had sinus tachycardia in the 130s, 95% on room air and afebrile. I gave him a 1 L bolus of LR and ordered sepsis labs and contacted the orchid worker on-call for transfer to the ICU. His blood pressure did come up to the 80s systolic after 1 L and he was given another 1.5 L of LR to complete a 30 mL/kg fluid resuscitation. He was started on Levophed and transferred to the ICU. He was given empiric antibiotics broad-spectrum and a chest x-ray was obtained. I visited him the third time in the evening and his blood pressures were improved and he was weaning off Levophed. His fiance at the bedside reports that he continues to be very confused and at times hallucinating seeing things that are not really there. The patient did tell me in the evening that he was feeling "much better." Physical Exam Constitutional: WD/WN, vitals as above + ill appearing Eyes: PERRL, conjunctivae normal, anicteric sclerae Respiratory: normal respiratory effort, lungs clear to auscultation Cardiovascular: Rate/Rhythm: regular rhythm and + tachycardic Heart Sounds: no murmur Extremities: no edema Gastrointestinal (Abdomen): normal bowel sounds, soft, nontender, no hepatosplenomegaly Neurologic: PERRL, EOMI, accommodation nl, no face palsy, no dysarthria Speech / Cognition: + abnormal speech (Some dysarthria at times due to shaking chills and tremor) and + abnormal cognition Psychiatric: Orientation: alert, oriented to person, oriented to place and cooperative Hallucinations: + visual hallucinations Results & Data Results & Data Vital Signs (Past 12 Hours) Vital Signs Temp Pulse Resp BP Pulse Ox O2 Del Method 12/16/23 11:45 37.3 C 117 H 17 96/58 L 95 Room Air 12/16/23 08:03 36.9 C 74 18 125/86 97 Room Air 12/16/23 02:29 36.6 C 63 18 114/73 96 BiPAP Laboratory Results CBC, CMP, troponin, lactate x 2, blood cultures, magnesium, urinalysis, VBG, and D-dimer reviewed Diagnostic Findings Chest x-ray image personally reviewed by me ECG Additional Comments: ECG on 12/16/2023 1226 with sinus tachycardia, rate 120, left axis deviation PG Care Time/CCT Total # of Minutes Spent Total Time Spent with Patient: Total time spent is greater than 50% in coordination of care (as documented) at patient's floor/unit and/or counseling patient: Prolonged Care Time Prolonged Care Time: Yes Total Prolonged Care Time: 120 I spent 120 minutes in prolonged service of this patient Coding Level of Care Code 88800 SUB INP/OBS CARE 3/50MIN (25 - SIGNIFICANT, SEPARATELY IDENTIFIABLE ) Diagnoses Hypotension I95.9 Encephalopathy G93.40 Alcohol withdrawal F10.931 Complication of substance-induced condition: with delirium Complicated UTI (urinary tract infection) N39.0 Sepsis A41.9 Alcoholic hepatitis K70.10 Ascites presence: unspecified Benign essential hypertension I10 Anxiety F41.9 Alcohol withdrawal seizure F10.939; R56.9 Complication of substance-induced condition: with unspecified complication Wernicke-Korsakoff syndrome F04 Additional Codes Prolonged Care Time - Prolonged Care Time: Yes ([id number]) (3) Alcohol withdrawal Complication of substance-induced condition: with delirium Qualified Code(s): F10.931 - Alcohol use, unspecified with withdrawal delirium (6) Alcoholic hepatitis Ascites presence: unspecified Qualified Code(s): K70.10 - Alcoholic hepatitis without ascites (9) Alcohol withdrawal seizure Complication of substance-induced condition: with unspecified complication Qualified Code(s): F10.939 - Alcohol use, unspecified with withdrawal, unspecified; R56.9 - Unspecified convulsions
[2023-12-16 13:03] LABS: Mean Corpuscular Hemoglobin 31.8 pg (25.0-34.0); Mean Corpuscular Hgb Conc 32.6 g/dL (32.0-36.0); Mean Corpuscular Volume 97.7 fL (80.0-100.0); Mean Platelet Volume 11.9 fL (9.4-12.4); Platelet Count 208 K/uL (130-400); RDW Coefficient of Variation 13.5 % (11.5-14.5); RDW Standard Deviation 49.2 fL (36.4-46.3); White Blood Count 12.28 K/ul (4.8-10.8)
[2023-12-16 13:26] LABS: Albumin Globulin Ratio 1.1 (0.9-2); Albumin Level 3.2 gm/dl (3.4-5.0); BUN Creatinine Ratio 8.7 (10-20); Bilirubin,Total 1.2 mg/dl (0.2-1.0); Calcium 9.4 mg/dl (8.6-10.3); Est GFR (African American) 84.3 ml/min; Est GFR (Non-African American) 72.8 ml/min; Potassium 4.1 mmol/L (3.5-5.1); Total Protein 6.2 gm/dl (6.0-8.3)
[2023-12-16] MEDS: NOREPINEPHRINE/D5W 4 MG/250 ML PLCT IV SCH (13:26)
[2023-12-16 13:30] LABS: Troponin I High Sensitivity 17.2 pg/ml (0-20)
[2023-12-16 13:36] LABS: Basophils # (auto) 0.08 K/uL (0.00-0.20); Basophils % (auto) 0.7 %; Eosinophils # (auto) 0.01 K/uL (0.00-0.50); Eosinophils % (auto) 0.1 %; Immature Granulocytes % (auto) 0.8 %; Lymphocytes # (auto) 0.25 K/uL (1.20-3.40); Monocytes # (auto) 0.02 K/uL (0.11-0.59); Monocytes % (auto) 0.2 %; Neutrophils # (auto) 11.82 K/uL (1.40-6.50); Neutrophils % (auto) 96.2 %; Polychromasia 1+; Toxic Vacuolation 2+
[2023-12-16] MEDS ORDERED: VANCOMYCIN CONSULT ACTIVE PRN (13:50)
--- NOTE | 2023-12-16 14:22 | XRay Report ---
XR chest 1V portable CLINICAL HISTORY: sepsis TECHNIQUE: Single frontal radiograph of the chest was obtained. Comparison: Comparison is made to chest radiograph 12/13/2023 FINDINGS: No lines and tubes are seen. Cardiomegaly is noted. Lungs are underinflated but clear. No evidence of pleural effusion or pneumothorax. IMPRESSION: No acute abnormalities and in particular no radiographic evidence of pneumonia. ACT 112: Negative or not required by law. Electronically signed by: Trevin Fofana M.D. 12/16/2023 2:21 PM
[2023-12-16] MEDS: VANCOMYCIN HCL 1,750 MG in SODIUM CHLORIDE 0.9% 500 ML IV STA (15:07)
[2023-12-16] MEDS: PIPERACILLIN/TAZOBACTAM 4.5 GM in DEXTROSE 5% MINI-B 100 ML IV ONE (15:08)
--- NOTE | 2023-12-16 15:16 | Pharmacy Report ---
Pharmacy PK ABX Note - Date of Service December 16, 2023 - Assessment and Plan Assessment 52 year old M who was admitted on 11/23/23 for alcohol withdrawal and found to have E. coli bacteremia which was treated with 9 days of IV Rocephin. * Patient's white count remains mildly elevated and lactate was 6.3 this AM. Procal was 3.56. Afebrile however. SCr almost doubled this morning. Repeat blood cultures pending. * Day #1 of empiric Vancomycin and Zosyn Plan Vancomycin * Loading dose: 1750 mg IV x 1 * Maintenance dose: 1000 mg IV every 12 hours * Regimen is predicted to achieve target AUC/SEEMA of 400-600 mg/L.hr * No level will be ordered unless therapy extends beyond 48 hours Zosyn * 4.5 g IV every 8 hours Pharmacy will continue to follow and will adjust dose/frequency as necessary. Thank you. Pharmacy has transitioned to AUC monitoring for vancomycin. AUC/SEEMA is the preferred PK/PD target and is associated with decreased risk of nephrotoxicity compared to traditional trough targets.
[2023-12-16 15:22] LABS: Base Excess VBG -1.1 mEq/L; HCO3 VBG 22 mmol/L; Oxygen Saturation VBG 83.2 %; PCO2 VBG 33 mmHg (38-50); PO2 VBG 48 mmHg; pH VBG 7.44 (7.36-7.41)
[2023-12-16 15:44] LABS: Appearance Urine Clear (Clear); Bilirubin Urine Negative (Negative); Blood Urine Negative (Negative); Color Urine Yellow; Glucose Urine UA Negative (Negative); Ketones Urine Negative (Negative); Leukocyte Esterase Urine Negative (Negative); Nitrite Urine Negative (Negative); Protein Urine Negative (Negative); Specific Gravity Urine 1.005 (1.000-1.030); Urobilinogen Urine Negative (Negative); pH Urine 6.5 (4.5-7.5)
[2023-12-16 15:57] LABS: Lipase 79 U/L (11-82); Magnesium 1.3 mg/dl (1.7-2.4); Phosphorus < 1.0 mg/dl (2.5-4.9)
[2023-12-16] MEDS ORDERED: POTASSIUM PHOS 3 MMOL/1 ML INFUSION IV STA (16:02)
[2023-12-16 16:06] LABS: Fibrinogen 256 mg/dl (184-400); INR 1.2 (0.9-1.1); Partial Thromboplastin Ratio 1.3; Partial Thromboplastin Time 34 Seconds (21-31); Prothrombin Time 13.3 Seconds (9.0-12.0)
[2023-12-16] MEDS: LACTATED RINGER'S 500 ML IV ONE (16:07)
[2023-12-16] MEDS: MAGNESIUM SULFATE / D5W 1 GM/100 ML BAG IV ONE (16:15)
[2023-12-16] MEDS: POTASSIUM PHOSPHATE 15 MMOL in SODIUM CHLORIDE 0.9% 250 ML IV ONE (16:31)
[2023-12-16] MEDS: POT PHOSPHATE MONOBASIC W/ SOD TAB PO SCH (16:32)
[2023-12-16] MEDS: PLASMA-LYTE A 1,000 ML IV ONE (17:10)
[2023-12-16 19:33] LABS: Lyme Screen Rflx Confirmation Equivocal (Negative)
[2023-12-16 20:07] LABS: Lyme Ab IgG 2nd Tier Confirm Negative (Negative); Lyme Ab IgM 2nd Tier Confirm Negative (Negative)
[2023-12-16] MEDS: MAGNESIUM OXIDE 400 MG TAB PO SCH (20:17)
[2023-12-16] MEDS: PIPERACILLIN/TAZOBACTAM 4.5 GM in DEXTROSE 5% MINI-B 100 ML IV SCH (20:24)
--- NOTE | 2023-12-16 23:30 | Ultrasound Report ---
ULTRASOUND BILATERAL LOWER EXTREMITY VENOUS CLINICAL HISTORY: Sepsis. COMPARISON STUDY: No priors. TECHNIQUE: Real-time, grayscale, and color Doppler sonography of the deep veins of the right and left lower extremity was performed from the inguinal crease to the calf. Compression and augmentation wer e utilized. FINDINGS: There is no sonographic evidence of deep venous thrombosis identified in the right or left lower extremity. The common femoral, superficial femoral, and popliteal veins are patent and normally compressible bilaterally. The greater saphenous vein and the profunda femoris vein at the junction w ith the common femoral vein are clear in both legs. The visualized calf veins are patent bilaterally. IMPRESSION: There is no sonographic evidence of deep venous thrombosis identified in the right or lef t lower extremity. ACT 112: Negative or not required by law. Electronically signed by: Brian Perez M.D. 12/16/2023 11:28 PM
--- NOTE | 2023-12-16 23:35 | Ultrasound Report ---
ULTRASOUND BILATERAL UPPER EXTREMITY VENOUS CLINICAL HISTORY: Sepsis. COMPARISON STUDY: No priors. TECHNIQUE: Real-time, grayscale, and color Doppler sonography of the deep veins of the right and left upper extremity is performed. Compression and augmentation were utilized. FINDINGS: There is no sonographic evidence of deep venous thrombosis identified in the right or left upper extremity. The internal jugular, axillary, and brachial veins are patent and normally compressi ble bilateral. Normal venous waveforms and augmentation are seen within both subclavian veins. Right cephalic vein and both basilic veins are clear. There is occlusive superficial venous thrombosis of t he cephalic vein and extends from the mid upper extremity through the forearm. This measures greater than 5 cm in craniocaudal extension. The visualized radial and ulnar veins are patent. IMPRESSION: 1. There is no sonographic evidence of deep venous thrombosis identified in the left upper extremity. 2. Occlusive superficial venous thrombosis in the left cephalic vein as detailed above. ACT 112: Negative or not required by law. Electronically signed by: Brian Perez M.D. 12/16/2023 11:33 PM
--- NOTE | 2023-12-16 23:42 | Ultrasound Report ---
ULTRASOUND KIDNEYS AND BLADDER CLINICAL HISTORY: Renal infection. Clinical concern for abscess. COMPARISON STUDY: Abdominal ultrasound dated 11/24/2023. TECHNIQUE: Real-time, grayscale, and color flow sonography of the kidneys and bladder is performed. I mages are reviewed in the transverse and longitudinal planes. FINDINGS: Kidneys: The kidneys are normal in size and echotexture. The right kidney measures 13.2 cm in length and the left kidney measures 13.0 cm in length. There is no hydronephrosis. No shadowing renal calcu li are identified. There is no sonographic evidence of contour deforming renal mass lesion. There is no sonographic evidence of renal fluid collection/abscess. No perinephric fluid is identified. Bladder: The bladder is normal in appearance. Bilateral ureteral jets were seen. Upper abdomen: The liver is cirrhotic in morphology. There is trace perihepatic ascites. IMPRESSION: 1. The kidneys are normal in size and without hydronephrosis. 2. The bladder is normal as imaged. 3. Cirrhotic liver morphology and trace perihepatic ascites. ACT 112: Negative or not required by law. Electronically signed by: Brian Perez M.D. 12/16/2023 11:41 PM
[2023-12-17] MEDS: VANCOMYCIN HCL 1,000 MG in SODIUM CHLORIDE 0.9% 250 ML IV SCH ×2 (04:09→12:37)
[2023-12-17 04:16] LABS: Appearance Urine Clear (Clear); Bilirubin Urine Negative (Negative); Blood Urine Negative (Negative); Color Urine Yellow; Glucose Urine UA Negative (Negative); Ketones Urine Negative (Negative); Leukocyte Esterase Urine Negative (Negative); Nitrite Urine Negative (Negative); Protein Urine Negative (Negative); Specific Gravity Urine 1.011 (1.000-1.030); Urobilinogen Urine Positive (Negative)
[2023-12-17 04:25] LABS: Albumin Level 2.7 gm/dl (3.4-5.0); BUN Creatinine Ratio 11.3 (10-20); Bilirubin Direct 0.4 mg/dl (0-0.2); Bilirubin,Total 1.1 mg/dl (0.2-1.0); Calcium 8.1 mg/dl (8.6-10.3); Creatinine Clr Calc Pharmacy 129.6 ml/min; Est GFR (Non-African American) 107.9 ml/min; Magnesium 1.7 mg/dl (1.7-2.4); Phosphorus 3.4 mg/dl (2.5-4.9); Potassium 3.3 mmol/L (3.5-5.1); Total Protein 4.9 gm/dl (6.0-8.3)
[2023-12-17 04:40] LABS: Basophils # (auto) 0.15 K/uL (0.00-0.20); Basophils % (auto) 1.2 %; Eosinophils # (auto) 0.12 K/uL (0.00-0.50); Hematocrit (blood only) 32.5 % (42.0-52.0); Hemoglobin 10.9 g/dl (14.0-18.0); Immature Granulocytes # (auto) 0.07 K/uL (0.01-0.20); Immature Granulocytes % (auto) 0.6 %; Lymphocytes # (auto) 1.25 K/uL (1.20-3.40); Lymphocytes % (auto) 10.1 %; Mean Corpuscular Hemoglobin 32.2 pg (25.0-34.0); Mean Corpuscular Hgb Conc 33.5 g/dL (32.0-36.0); Mean Corpuscular Volume 95.9 fL (80.0-100.0); Mean Platelet Volume 11.9 fL (9.4-12.4); Monocytes # (auto) 0.91 K/uL (0.11-0.59); Monocytes % (auto) 7.4 %; Neutrophils # (auto) 9.83 K/uL (1.40-6.50); Neutrophils % (auto) 79.7 %; Platelet Count 165 K/uL (130-400); RDW Coefficient of Variation 13.6 % (11.5-14.5); RDW Standard Deviation 48.3 fL (36.4-46.3); Red Blood Count 3.39 M/uL (4.70-6.10); White Blood Count 12.33 K/ul (4.8-10.8)
[2023-12-17] MEDS: POTASSIUM CHLORIDE CRTAB 20 MEQ TABCR PO STA (05:06)
--- NOTE | 2023-12-17 06:36 | Critical Care Progress Note ---
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 Mood disorder -Prozac 20 mg daily -Zyprexa 5 mg nightly Cardiac Off Levophed -Consider resumption of losartan Respiratory No prior history of respiratory disease No oxygen requirement Gastrointestinal Diet: Regular Alcoholic hepatitis versus cirrhosis Renal/electrolytes Mild hypokalemia Lactic acid acidosis resolved Hypomagnesemia: Improved -Nightly 400 mg Mag-Ox Hypophosphatemia: Improved -2 additional doses of Neutra-Phos today Genitourinary Traumatic Reid removal early on this admission: Spontaneously voiding -Reviewed retroperitoneal ultrasound -UA largely unremarkable -Attempting to clarify how urine culture was obtained whether this was spontaneously voided specimen are obtained from condom catheter Endocrine BSG stable Continue ISS per protocol Hematologic thrombocytopenia - resolved Anemia -Rechecking H&H: No gastrointestinal bleeding, BUN not elevated Infectious disease E coli bacteremia / Catheter- associated UTI - early on this admission - completed 9 days of Ceftriaxone Severe sepsis - Blood culture repeated on 12/13: no growth to date - Zosyn and Vanco empirically for 48 hrs - Superficial thrombophlebitis of left cephalic vein -Awaiting blood cultures, no DVT, no evidence of purulent phlebitis Lines/access PIVs intact -Venous duplex 12/15: No DVT upper or lower extremity: Left cephalic superficial phlebitis Prophylaxis DVT ppx: Lovenox 40 Admission and Anticipated Discharge Date Admission Date: November 23, 2023 Subjective Feels better than yesterday. No overnight events Physical Exam Physical Exam: General: Alert. nontoxic. Skin: Warm, dry, Head: Atraumatic Ears, nose, mouth and throat: airway patent Cardiovascular: Normal peripheral perfusion Respiratory: no respiratory distress Gastrointestinal: Non distended Musculoskeletal: No deformity Results & Data Results & Data Vital Signs (Past 12 Hours) Vital Signs Temp Pulse Resp BP Pulse Ox Pulse Ox O2 Del Method 12/17/23 06:12 37.1 C 12/17/23 06:03 85 21 144/79 H 93 12/17/23 05:06 82 22 140/86 94 12/17/23 04:39 84 26 H 92 12/17/23 04:31 129/75 12/17/23 04:21 93 H 9 L 92 12/17/23 04:00 115/57 L 12/17/23 04:00 81 22 115/57 L 90 12/17/23 03:12 84 15 91/67 L 94 12/17/23 02:12 83 19 92 12/17/23 02:00 121/63 12/17/23 01:33 88 22 94 12/17/23 01:30 127/74 12/17/23 00:06 77 23 95/55 L 93 12/17/23 00:00 36.8 C 12/17/23 00:00 82 12/16/23 23:30 89/47 L 12/16/23 23:30 83 24 93 12/16/23 22:33 81 22 94 12/16/23 22:30 90/52 L 12/16/23 22:15 86 22 96 12/16/23 22:00 95 12/16/23 21:33 79 27 H 95 12/16/23 21:30 130/73 12/16/23 20:00 87 24 118/72 95 12/16/23 19:33 101 H 22 94 12/16/23 19:31 121/70 12/16/23 19:24 37.1 C 12/16/23 19:15 Nasal Cannula 12/16/23 19:06 95 H 21 93 12/16/23 19:00 102/60 O2 Del Method O2 Flow Rate FiO2 12/17/23 06:12 12/17/23 06:03 12/17/23 05:06 12/17/23 04:39 12/17/23 04:31 12/17/23 04:21 12/17/23 04:00 12/17/23 04:00 12/17/23 03:12 12/17/23 02:12 12/17/23 02:00 12/17/23 01:33 12/17/23 01:30 12/17/23 00:06 12/17/23 00:00 12/17/23 00:00 12/16/23 23:30 12/16/23 23:30 06/20/24 22:33 12/16/23 22:30 12/16/23 22:15 21 12/16/23 22:00 CPAP 12/16/23 21:33 12/16/23 21:30 12/16/23 20:00 12/16/23 19:33 12/16/23 19:31 12/16/23 19:24 12/16/23 19:15 1 12/16/23 19:06 12/16/23 19:00 Critical Care Results & Data Vital Signs (Past 12 Hours) Vital Signs Temp Pulse Pulse Resp BP BP Pulse Ox 12/17/23 10:36 178/98 H 12/17/23 10:36 104 H 15 91 12/17/23 10:30 180/96 H 12/17/23 10:18 94 H 17 94 12/17/23 09:30 83 25 H 94 12/17/23 09:15 89 20 93 12/17/23 08:33 96 H 18 95 12/17/23 08:31 142/87 H 12/17/23 08:30 99 H 24 93 12/17/23 08:06 91 H 22 92 12/17/23 08:00 115/71 12/17/23 08:00 85 12/17/23 08:00 12/17/23 07:39 83 21 94 12/17/23 07:30 131/89 12/17/23 07:30 96 H 22 93 12/17/23 07:03 80 20 93 12/17/23 07:00 36.8 C 82 16 137/77 93 12/17/23 06:48 82 18 93 12/17/23 06:12 37.1 C 12/17/23 06:03 85 21 144/79 H 93 12/17/23 05:06 82 22 140/86 94 12/17/23 04:39 84 26 H 92 12/17/23 04:31 129/75 12/17/23 04:21 93 H 9 L 92 12/17/23 04:00 115/57 L 12/17/23 04:00 81 22 115/57 L 90 12/17/23 03:12 84 15 91/67 L 94 12/17/23 02:12 83 19 92 12/17/23 02:00 121/63 12/17/23 01:33 88 22 94 12/17/23 01:30 127/74 12/17/23 00:06 77 23 95/55 L 93 12/17/23 00:00 36.8 C 12/17/23 00:00 82 12/16/23 23:30 89/47 L 12/16/23 23:30 83 24 93 O2 Del Method 12/17/23 10:36 12/17/23 10:36 12/17/23 10:30 12/17/23 10:18 12/17/23 09:30 12/17/23 09:15 12/17/23 08:33 12/17/23 08:31 12/17/23 08:30 12/17/23 08:06 12/17/23 08:00 12/17/23 08:00 12/17/23 08:00 Room Air 12/17/23 07:39 12/17/23 07:30 12/17/23 07:30 12/17/23 07:03 12/17/23 07:00 Room Air 12/17/23 06:48 12/17/23 06:12 12/17/23 06:03 12/17/23 05:06 12/17/23 04:39 12/17/23 04:31 12/17/23 04:21 12/17/23 04:00 12/17/23 04:00 12/17/23 03:12 12/17/23 02:12 12/17/23 02:00 12/17/23 01:33 12/17/23 01:30 12/17/23 00:06 12/17/23 00:00 12/17/23 00:00 12/16/23 23:30 12/16/23 23:30 Lab & Micro Results (Past 24 Hours) RBC 3.39 M/uL (4.70-6.10) L 12/17/23 WBC 12.33 K/ul (4.8-10.8) H 12/17/23 Hgb 11.7 g/dl (14.0-18.0) L 12/17/23 Hct 34.7 % (42.0-52.0) L 12/17/23 MCV 95.9 fL (80.0-100.0) 12/17/23 MCH 32.2 pg (25.0-34.0) 12/17/23 MCHC 33.5 g/dL (32.0-36.0) 12/17/23 RDW Standard Deviation 48.3 fL (36.4-46.3) H 12/17/23 RDW Coefficient of Variation 13.6 % (11.5-14.5) 12/17/23 Plt Count 165 K/uL (130-400) 12/17/23 MPV 11.9 fL (9.4-12.4) 12/17/23 Neutrophils (%) (Auto) 79.7 % 12/17/23 Lymphocytes (%) (Auto) 10.1 % 12/17/23 Monocytes # (Auto) 0.91 K/uL (0.11-0.59) H 12/17/23 Eosinophils # (Auto) 0.12 K/uL (0.00-0.50) 12/17/23 Immature Granulocyte % (Auto) 0.6 % 12/17/23 Neutrophils # (Auto) 9.83 K/uL (1.40-6.50) H 12/17/23 Lymphocytes # (Auto) 1.25 K/uL (1.20-3.40) 12/17/23 Monocytes # (Auto) 0.91 K/uL (0.11-0.59) H 12/17/23 Eosinophils # (Auto) 0.12 K/uL (0.00-0.50) 12/17/23 Basophils # (Auto) 0.15 K/uL (0.00-0.20) 12/17/23 Immature Granulocyte # (Auto) 0.07 K/uL (0.01-0.20) 4 Polychromasia 1+ 12/16/23 Toxic Vacuolation 2+ 12/16/23 Na 141 mmol/L (136-145) 12/17/23 K 3.3 mmol/L (3.5-5.1) L 12/17/23 Cl 110 mmol/L (98-107) H 12/17/23 CO2 26 mmol/L (21-32) 12/17/23 Anion Gap 5 (3-11) 12/17/23 BUN 8 mg/dl (6-23) 12/17/23 Creatinine 0.71 mg/dl (0.6-1.4) 12/17/23 Estimated GFR ( Amer) 125.0 ml/min 12/17/23 Estimated GFR (Non-Af Amer) 107.9 ml/min 12/17/23 BUN/Creatinine Ratio 11.3 (10-20) 12/17/23 Glu 102 mg/dl (70-99(Fasting)) H 12/17/23 Ca 8.1 mg/dl (8.6-10.3) L 12/17/23 Phosphorus Level 3.4 mg/dl (2.5-4.9) 12/17/23 Total Bilirubin 1.1 mg/dl (0.2-1.0) H 12/17/23 Direct Bilirubin 0.4 mg/dl (0-0.2) H 12/17/23 AST 91 U/L (13-39) H 12/17/23 ALT 30 U/L (7-52) 12/17/23 Alkaline Phosphatase 111 U/L (34-104) H 12/17/23 TP 4.9 gm/dl (6.0-8.3) L 12/17/23 Albumin 2.7 gm/dl (3.4-5.0) L 12/17/23 Globulin 3.0 gm/dl (2.5-4.0) 12/16/23 Albumin/Globulin Ratio 1.1 (0.9-2) 12/16/23 Mg 1.7 mg/dl (1.7-2.4) 12/17/23 03:55 Calcium Level 8.1 mg/dl (8.6-10.3) L 12/17/23 03:55 Ionized Calcium 1.13 mmol/L (1.12-1.32) 12/17/23 03:55 Prothromb Time International Ratio 1.2 (0.9-1.1) H 12/16/23 15 :05 Venous Blood pH 7.44 (7.36-7.41) H 12/16/23 15:05 Venous Blood Partial Pressure CO2 33 mmHg (38-50) L 12/16/23 15 :05 Venous Blood Partial Pressure O2 48 mmHg 12/16/23 15:05 Venous Blood HCO3 22 mmol/L 12/16/23 15:05 Venous Blood Base Excess -1.1 mEq/L 12/16/23 15:05 Venous Blood Oxygen Saturation 83.2 % 12/16/23 15:05 Diagnostic Findings (Past 24 Hours) Chest X-Ray 12/16/23 13:52 XR chest 1V portable CLINICAL HISTORY: sepsis TECHNIQUE: Single frontal radiograph of the chest was obtained. Comparison: Comparison is made to chest radiograph 12/13/2023 FINDINGS: No lines and tubes are seen. Cardiomegaly is noted. Lungs are underinflated but clear. No evidence of pleural effusion or pneumothorax. IMPRESSION: No acute abnormalities and in particular no radiographic evidence of pneumonia. ACT 112: Negative or not required by law. Electronically signed by: Trevin Fofana M.D. 12/16/2023 2:21 PM Venous Doppler Study 12/16/23 15:32 ULTRASOUND BILATERAL UPPER EXTREMITY VENOUS CLINICAL HISTORY: Sepsis. COMPARISON STUDY: No priors. TECHNIQUE: Real-time, grayscale, and color Doppler sonography of the deep veins of the right and left upper extremity is performed. Compression and augmentation were utilized. FINDINGS: There is no sonographic evidence of deep venous thrombosis identified in the right or left upper extremity. The internal jugular, axillary, and brachial veins are patent and normally compressible bilateral. Normal venous waveforms and augmentation are seen within both subclavian veins. Right cephalic vein and both basilic veins are clear. There is occlusive superficial venous thrombosis of the cephalic vein and extends from the mid upper extremity through the forearm. This measures greater than 5 cm in craniocaudal extension. The visualized radial and ulnar veins are patent. IMPRESSION: 1. There is no sonographic evidence of deep venous thrombosis identified in the left upper extremity. 2. Occlusive superficial venous thrombosis in the left cephalic vein as detailed above. ACT 112: Negative or not required by law. Electronically signed by: Brian Perez M.D. 12/16/2023 11:33 PM Venous Doppler Study 12/16/23 15:32 ULTRASOUND BILATERAL LOWER EXTREMITY VENOUS CLINICAL HISTORY: Sepsis. COMPARISON STUDY: No priors. TECHNIQUE: Real-time, grayscale, and color Doppler sonography of the deep veins of the right and left lower extremity was performed from the inguinal crease to the calf. Compression and augmentation were utilized. FINDINGS: There is no sonographic evidence of deep venous thrombosis identified in the right or left lower extremity. The common femoral, superficial femoral, and popliteal veins are patent and normally compressible bilaterally. The greater saphenous vein and the profunda femoris vein at the junction with the common femoral vein are clear in both legs. The visualized calf veins are patent bilaterally. IMPRESSION: There is no sonographic evidence of deep venous thrombosis identified in the right or left lower extremity. ACT 112: Negative or not required by law. Electronically signed by: Brian Perez M.D. 12/16/2023 11:28 PM Renal Ultrasound 12/16/23 15:34 ULTRASOUND KIDNEYS AND BLADDER CLINICAL HISTORY: Renal infection. Clinical concern for abscess. COMPARISON STUDY: Abdominal ultrasound dated 11/24/2023. TECHNIQUE: Real-time, grayscale, and color flow sonography of the kidneys and bladder is performed. Images are reviewed in the transverse and longitudinal planes. FINDINGS: Kidneys: The kidneys are normal in size and echotexture. The right kidney measures 13.2 cm in length and the left kidney measures 13.0 cm in length. There is no hydronephrosis. No shadowing renal calculi are identified. There is no sonographic evidence of contour deforming renal mass lesion. There is no sonographic evidence of renal fluid collection/abscess. No perinephric fluid is identified. Bladder: The bladder is normal in appearance. Bilateral ureteral jets were seen. Upper abdomen: The liver is cirrhotic in morphology. There is trace perihepatic ascites. IMPRESSION: 1. The kidneys are normal in size and without hydronephrosis. 2. The bladder is normal as imaged. 3. Cirrhotic liver morphology and trace perihepatic ascites. ACT 112: Negative or not required by law. Electronically signed by: Brian Perez M.D. 12/16/2023 11:41 PM I & O Totals 24 Hours 12/16/23 12/17/23 12/18/23 06:59 06:59 06:59 Intake Total 1640.833 / 4657.105 6512.312 / 5908.312 350 / 350 Output Total 1852 / 1852 2725 / 2725 701 / 701 Balance -211.167 / -010.508 9954.312 / 3183.312 -351 / -351 Cumulative 11/23/23 13:39 thru 12/17/23 10:00 Intake Total 91819.485 Output Total 03051 Balance 4505.485 RT Ventilator Mngmt (Last Documented) Ventilator Ordered Settings Respiratory Rate 15 06/21/24 10:36 Fraction of Inspired Oxygen 12/16/23 22:15 Ventilator - PT Measurements Respiratory Rate 15 End-Tidal CO2 32 Coding Level of Care Code 35069 SUB INP/OBS CARE 3/50MIN Diagnoses Other specified hypotension I95.89 Hypotension type: other hypotension type Displacement of Reid catheter, sequela T83.021S Encounter type: sequela Severe sepsis A41.9; R65.20 Acute cephalic vein embolism I82.619 (1) Hypotension Hypotension type: other hypotension type Qualified Code(s): I95.89 - Other hypotension (2) Dislodged Reid catheter Encounter type: sequela Qualified Code(s): T83.021S - Displacement of indwelling urethral catheter, sequela
[2023-12-17 07:57] LABS: Hematocrit (blood only) 34.7 % (42.0-52.0); Hemoglobin 11.7 g/dl (14.0-18.0)
--- NOTE | 2023-12-17 10:47 | Neurology Progress Note ---
Date of Service December 17, 2023 Assessment & Plan (1) Alcohol withdrawal delirium: (2) Alcohol withdrawal seizure: (3) Developmental venous anomaly of cerebrum: (4) Cerebral atrophy: (5) Ataxic gait: (6) Polyneuropathy: Plan This patient has a history of excessive alcohol use with an admission for acute alcohol withdrawal symptoms including encephalopathy and seizure activity. I do not believe the patient is having any more seizure activity and is improving with his mental status and physical function compared to previous. Currently, on examination, he has an ataxic gait with dysmetria, with mild ataxia and action tremor, left greater than right side. He has mild b radykinesia in general, but has good strength and reflexes. His balance is also poor because of an early sensory polyneuropathy, involving large and small caliber sensory fibers. However, the gait is mostly cerebellar in origin. History suggest that the patient's memory and functioning has not been good for several months prior to admission (but was quite good 6 months prior to admission). The patient may have an underlying dementia of a mild nature but currently has an encephalopathy which is improving. 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 Distinguishing the two can be difficult, particularly in the short-term. 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 He is no longer withdrawing. The patient has bradykinesia without resting tremor, rigidity, or a typical Parkinson's gait. I do not believe the patient is having extrapyramidal side effects from the low-dose antipsychotic, which was only recently started. Patient has some dysarthria but no obvious aphasia. Liver function is improving as well. Patient has an incidental developmental venous anomaly within the right frontal lobe. The very mild cerebral/cerebellar atrophy is likely associated with chronic alcohol use disorder. TODAY: Overall, he is less bradykinetic and a little more alert with less tremor and ataxia. I am still concerned Recommendations: 1. Continue off anticonvulsant. May consider oxcarbazepine or lamotrigine, in future, if he needs an anticonvulsant or mood stabilizer. I would avoid valproic acid as this could cause hepatic side effects and increased tremor. 2. Continue off benzodiazepines 3. Continue thiamine and multivitamins 4.. I am not sure the patient needs olanzapine long-term. Consider discontinuing this. 5. Continue fluoxetine 20mg for now. 6. This patient would benefit from physical therapy for gait training, Occupational Therapy for hand/limb use, and speech therapy for his dysarthria. He would also benefit from a rehab hospital stay to get his ambulation improved before going home. He would benefit from an alcohol rehabilitation Hospital stay after he is physically stable. 7. There is no need to do any further neurologic testing 8. The patient apparently has a PCP in [place], [place] Elieser Hatch MD - he should follow-up 9. Since he lives so far away, he could get follow-up with local neurology closer to where he lives. Overall, I spent a total of 35 minutes with this case including review of records, direct evaluation of the patient, report generation, and discussion of the case with the patient and RN at bedside and Dr. Chavira, including differential diagnosis and treatment options. Admission and Anticipated Discharge Date Admission Date: November 23, 2023 Subjective This morning, the patient has no complaint of pain, headache, or dizziness. He has no vision issues and his strength is normal in his limbs. He has no numbness. He has no hallucinations. Apparently he had an episode of hypotension while up yesterday. He ended up coming to the ICU to get some pressors and these have been discontinued. It was felt that he may have had an infection or was septic based on lab parameters and he has been receiving antibiotics. Blood pressure is currently 142/87 with pulse in the 90s. He is afebrile today. Results & Data Vital Signs (Past 12 Hours) Vital Signs Temp Pulse Pulse Resp BP BP Pulse Ox 12/17/23 08:31 142/87 H 12/17/23 08:30 99 H 24 93 12/17/23 08:06 91 H 22 92 12/17/23 08:00 115/71 12/17/23 08:00 85 12/17/23 08:00 12/17/23 07:39 83 21 94 12/17/23 07:30 131/89 12/17/23 07:30 96 H 22 93 12/17/23 07:03 80 20 93 12/17/23 07:00 36.8 C 82 16 137/77 93 12/17/23 06:48 82 18 93 12/17/23 06:12 37.1 C 12/17/23 06:03 85 21 144/79 H 93 12/17/23 05:06 82 22 140/86 94 12/17/23 04:39 84 26 H 92 12/17/23 04:31 129/75 12/17/23 04:21 93 H 9 L 92 12/17/23 04:00 115/57 L 12/17/23 04:00 81 22 115/57 L 90 12/17/23 03:12 84 15 91/67 L 94 12/17/23 02:12 83 19 92 12/17/23 02:00 121/63 12/17/23 01:33 88 22 94 12/17/23 01:30 127/74 12/17/23 00:06 77 23 95/55 L 93 12/17/23 00:00 36.8 C 12/17/23 00:00 82 12/16/23 23:30 89/47 L 12/16/23 23:30 83 24 93 O2 Del Method 12/17/23 08:31 12/17/23 08:30 12/17/23 08:06 12/17/23 08:00 12/17/23 08:00 12/17/23 08:00 Room Air 12/17/23 07:39 12/17/23 07:30 12/17/23 07:30 12/17/23 07:03 12/17/23 07:00 Room Air 12/17/23 06:48 12/17/23 06:12 12/17/23 06:03 12/17/23 05:06 12/17/23 04:39 12/17/23 04:31 12/17/23 04:21 12/17/23 04:00 12/17/23 04:00 12/17/23 03:12 12/17/23 02:12 12/17/23 02:00 12/17/23 01:33 12/17/23 01:30 12/17/23 00:06 12/17/23 00:00 12/17/23 00:00 12/16/23 23:30 12/16/23 23:30 Exam (Neuro) Physical Exam: He is awake and alert. Speech is without aphasia or dysarthria. Mood and affect seem reasonable. Although his affect was clearly flat earlier this week it seems less so today. He has reasonable memory for events of yesterday and today. Extraocular muscles are intact without nystagmus. There is no facial droop. Tongue is midline. Finger-nose testing reveals left greater than right ataxia and tremor. [id number] testing reveals left greater than right ataxia. Gait was not tested today. Strength is 5/5 diffusely in all major muscle groups both proximally and distally. PG Care Time/CCT Total # of Minutes Spent Total Time Spent with Patient: Total time spent is greater than 50% in coordination of care (as documented) at patient's floor/unit and/or counseling patient: Coding Level of Care Code 85851 SUB INP/OBS CARE 2/35MIN Diagnoses Alcohol withdrawal delirium F10.931 Alcohol withdrawal seizure F10.939; R56.9 Complication of substance-induced condition: with unspecified complication Developmental venous anomaly of cerebrum Q28.3 Cerebral atrophy G31.9 Ataxic gait R26.0 Polyneuropathy G62.9 Time Spent (min) 35 (2) Alcohol withdrawal seizure Complication of substance-induced condition: with unspecified complication Qualified Code(s): F10.939 - Alcohol use, unspecified with withdrawal, unspecified; R56.9 - Unspecified convulsions
--- NOTE | 2023-12-17 10:51 | Electrocardiogram Report ---
Test Reason : Blood Pressure : / mmHG Vent. Rate : 120 BPM Atrial Rate : 120 BPM P-R Int : 146 ms QRS Dur : 084 ms QT Int : 334 ms P-R-T Axes : -12 -43 027 degrees QTc Int : 472 ms Poor data quality, interpretation may be adversely affected Sinus tachycardia Left axis deviation Abnormal ECG When compared with ECG of 02-DEC-2023 00:42, Nonspecific T wave abnormality no longer evident in Lateral leads Confirmed by Pro Martinez ([id number]) on 12/17/2023 10:51:00 AM Referred By: REFERRED SELF Confirmed By:Pro Martinez
--- NOTE | 2023-12-17 11:58 | Pharmacy Report ---
Pharmacy PK ABX Note - Date of Service December 17, 2023 - Assessment and Plan Assessment 12/16: * Day #2 of empiric vanc and zosyn. Renal fxn improved dramatically (1.15 --> 0.71). This necessitates an empiric increase in vancomycin dose. 12/15: * 52 year old M who was admitted on 11/23/23 for alcohol withdrawal and found to have E. coli bacteremia which was treated with 9 days of IV Rocephin. * Patient's white count remains mildly elevated and lactate was 6.3 this AM. Procal was 3.56. Afebrile however. SCr almost doubled this morning. Repeat blood cultures pending. * Day #1 of empiric Vancomycin and Zosyn Plan Vancomycin * Empirically increase maintenance dose to 1000 mg IV every 8 hours * Regimen is predicted to achieve target AUC/SEEMA of 400-600 mg/L.hr * Level ordered for 12/18/23 prior to noon dose Zosyn * 4.5 g IV every 8 hours Pharmacy will continue to follow and will adjust dose/frequency as necessary. Thank you. Pharmacy has transitioned to AUC monitoring for vancomycin. AUC/SEEMA is the preferred PK/PD target and is associated with decreased risk of nephrotoxicity compared to traditional trough targets.
--- NOTE | 2023-12-17 12:44 | Hospitalist Progress Note ---
Date of Service December 17, 2023 Assessment & Plan (1) Hypotension: Plan: Had acute onset of hypotension with syncopal episode on the toilet on 12/15 with sinus tachycardia, lactic acidosis, presumed sepsis Responded somewhat to fluid bolus but was started on Levophed and transferred to ICU on 12/15 Sepsis workup to include CBC, CMP, lactate, procalcitonin, and repeat blood cultures, UA all obtained-with leukocytosis, significantly elevated lactate at 6.3, elevated procalcitonin, but normal UA Given previous likely prostatitis with E. coli septicemia, concern for recurrence of such or acute prostatitis, septic thrombophlebitis potentially with superficial thrombus in the left cephalic vein on Dopplers His D-dimer is significantly elevated at 32,000-not likely to have PE given negative Dopplers for DVT and no hypoxia Troponin normal at 17, ECG without ischemic changes, no chest pains, doubt ACS Random cortisol appropriately elevated at 40 He has not been on any antihypertensives-Home losartan is on hold Olanzapine can cause some orthostasis but he has been on an atypical antipsychotic off and on for quite some time now and not had this response so doubt this is the cause Giving empiric antibiotics with Zosyn and vancomycin while following cultures and watching for fevers Continue maintenance IV fluids, is now weaned off Levophed Follow all blood cultures, urine culture Appreciate hotel or motel cleaning supervisor consultation (2) Encephalopathy: Plan: Ongoing encephalopathy from alcohol withdrawal and hospital delirium, E. coli septicemia Had worsening when was started on Keppra for seizure activity-this has been stopped Worse also with Ativan and this is all been stopped Significantly improved on 12/14, conversational, oriented, not agitated, off the one-to-one sitter. 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 but this can be sorted out down the road after complete recovery Possibly with degree of Korsakoff's at this stage although no significant confabulation and he was given total 30,000 mg IV thiamine this admission, reduced to 200mg PO daily now Possible seizure activity on EEG 12/09 and initially treated with Keppra however now discontinued due to agitated delirium Started on FRANK risperidone 12/11 and switched to olanzapine 5 mg at bedtime on 12/14 Tolerating this well-this can be tapered off likely over the next couple of weeks On 12/15, mentation much worse and hallucinating again-perhaps due to hypotension and poor cerebral perfusion in the setting of shock Jose also requesting a Lyme titer-checked and is equivocal-Western blot pending but he was treated recently with a prolonged course of ceftriaxone for E. coli septicemia which would also treat Lyme disease On 12/16, mentation much improved but still with some abnormal cognition at times which could be at baseline Of note, noted to have cirrhosis on renal ultrasound but previous ammonia levels have been normal (3) Alcohol withdrawal: Plan: Now resolved Alcohol withdrawal with hallucinations when he checked into alcohol rehabilitation and seizures in the ER Initial management with Precedex drip, phenobarbital, Ativan. Now off Precedex drip. Completed phenobarbital course Was transferred out of the ICU for alcohol withdrawal, but required to go back again 12/01 for septic shock, stable for transfer out of ICU 12/03, now back in the ICU on 12/19 shock He may at some point go back to either outpatient or inpatient alcohol rehab (4) Complicated UTI (urinary tract infection): Plan: Now resolved Patient removed his catheter traumatically on 12/01 and needed the catheter placed back by urology Associated with leukocytosis and fever, thus meeting sepsis criteria E. coli bacteremia - now resolved, 9 days of ceftriaxone given, finished 12/10 Reid catheter is now out and having urinary incontinence Repeat UA on 12/15 as part of sepsis workup is normal, but could still have prostatitis Follow repeat urine culture (5) Sepsis: Plan: E. coli septicemia resolved, secondary to catheter-associated UTI, however now with shock again on 12/15-possibly septic shock as noted above (6) Alcoholic hepatitis: Plan: Now resolved, now with mild transaminitis only-LFTs continue to improve Encourage alcohol abstinence With evidence of cirrhosis on liver ultrasound Will need outpatient GI follow-up (7) Benign essential hypertension: Plan: Hypotensive while on losartan and then with septic shock. 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 difficile given that he was on antibiotics if diarrhea persist If C. difficile negative, can give Imodium Plan VTE Prophylaxis - Lovenox 40mg SQ daily Disposition -continued stay in ICU overnight but likely downgrade tomorrow. Eventually will need discharge to rehab Discussed all care with his fiance at the bedside again on 12/16 Admission and Anticipated Discharge Date Admission Date: November 23, 2023 Subjective Patient feeling much better today. Jose at the bedside reports he is still a bit confused but overall much improved. He denies abdominal pains. He had 2 loose stools this morning but that is normal for him. No issues except having some urinary incontinence which is not his norm but has been going on since his Reid catheter was removed. Telemetry with normal sinus rhythm normal rates I discussed his care with the hotel or motel cleaning supervisor Physical Exam Constitutional: WD/WN, vitals as above Respiratory: normal respiratory effort, lungs clear to auscultation Cardiovascular: RRR, no murmur, no edema Gastrointestinal (Abdomen): normal bowel sounds, soft, nontender, no hepatosplenomegaly Neurologic: Speech / Cognition: normal speech Psychiatric: Orientation: alert, oriented x 3 and cooperative Results & Data Results & Data Vital Signs (Past 12 Hours) Vital Signs Temp Pulse Pulse Resp BP BP Pulse Ox 12/17/23 10:36 178/98 H 12/17/23 10:36 104 H 15 91 12/17/23 10:30 180/96 H 12/17/23 10:18 94 H 17 94 12/17/23 09:30 83 25 H 94 12/17/23 09:15 89 20 93 12/17/23 08:33 96 H 18 95 12/17/23 08:31 142/87 H 12/17/23 08:30 99 H 24 93 12/17/23 08:06 91 H 22 92 12/17/23 08:00 115/71 12/17/23 08:00 85 12/17/23 08:00 12/17/23 07:39 83 21 94 12/17/23 07:30 131/89 12/17/23 07:30 96 H 22 93 12/17/23 07:03 80 20 93 12/17/23 07:00 36.8 C 82 16 137/77 93 12/17/23 06:48 82 18 93 12/17/23 06:12 37.1 C 12/17/23 06:03 85 21 144/79 H 93 12/17/23 05:06 82 22 140/86 94 12/17/23 04:39 84 26 H 92 12/17/23 04:31 129/75 12/17/23 04:21 93 H 9 L 92 12/17/23 04:00 115/57 L 12/17/23 04:00 81 22 115/57 L 90 12/17/23 03:12 84 15 91/67 L 94 12/17/23 02:12 83 19 92 12/17/23 02:00 121/63 12/17/23 01:33 88 22 94 12/17/23 01:30 127/74 O2 Del Method 12/17/23 10:36 12/17/23 10:36 12/17/23 10:30 12/17/23 10:18 12/17/23 09:30 12/17/23 09:15 12/17/23 08:33 12/17/23 08:31 12/17/23 08:30 12/17/23 08:06 12/17/23 08:00 12/17/23 08:00 12/17/23 08:00 Room Air 12/17/23 07:39 12/17/23 07:30 12/17/23 07:30 12/17/23 07:03 12/17/23 07:00 Room Air 12/17/23 06:48 12/17/23 06:12 12/17/23 06:03 12/17/23 05:06 12/17/23 04:39 12/17/23 04:31 12/17/23 04:21 12/17/23 04:00 12/17/23 04:00 12/17/23 03:12 12/17/23 02:12 12/17/23 02:00 12/17/23 01:33 12/17/23 01:30 Laboratory Results CBC, CMP, magnesium, lactate, troponin, VBG, blood cultures, urinalysis and urine culture reviewed Diagnostic Findings Dopplers of all 4 extremities and renal ultrasound reviewed PG Care Time/CCT Total # of Minutes Spent Total Time Spent with Patient: Total time spent is greater than 50% in coordination of care (as documented) at patient's floor/unit and/or counseling patient: Coding Level of Care Code 83083 SUB INP/OBS CARE 50MIN Diagnoses Other specified hypotension I95.89 Hypotension type: other hypotension type Encephalopathy G93.40 Alcohol withdrawal F10.931 Complication of substance-induced condition: with delirium Complicated UTI (urinary tract infection) N39.0 Sepsis A41.9 Alcoholic hepatitis K70.10 Ascites presence: unspecified Benign essential hypertension I10 Anxiety F41.9 Alcohol withdrawal seizure F10.939; R56.9 Complication of substance-induced condition: with unspecified complication Wernicke-Korsakoff syndrome F04 Cirrhosis K74.60 Urine incontinence R32 Chronic diarrhea K52.9 (1) Hypotension Hypotension type: other hypotension type Qualified Code(s): I95.89 - Other hy potension (3) Alcohol withdrawal Complication of substance-induced condition: with delirium Qualified Code(s): F10.931 - Alcohol use, unspecified with withdrawal delirium (6) Alcoholic hepatitis Ascites presence: unspecified Qualified Code(s): K70.10 - Alcoholic hepatitis without ascites (9) Alcohol withdrawal seizure Complication of substance-induced condition: with unspecified complication Qualified Code(s): F10.939 - Alcohol use, unspecified with withdrawal, unspecified; R56.9 - Unspecified convulsions
[2023-12-18 05:06] LABS: Basophils # (auto) 0.15 K/uL (0.00-0.20); Basophils % (auto) 2.6 %; Eosinophils # (auto) 0.53 K/uL (0.00-0.50); Eosinophils % (auto) 9.1 %; Hematocrit (blood only) 35.7 % (42.0-52.0); Hemoglobin 11.9 g/dl (14.0-18.0); Immature Granulocytes # (auto) 0.02 K/uL (0.01-0.20); Immature Granulocytes % (auto) 0.3 %; Lymphocytes # (auto) 1.05 K/uL (1.20-3.40); Mean Corpuscular Hemoglobin 31.9 pg (25.0-34.0); Mean Corpuscular Hgb Conc 33.3 g/dL (32.0-36.0); Mean Corpuscular Volume 95.7 fL (80.0-100.0); Mean Platelet Volume 12.4 fL (9.4-12.4); Monocytes # (auto) 0.74 K/uL (0.11-0.59); Monocytes % (auto) 12.7 %; Neutrophils # (auto) 3.33 K/uL (1.40-6.50); Neutrophils % (auto) 57.3 %; Platelet Count 165 K/uL (130-400); RDW Coefficient of Variation 13.3 % (11.5-14.5); RDW Standard Deviation 47.2 fL (36.4-46.3); Red Blood Count 3.73 M/uL (4.70-6.10); White Blood Count 5.82 K/ul (4.8-10.8)
[2023-12-18 05:12] LABS: BUN Creatinine Ratio 11.1 (10-20); Creatinine Clr Calc Pharmacy 144.4 ml/min; Est GFR (African American) 130.4 ml/min; Est GFR (Non-African American) 112.5 ml/min; Magnesium 1.5 mg/dl (1.7-2.4); Phosphorus 3.7 mg/dl (2.5-4.9); Potassium 3.8 mmol/L (3.5-5.1)
[2023-12-18] MEDS: MAGNESIUM SULFATE / D5W 1 GM/100 ML BAG IV SCH (05:41)
--- NOTE | 2023-12-18 06:53 | Critical Care Progress Note ---
Date of Service December 18, 2023 Assessment & Plan (1) Hypotension: (2) Dislodged Reid catheter: (3) Severe sepsis: (4) Acute cephalic vein embolism: Plan Assessment: 52 yo male who presented with with alcohol dependency and heavy alcohol use with continued encephalopathy and symptomatic hypotension Plan: Neurologic CAM ICU negative Acute encephalopathy from alcohol withdrawal: Resolved off all benzodiazepines and phenobarbital Alcohol dependency Will require outpatient follow-up to maintain sobriety - Continue multivitamin, thiamine Possible underlying alcoholic dementia/ Korsakoff Mood disorder -Prozac 20 mg daily -Zyprexa 5 mg nightly Cardiac Hypertension -Restart losartan 100 mg daily Respiratory No prior history of respiratory disease No oxygen requirement Gastrointestinal Diet: Regular Alcoholic hepatitis versus cirrhosis Renal/electrolytes Mild hypokalemia: Resolved Hypomagnesemia: Improved -Increased to twice daily 400 mg Mag-Ox -Receiving supplemental magnesium Hypophosphatemia: Resolved Genitourinary Traumatic Reid removal early on this admission: Spontaneously voiding -Reviewed retroperitoneal ultrasound -UA largely unremarkable -Dr. Moreno reports she ordered the urine to be obtained from is a voiding specimen Endocrine BSG stable Continue ISS per protocol Hematologic thrombocytopenia - resolved Anemia: Secondary to alcohol use and probable component of iron deficiency -Appears stable, suspect delusional component after crystalloid volume expansion Infectious disease E coli bacteremia / Catheter- associated UTI - early on this admission - completed 9 days of Ceftriaxone Severe sepsis: Resolved - Blood culture repeated on 12/13 & 12/15: no growth to date - Zosyn and Vanco empirically for 48 hrs -Urine culture reported as less than 1000 CFU -Given prior UTI findings, Reid trauma, I suspect the patient is at risk for acute prostatitis which will be difficult to truly diagnose. I do not b elieve the patient is having signs or symptoms suggestive of a prostatic abscess, would strongly consider extended course of Bactrim 1 double strength tablet twice daily for 4 weeks based on prior sensitivity of UTI -Other consideration would be septic thrombophlebitis however patient does not show purulence in the area of left cephalic vein and ultrasounds are unremarkable for DVT -Discontinuing broad-spectrum antibiotics transition to extended course of Bactrim for empiric treatment of suspected prostatitis Superficial thrombophlebitis of left cephalic vein - no DVT, no evidence of purulent phlebitis Lines/access PIVs intact -Venous duplex 12/15: No DVT upper or lower extremity: Left cephalic superficial phlebitis Prophylaxis DVT ppx: Lovenox 40 Dispo: Stable for downgrade out of ICU. Admission and Anticipated Discharge Date Admission Date: November 23, 2023 Subjective Overnight patient suffered a fall when standing to urinate. Evaluated by overnight team no interventions required. Patient reports he feels that he is s table, able to walk, would like to be discharged. We discussed need to continue to stabilize, no obvious source of infection at this time. Physical Exam Physical Exam: General: Alert. nontoxic. Skin: Warm, dry, Head: Atraumatic Ears, nose, mouth and throat: airway patent Cardiovascular: Normal peripheral perfusion Respiratory: no respiratory distress Gastrointestinal: Non distended Musculoskeletal: No deformity Results & Data Results & Data Vital Signs (Past 12 Hours) Vital Signs Temp Pulse Resp BP BP Pulse Ox O2 Del Method 12/18/23 06:11 154/115 H 12/18/23 06:03 86 25 H 12/18/23 06:00 91 H 14 12/18/23 05:37 36.7 C 12/18/23 05:00 177/122 H 12/18/23 05:00 86 26 H 12/18/23 04:08 74 16 12/18/23 04:00 175/110 H 12/18/23 03:59 75 18 12/18/23 03:00 86 12 12/18/23 02:24 84 19 12/18/23 02:10 145/102 H 12/18/23 01:57 73 16 12/18/23 01:03 71 17 12/18/23 00:12 79 15 12/18/23 00:00 87 12/18/23 00:00 145/93 H 12/17/23 23:17 37.1 C 12/17/23 23:17 Room Air 12/17/23 23:12 80 24 168/93 H 12/17/23 22:00 78 21 160/90 H 96 12/17/23 21:09 87 20 161/96 H 95 12/17/23 20:09 79 24 165/91 H 92 12/17/23 19:06 76 22 97 12/17/23 19:00 36.8 C Critical Care Results & Data Vital Signs (Past 12 Hours) Vital Signs Temp Pulse Resp BP BP Pulse Ox O2 Del Method 12/18/23 06:11 154/115 H 12/18/23 06:03 86 25 H 12/18/23 06:00 91 H 14 12/18/23 05:37 36.7 C 12/18/23 05:00 177/122 H 12/18/23 05:00 86 26 H 12/18/23 04:08 74 16 12/18/23 04:00 175/110 H 12/18/23 03:59 75 18 12/18/23 03:00 86 12 12/18/23 02:24 84 19 12/18/23 02:10 145/102 H 12/18/23 01:57 73 16 12/18/23 01:03 71 17 12/18/23 00:12 79 15 12/18/23 00:00 87 12/18/23 00:00 145/93 H 12/17/23 23:17 37.1 C 12/17/23 23:17 Room Air 12/17/23 23:12 80 24 168/93 H 12/17/23 22:00 78 21 160/90 H 96 12/17/23 21:09 87 20 161/96 H 95 12/17/23 20:09 79 24 165/91 H 92 12/17/23 19:06 76 22 97 12/17/23 19:00 36.8 C Lab & Micro Results (Past 24 Hours) RBC 3.73 M/uL (4.70-6.10) L 12/18/23 WBC 5.82 K/ul (4.8-10.8) 12/18/23 Hgb 11.9 g/dl (14.0-18.0) L 12/18/23 Hct 35.7 % (42.0-52.0) L 12/18/23 MCV 95.7 fL (80.0-100.0) 12/18/23 MCH 31.9 pg (25.0-34.0) 12/18/23 MCHC 33.3 g/dL (32.0-36.0) 12/18/23 RDW Standard Deviation 47.2 fL (36.4-46.3) H 12/18/23 RDW Coefficient of Variation 13.3 % (11.5-14.5) 12/18/23 Plt Count 165 K/uL (130-400) 12/18/23 MPV 12.4 fL (9.4-12.4) 12/18/23 Neutrophils (%) (Auto) 57.3 % 12/18/23 Lymphocytes (%) (Auto) 18.0 % 12/18/23 Monocytes # (Auto) 0.74 K/uL (0.11-0.59) H 12/18/23 Eosinophils # (Auto) 0.53 K/uL (0.00-0.50) H 12/18/23 Immature Granulocyte % (Auto) 0.3 % 12/18/23 Neutrophils # (Auto) 3.33 K/uL (1.40-6.50) 12/18/23 Lymphocytes # (Auto) 1.05 K/uL (1.20-3.40) L 12/18/23 Monocytes # (Auto) 0.74 K/uL (0.11-0.59) H 12/18/23 Eosinophils # (Auto) 0.53 K/uL (0.00-0.50) H 12/18/23 Basophils # (Auto) 0.15 K/uL (0.00-0.20) 12/18/23 Immature Granulocyte # (Auto) 0.02 K/uL (0.01-0.20) 4 Na 141 mmol/L (136-145) 12/18/23 K 3.8 mmol/L (3.5-5.1) 12/18/23 Cl 109 mmol/L (98-107) H 12/18/23 CO2 24 mmol/L (21-32) 12/18/23 Anion Gap 8 (3-11) 12/18/23 BUN 7 mg/dl (6-23) 12/18/23 Creatinine 0.63 mg/dl (0.6-1.4) 12/18/23 Estimated GFR ( Amer) 130.4 ml/min 12/18/23 Estimated GFR (Non-Af Amer) 112.5 ml/min 12/18/23 BUN/Creatinine Ratio 11.1 (10-20) 12/18/23 Glu 94 mg/dl (70-99(Fasting)) 12/18/23 Ca 9.0 mg/dl (8.6-10.3) 12/18/23 Phosphorus Level 3.7 mg/dl (2.5-4.9) 12/18/23 Mg 1.5 mg/dl (1.7-2.4) L 12/18/23 04:36 Calcium Level 9.0 mg/dl (8.6-10.3) 12/18/23 04:36 Microbiology 12/16/23 12:54 Aerobic Blood Culture - Preliminary Blood No growth in Aerobic bottle after 24 hours. Anaerobic Blood Culture - Preliminary No growth in Anaerobic bottle after 24 hours. 12/16/23 12:42 Aerobic Blood Culture - Preliminary Blood No growth in Aerobic bottle after 24 hours. Anaerobic Blood Culture - Preliminary No growth in Anaerobic bottle after 24 hours. 12/16/23 14:43 Urine Culture - Preliminary Urine,Clean Catch No growth - Less than 1,000 colonies/mL, Final report to follow. Diagnostic Findings (Past 24 Hours) Venous Doppler Study 12/16/23 15:32 ULTRASOUND BILATERAL UPPER EXTREMITY VENOUS CLINICAL HISTORY: Sepsis. COMPARISON STUDY: No priors. TECHNIQUE: Real-time, grayscale, and color Doppler sonography of the deep veins of the right and left upper extremity is performed. Compression and augmentation were utilized. FINDINGS: There is no sonographic evidence of deep venous thrombosis identified in the right or left upper extremity. The internal jugular, axillary, and brachial veins are patent and normally compressible bilateral. Normal venous waveforms and augmentation are seen within both subclavian veins. Right cephalic vein and both basilic veins are clear. There is occlusive superficial venous thrombosis of the cephalic vein and extends from the mid upper extremity through the forearm. This measures greater than 5 cm in craniocaudal extension. The visualized radial and ulnar veins are patent. IMPRESSION: 1. There is no sonographic evidence of deep venous thrombosis identified in the left upper extremity. 2. Occlusive superficial venous thrombosis in the left cephalic vein as detailed above. ACT 112: Negative or not required by law. Electronically signed by: Brian Perez M.D. 12/16/2023 11:33 PM I & O Totals 24 Hours 12/16/23 12/17/23 12/18/23 06:59 06:59 06:59 Intake Total 1640.833 / 1207.280 1835.312 / 5908.312 2310 / 2310 Output Total 1852 / 1852 2725 / 2725 4021 / 4021 Balance -211.167 / -119.176 6757.312 / 3183.312 -1711 / -1711 Cumulative 11/23/23 13:39 thru 12/18/23 05:48 Intake Total 15262.485 Output Total 84208 Balance 3145.485 RT Ventilator Mngmt (Last Documented) Ventilator Ordered Settings Respiratory Rate 25 12/18/23 06:03 Fraction of Inspired Oxygen 12/16/23 22:15 Ventilator - PT Measurements Respiratory Rate 25 End-Tidal CO2 32 Coding Level of Care Code 90476 SUB INP/OBS CARE 3/50MIN Diagnoses Other specified hypotension I95.89 Hypotension type: other hypotension type Displacement of Reid catheter, sequela T83.021S Encounter type: sequela Severe sepsis A41.9; R65.20 Acute cephalic vein embolism I82.619 (1) Hypotension Hypotension type: other hypotension type Qualified Code(s): I95.89 - Other hypotension (2) Dislodged Reid catheter Encounter type: sequela Qualified Code(s): T83.021S - Displacement of indwelling urethral catheter, sequela
[2023-12-18] MEDS ORDERED: LOPERAMIDE HCL 2 MG CAP PO PRN (07:40)
[2023-12-18] MEDS: LOSARTAN POTASSIUM 50 MG TAB PO SCH (09:02)
[2023-12-18] MEDS: SULFAMETHOXAZOLE/TRIMETHOPRIM DS 800/160MG TAB PO SCH (09:02)
[2023-12-18] MEDS: MAGNESIUM OXIDE 400 MG TAB PO SCH (09:02)
[2023-12-18] MEDS ORDERED: VANCOMYCIN LEVEL ONE (11:00)
--- NOTE | 2023-12-18 14:51 | Hospitalist Progress Note ---
Date of Service December 18, 2023 Assessment & Plan (1) Hypotension: Plan: Had acute onset of hypotension with syncopal episode on the toilet on 12/15 with sinus tachycardia, lactic acidosis, presumed sepsis Responded somewhat to fluid bolus but was started on Levophed and transferred to ICU on 12/15 Sepsis workup to include CBC, CMP, lactate, procalcitonin, and repeat blood cultures, UA all obtained-with leukocytosis, significantly elevated lactate at 6.3, elevated procalcitonin, but normal UA Given previous likely prostatitis with E. coli septicemia, concern for recurrence of such or acute prostatitis, septic thrombophlebitis potentially with superficial thrombus in the left cephalic vein on Dopplers His D-dimer is significantly elevated at 32,000-not likely to have PE given negative Dopplers for DVT and no hypoxia Troponin normal at 17, ECG without ischemic changes, no chest pains, ruled out ACS Random cortisol appropriately elevated at 40 He has not been on any antihypertensives-Home losartan had been on hold Olanzapine can cause some orthostasis but he has been on an atypical antipsychotic off and on for quite some time now and not had this response so doubt this is the cause Treated with empiric antibiotics with Zosyn and vancomycin-remained afebrile and blood pressures improved, weaned off Levophed and IV fluids Urine culture no growth, blood cultures remain no growth to date Convert IV antibiotics to Bactrim and complete a 4-week course for prostatitis Follow all blood cultures, urine culture Check CBC, CMP, procalcitonin in the morning Appreciate mattress inspector consultation-downgrade out of ICU (2) Encephalopathy: Plan: Ongoing encephalopathy from alcohol withdrawal and hospital delirium, E. coli septicemia Had worsening when was started on Keppra for seizure activity-this has been stopped Worse also with Ativan and this is all been stopped Significantly improved on 12/14, conversational, oriented, not agitated, off the one-to-one sitter. 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 but this can be sorted out down the road after complete recovery Possibly with degree of Korsakoff's at this stage although no significant confabulation and he was given total 30,000 mg IV thiamine this admission, reduced to 200mg PO daily Possible seizure activity on EEG 12/09 and initially treated with Keppra however now discontinued due to agitated delirium Started on FRANK risperidone 12/11 and switched to olanzapine 5 mg at bedtime on 12/14 Tolerating this well-this can be tapered off likely over the next couple of weeks On 12/15, mentation much worse and hallucinating again-perhaps due to hypotension and poor cerebral perfusion in the setting of shock Jose also requesting a Lyme titer-checked and is equivocal-IgG and IgM then negative-he was treated recently with a prolonged course of ceftriaxone for E. coli septicemia which would also treat Lyme disease On 12/16, mentation much improved but still with some abnormal cognition at times which could be his new baseline due to alcoholic dementia Of note, noted to have cirrhosis on renal ultrasound but previous ammonia levels have been normal Follow-up with neurology as an outpatient after [place] (3) Alcohol withdrawal: Plan: Now resolved Alcohol withdrawal with hallucinations when he checked into alcohol rehabilitation and seizures in the ER Initial management with Precedex drip, phenobarbital, Ativan. Now off Precedex drip. Completed phenobarbital course Was transferred out of the ICU for alcohol withdrawal, but required to go back again 12/01 for septic shock, stable for transfer out of ICU 12/03, now back in the ICU on 12/19 shock He may at some point go back to either outpatient or inpatient alcohol rehab (4) Complicated UTI (urinary tract infection): Plan: Now resolved Patient removed his catheter traumatically on 12/01 and needed the catheter placed back by urology Associated with leukocytosis and fever, thus meeting sepsis criteria E. coli bacteremia - now resolved, 9 days of ceftriaxone given, finished 12/10, now on Bactrim for 28 days given recurrent septic shock as above Reid catheter is now out and having urinary incontinence which is improving-he is now able to hold his bladder long enough to get to the urinal Repeat UA on 12/15 as part of sepsis workup is normal, but could still have prostatitis repeat urine culture no growth but this can be seen with acute prostatitis (5) Sepsis: Plan: E. coli septicemia resolved, secondary to catheter-associated UTI, however now with shock again on 12/15-possibly septic shock as noted above (6) Alcoholic hepatitis: Plan: Now resolved, now with mild transaminitis only-LFTs continue to improve Encourage alcohol abstinence With evidence of cirrhosis on liver ultrasound Will need outpatient GI follow-up (7) Benign essential hypertension: Plan: Hypotensive while on losartan and then with septic shock. Blood pressure is now significantly elevated on 12/17-losartan 100 mg daily was started by the mattress inspector, but now blood pressures are soft Lower losartan to 50 mg daily (8) Anxiety: Plan: Continue Prozac, now on olanzapine (9) Alcohol withdrawal seizure: Plan: Now resolved - treated in the ICU on admission Now off all antiseizure medicines (10) Wernicke-Korsakoff syndrome: Plan: As above (11) Cirrhosis: Plan: As above (12) Urine incontinence: Plan: As above Will need follow-up with urology for possible traumatic injury from when he pulled his Reid catheter out (13) Chronic diarrhea: Plan: Normal for him. C. difficile negative Imodium as needed Plan VTE Prophylaxis - Lovenox 40mg SQ daily Disposition -continued stay but downgrade to PCU. Eventually will need discharge to rehab-hopefully in the next 1 to 2 days if continues to do well Discussed all care with his fiance at the bedside again on 12/16 Admission and Anticipated Discharge Date Admission Date: November 23, 2023 Subjective Patient had a fall overnight when he jumped out of bed and tried to walk on his own and fell down onto his knee a somewhat assisted by the nurse as per reports. He did not have any injuries. When I saw him, his fiance had just left and he had a one-to-one sitter. He stated "they will not let me be by myself." I r eminded him that he had a fall overnight and he said "I was just on my way back from work and I fell." Remains somewhat confused but overall reports feeling well, denies pain. Is able to hold his bladder better today in order to get to the urinal rather than having incontinence. No further diarrhea. Physical Exam Constitutional: WD/WN, vitals as above Respiratory: normal respiratory effort, lungs clear to auscultation Cardiovascular: RRR, no murmur, no edema Gastrointestinal (Abdomen): normal bowel sounds, soft, nontender, no hepatosplenomegaly Neurologic: Speech / Cognition: + abnormal cognition; normal speech Psychiatric: Orientation: alert, oriented to person and cooperative Results & Data Results & Data Vital Signs (Past 12 Hours) Vital Signs Temp Pulse Pulse Resp BP BP Pulse Ox 12/18/23 14:03 97 H 15 12/18/23 13:26 127/75 12/18/23 13:15 91 H 27 H 12/18/23 13:00 89 29 H 12/18/23 12:06 90 23 12/18/23 11:10 36.8 C 93 H 27 H 163/98 H 93 12/18/23 11:04 163/98 H 12/18/23 11:00 84 18 12/18/23 10:15 88 13 12/18/23 09:21 96 H 28 H 12/18/23 09:01 118/90 12/18/23 08:45 96 H 22 12/18/23 08:01 178/98 H 12/18/23 08:00 79 12 12/18/23 08:00 80 12/18/23 07:02 81 20 12/18/23 06:11 154/115 H 12/18/23 06:03 86 25 H 12/18/23 06:00 91 H 14 12/18/23 05:37 36.7 C 12/18/23 05:00 177/122 H 12/18/23 05:00 86 26 H 12/18/23 04:08 74 16 12/18/23 04:00 175/110 H 12/18/23 03:59 75 18 12/18/23 03:00 86 12 O2 Del Method 12/18/23 14:03 12/18/23 13:26 12/18/23 13:15 12/18/23 13:00 12/18/23 12:06 12/18/23 11:10 Room Air 12/18/23 11:04 12/18/23 11:00 12/18/23 10:15 12/18/23 09:21 12/18/23 09:01 12/18/23 08:45 12/18/23 08:01 12/18/23 08:00 12/18/23 08:00 12/18/23 07:02 12/18/23 06:11 12/18/23 06:03 12/18/23 06:00 12/18/23 05:37 12/18/23 05:00 12/18/23 05:00 12/18/23 04:08 12/18/23 04:00 12/18/23 03:59 12/18/23 03:00 Laboratory Results CBC, BMP, magnesium, C. difficile, urine culture, blood cultures reviewed PG Care Time/CCT Total # of Minutes Spent Total Time Spent with Patient: Total time spent is greater than 50% in coordination of care (as documented) at patient's floor/unit and/or counseling patient: Coding Level of Care Code 42598 SUB INP/OBS CARE 2/35MIN Diagnoses Other specified hypotension I95.89 Hypotension type: other hypotension type Encephalopathy G93.40 Alcohol withdrawal F10.931 Complication of substance-induced condition: with delirium Complicated UTI (urinary tract infection) N39.0 Sepsis A41.9 Alcoholic hepatitis K70.10 Ascites presence: unspecified Benign essential hypertension I10 Anxiety F41.9 Alcohol withdrawal seizure F10.939; R56.9 Complication of substance-induced condition: with unspecified complication Wernicke-Korsakoff syndrome F04 Cirrhosis K74.60 Urine incontinence R32 Chronic diarrhea K52.9 (1) Hypotension Hypotension type: other hypotension type Qualified Code(s): I95.89 - Other hypotension (3) Alcohol withdrawal Complication of substance-induced condition: with delirium Qualified Code(s): F10.931 - Alcohol use, unspecified with withdrawal delirium (6) Alcoholic hepatitis Ascites presence: unspecified Qualified Code(s): K70.10 - Alcoholic hepatitis without ascites (9) Alcohol withdrawal seizure Complication of substance-induced condition: with unspecified complication Qualified Code(s): F10.939 - Alcohol use, unspecified with withdrawal, unspecified; R56.9 - Unspecified convulsions
[2023-12-19 07:32] LABS: Basophils # (auto) 0.14 K/uL (0.00-0.20); Basophils % (auto) 2.4 %; Eosinophils # (auto) 0.38 K/uL (0.00-0.50); Eosinophils % (auto) 6.4 %; Hematocrit (blood only) 39.3 % (42.0-52.0); Hemoglobin 13.1 g/dl (14.0-18.0); Immature Granulocytes # (auto) 0.01 K/uL (0.01-0.20); Immature Granulocytes % (auto) 0.2 %; Lymphocytes # (auto) 1.45 K/uL (1.20-3.40); Lymphocytes % (auto) 24.6 %; Mean Corpuscular Hemoglobin 32.2 pg (25.0-34.0); Mean Corpuscular Hgb Conc 33.3 g/dL (32.0-36.0); Mean Corpuscular Volume 96.6 fL (80.0-100.0); Mean Platelet Volume 12.5 fL (9.4-12.4); Monocytes # (auto) 0.86 K/uL (0.11-0.59); Monocytes % (auto) 14.6 %; Neutrophils # (auto) 3.06 K/uL (1.40-6.50); Neutrophils % (auto) 51.8 %; Platelet Count 181 K/uL (130-400); RDW Coefficient of Variation 13.3 % (11.5-14.5); RDW Standard Deviation 47.7 fL (36.4-46.3); Red Blood Count 4.07 M/uL (4.70-6.10)
[2023-12-19] MEDS: OLANZapine 5 MG TABLET PO ONE (07:47)
[2023-12-19 07:53] LABS: Albumin Level 3.4 gm/dl (3.4-5.0); BUN Creatinine Ratio 6.9 (10-20); Bilirubin Direct 0.4 mg/dl (0-0.2); Calcium 9.4 mg/dl (8.6-10.3); Creatinine Clr Calc Pharmacy 126.4 ml/min; Est GFR (African American) 123.4 ml/min; Est GFR (Non-African American) 106.5 ml/min; Magnesium 1.6 mg/dl (1.7-2.4); Phosphorus 4.1 mg/dl (2.5-4.9); Potassium 3.6 mmol/L (3.5-5.1); Total Protein 6.5 gm/dl (6.0-8.3)
[2023-12-19] MEDS: LOSARTAN POTASSIUM 50 MG TAB PO SCH (08:14)
[2023-12-19] MEDS: HYDROCORTISONE 1% OINT 30 GM TUBE EXT PRN (08:14)
[2023-12-19] MEDS: OLANZAPINE 2.5 MG TAB PO SCH (08:19)
[2023-12-19] MEDS: MAGNESIUM SULFATE / D5W 1 GM/100 ML BAG IV SCH (09:18)
--- NOTE | 2023-12-19 15:29 | Hospitalist Progress Note ---
Date of Service December 19, 2023 Assessment & Plan (1) Hypotension: Plan: Had acute onset of hypotension with syncopal episode on the toilet on 12/15 with sinus tachycardia, lactic acidosis, presumed sepsis Responded somewhat to fluid bolus but was started on Levophed and transferred to ICU on 12/15 Sepsis workup to include CBC, CMP, lactate, procalcitonin, and repeat blood cultures, UA all obtained-with leukocytosis, significantly elevated lactate at 6.3, elevated procalcitonin, but normal UA Given previous likely prostatitis with E. coli septicemia, concern for recurrence of such or acute prostatitis, septic thrombophlebitis potentially with superficial thrombus in the left cephalic vein on Dopplers His D-dimer is significantly elevated at 32,000-not likely to have PE given negative Dopplers for DVT and no hypoxia Troponin normal at 17, ECG without ischemic changes, no chest pains, ruled out ACS Random cortisol appropriately elevated at 40 Olanzapine can cause some orthostasis but he has been on an atypical antipsychotic off and on for quite some time now and not had this response so doubt this is the cause Treated with empiric antibiotics with Zosyn and vancomycin-remained afebrile and blood pressures improved, weaned off Levophed and IV fluids Urine culture no growth, blood cultures remain no growth to date, procal coming down to 2 from 4 with abx Continue Bactrim DS 1 tab bid x 4-week course for prostatitis Follow all blood cultures Check CBC, CMP, procalcitonin in the morning (2) Encephalopathy: Plan: Ongoing encephalopathy from alcohol withdrawal and hospital delirium, E. coli septicemia Had worsening when was started on Keppra for seizure activity-this has been stopped. Worse also with Ativan and this is all been stopped Significantly improved on 12/14, conversational, oriented, not agitated, off the one-to-one sitter. 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 but this can be sorted out down the road after complete recovery Possibly with degree of Korsakoff's at this stage although no significant confabulation and he was given total 30,000 mg IV thiamine this admission, reduced to 200mg PO daily Possible seizure activity on EEG 12/09 and initially treated with Keppra however now discontinued due to agitated delirium Started on FRANK risperidone 12/11 and switched to olanzapine 5 mg at bedtime on 12/14 On 12/15, mentation much worse and hallucinating again-perhaps due to hypotension and poor cerebral perfusion in the setting of shock Fianc also requesting a Lyme titer-checked and is equivocal-IgG and IgM then negative-he was treated recently with a prolonged course of ceftriaxone for E. coli septicemia which would also treat Lyme disease Mentation improving but remains impulsive, trying to get out of bed independently and had a fall, is requiring a 1:1 sitter His abnormal cognition could be his new baseline due to alcoholic dementia Of note, noted to have cirrhosis on renal ultrasound but previous ammonia levels have been normal Follow-up with neurology as an outpatient [place] Increase olanzapine to 2.5mg po qAM and continue 5mg qPM-wean off as outpt if able to (3) Alcohol withdrawal: Plan: Now resolved Alcohol withdrawal with hallucinations when he checked into alcohol rehabilitation and seizures in the ER Initial management with Precedex drip, phenobarbital, Ativan. Now off Precedex drip. Completed phenobarbital course Was transferred out of the ICU for alcohol withdrawal, but required to go back again 12/01 for septic shock, stable for transfer out of ICU 12/03, now back in the ICU on 12/19 shock He may at some point go back to either outpatient or inpatient alcohol rehab (4) Complicated UTI (urinary tract infection): Plan: Now resolved Patient removed his catheter traumatically on 12/01 and needed the catheter placed back by urology Associated with leukocytosis and fever, thus meeting sepsis criteria E. coli bacteremia - now resolved, 9 days of ceftriaxone given, finished 12/10, now on Bactrim for 28 days given recurrent septic shock as above Reid catheter is now out and having urinary incontinence which is improving-he is now able to hold his bladder long enough to get to the urinal Repeat UA on 12/15 as part of sepsis workup is normal, but could still have prostatitis repeat urine culture no growth but this can be seen with acute prostatitis (5) Sepsis: Plan: E. coli septicemia resolved, secondary to catheter-associated UTI, however now with shock again on 12/15-possibly septic shock as noted above (6) Alcoholic hepatitis: Plan: Now resolved, now with mild transaminitis only-LFTs had improved and now up again -probably from recent hypotension/shock liver Encourage alcohol abstinence With evidence of cirrhosis on liver ultrasound Will need outpatient GI follow-up (7) Benign essential hypertension: Plan: Hypotensive while on losartan and then with septic shock. Blood pressure is now significantly elevated on 12/17-losartan 100 mg daily was started by the lehr tender, but now blood pressures are soft Lowered losartan to 50 mg daily and improved. 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 C. difficile negative Imodium as needed Plan VTE Prophylaxis - Lovenox 40mg SQ daily Disposition -continued stay on PCU. Eventually will need discharge to rehab- hopefully in the next 1 to 2 days if continues to do well and can get off 1:1 siter Discussed all care with his fiance at the bedside again on 12/16 Admission and Anticipated Discharge Date Admission Date: November 23, 2023 Subjective Was agitated a bit through the night as per nursing notes, frequently impulsive, trying to get out of bed without assistance and almost falling. Still doing that here during day. Pt was started on AM dose of Zyprexa and I saw him in afternoon and he is much calmer, asking about when he is going to rehab. Denies pain. No diarrhea today, denies urinary symptoms. Tele with NSR, ST rates 90-100s Physical Exam Constitutional: WD/WN, vitals as above Respiratory: normal respiratory effort, lungs clear to auscultation Cardiovascular: RRR, no murmur, no edema Gastrointestinal (Abdomen): normal bowel sounds, soft, nontender, no hepatosplenomegaly Neurologic: Speech / Cognition: + abnormal speech (tremor in speech) and + abnormal cognition Psychiatric: Orientation: alert, oriented to person, oriented to place and cooperative Results & Data Results & Data Vital Signs (Past 12 Hours) Vital Signs Temp Pulse Pulse Resp BP Pulse Ox O2 Del Method 12/19/23 08:24 106 H 18 126/77 97 Room Air 12/19/23 07:11 89 12/19/23 04:10 36.8 C 82 18 123/75 95 Room Air Laboratory Results CBC, BMP, LFTs, magnesium,procal, blood cxs, urine cx reviewed PG Care Time/CCT Total # of Minutes Spent Total Time Spent with Patient: Total time spent is greater than 50% in coordination of care (as documented) at patient's floor/unit and/or counseling patient: Coding Level of Care Code 28722 SUB INP/OBS CARE 2/35MIN Diagnoses Other specified hypotension I95.89 Hypotension type: other hypotension type Encephalopathy G93.40 Alcohol withdrawal F10.931 Complication of substance-induced condition: with delirium Complicated UTI (urinary tract infection) N39.0 Sepsis A41.9 Alcoholic hepatitis K70.10 Ascites presence: unspecified Benign essential hypertension I10 Anxiety F41.9 Alcohol withdrawal seizure F10.939; R56.9 Complication of substance-induced condition: with unspecified complication Wernicke-Korsakoff syndrome F04 Cirrhosis K74.60 Urine incontinence R32 Chronic diarrhea K52.9 (1) Hypotension Hypotension type: other hypotension type Qualified Code(s): I95.89 - Other hypotension (3) Alcohol withdrawal Complication of substance-induced condition: with delirium Qualified Code(s): F10.931 - Alcohol use, unspecified with withdrawal delirium (6) Alcoholic hepatitis Ascites presence: unspecified Qualified Code(s): K70.10 - Alcoholic hepatitis without ascites (9) Alcohol withdrawal seizure Complication of substance-induced condition: with unspecified complication Qualified Code(s): F10.939 - Alcohol use, unspecified with withdrawal, unspecified; R56.9 - Unspecified convulsions
[2023-12-19] MEDS: OLANZapine 10 MG/2.1 ML SDV IM PRN (19:01)
[2023-12-19] MEDS: OLANZapine 10 MG/2.1 ML SDV IM ONE (22:06)
[2023-12-20 06:08] LABS: Basophils # (auto) 0.16 K/uL (0.00-0.20); Basophils % (auto) 2.3 %; Eosinophils # (auto) 0.28 K/uL (0.00-0.50); Eosinophils % (auto) 3.9 %; Hematocrit (blood only) 41.6 % (42.0-52.0); Hemoglobin 13.9 g/dl (14.0-18.0); Immature Granulocytes # (auto) 0.02 K/uL (0.01-0.20); Immature Granulocytes % (auto) 0.3 %; Lymphocytes # (auto) 1.32 K/uL (1.20-3.40); Lymphocytes % (auto) 18.6 %; Mean Corpuscular Hemoglobin 32.6 pg (25.0-34.0); Mean Corpuscular Hgb Conc 33.4 g/dL (32.0-36.0); Mean Corpuscular Volume 97.4 fL (80.0-100.0); Mean Platelet Volume 12.7 fL (9.4-12.4); Monocytes # (auto) 0.83 K/uL (0.11-0.59); Monocytes % (auto) 11.7 %; Neutrophils # (auto) 4.48 K/uL (1.40-6.50); Neutrophils % (auto) 63.2 %; Platelet Count 204 K/uL (130-400); RDW Coefficient of Variation 13.4 % (11.5-14.5); Red Blood Count 4.27 M/uL (4.70-6.10); White Blood Count 7.09 K/ul (4.8-10.8)
[2023-12-20 06:25] LABS: Albumin Level 3.6 gm/dl (3.4-5.0); BUN Creatinine Ratio 7.4 (10-20); Bilirubin Direct 0.4 mg/dl (0-0.2); Bilirubin,Total 1.2 mg/dl (0.2-1.0); Calcium 9.5 mg/dl (8.6-10.3); Creatinine Clr Calc Pharmacy 84.2 ml/min; Est GFR (African American) 90.3 ml/min; Est GFR (Non-African American) 77.9 ml/min; Magnesium 1.8 mg/dl (1.7-2.4); Phosphorus 4.1 mg/dl (2.5-4.9); Potassium 3.9 mmol/L (3.5-5.1); Total Protein 6.9 gm/dl (6.0-8.3)
[2023-12-20] MEDS: OPTIRAY 320 125ml IV ONE (09:37)
--- NOTE | 2023-12-20 10:45 | CT Scan Report ---
CT angio chest PE protocol CLINICAL HISTORY: PE TECHNIQUE: Multidetector row helical CT of the chest was performed with angiographic protocol. Dhez l and sagittal reformations were obtained. Coronal and sagittal MIPS were obtained from the axial ifrah a set and were submitted for review. Automated dose lowering techniques and/or adjustment according to patient size were utilized for this exam. CT DOSE: 655.69 mGy.cm Comparison: None available at the time of this dictation. FINDINGS: Lungs and pleura: Atelectasis versus scarring is seen in the dependent portions of the lungs. Heart and pericardium: Heart size is normal. No pericardial effusion. Vessels: No evidence of pulmonary embolism. Mediastinum and silas: Unremarkable. Chest wall and lower neck: Subcentimeter axillary lymph nodes noted. Abdomen: A hiatal hernia is seen. Bones: Unremarkable. IMPRESSION: No acute abnormality and in particular no evidence of pulmonary embolus. ACT 112: Negative or not required by law. Electronically signed by: Trevin Fofana M.D. 12/20/2023 10:44 AM
[2023-12-20] MEDS: LACTATED RINGER'S 1,000 ML IV ONE (10:57)
--- NOTE | 2023-12-20 11:38 | Hospitalist Progress Note ---
Date of Service December 20, 2023 Assessment & Plan (1) Hypotension: Plan: Had acute onset of hypotension with syncopal episode on the toilet on 12/15 with sinus tachycardia, lactic acidosis, elevated WBC count and elevated procal but never became febrile and repeat urine and blood cultures had no growth. Responded somewhat to fluid bolus and was started on Levophed and transferred to ICU on 12/15 Given previous likely prostatitis with E. coli septicemia, concern for r ecurrence of such or acute prostatitis, septic thrombophlebitis potentially with superficial thrombus in the left cephalic vein on Dopplers His D-dimer is significantly elevated at 32,000-but was thought not likely to have PE given negative Dopplers for DVT and no hypoxia Troponin normal at 17, ECG without ischemic changes, no chest pains, ruled out ACS Random cortisol appropriately elevated at 40 Suspected septic shock but never became febrile and cultures all negative, CXR negative He was transferred out of ICU Had exact same repeat episode on AM of 12/19 with acute on set of confusion, norm ling of skin in face, tremors, hypotension, tachycardia after walking in halls and then sitting in chair. CTA CHest neg for PE. Responded to IVF 1 L bolus It seems at this point that these orthostatic episodes started occurring after being started on olanzapine Discussed with Psychiatry--> change olanzapine to Haldol bid and use IM Haldol prn severe agitation-less likely to cause orthostasis Will now discontinue losartan Add FRANDY hose-patient refusing to wear them (2) Encephalopathy: Plan: Ongoing encephalopathy from alcohol withdrawal and hospital delirium, E. coli septicemia Had worsening when was started on Keppra for seizure activity-this has been stopped. Worse also with Ativan and this is all been stopped Overall improved since 12/14, conversational, oriented intermittently, and still off and on the one-to-one sitter. 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 He does have cirrhosis on imaging but NH3 levels have been normal Possible seizure activity on EEG 12/09 and initially treated with Keppra however now discontinued due to agitated delirium Started on FRANK risperidone 12/11 and switched to olanzapine 5 mg at bedtime on 12/14---> now on Haldol due to severe orthostasis Follow-up with neurology as an outpatient [place] COntinue supportive care and delirium prevention strategies (3) Alcohol withdrawal: Plan: Now resolved Alcohol withdrawal with hallucinations when he checked into alcohol rehabilitation and seizures in the ER Initial management with Precedex drip, phenobarbital, Ativan. Now off Precedex drip. Completed phenobarbital course He may at some point need either outpatient or inpatient alcohol rehab (4) Complicated UTI (urinary tract infection): Plan: Now resolved, with E. coli septicemia Patient removed his catheter traumatically on 12/01 and needed the catheter placed back by urology, causing acute prostatitis Treated with 9 days of ceftriaxone and now on Bactrim for 28 days given possible recurrent septic shock on 12/15 Reid catheter is now out and having urinary incontinence which is improving-he is now able to hold his bladder long enough to get to the urinal Repeat UAs and Ur cxs have been negative (5) Alcoholic hepatitis: Plan: In the setting of cirrhosis of liver seen on renal US Now resolved, now with mild transaminitis only-LFTs improving Encourage alcohol abstinence Will need outpatient GI follow-up for cirrhosis (6) Benign essential hypertension: Plan: Hypotensive while on losartan and then with septic shock vs orthostasis Blood pressure then became significantly elevated on 12/17-losartan was resumed by the creative engagement director, but with recurrent hypotension 12/19--> dc losartan (7) Anxiety: Plan: Continue Prozac, now on Haldol Appreciate Psych consult (8) Alcohol withdrawal seizure: Plan: Now resolved - treated in the ICU on admission Now off all antiseizure medicines (9) Wernicke-Korsakoff syndrome: Plan: As above (10) Cirrhosis: Plan: As above (11) Chronic diarrhea: Plan: Normal for him. C. difficile negative Imodium as needed Plan VTE Prophylaxis - Lovenox 40mg SQ daily Disposition -continued stay on PCU. Eventually will need discharge to rehab-but with ongoing delirium, still requiring 1:1 siter Discussed all care with his fiance at the bedside on 12/16. She lives 2 hours away and is back at work this week-will likely visit again later in week Admission and Anticipated Discharge Date Admission Date: November 23, 2023 Subjective Pt was apparently AAOx4 this AM for nurse and ambulated in halls with assistance, then was sitting in chair in room and had sudden increase in confusion again, mottling of skin, difficulty with speech, and BP found to be in 80s systolic. I was contacted and came to the bedside. The nurse had gotten him back in bed to lie flat and he was given a bolus of LR with improvement in BP. He denied any pain or lightheadedness, no CP, no SOB, no diarrhea. I discussed his care with Psychiatry Tele with NSR, ST rates 90s-1140s with ambulation Physical Exam Constitutional: WD/WN, vitals as above + ill appearing Respiratory: normal respiratory effort, lungs clear to auscultation Cardiovascular: Rate/Rhythm: regular rhythm and + tachycardic Heart Sounds: no murmur Extremities: no edema Gastrointestinal (Abdomen): normal bowel sounds, soft, nontender, no hepatosplenomegaly Neurologic: Speech / Cognition: + abnormal speech (tremor in speech) and + abnormal cognition Psychiatric: Orientation: alert, oriented to person and cooperative; + not oriented to place (thinks he is in the care home) Results & Data Results & Data Vital Signs (Past 12 Hours) Vital Signs Temp Pulse Pulse Resp BP Pulse Ox O2 Del Method 12/20/23 11:27 36.7 C 87 18 122/67 99 Room Air 12/20/23 07:37 36.7 C 74 20 125/74 98 Room Air 12/20/23 07:30 105 H 12/20/23 02:26 36.8 C 89 18 120/71 96 Room Air 12/20/23 00:08 80 18 93 12/20/23 00:00 83 O2 Flow Rate 12/20/23 11:27 12/20/23 07:37 12/20/23 07:30 12/20/23 02:26 12/20/23 00:08 3 12/20/23 00:00 Laboratory Results CBC, BMP, LFTs, magnesium, procal, and BCxs reviewed Diagnostic Findings CTA CHest negative PG Care Time/CCT Total # of Minutes Spent Total Time Spent with Patient: Total time spent is greater than 50% in coordination of care (as documented) at patient's floor/unit and/or counseling patient: Coding Level of Care Code 40577 SUB INP/OBS CARE 3/50MIN Diagnoses Other specified hypotension I95.89 Hypotension type: other hypotension type Encephalopathy G93.40 Alcohol withdrawal F10.931 Complication of substance-induced condition: with delirium Complicated UTI (urinary tract infection) N39.0 Alcoholic hepatitis K70.10 Ascites presence: unspecified Benign essential hypertension I10 Anxiety F41.9 Alcohol withdrawal seizure F10.939; R56.9 Complication of substance-induced condition: with unspecified complication Wernicke-Korsakoff syndrome F04 Cirrhosis K74.60 Chronic diarrhea K52.9 (1) Hypotension Hypotension type: other hypotension type Qualified Code(s): I95.89 - Other hypotension (3) Alcohol withdrawal Complication of substance-induced condition: with delirium Qualified Code(s): F10.931 - Alcohol use, unspecified with withdrawal delirium (5) Alcoholic hepatitis Ascites presence: unspecified Qualified Code(s): K70.10 - Alcoholic hepatitis without ascites (8) Alcohol withdrawal seizure Complication of substance-induced condition: with unspecified complication Qualified Code(s): F10.939 - Alcohol use, unspecified with withdrawal, unspecified; R56.9 - Unspecified convulsions
--- NOTE | 2023-12-20 13:26 | Psychiatric Progress Note ---
Date of Service December 20, 2023 Impression / Recommendations Impression 53 yo man with history of alcohol use disorder admitted for altered mental status with ongoing confusion and marked periods of restlessness requiring 1-on-1. Diagnostically consistent with ongoing delirium vs persistent alcohol- induced cognitive changes. He developed orthostasis with olanzapine but continues to have significant periods of restlessness and confusion necessitating pharmacologic intervention. Would consider use of haldol as it typically causes less orthostasis and fewer anti-cholinergic side effects. QTc slightly elevated on last EKG but still <500ms so haldol felt to be safe. Overall, I spent a total of 45 minutes with this case including review of chart records, review of labwork, review of EKG QTc, direct evaluation of the patient at bedside, counseling the patient, discussion of the patient with the Nurse and with the hospitalist provider, discussion with the psychiatric liason during clinical rounds and documentation in the electronic health record. (1) Acute hyperactive delirium due to another medical condition: (2) Alcohol withdrawal delirium: (3) Encephalopathy: (4) Alcohol use disorder, severe, dependence: (5) Depression: Plan -Continue fluoxetine 20mg daily -Discontinue olanzapine. -Start haldol 2.5mg BID po. -For behavioral emergency recommend: Haldol 2.5mg IM BID prn, monitor for QTc changes if multiple doses are required. -Start Benadryl 50mg IM prn only to be used for acute dystonia (due to anticholinergic effects it can worsen delirium if given for behavioral emergency) -Continue to treat any underlying causes contributing to potential delirium, avoid or limit use of deliriogenic medications (benzodiazepines, opioids, anticholinergics) -Continue with delirium prevention measures: raising blinds during the day, closing at night, frequent re-orientation, contact with family/friends, explaining procedures/nursing care measures prior to physical contact, correct any hearing and visual impairments Interval History Identifying Information Obdulio Franco is a 52-year-old man with history of alcohol use disorder admitted for acute alcohol withdrawal symptoms with concern for encephalopathy and seizure activity. Psychiatry consult for medication recommendations and agitation management. Chief Complaint "Yeah we're at buddhism". Subjective Subjective Patient was seen & assessed and interval progress reviewed. He is pleasant but confused, thinks we are in buddhism. Thinks month is December, knows year is 2023. States his mood is "ok". Discusses liking to [place] in the fall and being in the [place] when asked about his hiking boots which he is wearing while lying in bed. Has balloons at bedside, thinks the 1-on-1 in the room gave these to him. Physical Exam Psychiatric Orientation: alert and oriented to person; + not oriented to place and + not oriented to time Eye Contact: + fair eye contact Motor Behavior: no abnormal motor movements Speech: normal rate/rhythm/volume of speech Affect: + constricted affect Mood: no depressed mood, no anxious mood and no irritable mood Thought Process: + looseness of associations Thought Content: reality based without delusions Insight: + limited insight Judgment: + limited judgement Vital Signs (Past 24 Hours) Last Vital Signs Temp 36.7 C 12/20/23 11:27 Pulse 87 12/20/23 11:27 Resp 18 12/20/23 11:27 BP 122/67 12/20/23 11:27 Pulse Ox 99 12/20/23 11:27 O2 Del Method Room Air 12/20/23 11:27 O2 Flow Rate 3 12/20/23 00:08 FiO2 21 12/16/23 22:15 Results & Data ([facility]) Laboratory Results Laboratory Results - last 24 hr 12/20/23 05:32 WBC 7.09 RBC 4.27 L Hgb 13.9 L Hct 41.6 L MCV 97.4 MCH 32.6 MCHC 33.4 RDW Std Deviation 48.0 H RDW Coeff of Mira 13.4 Plt Count 204 MPV 12.7 H Immature Gran % (Auto) 0.3 Neut % (Auto) 63.2 Lymph % (Auto) 18.6 Rapides % (Auto) 11.7 Eos % (Auto) 3.9 Baso % (Auto) 2.3 Neut # (Auto) 4.48 Lymph # (Auto) 1.32 [place]ides # (Auto) 0.83 H Eos # (Auto) 0.28 Baso # (Auto) 0.16 Immature Gran # (Auto) 0.02 Sodium 136 Potassium 3.9 Chloride 103 Carbon Dioxide 24 Anion Gap 9 BUN 8 Creatinine 1.08 D Est Cr Clr Drug Dosing 84.2 Est GFR ( Amer) 90.3 Est GFR (Non-Af Amer) 77.9 BUN/Creatinine Ratio 7.4 L Glucose 144 H Calcium 9.5 Phosphorus 4.1 Magnesium 1.8 Total Bilirubin 1.2 H Direct Bilirubin 0.4 H AST 85 H ALT 58 H Alkaline Phosphatase 144 H Total Protein 6.9 Albumin 3.6 Procalcitonin 1.28 H Current Inpatient Medications Current Inpatient Medications: Current Inpatient Medications Acetaminophen (Acetaminophen 325 Mg Tab) 325 mg PO Q4H PRN PRN Reason: Headache or Pain Stop: 12/31/23 12:31 Last Admin: 12/04/23 00:46 Dose: 325 mg Enoxaparin Sodium (Enoxaparin Inj 40 Mg/0.4 Ml Syr) [facility] [place] Stop: 12/29/23 12:59 Last Admin: 12/20/23 08:46 Dose: 40 mg Fluoxetine HCl (Fluoxetine Hcl 20 Mg Cap) [facility] [place] Stop: 01/06/24 08:59 Last Admin: 12/20/23 08:44 Dose: 20 mg Folic Acid (Folic Acid 1 Mg Tab) [facility] [place] Stop: 12/29/23 08:59 Last Admin: 12/20/23 08:44 Dose: 1 mg Hydrocortisone (Hydrocortisone 1% Oint 30 Gm Tube) 1 appln EXT BID PRN PRN Reason: Rash Stop: 01/01/24 12:47 Last Admin: 12/19/23 08:14 Dose: 1 appln Loperamide HCl (Loperamide Hcl 2 Mg Cap) 2 mg PO Q6H PRN PRN Reason: Diarrhea Stop: 01/17/24 07:39 Magnesium Oxide (Magnesium Oxide 400 Mg Tab) 400 mg PO BID [facility] Stop: 01/17/24 08:59 Last Admin: 12/20/23 08:43 Dose: 400 mg Melatonin (Melatonin 3 Mg Tab) 3 mg PO HS [facility] Stop: 01/19/24 20:59 Multivitamins/Folic Acid/Vitamin C (Multivitamin Chewable Tab) [facility] [place] Stop: 01/02/24 08:59 Last Admin: 12/20/23 08:44 Dose: 1 tab Ondansetron HCl (Ondansetron Inj 2 Mg/Ml 2 Ml Vial) 4 mg IV Q6H PRN PRN Reason: Nausea Stop: 12/23/23 18:52 Thiamine HCl (Thiamine Hcl 100 Mg Tab) 200 mg PO [facility] Stop: 01/13/24 08:59 Last Admin: 12/20/23 08:43 Dose: 200 mg Trimethoprim/Sulfamethoxazole (Sulfamethoxazole/Trimethoprim Ds 800/160mg Tab) 1 tab PO Q12 [facility] Stop: 01/15/24 08:59 Last Admin: 12/20/23 08:44 Dose: 1 tab
[2023-12-20] MEDS ORDERED: HALOPERIDOL LACTATE 5 MG/ML 1 ML VIAL IM PRN (17:34)
[2023-12-20] MEDS ORDERED: diphenhydrAMINE 50 MG/ML VIAL IM PRN (17:34)
[2023-12-20] MEDS: MELATONIN 3 MG TAB PO SCH (20:24)
[2023-12-20] MEDS: haloperidoL 5 MG TAB PO SCH (20:25)
[2023-12-21 07:47] LABS: Basophils # (auto) 0.18 K/uL (0.00-0.20); Basophils % (auto) 2.8 %; Eosinophils % (auto) 6.3 %; Hematocrit (blood only) 37.1 % (42.0-52.0); Hemoglobin 12.3 g/dl (14.0-18.0); Immature Granulocytes # (auto) 0.01 K/uL (0.01-0.20); Immature Granulocytes % (auto) 0.2 %; Lymphocytes # (auto) 1.17 K/uL (1.20-3.40); Lymphocytes % (auto) 18.5 %; Mean Corpuscular Hemoglobin 31.9 pg (25.0-34.0); Mean Corpuscular Hgb Conc 33.2 g/dL (32.0-36.0); Mean Corpuscular Volume 96.4 fL (80.0-100.0); Mean Platelet Volume 12.2 fL (9.4-12.4); Monocytes # (auto) 0.94 K/uL (0.11-0.59); Monocytes % (auto) 14.8 %; Neutrophils # (auto) 3.63 K/uL (1.40-6.50); Neutrophils % (auto) 57.4 %; Platelet Count 185 K/uL (130-400); RDW Coefficient of Variation 13.4 % (11.5-14.5); RDW Standard Deviation 47.4 fL (36.4-46.3); Red Blood Count 3.85 M/uL (4.70-6.10); White Blood Count 6.33 K/ul (4.8-10.8)
--- NOTE | 2023-12-21 11:14 | Hospitalist Progress Note ---
Date of Service December 21, 2023 Assessment & Plan (1) Hypotension: Plan: Had acute onset of hypotension with syncopal episode on the toilet on 12/15 with sinus tachycardia, lactic acidosis, elevated WBC count and elevated procal but never became febrile and repeat urine and blood cultures had no growth. Responded somewhat to fluid bolus and was started on Levophed and transferred to ICU on 12/15 Given previous likely prostatitis with E. coli septicemia, concern for r ecurrence of such or acute prostatitis, septic thrombophlebitis potentially with superficial thrombus in the left cephalic vein on Dopplers His D-dimer is significantly elevated at 32,000-but was thought not likely to have PE given negative Dopplers for DVT and no hypoxia Troponin normal at 17, ECG without ischemic changes, no chest pains, ruled out ACS Random cortisol appropriately elevated at 40 Suspected septic shock but never became febrile and cultures all negative, CXR negative He was transferred out of ICU Had exact same repeat episode on AM of 12/19 with acute on set of confusion, norm ling of skin in face, tremors, hypotension, tachycardia after walking in halls and then sitting in chair. CTA CHest neg for PE. Responded to IVF 1 L bolus It seems at this point that these orthostatic episodes started occurring after being started on olanzapine Changed Olanzapine to Haldol bid and use IM Haldol prn severe agitation-less likely to cause orthostasis Losartan DCed (2) Encephalopathy: Plan: Ongoing encephalopathy from alcohol withdrawal and hospital delirium, E. coli septicemia Had worsening when was started on Keppra for seizure activity-this has been stopped. Worse also with Ativan and this is all been stopped Overall improved since 12/14, conversational, oriented intermittently, and still off and on the one-to-one sitter. 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 He does have cirrhosis on imaging but NH3 levels have been normal Possible seizure activity on EEG 12/09 and initially treated with Keppra however now discontinued due to agitated delirium Started on FRANK risperidone 12/11 and switched to olanzapine 5 mg at bedtime on 12/14---> now on Haldol due to severe orthostasis Follow-up with neurology as an outpatient after [place] COntinue supportive care and delirium prevention strategies Improved, but speech abnormalities and some intermittent confusion and inappropriate answers to questions persists (3) Alcohol withdrawal: Plan: Now resolved Alcohol withdrawal with hallucinations when he checked into alcohol rehabilitation and seizures in the ER Initial management with Precedex drip, phenobarbital, Ativan. Now off Precedex drip. Completed phenobarbital course (4) Complicated UTI (urinary tract infection): Plan: Now resolved, with E. coli sepsis Patient removed his catheter traumatically on 12/01 and needed the catheter placed back by urology, causing acute prostatitis Treated with 9 days of ceftriaxone and now on Bactrim for 28 days given possible recurrent septic shock on 12/15 Reid catheter is now out and having urinary incontinence which is improving-he is now able to hold his bladder long enough to get to the urinal REpeat UA/UC negative (5) Alcoholic hepatitis: Plan: In the setting of cirrhosis of liver seen on renal US Now resolved, now with mild transaminitis only-LFTs improving Encourage alcohol abstinence Will need outpatient GI follow-up for cirrhosis (6) Benign essential hypertension: Plan: Hypotensive while on losartan and then with septic shock vs orthostasis Blood pressure then became significantly elevated on 12/17-losartan was resumed by the furrier apprentice, but with recurrent hypotension 12/19--> dced losartan (7) Anxiety: Plan: Continue Prozac, now on Haldol Appreciate Psych consult (8) Alcohol withdrawal seizure: Plan: Now resolved - treated in the ICU on admission Now off all antiseizure medicines (9) Wernicke-Korsakoff syndrome: Plan: As above (10) Cirrhosis: Plan: As above (11) Chronic diarrhea: Plan: Normal for him. C. difficile negative Imodium as needed Plan VTE Prophylaxis - Lovenox 40mg SQ daily Disposition -continued stay on PCU. Eventually will need discharge to rehab-but with ongoing delirium. Will reassess this morning, is oriented but then becomes intermittently confused again on recheck and, still requiring 1:1 siter Discussed all care with his fiance at the bedside on 12/16. She lives 2 hours away and is back at work this week-will likely visit again later in week Admission and Anticipated Discharge Date Admission Date: November 23, 2023 Physical Exam Physical Exam: General: Nondistressed. Tremulous but nontoxic. Somewhat increased speech latency and slight abnormality to quality of speech. He is oriented to name year, but has difficulty answering the month and sometimes answers inappropriately HEENT: Atraumatic, normocephalic. Vision and hearing grossly intact Pulm: CTAB A&P. -wheezes, -rales, -rhonchi. Symmetrical chest rise. No increased work of breathing. No respiratory distress. Cardiac: RRR, -mrg. Radial pulses intact and symmetrical. Extremities: Tremor in upper extremities bilaterally Results & Data Results & Data Vital Signs (Past 12 Hours) Vital Signs Temp Pulse Pulse Resp BP Pulse Ox O2 Del Method 12/21/23 10:19 36.8 C 84 20 113/72 92 Room Air 12/21/23 07:24 72 12/21/23 07:07 36.7 C 73 20 120/76 96 Room Air 12/21/23 04:00 82 21 129/77 94 Room Air PG Care Time/CCT Total # of Minutes Spent Total Time Spent with Patient: Total time spent is greater than 50% in coordination of care (as documented) at patient's floor/unit and/or counseling patient: Coding Level of Care Code 63101 SUB INP/OBS CARE 3/50MIN Diagnoses Other specified hypotension I95.89 Hypotension type: other hypotension type Encephalopathy G93.40 Alcohol withdrawal F10.931 Complication of substance-induced condition: with delirium Complicated UTI (urinary tract infection) N39.0 Alcoholic hepatitis K70.10 Ascites presence: unspecified Benign essential hypertension I10 Anxiety F41.9 Alcohol withdrawal seizure F10.939; R56.9 Complication of substance-induced condition: with unspecified complication Wernicke-Korsakoff syndrome F04 Cirrhosis K74.60 Chronic diarrhea K52.9 (1) Hypotension Hypotension type: other hypotension type Qualified Code(s): I95.89 - Other hypotension (3) Alcohol withdrawal Complication of substance-induced condition: with delirium Qualified Code(s): F10.931 - Alcohol use, unspecified with withdrawal delirium (5) Alcoholic hepatitis Ascites presence: unspecified Qualified Code(s): K70.10 - Alcoholic hepatitis without ascites (8) Alcohol withdrawal seizure Complication of substance-induced condition: with unspecified complication Qualified Code(s): F10.939 - Alcohol use, unspecified with withdrawal, unspecified; R56.9 - Unspecified convulsions
[2023-12-22 07:28] LABS: Basophils # (auto) 0.13 K/uL (0.00-0.20); Basophils % (auto) 2.1 %; Eosinophils # (auto) 0.34 K/uL (0.00-0.50); Eosinophils % (auto) 5.6 %; Hematocrit (blood only) 38.2 % (42.0-52.0); Hemoglobin 12.7 g/dl (14.0-18.0); Immature Granulocytes # (auto) 0.02 K/uL (0.01-0.20); Immature Granulocytes % (auto) 0.3 %; Lymphocytes # (auto) 1.41 K/uL (1.20-3.40); Lymphocytes % (auto) 23.3 %; Mean Corpuscular Hemoglobin 31.9 pg (25.0-34.0); Mean Corpuscular Hgb Conc 33.2 g/dL (32.0-36.0); Mean Platelet Volume 12.1 fL (9.4-12.4); Monocytes # (auto) 0.65 K/uL (0.11-0.59); Monocytes % (auto) 10.7 %; Platelet Count 187 K/uL (130-400); RDW Coefficient of Variation 13.1 % (11.5-14.5); RDW Standard Deviation 46.5 fL (36.4-46.3); Red Blood Count 3.98 M/uL (4.70-6.10); White Blood Count 6.05 K/ul (4.8-10.8)
--- NOTE | 2023-12-22 07:43 | Hospitalist Progress Note ---
Date of Service December 22, 2023 Assessment & Plan (1) Encephalopathy: Plan: Ongoing encephalopathy from alcohol withdrawal and hospital delirium, E. coli septicemia Had worsening when was started on Keppra for seizure activity-this has been stopped. 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 He does have cirrhosis on imaging but NH3 levels have been normal last check 12/13/2023 Possible seizure activity on EEG 12/09 and initially treated with Keppra however now discontinued due to agitated delirium Started on FRANK risperidone 12/11 and switched to olanzapine 5 mg at bedtime on 12/14---> now on Haldol due to severe orthostasis Follow-up with neurology as an outpatient after [place] Continue supportive care and delirium prevention strategies Improved, prolonged alcohol delirium has been described in the literature and may take some time to respond even weeks to months (2) Hypotension: Plan: Resolved Had acute onset of hypotension with syncopal episode on the toilet on 12/15 with sinus tachycardia, lactic acidosis, elevated WBC count and elevated procal but never became febrile (initial blood cultures with E Coli 12/01) and repeat urine and blood cultures had no growth. Responded somewhat to fluid bolus and was started on Levophed and transferred to ICU on 12/15 Suspected septic shock but never became febrile and cultures all negative, CXR negative, CTA negative for PE, Random cortisol appropriate repeat episode on AM of 12/19 with acute on set of confusion, mottling of skin in face, tremors, hypotension, tachycardia after walking in halls and then sitting in chair. It seems at this point that these orthostatic episodes started occurring after being started on olanzapine Changed Olanzapine to Haldol bid and use IM Haldol prn severe agitation-less likely to cause orthostasis Losartan D/Lawson (3) Alcohol withdrawal: Plan: Now resolved Alcohol withdrawal with hallucinations when he checked into alcohol rehabilitation and seizures in the ER Initial management with Precedex drip, phenobarbital, Ativan. Now off Precedex drip. Completed phenobarbital course alcohol hepatitis now resolved in the setting of cirrhosis, will need outpt follow up (4) Complicated UTI (urinary tract infection): Plan: Now resolved, with E. coli sepsis Patient removed his catheter traumatically on 12/01 and needed the catheter placed back by urology, causing acute prostatitis Treated with 9 days of ceftriaxone and now on Bactrim for 28 days given possible recurrent septic shock on 12/15 Reid catheter is now out and having urinary incontinence which is improving-he is now able to hold his bladder long enough to get to the urinal REpeat UA/UC negative (5) Anxiety: Plan: Continue Prozac, now on Haldol Appreciate Psych consult (6) Chronic diarrhea: Plan: Normal for him. C. difficile negative Imodium as needed Plan VTE Prophylaxis - Lovenox 40mg SQ daily Disposition -continued stay on PCU. Eventually will need discharge to rehab-but with ongoing delirium. chronic diarrhea, C diff negative benign essential hypertension Admission and Anticipated Discharge Date Admission Date: November 23, 2023 Subjective Patient was calm and cooperative he did have some persistent tremors of his hands and feet. Reportedly he is not required one-on-one for some time and this is a nursing generate one-to-one which will hopefully try to be discontinued today Significant other was updated at the bedside Physical Exam Physical Exam: Awake oriented x 2 he does know he is in [place] but then he got slightly confabulatory Card exam is regular lungs are clear with good excursion abdomen NABS soft and nontender Results & Data Results & Data Vital Signs (Past 12 Hours) Vital Signs Temp Pulse Pulse Resp BP Pulse Ox O2 Del Method 12/22/23 06:25 98.2 F 75 18 117/65 94 Room Air 12/21/23 22:53 98.1 F 75 18 151/80 H 97 Room Air 12/21/23 22:01 80 Laboratory Results Reviewed CBC reviewed chemistry PG Care Time/CCT Total # of Minutes Spent Total Time Spent with Patient: Total time spent is greater than 50% in coordination of care (as documented) at patient's floor/unit and/or counseling patient: Coding Level of Care Code 86606 SUB INP/OBS CARE 2/35MIN Diagnoses Encephalopathy G93.40 Other specified hypotension I95.89 Hypotension type: other hypotension type Alcohol withdrawal F10.931 Complication of substance-induced condition: with delirium Complicated UTI (urinary tract infection) N39.0 Anxiety F41.9 Chronic diarrhea K52.9 (2) Hypotension Hypotension type: other hypotension type Qualified Code(s): I95.89 - Other hypotension (3) Alcohol withdrawal Complication of substance-induced condition: with delirium Qualified Code(s): F10.931 - Alcohol use, unspecified with withdrawal delirium
[2023-12-22 07:54] LABS: Albumin Level 3.2 gm/dl (3.4-5.0); BUN Creatinine Ratio 8.1 (10-20); Bilirubin,Total 1.2 mg/dl (0.2-1.0); Calcium 8.9 mg/dl (8.6-10.3); Est GFR (African American) 122.1 ml/min; Est GFR (Non-African American) 105.3 ml/min; Globulin 3.1 gm/dl (2.5-4.0); Potassium 3.9 mmol/L (3.5-5.1); Total Protein 6.3 gm/dl (6.0-8.3)
[2023-12-23 08:01] VITALS: RESP 20; TEMP 98.4
[2023-12-23 11:00] VITALS: BP 111/71; O2SAT 96
[2023-12-23 14:18] VITALS: PULSE 88
--- NOTE | 2023-12-23 17:46 | Discharge Summary ---
Discharge Summary Date of Service December 23, 2023 Principal Dx & Hospital Course #1 = Principal Diagnosis (1) Encephalopathy: improving encephalopathy from alcohol withdrawal and hospital delirium, E. coli septicemia Had worsening when was started on Keppra for seizure activity-this has been stopped. 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 He does have cirrhosis on imaging but NH3 levels have been normal last check 12/13/2023 Possible seizure activity on EEG 12/09 and initially treated with Keppra however now discontinued due to agitated delirium Started on FRANK risperidone 12/11 and switched to olanzapine 5 mg at bedtime on 12/14---> now on Haldol with improved orthostasis Follow-up with neurology as an outpatient after [place] Continue supportive care and delirium prevention strategies Improved, prolonged alcohol delirium has been described in the literature and may take some time to respond even weeks to months (2) Hypotension: Resolved Had acute onset of hypotension with syncopal episode on the toilet on 12/15 with sinus tachycardia, lactic acidosis, elevated WBC count and elevated procal but never became febrile (initial blood cultures with E Coli 12/01) and repeat urine and blood cultures had no growth. Responded somewhat to fluid bolus and was started on Levophed and transferred to ICU on 12/15 Suspected septic shock but never became febrile and cultures all negative, CXR negative, CTA negative for PE, Random cortisol appropriate repeat episode on AM of 12/19 with acute on set of confusion, mottling of skin in face, tremors, hypotension, tachycardia after walking in halls and then sitting in chair. It seems at this point that these orthostatic episodes started occurring after being started on olanzapine Changed Olanzapine to Haldol bid and use IM Haldol prn severe agitation-less likely to cause orthostasis Losartan D/Lawson (3) Alcohol withdrawal: Now resolved Alcohol withdrawal with hallucinations when he checked into alcohol rehabilitation and seizures in the ER Initial management with Precedex drip, phenobarbital, Ativan. Now off Precedex drip. Completed phenobarbital course alcohol hepatitis now resolved in the setting of cirrhosis, will need outpt follow up (4) Complicated UTI (urinary tract infection): Now resolved, with E. coli sepsis Patient removed his catheter traumatically on 12/01 and needed the catheter placed back by urology, causing acute prostatitis Treated with 9 days of ceftriaxone and now on Bactrim for 28 days given possible recurrent septic shock on 12/15 Reid catheter is now out and having urinary incontinence which is improving-he is now able to hold his bladder long enough to get to the urinal REpeat UA/UC negative (5) Anxiety: Continue Prozac, now on Haldol Appreciate Psych consult (6) Chronic diarrhea: Normal for him. C. difficile negative Imodium as needed Notes For Next Care Provider Likely as patient's mental status improves will need his Haldol tapered. Reevaluation of his prostate as he did have a traumatic removal of Reid catheter during his hospital stay. Likewise his antihypertensive medications have been streamlined due to him not needing as much since he is been through his alcohol withdrawal. Consideration of naltrexone therapy to help keep him from returning to alcohol use Admission HPI Per Admitting Provider This is a 52-year-old male who presented to the ER with the above chief complaint. The patient is a poor historian at this time. Most of the history was obtained from ED report and documentation. Per report, patient is a heavy drinker. He drinks 8 beers every day. His last drink was last night. He then checked himself into drug and alcohol rehab because he wanted to quit drinking. At the rehab center, he was noted to be shaking, sweaty and hallucinating and thus was sent to the emergency room. He is currently very restless, fidgety, confused and is not able to answer questions accurately. He is getting easily distracted. He tells me that he does not take any medication on a regular basis. Discharge Exam Awake alert still somewhat shaky occasionally confused but much more clear today 12/23/2023 Updated Medication List Medication Instructions Recorded Confirmed Type albuterol sulfate 90 mcg/actuation 2 puff inhalation Q4H PRN Wheezing 11/24/23 11/24/23 History aerosol inhaler fluoxetine 40 mg capsule 40 mg PO QAM 11/24/23 11/24/23 History sildenafil 50 mg tablet 50 mg PO DAILY PRN Unknown 11/24/23 11/24/23 History thiamine HCl (vitamin B1) 100 mg 100 mg PO DAILY 11/24/23 11/24/23 History tablet triamcinolone acetonide 0.1 % 1 applic topical DAILY 11/24/23 11/24/23 History topical cream haloperidol 5 mg tablet 2.5 mg (1/2 x 5 mg) PO BID #60 tabs 12/23/23 Rx sulfamethoxazole 800 1 tab PO Q12 #60 tabs 12/23/23 Rx mg-trimethoprim 160 mg tablet (Bactrim DS) Hospital Stay Data Consultations 11/23/23 16:12 ED Decision to Admit Stat 11/23/23 17:47 Consult Engineering Patternmaker Routine 12/02/23 00:07 Consult Urology Routine 12/02/23 11:48 Consult Engineering Patternmaker Stat 12/09/23 17:04 Consult Neurology Routine 12/12/23 19:02 Consult Psychiatry Routine Diagnostic Imagining Performed 11/23/23 18:47 US liver Urgent 12/01/23 20:55 CT head/brain wo con Stat 12/02/23 12:48 CT neck soft tissues [CT soft tissue neck w con] Routine 12/02/23 13:20 MRI Brain [MR brain wo/w con] Urgent 12/09/23 17:02 CT head/brain wo con Stat 12/16/23 15:32 US venous duplex arm [US venous doppler UE BI] Routine US venous duplex leg [US venous doppler LE BI] Routine 12/16/23 15:34 US Kidney Bladder [US renal/blad retro comp] Routine 12/20/23 07:47 CT angio chest PE protocol Routine Pending Results Patient Have Any Pending Studies at Discharge: No Discharge Instructions Given to Patient (Per Discharging Provider) please strongly consider seeking further alcohol rehab take your medicines as prescribed, complete your antibiotics Total Time Total Time Spent Total Time Spent (In Minutes): It required greater than 30 minutes to prepare this patient for discharge. Coding Level of Care Code 62749 INP/OBS DISCH >30 MIN Diagnoses Encephalopathy G93.40 Other specified hypotension I95.89 Hypotension type: other hypotension type Alcohol withdrawal F10.931 Complication of substance-induced condition: with delirium Complicated UTI (urinary tract infection) N39.0 Anxiety F41.9 Chronic diarrhea K52.9
== END 2023-12-23 14:30 | disposition home or self-care (01) | DRG 896 ==
LOC: ED 13:48 → SUATTDRO 17:10 → 1E 17:10 → 2E 11-29 02:00 → 1E 12-02 14:48 → 2E 12-09 14:06 → 1E 12-16 13:15 → 2E 12-18 21:08